=== PATIENT | female | born 1955 | race Caucasian/White ===

== ENCOUNTER → 2017-08-07 | Outpatient (CLI) | payer MEDICARE, OTHER ==
[2017-08-07 12:47] LABS: C Reactive Protein 7.7 mg/L (<10.0); Uric Acid 5.9 mg/dL (3.7-7.4)
[2017-08-07 17:31] LABS: Rheumatoid Factor <4 IU/mL (0-15); Streptolysin O Ab(ASO) 42 IU/mL (0-200)
[2017-08-07 20:30] LABS: Cyclic Citrullinated Pep IgG NEGATIVE (NEGATIVE)
[2017-08-08 10:54] LABS: HLA B27 NEGATIVE
== END | disposition home or self-care (01) ==
LOC: LABWHC1 11:48
PROVIDERS: ATTEND Family Medicine
DX: M25.50 Pain in unspecified joint (principal)
CPT/HCPCS: 36415; 84550; 85652; 86038; 86060; 86140; 86200; 86431; 86812

== ENCOUNTER 2021-01-24 10:44 | Inpatient (IN) | payer MEDICARE ==
--- NOTE | 2021-01-24 11:16 | XR ---
EXAMINATION TYPE: XR chest 2V DATE OF EXAM: 01/24/2021 COMPARISON: Chest x-ray May 03, 2010. CT October 22, 2010 HISTORY: Cough and shortness of breath. TECHNIQUE: Frontal and lateral views of the chest are obtained. FINDINGS: There are multifocal areas of increased opacity in the bilateral lungs. The cardiac silho uette size is stable and within normal limits. The osseous structures are intact. IMPRESSION: New bilateral multifocal increased opacities suspicious for covid-19 infection. Correlat e clinically.
[2021-01-24] MEDS ORDERED: DEXAMETHASONE SOD PHOSPHATE 10 MG/ML 1 ML VIAL IV STA (11:36)
[2021-01-24 11:52] LABS: Basophils % (A) 0 %; Eosinophils % (A) 1 %; HCT 46.3 % (34.0-46.0); HGB 15.1 gm/dL (11.4-16.0); Lymphocytes # (A) 0.5 k/uL (1.0-4.8); Lymphocytes % (A) 13 %; MCH 29.6 pg (25.0-35.0); MCHC 32.7 g/dL (31.0-37.0); MCV 90.7 fL (80.0-100.0); Mean Platelet Volume 8.7; Monocytes # (A) 0.2 k/uL (0-1.0); Monocytes % (A) 5 %; Neutrophils # (A) 2.8 k/uL (1.3-7.7); Neutrophils % (A) 81 %; Platelet Count 148 k/uL (150-450); RDW 13.4 % (11.5-15.5); WBC 3.5 k/uL (3.8-10.6)
[2021-01-24] MEDS ORDERED: NALOXONE 0.4 MG/ML 1 ML VIAL IV PRN (12:50)
--- NOTE | 2021-01-24 12:50 | ED ---
URI HPI - General Chief Complaint: Upper Respiratory Infection Stated Complaint: Cough,Weakness Time Seen by Provider: 01/24/21 10:50 Source: patient, RN notes reviewed Mode of arrival: ambulatory Limitations: no limitations - History of Present Illness Initial Comments: Patient is a 65-year-old female that presents to the emergency department complaining of upper respiratory tract symptoms with cough and phlegm production that is blood tinged/street for the past 2 weeks. She notes that the blood- tinged streaking started early this morning. She notes that she thought it might of been a bronchitis that she tried treating conservatively at home. She notes she came in today due to concerns of the blood in her sputum. She denied any history besides asthma. She was otherwise well-appearing. She noted that exertion made the shortness of breath worse. She denied any chest pain headache nausea vomiting diarrhea constipation fever fatigue chills. - Related Data Home Medications Medication Instructions Recorded Confirmed Levothyroxine Sodium [Synthroid] 75 mcg PO DAILY 01/24/21 01/24/21 Liothyronine Sodium [Cytomel] 5 mcg PO DAILY 01/24/21 01/24/21 Allergies Allergy/AdvReac Type Severity Reaction Status Date / Time codeine Allergy Hallucinati Verified 01/24/21 11:55 ons latex Allergy Unknown Verified 01/24/21 11:55 Penicillins Allergy Unknown Verified 01/24/21 11:56 Review of Systems ROS Statement: Those systems with pertinent positive or pertinent negative responses have been documented in the HPI. ROS Other: All systems not noted in ROS Statement are negative. Past Medical History Additional Past Medical History / Comment(s): back pain History of Any Multi-Drug Resistant Organisms: None Reported Past Surgical History: Hysterectomy, Orthopedic Surgery Additional Past Surgical History / Comment(s): carpal tunnel Past Psychological History: No Psychological Hx Reported Smoking Status: Never smoker Past Alcohol Use History: None Reported Past Drug Use History: None Reported General Exam Limitations: no limitations General appearance: alert, in no apparent distress, obese Head exam: Present: atraumatic, normocephalic, normal inspection Eye exam: Present: normal appearance, PERRL, EOMI. Absent: scleral icterus, conjunctival injection, periorbital swelling ENT exam: Present: normal exam, mucous membranes moist Neck exam: Present: normal inspection Respiratory exam: Present: normal lung sounds bilaterally. Absent: respiratory distress, wheezes, rales, rhonchi, stridor Cardiovascular Exam: Present: regular rate, normal rhythm, normal heart sounds. Absent: systolic murmur, diastolic murmur, rubs, gallop, clicks Extremities exam: Present: normal inspection, full ROM, normal capillary refill. Absent: tenderness, pedal edema, joint swelling, calf tenderness Neurological exam: Present: alert, oriented X3 Psychiatric exam: Present: normal affect, normal mood Skin exam: Present: warm, dry, intact, normal color. Absent: rash Course Vital Signs 01/24/21 10:46 Temperature 98.5 F Pulse Rate 96 Respiratory 18 Rate Blood Pressure 102/65 O2 Sat by Pulse 94 L Oximetry Medical Decision Making - Medical Decision Making 65-year-old female with a two-week history of upper respiratory tract symptoms. Covid test, basic labs, 10 mg of Decadron, chest x-ray ordered. Labs: Leukopenia with white blood cells and 3.5. Covid test positive. Chest x-ray shows bilateral infiltrates consistent with Covid 19 infection. Patient will be started on 2 L oxygen via nasal cannula due to room air saturation ranging from 89-93%. Case discussed with Dr. Arevalo, patient will be admitted. Dr. Rodriguez was consulted and will Be admitted. - Lab Data Result diagrams: 01/24/21 11:30 Lab Results 01/24/21 01/24/21 Range/Units 11:30 11:30 WBC 3.5 L (3.8-10.6) k/uL RBC 5.10 (3.80-5.40) m/uL Hgb 15.1 (11.4-16.0) gm/dL Hct 46.3 H (34.0-46.0) % MCV 90.7 (80.0-100.0) fL MCH 29.6 (25.0-35.0) pg MCHC 32.7 (31.0-37.0) g/dL RDW 13.4 (11.5-15.5) % Plt Count 148 L (150-450) k/uL MPV 8.7 Neutrophils % 81 % Lymphocytes % 13 % Monocytes % 5 % Eosinophils % 1 % Basophils % 0 % Neutrophils # 2.8 (1.3-7.7) k/uL Lymphocytes # 0.5 L (1.0-4.8) k/uL Monocytes # 0.2 (0-1.0) k/uL Eosinophils # 0.0 (0-0.7) k/uL Basophils # 0.0 (0-0.2) k/uL Coronavirus (PCR) Detected A (Not Detectd) - Radiology Data Radiology results: report reviewed, image reviewed Chest x-ray: New bilateral multifocal increased opacity suspicious for Covid 19 infection. Disposition Clinical Impression: COVID, Hypoxia Disposition: ADMITTED IP TO THIS HOSP Condition: Stable Is patient prescribed a controlled substance at d/c from ED?: No Referrals: Yaya Gonzalez MD [Primary Care Provider] - 1-2 days Time of Disposition: 12:50
[2021-01-24] MEDS ORDERED: IPRATROPIUM-ALBUTEROL 3 ML NEB INHALATION PRN (13:42)
--- NOTE | 2021-01-24 13:46 | P.HPIM ---
History of Present Illness H&P Date: 01/24/21 Chief Complaint: Hemoptysis 65-year-old woman with medical history of hypothyroidism and obesity class II, unvaccinated for Covid, presented for hemoptysis. Patient says her symptoms started approximately 1 week ago with fevers, chills and cough. Initially, she thought she had a common bronchitis, however, became concerned when she started to cough up blood in her sputum. Furthermore, she tells me that she's had fevers and chills in this last week as well as loss of appetite and nausea/vomiting/abdominal pain. She's had very minimal by mouth intake for the last week, consuming about half a cup of soup. Patient's daughter is an RN who advised her against vaccination as well as against remdesivir while in house. Patient recently lost her as well. Patient denies chest pain, syncope, diaphoresis, dysuria, dyschezia, melena, numbness of extremities. Patient is afebrile, 102/65, pulse is 96, 94% on 2 L nasal cannula. CBC shows low white blood cell count, low platelet count. Covid detected. Chest x-ray shows patchy consolidation bilaterally consistent with Covid pneumonia. Review of Systems All Systems reviewed and pertinent positives and negatives noted in HPI, all other symptoms are negative Past Medical History Additional Past Medical History / Comment(s): back pain History of Any Multi-Drug Resistant Organisms: None Reported Past Surgical History: Hysterectomy, Orthopedic Surgery Additional Past Surgical History / Comment(s): carpal tunnel Past Psychological History: No Psychological Hx Reported Smoking Status: Never smoker Past Alcohol Use History: None Reported Past Drug Use History: None Reported Medications and Allergies Home Medications Medication Instructions Recorded Confirmed Type Levothyroxine Sodium [Synthroid] 75 mcg PO DAILY 01/24/21 01/24/21 History Liothyronine Sodium [Cytomel] 5 mcg PO DAILY 01/24/21 01/24/21 History Allergies Allergy/AdvReac Type Severity Reaction Status Date / Time codeine Allergy Hallucinati Verified 01/24/21 11:55 ons latex Allergy Unknown Verified 01/24/21 11:55 Penicillins Allergy Unknown Verified 01/24/21 11:56 Physical Exam Osteopathic Statement: *. No significant issues noted on an osteopathic s tructural exam other than those noted in the History and Physical/Consult. Vitals: Vital Signs Temp Pulse Resp BP Pulse Ox 01/24/21 10:46 98.5 F 96 18 102/65 94 L Intake and Output 01/23/21 01/24/21 01/24/21 22:59 06:59 14:59 Other: Weight 117.934 kg Gen: awake, alert HEENT: normocephalic, atraumatic, good hearing acuity, moist mucous membranes Resp: Impaired air exchange, symmetric chest expansion, bilateral crackles CVS: good distal perfusion x 4, regular rate and rhythm without murmurs GI: soft, NTTP, ND : no SPT, no CVAT, white catheter not present MSK: no pitting edema, no clubbing Neuro: non-focal, moving all extremities Psych: cooperative, euthymic mood Results CBC & Chem 7: 01/24/21 11:30 Labs: Abnormal Lab Results - Last 24 Hours (Table) 01/24/21 01/24/21 Range/Units 11:30 11:30 WBC 3.5 L (3.8-10.6) k/uL Hct 46.3 H (34.0-46.0) % Plt Count 148 L (150-450) k/uL Lymphocytes # 0.5 L (1.0-4.8) k/uL Coronavirus (PCR) Detected A (Not Detectd) Assessment and Plan Assessment: Acute hypoxemic respiratory failure ARDS secondary to Covid 19 Hemoptysis -Admit inpatient, telemetry -Pulmonary consult -Patient declined Remdesivir (7-8 days from symptom onset, almost outside of window) -Dexamethasone 6 mg daily; LD SSI while on steroids -Vitamin C/D, zinc, famotidine -Daily inflammatory markers -DuoNeb when necessary -guaifenisen-codeine PRN for cough Hypothyroidism Obesity, class II, BMI 40.7 -resume home liothyronine and levothyroxine. -recommend weight loss outpatient Patient is a Full Code DVT PPx with enoxaparin 40mg SQ BID given weight Daughter is DPOA Prognosis is guarded
[2021-01-24] MEDS: SODIUM CHLORIDE 0.9% 1,000 ML IV SCH ×2 (13:57→20:42)
[2021-01-24 15:14] LABS: ALT 30 U/L (4-34); AST 64 U/L (14-36); African American GFR (CKD) 90 (>60 ml/min/1.73 sqM); Albumin 3.7 g/dL (3.5-5.0); Albumin/Globulin Ratio 1.2; Alkaline Phosphatase 141 U/L (38-126); Anion Gap 8 mmol/L; Bilirubin,Unconjugated 0.2 mg/dL (0.0-1.1); Blood Urea Nitrogen 20 mg/dL (7-17); C Reactive Protein 5.7 mg/dL (<1.0); Calcium 8.6 mg/dL (8.4-10.2); Carbon Dioxide 23 mmol/L (22-30); Chloride 105 mmol/L (98-107); Glucose 119 mg/dL (74-99); LDH 1147 U/L (313-618); Magnesium 2.2 mg/dL (1.6-2.3); Non-African American GFR(CKD) 78 (>60 ml/min/1.73 sqM); Sodium 136 mmol/L (137-145); Total Protein 6.7 g/dL (6.3-8.2)
[2021-01-24] MEDS: ALBUTEROL HFA INHALER INHALATION PRN ×2 (16:57→18:54)
[2021-01-24] MEDS: ENOXAPARIN 40 MG/0.4 ML SYRINGE SQ SCH (20:27)
[2021-01-24] MEDS: FAMOTIDINE 20 MG TAB PO SCH (20:27)
[2021-01-24] MEDS: ACETAMINOPHEN TAB 325 MG TAB PO PRN (20:42)
[2021-01-24] MEDS: guaiFENesin-Coden 100-10MG/5ML 10 ML CUP PO PRN (20:42)
[2021-01-25] MEDS: ACETAMINOPHEN TAB 325 MG TAB PO PRN ×2 (05:37→21:43)
[2021-01-25] MEDS ORDERED: LEVOTHYROXINE 75 MCG TAB PO SCH (06:00)
[2021-01-25] MEDS: SODIUM CHLORIDE 0.9% 1,000 ML IV SCH ×4 (06:01→21:44)
[2021-01-25] MEDS: CHOLECALCIFEROL 25 MCG (1000 IU) TABLET PO SCH (07:02)
[2021-01-25] MEDS: LIOTHYRONINE SODIUM 5 MCG TAB PO SCH (07:02)
[2021-01-25] MEDS: DEXAMETHASONE SOD PHOSPHATE 10 MG/ML 1 ML VIAL IV SCH (07:03)
[2021-01-25] MEDS: ENOXAPARIN 40 MG/0.4 ML SYRINGE SQ SCH ×2 (07:04→21:43)
[2021-01-25] MEDS: FAMOTIDINE 20 MG TAB PO SCH ×2 (07:04→21:43)
[2021-01-25 07:39] LABS: ALT 42 U/L (4-34); AST 62 U/L (14-36); African American GFR (CKD) >90 (>60 ml/min/1.73 sqM); Albumin 3.3 g/dL (3.5-5.0); Albumin/Globulin Ratio 1.2; Alkaline Phosphatase 162 U/L (38-126); Blood Urea Nitrogen 15 mg/dL (7-17); C Reactive Protein 6.6 mg/dL (<1.0); Calcium 8.7 mg/dL (8.4-10.2); Carbon Dioxide 25 mmol/L (22-30); Globulin 2.8 g/dL; Glucose 138 mg/dL (74-99); LDH 901 U/L (313-618); Magnesium 2.3 mg/dL (1.6-2.3); Non-African American GFR(CKD) >90 (>60 ml/min/1.73 sqM); Total Bilirubin 0.7 mg/dL (0.2-1.3); Total Protein 6.1 g/dL (6.3-8.2)
[2021-01-25 08:04] LABS: Anion Gap 6 mmol/L; Chloride 108 mmol/L (98-107); Potassium 4.5 mmol/L (3.5-5.1); Sodium 139 mmol/L (137-145)
[2021-01-25] MEDS: ALBUTEROL HFA INHALER INHALATION PRN ×4 (08:13→21:49)
[2021-01-25 09:57] LABS: Basophils # (A) 0 X 10*3/uL (0.00-0.10); Basophils % (A) 0 %; Eosinophils # (A) 0 X 10*3/uL (0.04-0.35); Eosinophils % (A) 0 %; HCT 44.3 % (37.2-46.3); HGB 14.1 g/dL (12.0-15.0); Lymphocytes # (A) 0.66 X 10*3/uL (0.90-5.00); MCH 28.3 pg (27.0-32.0); MCHC 31.8 g/dL (32.0-37.0); Mean Platelet Volume 11.3 fL (9.5-12.2); Monocytes # (A) 0.28 X 10*3/uL (0.20-1.00); Monocytes % (A) 6.3 %; Neutrophils # (A) 3.43 X 10*3/uL (1.80-7.70); Neutrophils % (A) 77.8 %; Platelet Count 159 X 10*3/uL (140-440); RBC 4.98 X 10*6/uL (4.10-5.20); RDW 13.5 % (11.5-14.5); WBC 4.41 X 10*3/uL (4.50-10.00)
--- NOTE | 2021-01-25 12:51 | P.CNPUL ---
History of Present Illness Consult date: 01/25/21 Requesting physician: Hugo Higuera Reason for consult: dyspnea, hypoxemia, pneumonia, abnormal CXR/CT Chief complaint: COVID-19 pneumonia History of present illness: 65-year-old white female patient with past medical history hypothyroidism, patient is a nonsmoker, who presented to the emergency department on 01/24/2021 with complaints of cough, phlegm production, decreased appetite. She stated that her symptoms started on January 16. Both her and the patient has been diagnosed with COVID-19, her is also hospitalized currently with COVID-19 pneumonia. She reports some hemoptysis. Her dyspnea is worsening at home. She is not vaccinated for COVID-19 because she believed that [place] and were [place] that they were not at risk. However recently they both traveled in a car across the country and brought their son home from [place]. She didn't developed above-mentioned symptoms, and she thought it was a upper respiratory infection, possibly bronchitis, she came into the emergency department for evaluation of blood-tinged sputum. She denied any history of chronic lung disease, no asthma COPD, she is a nonsmoker. No nausea vomiting or diarrhea. She tested positive for COVID-19, she was started on Decadron in the emergency department, with initial dose of 10 mg. Her chest x- ray showed bilateral infiltrates consistent with COVID-19 infection, her COVID test was positive. Her pulse ox is ranging from 89-93 on 2 L of oxygen. She had positive leukopenia on her admission labs, with white blood cell count of 3.5, hemoglobin of 15.1, platelet count is 148, lymphocytes, 0.5, sodium is 136, the rest of the electrolytes were within normal limits, B1 is 20, creatinine 0.8, AST was 64, ALT was 30, alkaline phosphatase was 141, LDH was elevated at 1147, CRP is 5.7, pro calcitonin level was negative at 0.08. Patient was offere d Remdesivir in the emergency department although she was outside the window for treatment. She has declined Remdesivir per her daughter's recommendations who is a RN. Patient remains on daily dose Decadron 6 mg, prophylactic Lovenox, she is on cough syrup, and albuterol inhaler, she was started on vitamin D3. Review of Systems All systems: negative Constitutional: Denies chills, Denies fever Eyes: denies blurred vision, denies pain Ears, nose, mouth and throat: Denies headache, Denies sore throat Cardiovascular: Denies chest pain, Denies shortness of breath Respiratory: Reports dyspnea, Reports hemoptysis, Denies cough Gastrointestinal: Denies abdominal pain, Denies diarrhea, Denies nausea, Denies vomiting Genitourinary: Denies dysuria, Denies hematuria Musculoskeletal: Denies myalgias Integumentary: Denies pruritus, Denies rash Neurological: Denies numbness, Denies weakness Psychiatric: Denies anxiety, Denies depression Endocrine: Denies fatigue, Denies weight change Past Medical History Past Medical History: Thyroid Disorder Additional Past Medical History / Comment(s): back pain, hormone replacement therapy History of Any Multi-Drug Resistant Organisms: None Reported Past Surgical History: Hysterectomy, Orthopedic Surgery Additional Past Surgical History / Comment(s): carpal tunnel Past Psychological History: No Psychological Hx Reported Smoking Status: Never smoker Past Alcohol Use History: None Reported Past Drug Use History: None Reported - Past Family History Father Family Medical History: Diabetes Mellitus Medications and Allergies Home Medications Medication Instructions Recorded Confirmed Type Levothyroxine Sodium [Synthroid] 75 mcg PO DAILY 01/24/21 01/24/21 History Liothyronine Sodium [Cytomel] 5 mcg PO DAILY 01/24/21 01/24/21 History Allergies Allergy/AdvReac Type Severity Reaction Status Date / Time codeine Allergy Hallucinati Verified 01/24/21 11:55 ons latex Allergy Unknown Verified 01/24/21 11:55 Penicillins Allergy Unknown Verified 01/24/21 11:56 Physical Exam Vitals: Vital Signs Temp Pulse Resp BP Pulse Ox 01/25/21 10:37 98.2 F 72 18 121/78 94 L 01/25/21 07:00 17 01/25/21 05:37 97.7 F 69 17 138/71 95 01/25/21 02:25 97.5 F L 64 18 133/81 95 01/24/21 21:46 98.2 F 76 18 109/67 96 01/24/21 17:56 99.2 F 83 18 110/66 95 01/24/21 16:55 95 01/24/21 15:13 100.1 F H 80 18 108/69 95 Intake and Output 01/24/21 01/25/21 01/25/21 22:59 06:59 14:59 Other: # Voids 1 2 GENERAL EXAM: Alert, pleasant, 65-year-old white female, on 2 L of oxygen with pulse ox of 94% comfortable in no apparent distress. HEAD: Normocephalic/atraumatic. EYES: Normal reaction of pupils, equal size. Conjunctiva pink, sclera white. NOSE: Clear with pink turbinates. THROAT: No erythema or exudates. NECK: No masses, no JVD, no thyroid enlargement, no adenopathy. CHEST: No chest wall deformity. Symmetrical expansion. LUNGS: Equal air entry with bibasilar crackles CVS: Regular rate and rhythm, normal S1 and S2, no gallops, no murmurs, no rubs ABDOMEN: Soft, nontender. No hepatosplenomegaly, normal bowel sounds, no guarding or rigidity. EXTREMITIES: No clubbing, no edema, no cyanosis, 2+ pulses and upper and lower extremities. MUSCULOSKELETAL: Muscle strength and tone normal. SPINE: No scoliosis or deformity SKIN: No rashes CENTRAL NERVOUS SYSTEM: Alert and oriented -3. No focal deficits, tone is normal in all 4 extremities. PSYCHIATRIC: Alert and oriented -3. Appropriate affect. Intact judgment and insight. Results - Laboratory Findings CBC and BMP: 01/25/21 06:22 01/25/21 06:22 Abnormal lab findings: Abnormal Labs 01/24/21 01/24/21 01/24/21 11:30 11:30 14:52 WBC 3.5 L Hct 46.3 H MCHC Plt Count 148 L Lymphocytes # 0.5 L Eosinophils # Sodium 136 L Chloride BUN 20 H Glucose 119 H AST 64 H ALT Alkaline Phosphatase 141 H Lactate Dehydrogenase 1147 H C-Reactive Protein 5.7 H Total Protein Albumin Coronavirus (PCR) Detected A 01/25/21 01/25/21 06:22 06:22 WBC 4.41 L Hct MCHC 31.8 L Plt Count Lymphocytes # 0.66 L Eosinophils # 0 L Sodium Chloride 108 H BUN Glucose 138 H AST 62 H ALT 42 H Alkaline Phosphatase 162 H Lactate Dehydrogenase 901 H C-Reactive Protein 6.6 H Total Protein 6.1 L Albumin 3.3 L Coronavirus (PCR) - Diagnostic Findings Chest x-ray: report reviewed, image reviewed Assessment and Plan Plan: Assessment: #1. Acute hypoxic respiratory failure related to acute COVID-19 pneumonia, and her symptoms started on January 16. Patient is not vaccinated for COVID-19. Patient declined Remdesivir treatment although she is outside the window for Remdesivir anyway, and she is currently on a combination of Decadron 6 mg daily, prophylactic Lovenox, albuterol inhaler, and vitamins #2. History of hypothyroidism #3. Morbid obesity with BMI 40.7 kg/m #4. Chronic back pain #5. Previous history of hysterectomy #6. Never smoker Plan: Continue current medical treatment Continue Decadron prophylactic Lovenox Albuterol inhaler Patient has refused Remdesivir although technically she is outside the window anyway We'll continue conservative medical treatment Continue multivitamins, we will add zinc and vitamin C We'll follow d-dimer and inflammatory markers We'll follow patient's clinical course and make further recommendations I performed a history & physical examination of the patient and discussed their management with my nurse practitioner, Susie Joaquin. I reviewed the nurse practitioner's note and agree with the documented findings and plan of care. Lung sounds are positive for diminished breath sounds throughout the lung driscoll. The findings and the impression was discussed with the patient. I attest to the documentation by the nurse practitioner. Time with Patient: Greater than 30
[2021-01-25] MEDS: ZINC SULFATE 220 MG CAP PO SCH (13:06)
[2021-01-25] MEDS: ASCORBIC ACID 500 MG TAB PO SCH ×2 (13:06→22:26)
--- NOTE | 2021-01-25 13:22 | P.PN ---
Subjective Progress Note Date: 01/25/21 Patient has no new complaints today. Has been afebrile, no further hemoptysis, continues to require 2 L of nasal cannula. Objective - Vital Signs Vital signs: Vital Signs Temp 98.2 F 01/25/21 10:37 Pulse 72 01/25/21 10:37 Resp 18 01/25/21 10:37 BP 121/78 01/25/21 10:37 Pulse Ox 94 L 01/25/21 10:37 Intake & Output 01/24/21 01/25/21 01/25/21 18:59 06:59 18:59 Weight 117.934 kg Other: # Voids 1 2 - Exam Gen: awake, alert HEENT: normocephalic, atraumatic, good hearing acuity, moist mucous membranes Resp: Impaired air exchange, symmetric chest expansion, bilateral crackles CVS: good distal perfusion x 4, regular rate and rhythm without murmurs GI: soft, NTTP, ND : no SPT, no CVAT, white catheter not present MSK: no pitting edema, no clubbing Neuro: non-focal, moving all extremities Psych: cooperative, euthymic mood - Labs CBC & Chem 7: 01/25/21 06:22 01/25/21 06:22 Labs: Abnormal Lab Results - Last 24 Hours (Table) 01/24/21 01/25/21 01/25/21 Range/Units 14:52 06:22 06:22 WBC 4.41 L (4.50-10.00) X 10*3/uL MCHC 31.8 L (32.0-37.0) g/dL Lymphocytes # 0.66 L (0.90-5.00) X 10*3/uL Eosinophils # 0 L (0.04-0.35) X 10*3/uL Sodium 136 L (137-145) mmol/L Chloride 108 H (98-107) mmol/L BUN 20 H (7-17) mg/dL Glucose 119 H 138 H (74-99) mg/dL AST 64 H 62 H (14-36) U/L ALT 42 H (4-34) U/L Alkaline Phosphatase 141 H 162 H (38-126) U/L Lactate Dehydrogenase 1147 H 901 H (313-618) U/L C-Reactive Protein 5.7 H 6.6 H (<1.0) mg/dL Total Protein 6.1 L (6.3-8.2) g/dL Albumin 3.3 L (3.5-5.0) g/dL Assessment and Plan Assessment: Acute hypoxemic respiratory failure ARDS secondary to Covid 19 Hemoptysis -Admit inpatient, telemetry -Pulmonary consult -Patient declined Remdesivir and now outside window -Dexamethasone 6 mg daily; LD SSI while on steroids -Vitamin C/D, zinc, famotidine -Daily inflammatory markers -DuoNeb when necessary -guaifenisen-codeine PRN for cough Hypothyroidism Obesity, class II, BMI 40.7 -resume home liothyronine and levothyroxine. -recommend weight loss outpatient Patient is a Full Code DVT PPx with enoxaparin 40mg SQ BID given weight Daughter is DPOA Prognosis is guarded
[2021-01-25] MEDS: guaiFENesin-Coden 100-10MG/5ML 10 ML CUP PO PRN (21:43)
[2021-01-26] MEDS: LEVOTHYROXINE 50 MCG TAB PO SCH (06:19)
[2021-01-26] MEDS: LIOTHYRONINE SODIUM 5 MCG TAB PO SCH (06:19)
[2021-01-26] MEDS ORDERED: ONDANSETRON 4 MG/2 ML VIAL IVP PRN (07:14)
[2021-01-26] MEDS: DEXAMETHASONE SOD PHOSPHATE 10 MG/ML 1 ML VIAL IV SCH (07:27)
[2021-01-26] MEDS: FAMOTIDINE 20 MG TAB PO SCH ×2 (07:28→22:00)
[2021-01-26] MEDS: ZINC SULFATE 220 MG CAP PO SCH (07:28)
[2021-01-26] MEDS: CHOLECALCIFEROL 25 MCG (1000 IU) TABLET PO SCH (07:28)
[2021-01-26] MEDS: ASCORBIC ACID 500 MG TAB PO SCH ×2 (07:28→22:00)
[2021-01-26] MEDS: ENOXAPARIN 40 MG/0.4 ML SYRINGE SQ SCH ×2 (07:35→22:00)
[2021-01-26 08:52] LABS: C Reactive Protein 5.6 mg/dL (<1.0)
[2021-01-26] MEDS: ACETAMINOPHEN TAB 325 MG TAB PO PRN ×2 (10:19→22:17)
[2021-01-26] MEDS: SODIUM CHLORIDE 0.9% 1,000 ML IV SCH ×2 (10:20→22:10)
[2021-01-26] MEDS ORDERED: MORPHINE SULFATE 2 MG/ML SYRINGE IVP STA (10:50)
[2021-01-26] MEDS: ALBUTEROL HFA INHALER INHALATION PRN ×3 (12:26→22:15)
--- NOTE | 2021-01-26 13:21 | P.PN ---
Subjective Progress Note Date: 01/26/21 Principal diagnosis: COVID-19 pneumonia 65-year-old white female patient with past medical history hypothyroidism, patient is a nonsmoker, who presented to the emergency department on 01/24/2021 with complaints of cough, phlegm production, decreased appetite. She stated that her symptoms started on January 16. Both her and the patient has been diagnosed with COVID-19, her is also hospitalized currently with COVID-19 pneumonia. She reports some hemoptysis. Her dyspnea is worsening at home. She is not vaccinated for COVID-19 because she believed that [place] and were [place] that they were not at risk. However recently they both traveled in a car across the country and brought their son home from [place]. She didn't developed above-mentioned symptoms, and she thought it was a upper respiratory infection, possibly bronchitis, she came into the emergency department for evaluation of blood-tinged sputum. She denied any history of chronic lung disease, no asthma COPD, she is a nonsmoker. No nausea vomiting or diarrhea. She tested positive for COVID-19, she was started on Decadron in the emergency department, with initial dose of 10 mg. Her chest x- ray showed bilateral infiltrates consistent with COVID-19 infection, her COVID test was positive. Her pulse ox is ranging from 89-93 on 2 L of oxygen. She had positive leukopenia on her admission labs, with white blood cell count of 3.5, hemoglobin of 15.1, platelet count is 148, lymphocytes, 0.5, sodium is 136, the rest of the electrolytes were within normal limits, B1 is 20, creatinine 0.8, AST was 64, ALT was 30, alkaline phosphatase was 141, LDH was elevated at 1147, CRP is 5.7, pro calcitonin level was negative at 0.08. Patient was offered Remdesivir in the emergency department although she was outside the window for treatment. She has declined Remdesivir per her daughter's recommendations who is a RN. Patient remains on daily dose Decadron 6 mg, prophylactic Lovenox, she is on cough syrup, and albuterol inhaler, she was started on vitamin D3. On 01/26/2021 patient seen in follow-up on medical surgical floor, she remains on 2 L of oxygen her pulse ox is 89-90%, she did have a low-grade fevers in the last 24 hours, with a T-max of 100.5F. Appears very fatigued. But no acute respiratory distress. Today's labs show d-dimer of 1.82, LDH of 1541, and CRP of 5.6. Pro-calcitonin level was negative at 0.08. Patient remains on IV Decad terrie 6 mg daily, cough syrup, she is on IV hydration with 0.9 normal sinus rate of 1:30 ML per hour, she is on Lovenox 40 mg twice daily, and COVID-19 vitamins. She has a dry hacking cough, no chest discomfort. She does complain of nausea, she is receiving Zofran. No abdominal discomfort. Objective - Vital Signs Vital signs: Vital Signs Temp 100.5 F H 01/26/21 09:35 Pulse 91 01/26/21 09:35 Resp 17 01/26/21 09:35 BP 130/76 01/26/21 09:35 Pulse Ox 89 L 01/26/21 09:36 Intake & Output 01/25/21 01/26/21 01/26/21 18:59 06:59 18:59 Intake Total 240 Balance 240 Intake: Oral 240 Other: # Voids 3 2 # Bowel Movements 0 - Exam GENERAL EXAM: Alert, pleasant, 65-year-old white female, on 2 L of oxygen with pulse ox of 94% comfortable in no apparent distress. HEAD: Normocephalic/atraumatic. EYES: Normal reaction of pupils, equal size. Conjunctiva pink, sclera white. NOSE: Clear with pink turbinates. THROAT: No erythema or exudates. NECK: No masses, no JVD, no thyroid enlargement, no adenopathy. CHEST: No chest wall deformity. Symmetrical expansion. LUNGS: Equal air entry with bibasilar crackles CVS: Regular rate and rhythm, normal S1 and S2, no gallops, no murmurs, no rubs ABDOMEN: Soft, nontender. No hepatosplenomegaly, normal bowel sounds, no guarding or rigidity. EXTREMITIES: No clubbing, no edema, no cyanosis, 2+ pulses and upper and lower extremities. MUSCULOSKELETAL: Muscle strength and tone normal. SPINE: No scoliosis or deformity SKIN: No rashes CENTRAL NERVOUS SYSTEM: Alert and oriented -3. No focal deficits, tone is normal in all 4 extremities. PSYCHIATRIC: Alert and oriented -3. Appropriate affect. Intact judgment and insight. - Labs CBC & Chem 7: 01/25/21 06:22 01/25/21 06:22 Labs: Abnormal Lab Results - Last 24 Hours (Table) 01/24/21 01/26/21 01/26/21 Range/Units 14:52 05:43 05:43 D-Dimer 1.82 H (<0.60) mg/L FEU Ferritin 2405.0 H (10.0-291.0) ng/mL Lactate Dehydrogenase 1541 H (313-618) U/L C-Reactive Protein 5.6 H (<1.0) mg/dL Assessment and Plan Plan: Assessment: #1. Acute hypoxic respiratory failure related to acute COVID-19 pneumonia, and her symptoms started on January 16. Patient is not vaccinated for COVID-19. Patient declined Remdesivir treatment although she is outside the window for Remdesivir anyway, and she is currently on a combination of Decadron 6 mg daily, prophylactic Lovenox, albuterol inhaler, and vitamins #2. History of hypothyroidism #3. Morbid obesity with BMI 40.7 kg/m #4. Chronic back pain #5. Previous history of hysterectomy #6. Never smoker Plan: Continue current medical treatment Continue Decadron, continue Lovenox, today's d-dimer has been noted Albuterol inhaler Continue multivitamins, we will add zinc and vitamin C Follow-up chest x-ray in the morning We'll follow d-dimer and inflammatory markers We'll follow patient's clinical course and make further recommendations I performed a history & physical examination of the patient and discussed their management with my nurse practitioner, Susie Joaquin. I reviewed the nurse practitioner's note and agree with the documented findings and plan of care. Lung sounds are positive for diminished breath sounds throughout the lung driscoll. The findings and the impression was discussed with the patient. I attest to the documentation by the nurse practitioner. Time with Patient: Less than 30
--- NOTE | 2021-01-26 15:05 | P.PN ---
Subjective Progress Note Date: 01/26/21 Patient's nutrition is subpar. In addition, she now has nausea, vomiting. No change in oxygenation status. Patient is still generally weak and tired. Also has a headache, worse on the right than the left. Objective - Vital Signs Vital signs: Vital Signs Temp 97.9 F 01/26/21 14:05 Pulse 79 01/26/21 14:05 Resp 18 01/26/21 14:05 BP 123/71 01/26/21 14:05 Pulse Ox 93 L 01/26/21 14:05 Intake & Output 01/25/21 01/26/21 01/26/21 18:59 06:59 18:59 Intake Total 240 Balance 240 Intake: Oral 240 Other: # Voids 3 2 # Bowel Movements 0 - Exam Gen: awake, alert HEENT: normocephalic, atraumatic, good hearing acuity, moist mucous membranes Resp: Impaired air exchange, symmetric chest expansion, bilateral crackles CVS: good distal perfusion x 4, regular rate and rhythm without murmurs GI: soft, NTTP, ND : no SPT, no CVAT, white catheter not present MSK: no pitting edema, no clubbing Neuro: non-focal, moving all extremities Psych: cooperative, euthymic mood - Labs CBC & Chem 7: 01/25/21 06:22 01/25/21 06:22 Labs: Abnormal Lab Results - Last 24 Hours (Table) 01/24/21 01/26/21 01/26/21 Range/Units 14:52 05:43 05:43 D-Dimer 1.82 H (<0.60) mg/L FEU Ferritin 2405.0 H (10.0-291.0) ng/mL Lactate Dehydrogenase 1541 H (313-618) U/L C-Reactive Protein 5.6 H (<1.0) mg/dL Assessment and Plan Assessment: Acute hypoxemic respiratory failure ARDS secondary to Covid 19 Hemoptysis -Admit inpatient, telemetry -Pulmonary consult -Patient declined Remdesivir and now outside window -Dexamethasone 6 mg daily; LD SSI while on steroids -Vitamin C/D, zinc, famotidine -Daily inflammatory markers -DuoNeb when necessary -guaifenisen-codeine PRN for cough Hypothyroidism Obesity, class II, BMI 40.7 -resume home liothyronine and levothyroxine. -recommend weight loss outpatient Patient is a Full Code DVT PPx with enoxaparin 40mg SQ BID given weight Daughter is DPOA Prognosis is guarded
[2021-01-27] MEDS: SODIUM CHLORIDE 0.9% 1,000 ML IV SCH ×3 (06:20→18:40)
[2021-01-27] MEDS: LIOTHYRONINE SODIUM 5 MCG TAB PO SCH (06:21)
[2021-01-27] MEDS: LEVOTHYROXINE 50 MCG TAB PO SCH (06:21)
[2021-01-27 08:54] LABS: ALT 92 U/L (4-34); AST 103 U/L (14-36); African American GFR (CKD) >90 (>60 ml/min/1.73 sqM); Albumin 3.1 g/dL (3.5-5.0); Alkaline Phosphatase 159 U/L (38-126); Anion Gap 9 mmol/L; Blood Urea Nitrogen 14 mg/dL (7-17); Calcium 8.3 mg/dL (8.4-10.2); Carbon Dioxide 25 mmol/L (22-30); Chloride 107 mmol/L (98-107); Glucose 100 mg/dL (74-99); LDH 1591 U/L (313-618); Magnesium 2.1 mg/dL (1.6-2.3); Non-African American GFR(CKD) >90 (>60 ml/min/1.73 sqM); Potassium 4.2 mmol/L (3.5-5.1); Sodium 141 mmol/L (137-145); Total Bilirubin 0.9 mg/dL (0.2-1.3); Total Protein 6.1 g/dL (6.3-8.2)
[2021-01-27] MEDS: FAMOTIDINE 20 MG TAB PO SCH ×2 (08:55→20:51)
[2021-01-27] MEDS: ZINC SULFATE 220 MG CAP PO SCH (08:55)
[2021-01-27] MEDS: ASCORBIC ACID 500 MG TAB PO SCH ×2 (08:55→20:51)
[2021-01-27] MEDS: CHOLECALCIFEROL 25 MCG (1000 IU) TABLET PO SCH (08:55)
[2021-01-27] MEDS: ACETAMINOPHEN TAB 325 MG TAB PO PRN (08:56)
[2021-01-27] MEDS: DEXAMETHASONE SOD PHOSPHATE 10 MG/ML 1 ML VIAL IV SCH ×2 (08:56→20:50)
[2021-01-27 08:58] LABS: Basophils # (A) 0.1 k/uL (0-0.2); Basophils % (A) 1 %; Eosinophils % (A) 0 %; HCT 45.8 % (34.0-46.0); HGB 14.5 gm/dL (11.4-16.0); Hypochromasia Slight; Lymphocytes # (A) 0.6 k/uL (1.0-4.8); Lymphocytes % (A) 7 %; MCH 30.6 pg (25.0-35.0); MCHC 31.7 g/dL (31.0-37.0); Mean Platelet Volume 9.1; Monocytes # (A) 0.2 k/uL (0-1.0); Monocytes % (A) 3 %; Neutrophils # (A) 7.9 k/uL (1.3-7.7); Neutrophils % (A) 89 %; Platelet Count 177 k/uL (150-450); RBC 4.74 m/uL (3.80-5.40); RDW 13.6 % (11.5-15.5); WBC 8.9 k/uL (3.8-10.6)
[2021-01-27] MEDS: ENOXAPARIN 40 MG/0.4 ML SYRINGE SQ SCH (08:58)
[2021-01-27 09:02] LABS: MCV 96.4 fL (80.0-100.0)
[2021-01-27] MEDS: ALBUTEROL HFA INHALER INHALATION PRN ×4 (09:10→20:51)
[2021-01-27] MEDS ORDERED: APIXABAN 5 MG TAB PO SCH (11:00)
--- NOTE | 2021-01-27 11:47 | XR ---
EXAMINATION TYPE: XR chest 1V portable DATE OF EXAM: 01/27/2021 COMPARISON: Chest x-ray 01/24/2021 HISTORY: Pneumonia follow-up TECHNIQUE: Single frontal view of the chest is obtained. FINDINGS: Peripheral airspace disease is present bilaterally similar to prior exam, possibly more co nfluent. No evident pneumothorax or pleural effusion. Cardiac mediastinal swelling is stable. IMPRESSION: Findings consistent with patient's history of pneumonia
[2021-01-27] MEDS: BARICITINIB 2 MG TABLET PO SCH (12:24)
--- NOTE | 2021-01-27 13:20 | P.PN ---
Subjective Progress Note Date: 01/27/21 65-year-old white female patient with past medical history hypothyroidism, patient is a nonsmoker, who presented to the emergency department on 01/24/2021 with complaints of cough, phlegm production, decreased appetite. She stated that her symptoms started on January 16. Both her and the patient has been diagnosed with COVID-19, her is also hospitalized currently with COVID-19 pneumonia. She reports some hemoptysis. Her dyspnea is worsening at home. She is not vaccinated for COVID-19 because she believed that because [place] and were [place] that they were not at risk. However recently they both traveled in a car across the country and brought their son home from [place]. She didn't developed above-mentioned symptoms, and she thought it was a upper respiratory infection, possibly bronchitis, she came into the emergency department for evaluation of blood-tinged sputum. She denied any history of chronic lung disease, no asthma COPD, she is a nonsmoker. No nausea vomiting or diarrhea. She tested positive for COVID-19, she was started on Decadron in the emergency department, with initial dose of 10 mg. Her chest x- ray showed bilateral infiltrates consistent with COVID-19 infection, her COVID test was positive. Her pulse ox is ranging from 89-93 on 2 L of oxygen. She had positive leukopenia on her admission labs, with white blood cell count of 3.5, hemoglobin of 15.1, platelet count is 148, lymphocytes, 0.5, sodium is 136, the rest of the electrolytes were within normal limits, B1 is 20, creatinine 0.8, AST was 64, ALT was 30, alkaline phosphatase was 141, LDH was elevated at 1147, CRP is 5.7, pro calcitonin level was negative at 0.08. Patient was offered Remdesivir in the emergency department although she was outside the window for treatment. She has declined Remdesivir per her daughter's recommendations who is a RN. Patient remains on daily dose Decadron 6 mg, prophylactic Lovenox, she is on cough syrup, and albuterol inhaler, she was started on vitamin D3. On 01/26/2021 patient seen in follow-up on medical surgical floor, she remains on 2 L of oxygen her pulse ox is 89-90%, she did have a low-grade fevers in the last 24 hours, with a T-max of 100.5F. Appears very fatigued. But no acute respiratory distress. Today's labs show d-dimer of 1.82, LDH of 1541, and CRP of 5.6. Pro-calcitonin level was negative at 0.08. Patient remains on IV Decadron 6 mg daily, cough syrup, she is on IV hydration with 0.9 normal sinus rate of 1:30 ML per hour, she is on Lovenox 40 mg twice daily, and COVID-19 vitamins. She has a dry hacking cough, no chest discomfort. She does complain of nausea, she is receiving Zofran. No abdominal discomfort. The patient is seen today 01/27/2021 follow-up on the regular medical floor. She is currently resting in bed. She was becoming more short of breath. More dyspneic on minimal exertion. More hypoxemic. 2 saturations in the 80s on 5 L high flow nasal cannula. Temperature 99.8. Blood pressure stable. She has been refusing her Lovenox. Declined Remdesivir. She remains on Decadron, vitamin supplements. White count 8.9. Hemoglobin 14.5. Platelet count was 77. Lymphocytes 0.6. D-dimer 6.60. Sodium 141. Potassium 4.2. Creatinine 0.58. Glucose 100. AST 103. ALT 92. LDH 1591. C-reactive protein 16.0. Chest x- ray continues to show bilateral patchy infiltrates. Objective - Vital Signs Vital signs: Vital Signs Temp 99.8 F H 01/27/21 09:55 Pulse 92 01/27/21 09:55 Resp 16 01/27/21 09:55 BP 131/79 01/27/21 09:55 Pulse Ox 91 L 01/27/21 12:17 Intake & Output 01/26/21 01/27/21 01/27/21 18:59 06:59 18:59 Output Total 2 Balance -2 Output: Urine 2 Other: # Voids 1 - Exam GENERAL EXAM: Alert, 65-year-old female patient, weak, in mild respiratory distress on 5 L nasal cannula. HEAD: Normocephalic. EYES: Normal reaction of pupils, equal size. NOSE: Clear with pink turbinates. THROAT: No erythema or exudates. NECK: No masses, no JVD. CHEST: No chest wall deformity. LUNGS: Equal air entry with crackles in the bilateral posterior bases CVS: S1 and S2 normal with no audible murmur, regular rhythm. ABDOMEN: No hepatosplenomegaly, normal bowel sounds, no guarding or rigidity. SPINE: No scoliosis or deformity SKIN: No rashes CENTRAL NERVOUS SYSTEM: No focal deficits, tone is normal in all 4 extremities. EXTREMITIES: There is no peripheral edema. No clubbing, no cyanosis. Peripheral pulses are intact. - Labs CBC & Chem 7: 01/27/21 07:24 01/27/21 07:24 Labs: Abnormal Lab Results - Last 24 Hours (Table) 01/27/21 01/27/21 01/27/21 Range/Units 07:24 07:24 07:24 Neutrophils # 7.9 H (1.3-7.7) k/uL Lymphocytes # 0.6 L (1.0-4.8) k/uL D-Dimer 6.60 H (<0.60) mg/L FEU Glucose 100 H (74-99) mg/dL Calcium 8.3 L (8.4-10.2) mg/dL AST 103 H (14-36) U/L ALT 92 H (4-34) U/L Alkaline Phosphatase 159 H (38-126) U/L Lactate Dehydrogenase 1591 H (313-618) U/L C-Reactive Protein 16.0 H (<1.0) mg/dL Total Protein 6.1 L (6.3-8.2) g/dL Albumin 3.1 L (3.5-5.0) g/dL Assessment and Plan Assessment: 1 Acute hypoxic respiratory failure related to acute COVID-19 pneumonia, and her symptoms started on January 16. Patient is not vaccinated for COVID-19. Patient declined Remdesivir treatment although she is outside the window for Remdesivir anyway, and she is currently on a combination of Decadron 6 mg daily, albuterol inhaler, and vitamins. She has been refusing her Lovenox. She is now hypoxemic on 5 L nasal cannula and being placed on AirVo high flow oxygen at 40 L and 75% FiO2 to maintain O2 saturation in the low 90s. 2 Elevated inflammatory markers, elevated d-dimer 3 History of hypothyroidism 4 Morbid obesity with BMI 40.7 kg/m 5 Chronic back pain 6 Previous history of hysterectomy 7 Never smoker Plan: The patient was seen and evaluated by Dr. Newberry Chest x-ray and labs reviewed Start the patient on AirVo high flow oxygen The patient is willing to take an oral blood thinner now, initiated on Eliquis Increase Decadron to 6 mg twice a day, continue bronchodilators and vitamin supplements Condition is guarded We will continue to follow and make further recommendations based on her clinical status I, the cosigning physician, performed a history & physical examination of the patient. Lungs sounds bilateral scattered rhonchi, crackles in the posterior bases. Maintaining O2 saturations in the 90s on AirVo high flow oxygen at 40 L and 75% FiO2. I discussed the assessment and plan of care with my nurse practitioner, Nurys Payan. I attest to the above note as dictated by her.
--- NOTE | 2021-01-27 14:57 | CT ---
EXAMINATION TYPE: CT angio chest DATE OF EXAM: 01/27/2021 COMPARISON: HISTORY: severe shortness of breath CT DLP: 955.7 mGycm Automated exposure control for dose reduction was used. CONTRAST: Performed with IV Contrast, patient injected with 100 mL of Isovue 370. There are 3-D post processed images. There is extensive groundglass interstitial infiltrate throughout both lungs. There is also significa nt airspace infiltrate throughout both lungs. Heart is enlarged. There is no pericardial effusion. Th ere is no pleural effusion. There are bilateral multiple bronchial lymph nodes up to 1 cm. Thoracic a nic is intact. There is no aneurysm or dissection. There is normal contrast opacification of the pul monary arteries. There appears to be a filling defect in the right lower lobe pulmonary artery in a l inear fashion. Left pulmonary artery shows normal contrast opacification. The bony thorax is intact. Sternum is intact. Upper abdominal soft tissues are intact. IMPRESSION: Extensive bilateral pulmonary infiltrates. Right lower lobe pulmonary embolism.
[2021-01-27] MEDS ORDERED: HEPARIN SODIUM 1,000 UN/ML (10ML VL) IV PRN (15:18)
--- NOTE | 2021-01-27 16:11 | P.PN ---
Subjective Progress Note Date: 01/27/21 Pts oxygenation status significantly worse today. CTA positive for PE. Started on heparin. Now on AirVo. Objective - Vital Signs Vital signs: Vital Signs Temp 97.7 F 01/27/21 14:00 Pulse 92 01/27/21 14:00 Resp 16 01/27/21 14:00 BP 138/85 01/27/21 14:00 Pulse Ox 90 L 01/27/21 16:01 Intake & Output 01/26/21 01/27/21 01/27/21 18:59 06:59 18:59 Output Total 2 Balance -2 Output: Urine 2 Other: # Voids 1 - Exam Gen: awake, alert HEENT: normocephalic, atraumatic, good hearing acuity, moist mucous membranes Resp: Impaired air exchange, symmetric chest expansion, bilateral crackles CVS: good distal perfusion x 4, regular rate and rhythm without murmurs GI: soft, NTTP, ND : no SPT, no CVAT, white catheter not present MSK: no pitting edema, no clubbing Neuro: non-focal, moving all extremities Psych: cooperative, euthymic mood - Labs CBC & Chem 7: 01/27/21 07:24 01/27/21 07:24 Labs: Abnormal Lab Results - Last 24 Hours (Table) 01/27/21 01/27/21 01/27/21 Range/Units 07:24 07:24 07:24 Neutrophils # 7.9 H (1.3-7.7) k/uL Lymphocytes # 0.6 L (1.0-4.8) k/uL D-Dimer 6.60 H (<0.60) mg/L FEU Glucose 100 H (74-99) mg/dL Calcium 8.3 L (8.4-10.2) mg/dL AST 103 H (14-36) U/L ALT 92 H (4-34) U/L Alkaline Phosphatase 159 H (38-126) U/L Lactate Dehydrogenase 1591 H (313-618) U/L C-Reactive Protein 16.0 H (<1.0) mg/dL Total Protein 6.1 L (6.3-8.2) g/dL Albumin 3.1 L (3.5-5.0) g/dL Assessment and Plan Assessment: Acute hypoxemic respiratory failure ARDS secondary to Covid 19 Acute Pulmonary Embolism -Admit inpatient, telemetry -Pulmonary consult -Patient declined Remdesivir and now outside window -Dexamethasone 6 mg BID; LD SSI while on steroids -Baricitinib -heparin gtt -Vitamin C/D, zinc, famotidine -Daily inflammatory markers -DuoNeb when necessary -guaifenisen-codeine PRN for cough Hypothyroidism Obesity, class II, BMI 40.7 -resume home liothyronine and levothyroxine. -recommend weight loss outpatient Patient is a Full Code DVT PPx with enoxaparin 40mg SQ BID given weight Daughter is DPOA Prognosis is guarded
[2021-01-27 18:40] LABS: Glucose,Whole Blood 133 mg/dL (75-99)
[2021-01-27 19:26] LABS: Basophils % (A) 0 %; Eosinophils % (A) 0 %; HCT 42.5 % (34.0-46.0); HGB 13.6 gm/dL (11.4-16.0); Lymphocytes # (A) 0.5 k/uL (1.0-4.8); Lymphocytes % (A) 6 %; MCH 29.5 pg (25.0-35.0); MCV 92.2 fL (80.0-100.0); Mean Platelet Volume 8.6; Monocytes # (A) 0.2 k/uL (0-1.0); Monocytes % (A) 2 %; Neutrophils # (A) 7.6 k/uL (1.3-7.7); Neutrophils % (A) 90 %; Platelet Count 208 k/uL (150-450); RBC 4.61 m/uL (3.80-5.40); RDW 13.6 % (11.5-15.5); WBC 8.5 k/uL (3.8-10.6)
[2021-01-27 19:44] LABS: Prothrombin Time 10.8 sec (9.0-12.0)
[2021-01-27 19:58] LABS: Partial Thromboplastin Time 20.5 sec (22.0-30.0)
[2021-01-27] MEDS: HEPARIN SOD,PORK IN 0.45% NACL 25,000 UNIT in 0.45% NACL 1 250ML.BAG IV SCH (20:49)
[2021-01-27 21:14] LABS: Appearance,Urine Clear (Clear); Bilirubin,Urine Negative (Negative); Blood,Urine Negative (Negative); Color,Urine Yellow; Glucose,Urine (UA) Negative (Negative); Ketones,Urine Negative (Negative); Leukocyte Esterase,Urine Negative (Negative); Nitrite,Urine Negative (Negative); PH, Urine 6.5 (5.0-8.0); Protein,Urine Trace (Negative); Specific Gravity,Urine 1.038 (1.001-1.035)
[2021-01-28] MEDS: ACETAMINOPHEN TAB 325 MG TAB PO PRN ×3 (00:23→20:23)
[2021-01-28] MEDS: SODIUM CHLORIDE 0.9% 1,000 ML IV SCH ×4 (01:45→22:30)
[2021-01-28 03:15] LABS: Basophils % (A) 1 %; Eosinophils % (A) 0 %; HCT 40.1 % (34.0-46.0); HGB 13.3 gm/dL (11.4-16.0); Lymphocytes # (A) 0.6 k/uL (1.0-4.8); Lymphocytes % (A) 8 %; MCH 29.7 pg (25.0-35.0); MCHC 33.2 g/dL (31.0-37.0); MCV 89.5 fL (80.0-100.0); Mean Platelet Volume 8.7; Monocytes # (A) 0.2 k/uL (0-1.0); Monocytes % (A) 3 %; Neutrophils # (A) 6.5 k/uL (1.3-7.7); Neutrophils % (A) 87 %; Platelet Count 238 k/uL (150-450); RBC 4.48 m/uL (3.80-5.40); RDW 14.1 % (11.5-15.5); WBC 7.5 k/uL (3.8-10.6)
[2021-01-28 03:51] LABS: ALT 79 U/L (4-34); AST 78 U/L (14-36); African American GFR (CKD) >90 (>60 ml/min/1.73 sqM); Albumin 2.8 g/dL (3.5-5.0); Alkaline Phosphatase 159 U/L (38-126); Anion Gap 5 mmol/L; Blood Urea Nitrogen 12 mg/dL (7-17); Calcium 8.1 mg/dL (8.4-10.2); Carbon Dioxide 27 mmol/L (22-30); Chloride 106 mmol/L (98-107); Glucose 149 mg/dL (74-99); LDH 1695 U/L (313-618); Non-African American GFR(CKD) >90 (>60 ml/min/1.73 sqM); Potassium 4.1 mmol/L (3.5-5.1); Sodium 138 mmol/L (137-145); Total Bilirubin 0.6 mg/dL (0.2-1.3); Total Protein 5.7 g/dL (6.3-8.2)
[2021-01-28] MEDS: HEPARIN SOD,PORK IN 0.45% NACL 25,000 UNIT in 0.45% NACL 1 250ML.BAG IV SCH ×2 (03:51→11:41)
[2021-01-28 05:48] LABS: C Reactive Protein 23.2 mg/dL (<1.0)
[2021-01-28] MEDS: LEVOTHYROXINE 50 MCG TAB PO SCH (06:41)
[2021-01-28] MEDS: LIOTHYRONINE SODIUM 5 MCG TAB PO SCH (06:41)
[2021-01-28] MEDS: ALBUTEROL HFA INHALER INHALATION PRN (07:33)
--- NOTE | 2021-01-28 07:36 | XR ---
EXAMINATION TYPE: XR chest 1V DATE OF EXAM: 01/28/2021 COMPARISON: Chest x-ray 01/27/2021 HISTORY: Covid pneumonia TECHNIQUE: Single frontal view of the chest is obtained. FINDINGS: Bilateral airspace disease persists. Cardiac mediastinal silhouette is stable. There is no evident pneumothorax or pleural effusion. There are overlying artifacts. IMPRESSION: Findings consistent with patient's history
[2021-01-28] MEDS: ASCORBIC ACID 500 MG TAB PO SCH ×2 (09:03→20:09)
[2021-01-28] MEDS: FAMOTIDINE 20 MG TAB PO SCH ×2 (09:03→20:10)
[2021-01-28] MEDS: CHOLECALCIFEROL 25 MCG (1000 IU) TABLET PO SCH (09:03)
[2021-01-28] MEDS: ZINC SULFATE 220 MG CAP PO SCH (09:03)
[2021-01-28] MEDS: DEXAMETHASONE SOD PHOSPHATE 10 MG/ML 1 ML VIAL IV SCH ×2 (09:03→20:09)
[2021-01-28] MEDS: BARICITINIB 2 MG TABLET PO SCH (09:04)
[2021-01-28] MEDS ORDERED: INSULIN ASPART (NovoLOG) 100 UNIT/ML VIAL SQ SCH (09:45)
[2021-01-28 11:52] LABS: Glucose,Whole Blood 130 mg/dL (75-99)
[2021-01-28] MEDS: INSULIN ASPART (NovoLOG) 100 UNIT/ML VIAL SQ SCH ×3 (11:57→21:00)
--- NOTE | 2021-01-28 12:55 | P.PN ---
Subjective Progress Note Date: 01/28/21 Principal diagnosis: Acute hypoxic respiratory failure secondary to acute COVID-19 pneumonia and acute pulmonary embolism provoked by COVID-19 infection. 65-year-old white female patient with past medical history hypothyroidism, patient is a nonsmoker, who presented to the emergency department on 01/24/2021 with complaints of cough, phlegm production, decreased appetite. She stated that her symptoms started on January 16. Both her and the patient has been diagnosed with COVID-19, her is also hospitalized currently with COVID-19 pneumonia. She reports some hemoptysis. Her dyspnea is worsening at home. She is not vaccinated for COVID-19 because she believed that [place] and were isolated that they were not at risk. However recently they both traveled in a car across the country and brought their son home from [place]. She didn't developed above-mentioned symptoms, and she thought it was a upper respiratory infection, possibly bronchitis, she came into the emergency department for evaluation of blood-tinged sputum. She denied any history of chronic lung disease, no asthma COPD, she is a nonsmoker. No nausea vomiting or diarrhea. She tested positive for COVID-19, she was started on Decadron in the emergency department, with initial dose of 10 mg. Her chest x- ray showed bilateral infiltrates consistent with COVID-19 infection, her COVID test was positive. Her pulse ox is ranging from 89-93 on 2 L of oxygen. She had positive leukopenia on her admission labs, with white blood cell count of 3.5, hemoglobin of 15.1, platelet count is 148, lymphocytes, 0.5, sodium is 136, the rest of the electrolytes were within normal limits, B1 is 20, creatinine 0.8, AST was 64, ALT was 30, alkaline phosphatase was 141, LDH was elevated at 1147, CRP is 5.7, pro calcitonin level was negative at 0.08. Patient was offe red Remdesivir in the emergency department although she was outside the window for treatment. She has declined Remdesivir per her daughter's recommendations who is a RN. Patient remains on daily dose Decadron 6 mg, prophylactic Lovenox, she is on cough syrup, and albuterol inhaler, she was started on vitamin D3. On 01/26/2021 patient seen in follow-up on medical surgical floor, she remains on 2 L of oxygen her pulse ox is 89-90%, she did have a low-grade fevers in the last 24 hours, with a T-max of 100.5F. Appears very fatigued. But no acute respiratory distress. Today's labs show d-dimer of 1.82, LDH of 1541, and CRP of 5.6. Pro-calcitonin level was negative at 0.08. Patient remains on IV Decadron 6 mg daily, cough syrup, she is on IV hydration with 0.9 normal sinus rate of 1:30 ML per hour, she is on Lovenox 40 mg twice daily, and COVID-19 vitamins. She has a dry hacking cough, no chest discomfort. She does complain of nausea, she is receiving Zofran. No abdominal discomfort. The patient is seen today 01/27/2021 follow-up on the regular medical floor. She is currently resting in bed. She was becoming more short of breath. More dyspneic on minimal exertion. More hypoxemic. 2 saturations in the 80s on 5 L high flow nasal cannula. Temperature 99.8. Blood pressure stable. She has been refusing her Lovenox. Declined Remdesivir. She remains on Decadron, tiago min supplements. White count 8.9. Hemoglobin 14.5. Platelet count was 77. Lymphocytes 0.6. D-dimer 6.60. Sodium 141. Potassium 4.2. Creatinine 0.58. Glucose 100. AST 103. ALT 92. LDH 1591. C-reactive protein 16.0. Chest x- ray continues to show bilateral patchy infiltrates. Reevaluated today on 01/28/2021, patient had a significant deterioration in her clinical course yesterday, she developed worsening hypoxia and she had to be placed on BiPAP. IPAP of 14 EPAP of 6 FiO2 60%, patient had a CT angiogram of the chest and it showed right lower lobe pulmonary embolism. Patient was on eliquis orally because she kept refusing taking her Lovenox subcu since admission. At any rate patient is now on BiPAP, she is receiving the COVID-19 cocktail, she is also receiving baricitinib, and Decadron. She refused initially remdesivir when she was first admitted. And the patient is unvac cinated for COVID-19 infection. Chest x-ray today showed worsening infiltrates bilaterally consistent with COVID-[address] angiogram of the chest yesterday showed right-sided pulmonary embolism. PTT today is 172, hence on heparin is being adjusted accordingly. CBC is relatively normal. Electrolytes are normal. Renal profile is normal. LDH is up to 1695 and C- reactive protein is 23.2. Objective - Vital Signs Vital signs: Vital Signs Temp 98.2 F 01/28/21 12:00 Pulse 85 01/28/21 12:00 Resp 19 01/28/21 12:00 BP 144/86 01/28/21 12:00 Pulse Ox 93 L 01/28/21 12:00 Intake & Output 01/27/21 01/28/21 01/28/21 18:59 06:59 18:59 Intake Total 1712.488 290.755 Output Total 785 300 Balance 927.488 -9.245 Weight 111 kg Intake: IV 1560 130 Sodium Chloride 0.9% 1, 1560 130 000 ml @ 130 mls/hr IV . Q7H42M [facility] Rx#:[id number] Intake, IV Titration 152.488 100.755 Amount Heparin Sod,Pork in 0.45% 152.488 100.755 NaCl 25,000 unit In 0.45 % NaCl 1 250ml.bag @ 18 UNITS/KG/HR 21.228 mls/hr IV .[id number] [facility] Rx#: [id number] Oral 60 Output: Urine 785 300 Other: Voiding Method Indwelling Catheter Indwelling Catheter # Voids 2 - Exam GENERAL EXAM: Alert, 65-year-old female patient, on BiPAP, seems to be comfortable on the present BiPAP settings. HEAD: Normocephalic. EYES: Normal reaction of pupils, equal size. NOSE: Clear with pink turbinates. THROAT: No erythema or exudates. NECK: No masses, no JVD. CHEST: No chest wall deformity. LUNGS: Crackles at the bases bilaterally. Symmetrical chest expansion noted. CVS: Distant S1 and S2, no S3 gallop. No murmur ABDOMEN: Obese, soft nontender no megaly no rebound. Extremities no clubbing edema or cyanosis. SKIN: No rashes CENTRAL NERVOUS SYSTEM: Alert and oriented 3 no gross focal neurologic deficits Psychiatric: Normal mood affect and normal mental status examination. - Labs CBC & Chem 7: 01/28/21 02:22 01/28/21 02:22 Labs: Abnormal Lab Results - Last 24 Hours (Table) 01/27/21 01/27/21 01/27/21 Range/Units 18:28 18:48 19:10 Lymphocytes # 0.5 L (1.0-4.8) k/uL APTT 20.5 L (22.0-30.0) sec D-Dimer (<0.60) mg/L FEU Glucose (74-99) mg/dL POC Glucose (mg/dL) 133 H (75-99) mg/dL Calcium (8.4-10.2) mg/dL AST (14-36) U/L ALT (4-34) U/L Alkaline Phosphatase (38-126) U/L Lactate Dehydrogenase (313-618) U/L C-Reactive Protein (<1.0) mg/dL Total Protein (6.3-8.2) g/dL Albumin (3.5-5.0) g/dL Ur Specific [place] (1.001-1.035) Urine Protein (Negative) 01/27/21 01/27/21 01/28/21 Range/Units 21:11 21:35 02:22 Lymphocytes # (1.0-4.8) k/uL APTT 36.6 H 178.1 H* (22.0-30.0) sec D-Dimer (<0.60) mg/L FEU Glucose (74-99) mg/dL POC Glucose (mg/dL) (75-99) mg/dL Calcium (8.4-10.2) mg/dL AST (14-36) U/L ALT (4-34) U/L Alkaline Phosphatase (38-126) U/L Lactate Dehydrogenase (313-618) U/L C-Reactive Protein (<1.0) mg/dL Total Protein (6.3-8.2) g/dL Albumin (3.5-5.0) g/dL Ur Specific [place] 1.038 H (1.001-1.035) Urine Protein Trace H (Negative) 01/28/21 01/28/21 01/28/21 Range/Units 02:22 02:22 02:22 Lymphocytes # 0.6 L (1.0-4.8) k/uL APTT (22.0-30.0) sec D-Dimer 3.25 H (<0.60) mg/L FEU Glucose 149 H (74-99) mg/dL POC Glucose (mg/dL) (75-99) mg/dL Calcium 8.1 L (8.4-10.2) mg/dL AST 78 H (14-36) U/L ALT 79 H (4-34) U/L Alkaline Phosphatase 159 H (38-126) U/L Lactate Dehydrogenase 1695 H (313-618) U/L C-Reactive Protein 23.2 H (<1.0) mg/dL Total Protein 5.7 L (6.3-8.2) g/dL Albumin 2.8 L (3.5-5.0) g/dL Ur Specific [place] (1.001-1.035) Urine Protein (Negative) 01/28/21 01/28/21 Range/Units 10:30 11:51 Lymphocytes # (1.0-4.8) k/uL APTT 172.4 H* (22.0-30.0) sec D-Dimer (<0.60) mg/L FEU Glucose (74-99) mg/dL POC Glucose (mg/dL) 130 H (75-99) mg/dL Calcium (8.4-10.2) mg/dL AST (14-36) U/L ALT (4-34) U/L Alkaline Phosphatase (38-126) U/L Lactate Dehydrogenase (313-618) U/L C-Reactive Protein (<1.0) mg/dL Total Protein (6.3-8.2) g/dL Albumin (3.5-5.0) g/dL Ur Specific [place] (1.001-1.035) Urine Protein (Negative) Assessment and Plan Assessment: Impression: Acute hypoxic respiratory failure secondary to COVID-19 pneumonia and acute right lower lobe pulmonary embolism, provoked by her COVID-19 infection. Not to mention the patient refused Lovenox injections when she was admitted but she was agreeable after negotiating with the patient to go on Eliquis. Now the patient is on high intensity heparin. Patient is receiving baricitinib, declined treatment with remdesivir upon her initial presentation when she truly qualified for it. She is also now on Decadron and the COVID-19 cocktail Elevated inflammatory markers secondary to COVID-19 infection/pneumonia History of hypothyroidism Morbid obesity with BMI of 38.3 History of hysterectomy Lifelong nonsmoker. Recommendation: Patient failed high flow oxygen via airvo, hence she was placed on BiPAP and remains on BiPAP. Continue Decadron at 6 mg IV push twice a day.continue baricitinib Continue bronchodilators and vitamin supplements Continue to monitor the patient in the ICU. Continue BiPAP. Continue heparin and eventually transition to Eliquis. Arrange for the patient to have a PICC line tomorrow, heparin could be placed on hold 2 hours prior. Will use the PICC line mostly for TPN, as the patient is not eating much, Prognosis is extremely poor and guarded. Daughter has been updated on her condition. We will continue to follow. Critical care time is over 30 minutes Time with Patient: Greater than 30
--- NOTE | 2021-01-28 14:07 | P.PN ---
Subjective Progress Note Date: 01/28/21 Patient is now BiPAP dependent with borderline oxygenation. On dexamethasone, on IL-6 inhibitor, on heparin. Nutrition is poor. Objective - Vital Signs Vital signs: Vital Signs Temp 98.2 F 01/28/21 12:00 Pulse 68 01/28/21 13:00 Resp 24 01/28/21 13:00 BP 144/87 01/28/21 13:00 Pulse Ox 93 L 01/28/21 13:00 Intake & Output 01/27/21 01/28/21 01/28/21 18:59 06:59 18:59 Intake Total 1712.488 290.755 Output Total 785 425 Balance 927.488 -134.245 Weight 111 kg Intake: IV 1560 130 Sodium Chloride 0.9% 1, 1560 130 000 ml @ 130 mls/hr IV . Q7H42M [facility] Rx#:[id number] Intake, IV Titration 152.488 100.755 Amount Heparin Sod,Pork in 0.45% 152.488 100.755 NaCl 25,000 unit In 0.45 % NaCl 1 250ml.bag @ 18 UNITS/KG/HR 21.228 mls/hr IV .[id number] [facility] Rx#: [id number] Oral 60 Output: Urine 785 425 Other: Voiding Method Indwelling Catheter Indwelling Catheter # Voids 2 - Exam Gen: awake, alert HEENT: normocephalic, atraumatic, good hearing acuity, moist mucous membranes Resp: Impaired air exchange, symmetric chest expansion, bilateral crackles CVS: good distal perfusion x 4, regular rate and rhythm without murmurs GI: soft, NTTP, ND : no SPT, no CVAT, whiet catheter not present MSK: no pitting edema, no clubbing Neuro: non-focal, moving all extremities Psych: cooperative, euthymic mood - Labs CBC & Chem 7: 01/28/21 02:22 01/28/21 02:22 Labs: Abnormal Lab Results - Last 24 Hours (Table) 01/27/21 01/27/21 01/27/21 Range/Units 18:28 18:48 19:10 Lymphocytes # 0.5 L (1.0-4.8) k/uL APTT 20.5 L (22.0-30.0) sec D-Dimer (<0.60) mg/L FEU Glucose (74-99) mg/dL POC Glucose (mg/dL) 133 H (75-99) mg/dL Calcium (8.4-10.2) mg/dL AST (14-36) U/L ALT (4-34) U/L Alkaline Phosphatase (38-126) U/L Lactate Dehydrogenase (313-618) U/L C-Reactive Protein (<1.0) mg/dL Total Protein (6.3-8.2) g/dL Albumin (3.5-5.0) g/dL Ur Specific [place] (1.001-1.035) Urine Protein (Negative) 01/27/21 01/27/21 01/28/21 Range/Units 21:11 21:35 02:22 Lymphocytes # (1.0-4.8) k/uL APTT 36.6 H 178.1 H* (22.0-30.0) sec D-Dimer (<0.60) mg/L FEU Glucose (74-99) mg/dL POC Glucose (mg/dL) (75-99) mg/dL Calcium (8.4-10.2) mg/dL AST (14-36) U/L ALT (4-34) U/L Alkaline Phosphatase (38-126) U/L Lactate Dehydrogenase (313-618) U/L C-Reactive Protein (<1.0) mg/dL Total Protein (6.3-8.2) g/dL Albumin (3.5-5.0) g/dL Ur Specific [place] 1.038 H (1.001-1.035) Urine Protein Trace H (Negative) 01/28/21 01/28/21 01/28/21 Range/Units 02:22 02:22 02:22 Lymphocytes # 0.6 L (1.0-4.8) k/uL APTT (22.0-30.0) sec D-Dimer 3.25 H (<0.60) mg/L FEU Glucose 149 H (74-99) mg/dL POC Glucose (mg/dL) (75-99) mg/dL Calcium 8.1 L (8.4-10.2) mg/dL AST 78 H (14-36) U/L ALT 79 H (4-34) U/L Alkaline Phosphatase 159 H (38-126) U/L Lactate Dehydrogenase 1695 H (313-618) U/L C-Reactive Protein 23.2 H (<1.0) mg/dL Total Protein 5.7 L (6.3-8.2) g/dL Albumin 2.8 L (3.5-5.0) g/dL Ur Specific [place] (1.001-1.035) Urine Protein (Negative) 01/28/21 01/28/21 Range/Units 10:30 11:51 Lymphocytes # (1.0-4.8) k/uL APTT 172.4 H* (22.0-30.0) sec D-Dimer (<0.60) mg/L FEU Glucose (74-99) mg/dL POC Glucose (mg/dL) 130 H (75-99) mg/dL Calcium (8.4-10.2) mg/dL AST (14-36) U/L ALT (4-34) U/L Alkaline Phosphatase (38-126) U/L Lactate Dehydrogenase (313-618) U/L C-Reactive Protein (<1.0) mg/dL Total Protein (6.3-8.2) g/dL Albumin (3.5-5.0) g/dL Ur Specific [place] (1.001-1.035) Urine Protein (Negative) Assessment and Plan Assessment: Acute hypoxemic respiratory failure ARDS secondary to Covid 19 Acute Pulmonary Embolism -Admit inpatient, telemetry -Pulmonary consult -Patient declined Remdesivir and now outside window -Dexamethasone 6 mg BID; LD SSI while on steroids -Baricitinib 14 -heparin gtt -Vitamin C/D, zinc, famotidine -Daily inflammatory markers -DuoNeb when necessary -guaifenisen-codeine PRN for cough Hypothyroidism Obesity, class II, BMI 40.7 -resume home liothyronine and levothyroxine. -recommend weight loss outpatient Patient is a Full Code DVT PPx with enoxaparin 40mg SQ BID given weight Daughter is DPOA Prognosis is guarded
[2021-01-28 16:12] LABS: Glucose,Whole Blood 134 mg/dL (75-99)
[2021-01-28 20:17] LABS: Glucose,Whole Blood 124 mg/dL (75-99)
[2021-01-29 03:52] LABS: HCT 42.6 % (34.0-46.0); HGB 13.3 gm/dL (11.4-16.0); MCH 28.9 pg (25.0-35.0); MCHC 31.3 g/dL (31.0-37.0); MCV 92.3 fL (80.0-100.0); Mean Platelet Volume 9.1; Platelet Count 289 k/uL (150-450); RBC 4.61 m/uL (3.80-5.40); RDW 13.4 % (11.5-15.5); WBC 8.5 k/uL (3.8-10.6)
[2021-01-29 04:43] LABS: Partial Thromboplastin Time 62.5 sec (22.0-30.0)
[2021-01-29 04:50] LABS: African American GFR (CKD) >90 (>60 ml/min/1.73 sqM); Albumin 2.6 g/dL (3.5-5.0); Alkaline Phosphatase 152 U/L (38-126); Blood Urea Nitrogen 15 mg/dL (7-17); Calcium 8.3 mg/dL (8.4-10.2); Carbon Dioxide 27 mmol/L (22-30); Chloride 106 mmol/L (98-107); Glucose 143 mg/dL (74-99); Non-African American GFR(CKD) >90 (>60 ml/min/1.73 sqM); Total Bilirubin 0.6 mg/dL (0.2-1.3); Total Protein 5.3 g/dL (6.3-8.2)
[2021-01-29 05:01] LABS: ALT 69 U/L (4-34); AST 63 U/L (14-36); Anion Gap 5 mmol/L; LDH 1617 U/L (313-618); Sodium 138 mmol/L (137-145)
[2021-01-29] MEDS: INSULIN ASPART (NovoLOG) 100 UNIT/ML VIAL SQ SCH ×3 (05:10→17:05)
[2021-01-29] MEDS: LIOTHYRONINE SODIUM 5 MCG TAB PO SCH (05:14)
[2021-01-29] MEDS: LEVOTHYROXINE 50 MCG TAB PO SCH (05:15)
[2021-01-29 05:16] LABS: C Reactive Protein 13.2 mg/dL (<1.0)
[2021-01-29] MEDS: SODIUM CHLORIDE 0.9% 1,000 ML IV SCH ×3 (05:16→20:33)
--- NOTE | 2021-01-29 05:41 | XR ---
EXAMINATION TYPE: XR chest 1V portable DATE OF EXAM: 01/29/2021 COMPARISON: 01/28/2021 HISTORY: Pneumonia TECHNIQUE: FINDINGS: There is bilateral patchy interstitial and airspace edema. Heart appears borderline enlarged. There a re chest leads. Trachea is midline. IMPRESSION: Bilateral pulmonary interstitial and airspace edema without change compared to yesterday.
[2021-01-29] MEDS: hydrALAZINE HCL 25 MG TAB PO SCH ×4 (07:13→20:21)
[2021-01-29] MEDS: ALBUTEROL HFA INHALER INHALATION PRN ×3 (07:29→15:47)
[2021-01-29] MEDS: HEPARIN SOD,PORK IN 0.45% NACL 25,000 UNIT in 0.45% NACL 1 250ML.BAG IV SCH (08:11)
[2021-01-29] MEDS: CHOLECALCIFEROL 25 MCG (1000 IU) TABLET PO SCH (08:31)
[2021-01-29] MEDS: BARICITINIB 2 MG TABLET PO SCH (08:31)
[2021-01-29] MEDS: ZINC SULFATE 220 MG CAP PO SCH (08:31)
[2021-01-29] MEDS: DEXAMETHASONE SOD PHOSPHATE 10 MG/ML 1 ML VIAL IV SCH ×2 (08:31→20:22)
[2021-01-29] MEDS: FAMOTIDINE 20 MG TAB PO SCH ×3 (08:31→20:33)
[2021-01-29] MEDS: ASCORBIC ACID 500 MG TAB PO SCH ×2 (08:31→20:22)
[2021-01-29] MEDS: ACETAMINOPHEN TAB 325 MG TAB PO PRN ×2 (08:54→20:22)
--- NOTE | 2021-01-29 11:12 | P.PN ---
Subjective Progress Note Date: 01/29/21 Principal diagnosis: Coronavirus associated pneumonia. Acute hypoxic respiratory failure secondary to acute COVID-19 pneumonia and acute pulmonary embolism provoked by COVID-19 infection. 65-year-old white female patient with past medical history hypothyroidism, patient is a nonsmoker, who presented to the emergency department on 01/24/2021 with complaints of cough, phlegm production, decreased appetite. She stated that her symptoms started on January 16. Both her and the patient has been diagnosed with COVID-19, her is also hospitalized currently with COVID-19 pneumonia. She reports some hemoptysis. Her dyspnea is worsening at home. She is not vaccinated for COVID-19 because she believed that [place] and were [place] that they were not at risk. However recently they both traveled in a car across the country and brought their son home from [place]. She didn't developed above-mentioned symptoms, and she thought it was a upper respiratory infection, possibly bronchitis, she came into the emergency department for evaluation of blood-tinged sputum. She denied any history of chronic lung disease, no asthma COPD, she is a nonsmoker. No nausea vomiting or diarrhea. She tested positive for COVID-19, she was started on Decadron in the emergency department, with initial dose of 10 mg. Her chest x- ray showed bilateral infiltrates consistent with COVID-19 infection, her COVID test was positive. Her pulse ox is ranging from 89-93 on 2 L of oxygen. She had positive leukopenia on her admission labs, with white blood cell count of 3.5, hemoglobin of 15.1, platelet count is 148, lymphocytes, 0.5, sodium is 136, the rest of the electrolytes were within normal limits, B1 is 20, creatinine 0.8, AST was 64, ALT was 30, alkaline phosphatase was 141, LDH was elevated at 1147, CRP is 5.7, pro calcitonin level was negative at 0.08. Patient was offered Remdesivir in the emergency department although she was outside the window for treatment. She has declined Remdesivir per her daughter's recommendations who is a RN. Patient remains on daily dose Decadron 6 mg, prophylactic Lovenox, she is on cough syrup, and albuterol inhaler, she was started on vitamin D3. On 01/26/2021 patient seen in follow-up on medical surgical floor, she remains on 2 L of oxygen her pulse ox is 89-90%, she did have a low-grade fevers in the last 24 hours, with a T-max of 100.5F. Appears very fatigued. But no acute respiratory distress. Today's labs show d-dimer of 1.82, LDH of 1541, and CRP of 5.6. Pro-calcitonin level was negative at 0.08. Patient remains on IV Decadron 6 mg daily, cough syrup, she is on IV hydration with 0.9 normal sinus rate of 1:30 ML per hour, she is on Lovenox 40 mg twice daily, and COVID-19 v itamins. She has a dry hacking cough, no chest discomfort. She does complain of nausea, she is receiving Zofran. No abdominal discomfort. The patient is seen today 01/27/2021 follow-up on the regular medical floor. She is currently resting in bed. She was becoming more short of breath. More d yspneic on minimal exertion. More hypoxemic. 2 saturations in the 80s on 5 L high flow nasal cannula. Temperature 99.8. Blood pressure stable. She has been refusing her Lovenox. Declined Remdesivir. She remains on Decadron, vitamin supplements. White count 8.9. Hemoglobin 14.5. Platelet count was 77. Lymphocytes 0.6. D-dimer 6.60. Sodium 141. Potassium 4.2. Creatinine 0.58. Glucose 100. AST 103. ALT 92. LDH 1591. C-reactive protein 16.0. Chest x- ray continues to show bilateral patchy infiltrates. Reevaluated today on 01/28/2021, patient had a significant deterioration in her clinical course yesterday, she developed worsening hypoxia and she had to be placed on BiPAP. IPAP of 14 EPAP of 6 FiO2 60%, patient had a CT angiogram of the chest and it showed right lower lobe pulmonary embolism. Patient was on eliquis orally because she kept refusing taking her Lovenox subcu since admission. At any rate patient is now on BiPAP, she is receiving the COVID-19 cocktail, she is also receiving baricitinib, and Decadron. She refused initially remdesivir when she was first admitted. And the patient is unvaccinated for COVID-19 infection. Chest x-ray today showed worsening infiltrates bilaterally consistent with COVID-[address] angiogram of the chest yesterday showed right-sided pulmonary embolism. PTT today is 172, hence on heparin is being adjusted accordingly. CBC is relatively normal. Electrolytes are normal. Renal profile is normal. LDH is up to 1695 and C-reactive protein is 23.2. Progress note dated 01/29/2021. 65-year-old female, again seen in room 257, in the intensive care unit. The patient was admitted to the hospital on January 24, with coronavirus associated pneumonia. She came to the intensive care unit on January 27, secondary to worsening hypoxemia. The patient was discovered to have a pulmonary embolism. The patient has not been previously vaccinated. She remains on BiPAP, with settings of IPAP 14, and EPAP 6, at 65% FiO2. IV heparin is on hold for a pending PICC line placement. She's getting saline at 130 mL an hour. The patient appears to be holding her own. White count 8.5, hemoglobin 13.3, hematocrit 42.6, and platelet count 289,000. Most recent d-dimer was 3.73. Sodium, potassium, chloride, CO2, anion gap, BUN, and creatinine were all normal. AST was 63 ALT of 69. Albumin was 2.6. C-reactive protein was 13.2. Chest x-ray reveals bilateral infiltrates, unchanged. Objective - Vital Signs Vital signs: Vital Signs Temp 98.5 F 01/29/21 08:00 Pulse 73 01/29/21 09:00 Resp 30 H 01/29/21 09:00 BP 149/83 01/29/21 09:00 Pulse Ox 87 L 01/29/21 09:00 Intake & Output 01/28/21 01/29/21 01/29/21 18:59 06:59 18:59 Intake Total 988.980 1545 506.046 Output Total 870 1580 500 Balance -467.163 -120 6.046 Weight 114.7 kg 114.7 kg Intake: IV 130 1430 390 Sodium Chloride 0.9% 1, 130 1430 390 000 ml @ 130 mls/hr IV . Q7H42M [facility] Rx#:[id number] Intake, IV Titration 182.837 0 116.046 Amount Heparin Sod,Pork in 0.45% 182.837 0 116.046 NaCl 25,000 unit In 0.45 % NaCl 1 250ml.bag @ 18 UNITS/KG/HR 21.228 mls/hr IV .[id number] [facility] Rx#: [id number] Oral 90 30 Output: Urine 870 1580 500 Other: Voiding Method Indwelling Catheter Indwelling Catheter Indwelling Catheter - Exam Mild respiratory distress, BiPAP mask in place. The patient is able to answer questions. HEENT examination is grossly unremarkable. Neck supple. Full range of motion. No adenopathy thyromegaly or neck vein distention. Cardiovascular examination reveals regular rhythm rate. S1-S2 normal. No S3 or S4. No discernible murmur noted. Heart sounds are very distant. Heart rate 73 bpm. Lungs reveal diffuse coarse bilateral rhonchi heard both on inspiration and expiration. No wheezes or crackles. Breath sounds equal bilaterally. Saturation 93% on BiPAP. Abdomen soft bowel sounds are heard. No masses or tenderness. Extremities are intact. No cyanosis clubbing or edema. Skin is without rash or lesion. Neurologic examination is brief but nonfocal. - Labs CBC & Chem 7: 01/29/21 03:02 01/29/21 03:02 Labs: Abnormal Lab Results - Last 24 Hours (Table) 01/28/21 01/28/21 01/28/21 Range/Units 10:30 11:51 16:11 APTT 172.4 H* (22.0-30.0) sec D-Dimer (<0.60) mg/L FEU Glucose (74-99) mg/dL POC Glucose (mg/dL) 130 H 134 H (75-99) mg/dL Calcium (8.4-10.2) mg/dL AST (14-36) U/L ALT (4-34) U/L Alkaline Phosphatase (38-126) U/L Lactate Dehydrogenase (313-618) U/L C-Reactive Protein (<1.0) mg/dL Total Protein (6.3-8.2) g/dL Albumin (3.5-5.0) g/dL 01/28/21 01/28/21 01/29/21 Range/Units 18:02 20:15 03:02 APTT 102.1 H* 62.5 H (22.0-30.0) sec D-Dimer 3.73 H (<0.60) mg/L FEU Glucose (74-99) mg/dL POC Glucose (mg/dL) 124 H (75-99) mg/dL Calcium (8.4-10.2) mg/dL AST (14-36) U/L ALT (4-34) U/L Alkaline Phosphatase (38-126) U/L Lactate Dehydrogenase (313-618) U/L C-Reactive Protein (<1.0) mg/dL Total Protein (6.3-8.2) g/dL Albumin (3.5-5.0) g/dL 01/29/21 Range/Units 03:02 APTT (22.0-30.0) sec D-Dimer (<0.60) mg/L FEU Glucose 143 H (74-99) mg/dL POC Glucose (mg/dL) (75-99) mg/dL Calcium 8.3 L (8.4-10.2) mg/dL AST 63 H (14-36) U/L ALT 69 H (4-34) U/L Alkaline Phosphatase 152 H (38-126) U/L Lactate Dehydrogenase 1617 H (313-618) U/L C-Reactive Protein 13.2 H (<1.0) mg/dL Total Protein 5.3 L (6.3-8.2) g/dL Albumin 2.6 L (3.5-5.0) g/dL Assessment and Plan Assessment: Acute hypoxemic respiratory failure secondary to coronavirus associated pneumonia, and acute right lower lobe pulmonary embolism. Elevated inflammatory marker secondary to coronavirus infection. Hypothyroidism. Morbid obesity. History of hysterectomy. History of lifelong nontobacco use. Plan: Plan dated 01/29/2021. The patient's IV heparin is on hold pending the placement of a PICC line. After that, we will start using TPN to feed the patient. The patient cannot take anything by mouth at this time. In addition, we'll continue to monitor her respiratory status very carefully. The patient continues on appropriate medications including Decadron, as well as the monoclonal antibody against interleukin-6 (baricitinib). Additional recommendations and suggestions are forthcoming. Continue to follow this patient and make recommendations where appropriate. Time with Patient: Greater than 30
[2021-01-29 12:26] LABS: Glucose,Whole Blood 140 mg/dL (75-99)
--- NOTE | 2021-01-29 12:28 | P.PN ---
Subjective Progress Note Date: 01/29/21 Pt still requiring BIPAP. Does report small appetite, would like some protein shakes. Inflammatory markers worsening. Objective - Vital Signs Vital signs: Vital Signs Temp 98.5 F 01/29/21 08:00 Pulse 73 01/29/21 11:00 Resp 25 H 01/29/21 11:00 BP 156/85 01/29/21 11:00 Pulse Ox 93 L 01/29/21 11:00 Intake & Output 01/28/21 01/29/21 01/29/21 18:59 06:59 18:59 Intake Total 698.788 2620 506.046 Output Total 870 1580 500 Balance -467.163 -120 6.046 Weight 114.7 kg 114.7 kg Intake: IV 130 1430 390 Sodium Chloride 0.9% 1, 130 1430 390 000 ml @ 130 mls/hr IV . Q7H42M TD Rx#:[id number] Intake, IV Titration 182.837 0 116.046 Amount Heparin Sod,Pork in 0.45% 182.837 0 116.046 NaCl 25,000 unit In 0.45 % NaCl 1 250ml.bag @ 18 UNITS/KG/HR 21.228 mls/hr IV .[id number] TD Rx#: [id number] Oral 90 30 Output: Urine 870 1580 500 Other: Voiding Method Indwelling Catheter Indwelling Catheter Indwelling Catheter - Exam Gen: awake, alert HEENT: normocephalic, atraumatic, good hearing acuity, moist mucous membranes Resp: Impaired air exchange, symmetric chest expansion, bilateral crackles CVS: good distal perfusion x 4, regular rate and rhythm without murmurs GI: soft, NTTP, ND : no SPT, no CVAT, white catheter not present MSK: no pitting edema, no clubbing Neuro: non-focal, moving all extremities Psych: cooperative, euthymic mood - Labs CBC & Chem 7: 01/29/21 03:02 01/29/21 03:02 Labs: Abnormal Lab Results - Last 24 Hours (Table) 01/28/21 01/28/21 01/28/21 Range/Units 16:11 18:02 20:15 APTT 102.1 H* (22.0-30.0) sec D-Dimer (<0.60) mg/L FEU Glucose (74-99) mg/dL POC Glucose (mg/dL) 134 H 124 H (75-99) mg/dL Calcium (8.4-10.2) mg/dL Ferritin (10.0-291.0) ng/mL AST (14-36) U/L ALT (4-34) U/L Alkaline Phosphatase (38-126) U/L Lactate Dehydrogenase (313-618) U/L C-Reactive Protein (<1.0) mg/dL Total Protein (6.3-8.2) g/dL Albumin (3.5-5.0) g/dL 01/29/21 01/29/21 Range/Units 03:02 03:02 APTT 62.5 H (22.0-30.0) sec D-Dimer 3.73 H (<0.60) mg/L FEU Glucose 143 H (74-99) mg/dL POC Glucose (mg/dL) (75-99) mg/dL Calcium 8.3 L (8.4-10.2) mg/dL Ferritin 2565.0 H (10.0-291.0) ng/mL AST 63 H (14-36) U/L ALT 69 H (4-34) U/L Alkaline Phosphatase 152 H (38-126) U/L Lactate Dehydrogenase 1617 H (313-618) U/L C-Reactive Protein 13.2 H (<1.0) mg/dL Total Protein 5.3 L (6.3-8.2) g/dL Albumin 2.6 L (3.5-5.0) g/dL Assessment and Plan Assessment: Acute hypoxemic respiratory failure ARDS secondary to Covid 19 Acute Pulmonary Embolism -Admit inpatient, telemetry -Pulmonary consult -Patient declined Remdesivir and now outside window -Dexamethasone 6 mg BID; LD SSI while on steroids -Baricitinib -heparin gtt -Vitamin C/D, zinc, famotidine -Daily inflammatory markers -DuoNeb when necessary -guaifenisen-codeine PRN for cough Hypothyroidism Obesity, class II, BMI 40.7 -resume home liothyronine and levothyroxine. -recommend weight loss outpatient Patient is a Full Code DVT PPx with enoxaparin 40mg SQ BID given weight Daughter is DPOA Prognosis is guarded
[2021-01-29 12:37] LABS: Magnesium 2.2 mg/dL (1.6-2.3); Phosphorus 3.2 mg/dL (2.5-4.5)
[2021-01-29] MEDS ORDERED: LIDOCAINE 1% INJ 10MG/ML (20 ML MDV) SQ ONE (13:41)
--- NOTE | 2021-01-29 14:39 | XR ---
EXAMINATION TYPE: XR chest 1V portable DATE OF EXAM: 01/29/2021 COMPARISON: 01/29/2021 INDICATION: PICC line placement TECHNIQUE: Single frontal view of the chest is obtained. FINDINGS: The heart size is normal. The pulmonary vasculature is normal. Patchy infiltrates are present in the mid and lower lung driscoll appears similar to comparison. PICC line has been placed and is directed superiorly out of the field of view. The distal tip is not identified. IMPRESSION: 1. Placement of PICC line extending into the left neck. 2. Patchy bilateral lung infiltrates.
--- NOTE | 2021-01-29 14:40 | XR ---
EXAMINATION TYPE: XR chest 1V portable DATE OF EXAM: 01/29/2021 COMPARISON: 01/29/2021 earlier exam INDICATION: PICC line placement TECHNIQUE: Single frontal view of the chest is obtained. FINDINGS: The heart size is normal. The pulmonary vasculature is normal. Patchy bilateral lung infiltrates are present. PICC line enters on the left and is now directed more inferiorly. The tip of which overlies the thora cic spine likely within the brachiocephalic vein. IMPRESSION: 1. PICC line directed towards the superior vena cava may have the tip within the brachiocephalic vein region. 2. Patchy bilateral lung infiltrates
[2021-01-29] MEDS ORDERED: MVI, ADULT NO.4 WITH VIT K 10 ML, TRACE (CONC-1ML/DOSE) 1 ML in AMINO ACID 5%-D20W+LYTE... IV ONE ×3 (15:00)
--- NOTE | 2021-01-29 16:12 | IR ---
PICC LINE PLACEMENT: HISTORY: Infection requiring long-term antibiotic therapy PROCEDURE: Ultrasound guidance of PICC line placement. SQUADRON WORKER: Dr. Gutiérrez. COMPLICATIONS: None ANESTHESIA: 1. 1% Lidocaine locally. FINDINGS/TECHNIQUE: The procedure was explained to the patient. The risks, complications, benefits and alternatives were discussed and any questions were answered. Informed consent was obtained. The patient was placed supine on the fluoroscopic table and prepped and draped in the usual sterile fas ion. Utilizing a 21 gauge needle and sonographic guidance, access in the left basilic vein was achi eved and there is placement of a 0.018 guidewire. The vein is patent. A 5-F. sheath was placed over the guidewire. The guidewire and dilator were removed and a 5-F. Double lumen PICC line was placed through the sheath with the chest x-ray confirming the tip at the level of the SVC. The sheath was r emoved, the catheter was flushed and sutured into position. The patient was stable throughout the pr ocedure and remained stable upon discharge from the Department of Radiology. The vein puncture was patent under ultrasound. A dobbs scale image was obtained to document patency of the vein punctured. All elements of the maximal barrier technique were utilized. IMPRESSION: 1. Successful PICC line placement under ultrasound performed bedside within the ICU.
[2021-01-29] MEDS: FAT EMULSION 20% 250 ML in EMPTY BAG 1 BAG IV SCH (16:53)
[2021-01-29 17:05] LABS: Glucose,Whole Blood 156 mg/dL (75-99)
[2021-01-29] MEDS: APIXABAN 5 MG TAB PO SCH (20:21)
[2021-01-30 00:02] LABS: Glucose,Whole Blood 173 mg/dL (75-99)
[2021-01-30] MEDS: INSULIN ASPART (NovoLOG) 100 UNIT/ML VIAL SQ SCH ×5 (00:02→23:44)
[2021-01-30] MEDS: ACETAMINOPHEN TAB 325 MG TAB PO PRN ×2 (04:52→19:48)
[2021-01-30 05:07] LABS: Basophils # (A) 0.1 k/uL (0-0.2); Basophils % (A) 1 %; Eosinophils # (A) 0.1 k/uL (0-0.7); Eosinophils % (A) 1 %; HGB 13.3 gm/dL (11.4-16.0); Lymphocytes # (A) 0.7 k/uL (1.0-4.8); Lymphocytes % (A) 7 %; MCH 29.2 pg (25.0-35.0); MCHC 31.7 g/dL (31.0-37.0); MCV 92.2 fL (80.0-100.0); Mean Platelet Volume 8.4; Monocytes # (A) 0.4 k/uL (0-1.0); Monocytes % (A) 3 %; Neutrophils # (A) 9.3 k/uL (1.3-7.7); Neutrophils % (A) 88 %; Platelet Count 307 k/uL (150-450); RBC 4.56 m/uL (3.80-5.40); RDW 13.3 % (11.5-15.5); WBC 10.6 k/uL (3.8-10.6)
--- NOTE | 2021-01-30 05:13 | XR ---
EXAMINATION TYPE: XR chest 1V portable DATE OF EXAM: 01/30/2021 CLINICAL HISTORY: Difficulty breathing progress study. COVID. TECHNIQUE: Single AP portable upright view of the chest is obtained. COMPARISON: Chest x-ray from one day earlier and older studies. FINDINGS: Left-sided PICC line redemonstrated slightly advanced into SVC from one day earlier. Bilateral multifocal opacities in the mid to lower lungs redemonstrated. Cardiac silhouette size stab le and upper limits of normal. Osseous structures are intact. IMPRESSION: Bilateral multifocal mid to lower lung opacities consistent with known covid-19 infection are redemonstrated. No significant change from one day earlier.
[2021-01-30 05:17] LABS: Ionized Calcium 4.8 mg/dL (4.5-5.3)
[2021-01-30 05:28] LABS: African American GFR (CKD) >90 (>60 ml/min/1.73 sqM); Anion Gap 5 mmol/L; Blood Urea Nitrogen 19 mg/dL (7-17); Calcium 8.3 mg/dL (8.4-10.2); Carbon Dioxide 24 mmol/L (22-30); Chloride 106 mmol/L (98-107); Glucose 187 mg/dL (74-99); Magnesium 2.3 mg/dL (1.6-2.3); Non-African American GFR(CKD) >90 (>60 ml/min/1.73 sqM); Phosphorus 3.6 mg/dL (2.5-4.5); Potassium 3.9 mmol/L (3.5-5.1); Sodium 135 mmol/L (137-145)
[2021-01-30 06:09] LABS: Glucose,Whole Blood 166 mg/dL (75-99)
[2021-01-30] MEDS: LIOTHYRONINE SODIUM 5 MCG TAB PO SCH (06:11)
[2021-01-30] MEDS: LEVOTHYROXINE 50 MCG TAB PO SCH (06:11)
[2021-01-30] MEDS ORDERED: Potassium Replacement Protocol 1 EACH MISC MISCELLANE PRN (06:39)
[2021-01-30] MEDS ORDERED: POTASSIUM CHLORIDE ER 20 MEQ TAB.ER PO SCH (07:00)
[2021-01-30] MEDS: ZINC SULFATE 220 MG CAP PO SCH (09:22)
[2021-01-30] MEDS: hydrALAZINE HCL 25 MG TAB PO SCH ×3 (09:22→21:26)
[2021-01-30] MEDS: ASCORBIC ACID 500 MG TAB PO SCH ×2 (09:22→19:48)
[2021-01-30] MEDS: CHOLECALCIFEROL 25 MCG (1000 IU) TABLET PO SCH (09:22)
[2021-01-30] MEDS: APIXABAN 5 MG TAB PO SCH ×2 (09:22→19:48)
[2021-01-30] MEDS: BARICITINIB 2 MG TABLET PO SCH (09:23)
[2021-01-30] MEDS: FAMOTIDINE 20 MG TAB PO SCH ×2 (09:23→19:48)
[2021-01-30] MEDS: DEXAMETHASONE SOD PHOSPHATE 10 MG/ML 1 ML VIAL IV SCH ×2 (09:23→19:48)
[2021-01-30] MEDS: SODIUM CHLORIDE 0.9% 1,000 ML IV SCH ×2 (09:24→17:34)
--- NOTE | 2021-01-30 09:43 | P.PN ---
Subjective Progress Note Date: 01/30/21 Principal diagnosis: COVID-19 pneumonia 65-year-old white female patient with past medical history hypothyroidism, patient is a nonsmoker, who presented to the emergency department on 01/24/2021 with complaints of cough, phlegm production, decreased appetite. She stated that her symptoms started on January 16. Both her and the patient has been diagnosed with COVID-19, her is also hospitalized currently with COVID-19 pneumonia. She reports some hemoptysis. Her dyspnea is worsening at home. She is not vaccinated for COVID-19 because she believed that [place] and were [place] that they were not at risk. However recently they both traveled in a car across the country and brought their son home from [place]. She didn't developed above-mentioned symptoms, and she thought it was a upper respiratory infection, possibly bronchitis, she came into the emergency department for evaluation of blood-tinged sputum. She denied any history of chronic lung disease, no asthma COPD, she is a nonsmoker. No nausea vomiting or diarrhea. She tested positive for COVID-19, she was started on Decadron in the emergency department, with initial dose of 10 mg. Her chest x- ray showed bilateral infiltrates consistent with COVID-19 infection, her COVID test was positive. Her pulse ox is ranging from 89-93 on 2 L of oxygen. She had positive leukopenia on her admission labs, with white blood cell count of 3.5, hemoglobin of 15.1, platelet count is 148, lymphocytes, 0.5, sodium is 136, the rest of the electrolytes were within normal limits, B1 is 20, creatinine 0.8, AST was 64, ALT was 30, alkaline phosphatase was 141, LDH was elevated at 1147, CRP is 5.7, pro calcitonin level was negative at 0.08. Patient was offered Remdesivir in the emergency department although she was outside the window for treatment. She has declined Remdesivir per her daughter's recommendations who is a RN. Patient remains on daily dose Decadron 6 mg, prophylactic Lovenox, she is on cough syrup, and albuterol inhaler, she was started on vitamin D3. On 01/26/2021 patient seen in follow-up on medical surgical floor, she remains on 2 L of oxygen her pulse ox is 89-90%, she did have a low-grade fevers in the last 24 hours, with a T-max of 100.5F. Appears very fatigued. But no acute respiratory distress. Today's labs show d-dimer of 1.82, LDH of 1541, and CRP of 5.6. Pro-calcitonin level was negative at 0.08. Patient remains on IV Decad terrie 6 mg daily, cough syrup, she is on IV hydration with 0.9 normal sinus rate of 1:30 ML per hour, she is on Lovenox 40 mg twice daily, and COVID-19 vitamins. She has a dry hacking cough, no chest discomfort. She does complain of nausea, she is receiving Zofran. No abdominal discomfort. On 01/30/2021 patient is seen in follow-up in intensive care unit, she remains on BiPAP, with pressures of 14/6 and FiO2 of 45%, her pulse ox is 96%, she is awake and alert, in no acute distress, yesterday she had a PICC line placed, and TPN was started for nutritional support, currently infusing at a rate of 30 ML per hour, will be further increased to 50 ML per hour. Patient's receiving IV point nursing 1:30 ML per hour. She has been afebrile. Vital signs have been stable, today's labs have been reviewed, white blood cell count is 10.6, hemoglobin is 13.3, lymphocyte count is 0.7, sodium is 135, the rest of electrolytes were within normal limits, BUN is 19 creatinine 0.54. Chest x-ray shows bilateral multifocal mid to lower lung opacities consistent with no COVID- 19 introduction no significant change from one day prior. Inflammatory markers are still pending for today, her last d-dimer from yesterday was down to 3.73. she is on Eliquis for right lower lobe pulmonary emboli. Patient remains on Decadron 6 mg twice daily, she is on Baricitinib Objective - Vital Signs Vital signs: Vital Signs Temp 97.3 F L 01/30/21 04:00 Pulse 62 01/30/21 07:00 Resp 24 01/30/21 07:00 BP 152/82 01/30/21 07:00 Pulse Ox 96 01/30/21 07:00 Intake & Output 01/29/21 01/30/21 01/30/21 18:59 06:59 18:59 Intake Total 3147.632 7232 Output Total 1385 1275 Balance 291.046 415 Weight 114.7 kg 114.2 kg Intake: IV 1560 1690 Sodium Chloride 0.9% 1, 1560 1690 000 ml @ 130 mls/hr IV . Q7H42M TD Rx#:[id number] Intake, IV Titration 116.046 Amount Heparin Sod,Pork in 0.45% 116.046 NaCl 25,000 unit In 0.45 % NaCl 1 250ml.bag @ 18 UNITS/KG/HR 21.228 mls/hr IV .[id number] TD Rx#: [id number] Output: Urine 1385 1275 Other: Voiding Method Indwelling Catheter Indwelling Catheter - Exam GENERAL EXAM: Alert, pleasant, 65-year-old white female, on BiPAP support with pressures of 14/6 and FiO2 of 45% with a pulse ox of 96%. HEAD: Normocephalic/atraumatic. EYES: Normal reaction of pupils, equal size. Conjunctiva pink, sclera white. NOSE: Clear with pink turbinates. THROAT: No erythema or exudates. NECK: No masses, no JVD, no thyroid enlargement, no adenopathy. CHEST: No chest wall deformity. Symmetrical expansion. LUNGS: Equal air entry with bibasilar crackles CVS: Regular rate and rhythm, normal S1 and S2, no gallops, no murmurs, no rubs ABDOMEN: Soft, nontender. No hepatosplenomegaly, normal bowel sounds, no guarding or rigidity. EXTREMITIES: No clubbing, no edema, no cyanosis, 2+ pulses and upper and lower extremities. MUSCULOSKELETAL: Muscle strength and tone normal. SPINE: No scoliosis or deformity SKIN: No rashes CENTRAL NERVOUS SYSTEM: Alert and oriented -3. No focal deficits, tone is normal in all 4 extremities. PSYCHIATRIC: Alert and oriented -3. Appropriate affect. Intact judgment and insight. - Labs CBC & Chem 7: 01/30/21 04:34 01/30/21 04:34 Labs: Abnormal Lab Results - Last 24 Hours (Table) 01/29/21 01/29/21 01/29/21 Range/Units 03:02 12:24 17:03 Neutrophils # (1.3-7.7) k/uL Lymphocytes # (1.0-4.8) k/uL Sodium (137-145) mmol/L BUN (7-17) mg/dL Glucose (74-99) mg/dL POC Glucose (mg/dL) 140 H 156 H (75-99) mg/dL Calcium (8.4-10.2) mg/dL Ferritin 2565.0 H (10.0-291.0) ng/mL 01/30/21 01/30/21 01/30/21 Range/Units 00:00 04:34 04:34 Neutrophils # 9.3 H (1.3-7.7) k/uL Lymphocytes # 0.7 L (1.0-4.8) k/uL Sodium 135 L (137-145) mmol/L BUN 19 H (7-17) mg/dL Glucose 187 H (74-99) mg/dL POC Glucose (mg/dL) 173 H (75-99) mg/dL Calcium 8.3 L (8.4-10.2) mg/dL Ferritin (10.0-291.0) ng/mL 01/30/21 Range/Units 06:08 Neutrophils # (1.3-7.7) k/uL Lymphocytes # (1.0-4.8) k/uL Sodium (137-145) mmol/L BUN (7-17) mg/dL Glucose (74-99) mg/dL POC Glucose (mg/dL) 166 H (75-99) mg/dL Calcium (8.4-10.2) mg/dL Ferritin (10.0-291.0) ng/mL Assessment and Plan Plan: Assessment: #1. Acute hypoxic respiratory failure related to acute COVID-19 pneumonia, and her symptoms started on January 16. Patient is not vaccinated for COVID-19. Patient declined Remdesivir treatment although she is outside the window for Remdesivir anyway. Patient had progressive hypoxic respiratory failure and she was transferred to the intensive care unit on 01/27/2021 and placed on BiPAP support. Currently on Decadron 6 mg twice daily, and baricitinib. #2. Acute right lower lobe pulmonary embolism, patient is currently on Eliquis. #3. Elevated d-dimer, and patient was initially refusing her Lovenox injections, she is now on Eliquis for acute pulmonary embolism #4. History of hypothyroidism #5. Morbid obesity with BMI 40.7 kg/m #6. Chronic back pain #7. Previous history of hysterectomy #8. Never smoker Plan: Continue current medical treatment Continue Decadron, continue Eliquis, baricitinib PICC line has been inserted TPN has been started Continue multivitamins, we will add zinc and vitamin C Follow-up chest x-ray in the morning We'll follow d-dimer and inflammatory markers We'll try the patient on Airvo Encourage deep breathing and coughing, incentive spirometry use Increase activity as tolerated We'll follow patient's clinical course and make further recommendations I performed a history & physical examination of the patient and discussed their management with my nurse practitioner, Susie Joaquin. I reviewed the nurse practitioner's note and agree with the documented findings and plan of care. Lung sounds are positive for diminished breath sounds throughout the lung driscoll. The findings and the impression was discussed with the patient. I attest to the documentation by the nurse practitioner. Time with Patient: Greater than 30
--- NOTE | 2021-01-30 10:58 | P.PN ---
Subjective Progress Note Date: 01/30/21 Pt transitioned to AirVo. Does report small appetite, would like some protein shakes. Feels improved. Objective - Vital Signs Vital signs: Vital Signs Temp 98.4 F 01/30/21 08:00 Pulse 74 01/30/21 10:00 Resp 28 H 01/30/21 10:00 BP 152/79 01/30/21 10:00 Pulse Ox 89 L 01/30/21 10:00 Intake & Output 01/29/21 01/30/21 01/30/21 18:59 06:59 18:59 Intake Total 0215.956 0046 230 Output Total 1385 1275 525 Balance 291.046 415 -295 Weight 114.7 kg 114.2 kg Intake: IV 1560 1690 230 Sodium Chloride 0.9% 1, 1560 1690 230 000 ml @ 50 mls/hr IV . Q20H TD Rx#:[id number] Intake, IV Titration 116.046 Amount Heparin Sod,Pork in 0.45% 116.046 NaCl 25,000 unit In 0.45 % NaCl 1 250ml.bag @ 18 UNITS/KG/HR 21.228 mls/hr IV .[id number] TD Rx#: [id number] Output: Urine 1385 1275 525 Other: Voiding Method Indwelling Catheter Indwelling Catheter Indwelling Catheter - Exam Gen: awake, alert HEENT: normocephalic, atraumatic, good hearing acuity, moist mucous membranes Resp: Impaired air exchange, symmetric chest expansion, bilateral crackles CVS: good distal perfusion x 4, regular rate and rhythm without murmurs GI: soft, NTTP, ND : no SPT, no CVAT, white catheter not present MSK: no pitting edema, no clubbing Neuro: non-focal, moving all extremities Psych: cooperative, euthymic mood - Labs CBC & Chem 7: 01/30/21 04:34 01/30/21 04:34 Labs: Abnormal Lab Results - Last 24 Hours (Table) 01/29/21 01/29/21 01/29/21 Range/Units 03:02 12:24 17:03 Neutrophils # (1.3-7.7) k/uL Lymphocytes # (1.0-4.8) k/uL Sodium (137-145) mmol/L BUN (7-17) mg/dL Glucose (74-99) mg/dL POC Glucose (mg/dL) 140 H 156 H (75-99) mg/dL Calcium (8.4-10.2) mg/dL Ferritin 2565.0 H (10.0-291.0) ng/mL 01/30/21 01/30/21 01/30/21 Range/Units 00:00 04:34 04:34 Neutrophils # 9.3 H (1.3-7.7) k/uL Lymphocytes # 0.7 L (1.0-4.8) k/uL Sodium 135 L (137-145) mmol/L BUN 19 H (7-17) mg/dL Glucose 187 H (74-99) mg/dL POC Glucose (mg/dL) 173 H (75-99) mg/dL Calcium 8.3 L (8.4-10.2) mg/dL Ferritin (10.0-291.0) ng/mL 01/30/21 Range/Units 06:08 Neutrophils # (1.3-7.7) k/uL Lymphocytes # (1.0-4.8) k/uL Sodium (137-145) mmol/L BUN (7-17) mg/dL Glucose (74-99) mg/dL POC Glucose (mg/dL) 166 H (75-99) mg/dL Calcium (8.4-10.2) mg/dL Ferritin (10.0-291.0) ng/mL Assessment and Plan Assessment: Acute hypoxemic respiratory failure ARDS secondary to Covid 19 Acute Pulmonary Embolism Mild protein calorie malnutrition -Admit inpatient, telemetry -Pulmonary consult -Patient declined Remdesivir and now outside window -Dexamethasone 6 mg BID; LD SSI while on steroids -Baricitinib -heparin gtt --> now on eliquis -Vitamin C/D, zinc, famotidine -Daily inflammatory markers -DuoNeb when necessary -guaifenisen-codeine PRN for cough -TPN for nutrition + protein shakes, diet as tolerated Hypothyroidism Obesity, class II, BMI 40.7 -resume home liothyronine and levothyroxine. -recommend weight loss outpatient Patient is a Full Code DVT PPx with enoxaparin 40mg SQ BID given weight Daughter is DPOA Prognosis is guarded
[2021-01-30 11:39] LABS: Glucose,Whole Blood 129 mg/dL (75-99)
[2021-01-30] MEDS ORDERED: 1: AMINO ACID 5%-D20W+LYTES*E* 1,000 ML 2: MVI, ADULT NO.4 WITH VIT K 10 ML, TRACE (CON IV SCH ×3 (15:00)
[2021-01-30 17:46] LABS: Glucose,Whole Blood 165 mg/dL (75-99)
[2021-01-30 23:41] LABS: Glucose,Whole Blood 203 mg/dL (75-99)
[2021-01-31 05:09] LABS: African American GFR (CKD) >90 (>60 ml/min/1.73 sqM); Anion Gap 4 mmol/L; Blood Urea Nitrogen 21 mg/dL (7-17); Calcium 8.1 mg/dL (8.4-10.2); Carbon Dioxide 28 mmol/L (22-30); Chloride 105 mmol/L (98-107); Glucose 261 mg/dL (74-99); Magnesium 2.2 mg/dL (1.6-2.3); Non-African American GFR(CKD) >90 (>60 ml/min/1.73 sqM); Phosphorus 3.8 mg/dL (2.5-4.5); Potassium 3.8 mmol/L (3.5-5.1); Sodium 137 mmol/L (137-145); Total Protein 5.1 g/dL (6.3-8.2)
[2021-01-31 05:10] LABS: ALT 89 U/L (4-34); AST 70 U/L (14-36); Albumin 2.4 g/dL (3.5-5.0); Alkaline Phosphatase 129 U/L (38-126); Total Bilirubin 0.5 mg/dL (0.2-1.3)
[2021-01-31 05:22] LABS: Basophils # (A) 0.1 k/uL (0-0.2); Basophils % (A) 1 %; Eosinophils % (A) 0 %; HCT 40.4 % (34.0-46.0); HGB 13.3 gm/dL (11.4-16.0); Lymphocytes # (A) 0.5 k/uL (1.0-4.8); Lymphocytes % (A) 5 %; MCH 29.2 pg (25.0-35.0); MCV 88.4 fL (80.0-100.0); Mean Platelet Volume 8.7; Monocytes # (A) 0.5 k/uL (0-1.0); Monocytes % (A) 5 %; Neutrophils # (A) 8.9 k/uL (1.3-7.7); Neutrophils % (A) 89 %; Platelet Count 310 k/uL (150-450); RBC 4.57 m/uL (3.80-5.40); RDW 13.6 % (11.5-15.5)
[2021-01-31] MEDS ORDERED: POTASSIUM CHLORIDE ER 20 MEQ TAB.ER PO SCH (06:00)
[2021-01-31 06:30] LABS: Glucose,Whole Blood 223 mg/dL (75-99)
[2021-01-31] MEDS: LEVOTHYROXINE 50 MCG TAB PO SCH (06:36)
[2021-01-31] MEDS: INSULIN ASPART (NovoLOG) 100 UNIT/ML VIAL SQ SCH ×4 (06:36→21:04)
[2021-01-31] MEDS: LIOTHYRONINE SODIUM 5 MCG TAB PO SCH (06:36)
[2021-01-31] MEDS: hydrALAZINE HCL 25 MG TAB PO SCH ×3 (09:02→21:00)
[2021-01-31] MEDS: ASCORBIC ACID 500 MG TAB PO SCH ×2 (09:02→21:00)
[2021-01-31] MEDS: FAMOTIDINE 20 MG TAB PO SCH ×2 (09:02→21:00)
[2021-01-31] MEDS: CHOLECALCIFEROL 25 MCG (1000 IU) TABLET PO SCH (09:02)
[2021-01-31] MEDS: DEXAMETHASONE SOD PHOSPHATE 10 MG/ML 1 ML VIAL IV SCH ×2 (09:03→21:00)
[2021-01-31] MEDS: APIXABAN 5 MG TAB PO SCH ×2 (09:03→21:00)
[2021-01-31] MEDS: ZINC SULFATE 220 MG CAP PO SCH (09:03)
[2021-01-31] MEDS: BARICITINIB 2 MG TABLET PO SCH (09:04)
--- NOTE | 2021-01-31 09:59 | P.PN ---
Subjective Progress Note Date: 01/31/21 65-year-old white female patient with past medical history hypothyroidism, patient is a nonsmoker, who presented to the emergency department on 01/24/2021 with complaints of cough, phlegm production, decreased appetite. She stated that her symptoms started on January 16. Both her and the patient has been diagnosed with COVID-19, her is also hospitalized currently with COVID-19 pneumonia. She reports some hemoptysis. Her dyspnea is worsening at home. She is not vaccinated for COVID-19 because she believed that [place] and were isolated that they were not at risk. However recently they both traveled in a car across the country and brought their son home from [place]. She didn't developed above-mentioned symptoms, and she thought it was a upper respiratory infection, possibly bronchitis, she came into the emergency department for evaluation of blood-tinged sputum. She denied any history of chronic lung disease, no asthma COPD, she is a nonsmoker. No nausea vomiting or diarrhea. She tested positive for COVID-19, she was started on Decadron in the emergency department, with initial dose of 10 mg. Her chest x- ray showed bilateral infiltrates consistent with COVID-19 infection, her COVID test was positive. Her pulse ox is ranging from 89-93 on 2 L of oxygen. She had positive leukopenia on her admission labs, with white blood cell count of 3.5, hemoglobin of 15.1, platelet count is 148, lymphocytes, 0.5, sodium is 136, the rest of the electrolytes were within normal limits, B1 is 20, creatinine 0.8, AST was 64, ALT was 30, alkaline phosphatase was 141, LDH was elevated at 1147, CRP is 5.7, pro calcitonin level was negative at 0.08. Patient was offered Remdesivir in the emergency department although she was outside the window for treatment. She has declined Remdesivir per her daughter's recommendations who is a RN. Patient remains on daily dose Decadron 6 mg, prophylactic Lovenox, she is on cough syrup, and albuterol inhaler, she was started on vitamin D3. On 01/26/2021 patient seen in follow-up on medical surgical floor, she remains on 2 L of oxygen her pulse ox is 89-90%, she did have a low-grade fevers in the last 24 hours, with a T-max of 100.5F. Appears very fatigued. But no acute respiratory distress. Today's labs show d-dimer of 1.82, LDH of 1541, and CRP of 5.6. Pro-calcitonin level was negative at 0.08. Patient remains on IV Decadron 6 mg daily, cough syrup, she is on IV hydration with 0.9 normal sinus rate of 1:30 ML per hour, she is on Lovenox 40 mg twice daily, and COVID-19 vitamins. She has a dry hacking cough, no chest discomfort. She does complain of nausea, she is receiving Zofran. No abdominal discomfort. The patient is seen today 01/27/2021 follow-up on the regular medical floor. She is currently resting in bed. She was becoming more short of breath. More dyspneic on minimal exertion. More hypoxemic. 2 saturations in the 80s on 5 L high flow nasal cannula. Temperature 99.8. Blood pressure stable. She has been refusing her Lovenox. Declined Remdesivir. She remains on Decadron, vitamin supplements. White count 8.9. Hemoglobin 14.5. Platelet count was 77. Lymphocytes 0.6. D-dimer 6.60. Sodium 141. Potassium 4.2. Creatinine 0.58. Glucose 100. AST 103. ALT 92. LDH 1591. C-reactive protein 16.0. Chest x- ray continues to show bilateral patchy infiltrates. The patient is seen today 01/31/2021 up in the intensive care unit. She is currently on AirVo high flow oxygen at 60 L and 90% FiO2 to maintain O2 saturations in the high 80s low 90s. His 0.9 normal saline at 50 mL per hour. She is being nourished with TPN 85 ML's per hour. White count 10.0. Hemoglobin 13.3. Lymphocytes 0.5. Sodium 137. Potassium 3.8. Creatinine 0.56. Glucose 261. AST 70. ALT 89. She is continued on Baricitinib, anticoagulated with Eliquis, bronchodilators, Decadron and vitamin supplements. Objective - Vital Signs Vital signs: Vital Signs Temp 97.6 F 01/31/21 04:00 Pulse 67 01/31/21 07:00 Resp 23 01/31/21 07:00 BP 151/78 01/31/21 07:00 Pulse Ox 89 L 01/31/21 07:00 Intake & Output 01/30/21 01/31/21 01/31/21 18:59 06:59 18:59 Intake Total 630 600 50 Output Total 1884 1899 160 Balance -1255 -1300 -110 Weight 112.9 kg Intake: IV 630 600 50 Sodium Chloride 0.9% 1, 630 600 50 000 ml @ 50 mls/hr IV . Q20H [facility] Rx#:[id number] Output: Urine 1884 1899 160 Other: Voiding Method Indwelling Catheter Indwelling Catheter - Exam GENERAL EXAM: Alert, 65-year-old female patient, weak, in mild respiratory distress on AirVo high flow oxygen at 60 L and 90% FiO2. HEAD: Normocephalic. EYES: Normal reaction of pupils, equal size. NOSE: Clear with pink turbinates. THROAT: No erythema or exudates. NECK: No masses, no JVD. CHEST: No chest wall deformity. LUNGS: Equal air entry with crackles in the bilateral posterior bases CVS: S1 and S2 normal with no audible murmur, regular rhythm. ABDOMEN: No hepatosplenomegaly, normal bowel sounds, no guarding or rigidity. SPINE: No scoliosis or deformity SKIN: No rashes CENTRAL NERVOUS SYSTEM: No focal deficits, tone is normal in all 4 extremities. EXTREMITIES: There is no peripheral edema. No clubbing, no cyanosis. Periphe ral pulses are intact. - Labs CBC & Chem 7: 01/31/21 04:31 01/31/21 04:31 Labs: Abnormal Lab Results - Last 24 Hours (Table) 01/29/21 01/30/21 01/30/21 Range/Units 11:45 11:38 17:45 Neutrophils # (1.3-7.7) k/uL Lymphocytes # (1.0-4.8) k/uL BUN (7-17) mg/dL Glucose (74-99) mg/dL POC Glucose (mg/dL) 129 H 165 H (75-99) mg/dL Calcium (8.4-10.2) mg/dL AST (14-36) U/L ALT (4-34) U/L Alkaline Phosphatase (38-126) U/L Total Protein (6.3-8.2) g/dL Albumin (3.5-5.0) g/dL Triglycerides 244.00 H (0.00-149.00) mg/dL 01/30/21 01/31/21 01/31/21 Range/Units 23:39 04:31 04:31 Neutrophils # 8.9 H (1.3-7.7) k/uL Lymphocytes # 0.5 L (1.0-4.8) k/uL BUN 21 H (7-17) mg/dL Glucose 261 H (74-99) mg/dL POC Glucose (mg/dL) 203 H (75-99) mg/dL Calcium 8.1 L (8.4-10.2) mg/dL AST 70 H (14-36) U/L ALT 89 H (4-34) U/L Alkaline Phosphatase 129 H (38-126) U/L Total Protein 5.1 L (6.3-8.2) g/dL Albumin 2.4 L (3.5-5.0) g/dL Triglycerides (0.00-149.00) mg/dL 01/31/21 Range/Units 06:28 Neutrophils # (1.3-7.7) k/uL Lymphocytes # (1.0-4.8) k/uL BUN (7-17) mg/dL Glucose (74-99) mg/dL POC Glucose (mg/dL) 223 H (75-99) mg/dL Calcium (8.4-10.2) mg/dL AST (14-36) U/L ALT (4-34) U/L Alkaline Phosphatase (38-126) U/L Total Protein (6.3-8.2) g/dL Albumin (3.5-5.0) g/dL Triglycerides (0.00-149.00) mg/dL Assessment and Plan Assessment: 1 Acute hypoxic respiratory failure related to acute COVID-19 pneumonia, and her symptoms started on January 16. Patient is not vaccinated for COVID-19. Patient declined Remdesivir. She is on Baricitinib. Requiring AirVo high flow oxygen at 60 L and 90% FiO2 2 Elevated inflammatory markers, elevated d-dimer 3 History of hypothyroidism 4 Morbid obesity with BMI 40.7 kg/m 5 Chronic back pain 6 Previous history of hysterectomy 7 Never smoker Plan: The patient was seen and evaluated by Dr. Luna Currently on AirVo high flow oxygen at 60 L 90% FiO2 Titrate the FiO2 as tolerated Increase her activity as tolerated Being nourished with TPN which may be adjusted as the patient is tolerating a regular diet Remains on Baricitinib, Eliquis, Decadron, bronchodilators and vitamin supplements Condition is guarded We will continue to follow I, the cosigning physician, performed a history & physical examination of the patient. Lungs sounds bilateral scattered rhonchi, crackles in the posterior bases. Maintaining O2 saturations in the 90s on AirVo high flow oxygen at 60 L and 90% FiO2. I discussed the assessment and plan of care with my nurse practitioner, Nurys Payan. I attest to the above note as dictated by her.
[2021-01-31] MEDS: 1: AMINO ACID 5%-D20W+LYTES*E* 1,000 ML 2: MVI, ADULT NO.4 WITH VIT K 10 ML, TRACE (CON IV SCH ×6 (11:17→23:42)
[2021-01-31 11:38] LABS: Glucose,Whole Blood 137 mg/dL (75-99)
--- NOTE | 2021-01-31 12:58 | P.PN ---
Subjective Progress Note Date: 01/31/21 Pt transitioned to AirVo. Does report appetite. Feels improved. Objective - Vital Signs Vital signs: Vital Signs Temp 98.2 F 01/31/21 08:00 Pulse 75 01/31/21 11:00 Resp 34 H 01/31/21 11:00 BP 115/62 01/31/21 11:00 Pulse Ox 88 L 01/31/21 11:00 Intake & Output 01/30/21 01/31/21 01/31/21 18:59 06:59 18:59 Intake Total 630 600 440 Output Total 188 1900 660 Balance -8685 -1300 -220 Weight 112.9 kg Intake: IV 630 600 100 Sodium Chloride 0.9% 1, 630 600 100 000 ml @ 50 mls/hr IV . Q20H [facility] Rx#:[id number] Intake, IV Titration 340 Amount Amino Acid 5%-D20w+Lytes* 255 E* 1,000 ml @ 85 mls/hr IV .BY DURATION TD Rx#: [id number] Amino Acid 5%-D20w+Lytes* 85 E* 1,000 ml @ 85 mls/hr IV .BY DURATION TD Rx#: [id number] Output: Urine 1884 1899 660 Other: Voiding Method Indwelling Catheter Indwelling Catheter Indwelling Catheter - Exam Gen: awake, alert HEENT: normocephalic, atraumatic, good hearing acuity, moist mucous membranes Resp: Impaired air exchange, symmetric chest expansion, bilateral crackles CVS: good distal perfusion x 4, regular rate and rhythm without murmurs GI: soft, NTTP, ND : no SPT, no CVAT, white catheter not present MSK: no pitting edema, no clubbing Neuro: non-focal, moving all extremities Psych: cooperative, euthymic mood - Labs CBC & Chem 7: 01/31/21 04:31 01/31/21 04:31 Labs: Abnormal Lab Results - Last 24 Hours (Table) 01/29/21 01/30/21 01/30/21 Range/Units 11:45 17:45 23:39 Neutrophils # (1.3-7.7) k/uL Lymphocytes # (1.0-4.8) k/uL BUN (7-17) mg/dL Glucose (74-99) mg/dL POC Glucose (mg/dL) 165 H 203 H (75-99) mg/dL Calcium (8.4-10.2) mg/dL AST (14-36) U/L ALT (4-34) U/L Alkaline Phosphatase (38-126) U/L Total Protein (6.3-8.2) g/dL Albumin (3.5-5.0) g/dL Triglycerides 244.00 H (0.00-149.00) mg/dL 01/31/21 01/31/21 01/31/21 Range/Units 04:31 04:31 06:28 Neutrophils # 8.9 H (1.3-7.7) k/uL Lymphocytes # 0.5 L (1.0-4.8) k/uL BUN 21 H (7-17) mg/dL Glucose 261 H (74-99) mg/dL POC Glucose (mg/dL) 223 H (75-99) mg/dL Calcium 8.1 L (8.4-10.2) mg/dL AST 70 H (14-36) U/L ALT 89 H (4-34) U/L Alkaline Phosphatase 129 H (38-126) U/L Total Protein 5.1 L (6.3-8.2) g/dL Albumin 2.4 L (3.5-5.0) g/dL Triglycerides (0.00-149.00) mg/dL 01/31/21 Range/Units 11:36 Neutrophils # (1.3-7.7) k/uL Lymphocytes # (1.0-4.8) k/uL BUN (7-17) mg/dL Glucose (74-99) mg/dL POC Glucose (mg/dL) 137 H (75-99) mg/dL Calcium (8.4-10.2) mg/dL AST (14-36) U/L ALT (4-34) U/L Alkaline Phosphatase (38-126) U/L Total Protein (6.3-8.2) g/dL Albumin (3.5-5.0) g/dL Triglycerides (0.00-149.00) mg/dL Assessment and Plan Assessment: Acute hypoxemic respiratory failure ARDS secondary to Covid 19 Acute Pulmonary Embolism Mild protein calorie malnutrition -Admit inpatient, telemetry -Pulmonary consult -Patient declined Remdesivir and now outside window -Dexamethasone 6 mg BID; LD SSI while on steroids -Baricitinib of 14 -heparin gtt --> now on eliquis -Vitamin C/D, zinc, famotidine -Daily inflammatory markers -DuoNeb when necessary -guaifenisen-codeine PRN for cough -TPN for nutrition + protein shakes, diet as tolerated Hypothyroidism Obesity, class II, BMI 40.7 -resume home liothyronine and levothyroxine. -recommend weight loss outpatient Patient is a Full Code DVT PPx with enoxaparin 40mg SQ BID given weight Daughter is DPOA Prognosis is guarded
[2021-01-31] MEDS: FAT EMULSION 20% 250 ML in EMPTY BAG 1 BAG IV SCH (15:52)
[2021-01-31] MEDS: ACETAMINOPHEN TAB 325 MG TAB PO PRN (16:14)
[2021-01-31 17:02] LABS: Glucose,Whole Blood 203 mg/dL (75-99)
[2021-01-31 20:13] LABS: Glucose,Whole Blood 186 mg/dL (75-99)
[2021-02-01 07:05] LABS: African American GFR (CKD) >90 (>60 ml/min/1.73 sqM); Anion Gap 6 mmol/L; Blood Urea Nitrogen 22 mg/dL (7-17); C Reactive Protein 3.4 mg/dL (<1.0); Calcium 8.1 mg/dL (8.4-10.2); Carbon Dioxide 25 mmol/L (22-30); Chloride 103 mmol/L (98-107); Glucose 233 mg/dL (74-99); LDH 1972 U/L (313-618); Magnesium 2.2 mg/dL (1.6-2.3); Non-African American GFR(CKD) >90 (>60 ml/min/1.73 sqM); Phosphorus 3.7 mg/dL (2.5-4.5); Potassium 4.2 mmol/L (3.5-5.1); Sodium 134 mmol/L (137-145)
--- NOTE | 2021-02-01 07:30 | XR ---
EXAMINATION TYPE: XR chest 1V portable DATE OF EXAM: 02/01/2021 COMPARISON: 01/31/2020 INDICATION: Covid TECHNIQUE: Single frontal view of the chest is obtained. FINDINGS: The heart size is normal. The pulmonary vasculature is normal. Patchy bilateral lung infiltrates are present. Left-sided PICC line is present with the tip in the mclain perior vena cava region IMPRESSION: 1. Patchy bilateral lung infiltrates can be compatible with atypical pneumonia. Findings may be mildl y worsening from comparison
[2021-02-01] MEDS: LEVOTHYROXINE 50 MCG TAB PO SCH (07:40)
[2021-02-01] MEDS: LIOTHYRONINE SODIUM 5 MCG TAB PO SCH (07:40)
[2021-02-01] MEDS: DEXAMETHASONE SOD PHOSPHATE 10 MG/ML 1 ML VIAL IV SCH ×2 (09:37→20:47)
[2021-02-01] MEDS: ASCORBIC ACID 500 MG TAB PO SCH ×2 (09:38→20:48)
[2021-02-01] MEDS: hydrALAZINE HCL 25 MG TAB PO SCH ×3 (09:38→20:48)
[2021-02-01] MEDS: CHOLECALCIFEROL 25 MCG (1000 IU) TABLET PO SCH (09:38)
[2021-02-01] MEDS: BARICITINIB 2 MG TABLET PO SCH (09:38)
[2021-02-01] MEDS: FAMOTIDINE 20 MG TAB PO SCH ×2 (09:38→20:47)
[2021-02-01] MEDS: APIXABAN 5 MG TAB PO SCH ×2 (09:38→20:48)
[2021-02-01] MEDS: ZINC SULFATE 220 MG CAP PO SCH (09:40)
--- NOTE | 2021-02-01 09:46 | P.PN ---
Subjective Progress Note Date: 02/01/21 Principal diagnosis: COVID-19 pneumonia 65-year-old white female patient with past medical history hypothyroidism, patient is a nonsmoker, who presented to the emergency department on 01/24/2021 with complaints of cough, phlegm production, decreased appetite. She stated that her symptoms started on January 16. Both her and the patient has been diagnosed with COVID-19, her is also hospitalized currently with COVID-19 pneumonia. She reports some hemoptysis. Her dyspnea is worsening at home. She is not vaccinated for COVID-19 because she believed that [place] and were [place] that they were not at risk. However recently they both traveled in a car across the country and brought their son home from [place]. She didn't developed above-mentioned symptoms, and she thought it was a upper respiratory infection, possibly bronchitis, she came into the emergency department for evaluation of blood-tinged sputum. She denied any history of chronic lung disease, no asthma COPD, she is a nonsmoker. No nausea vomiting or diarrhea. She tested positive for COVID-19, she was started on Decadron in the emergency department, with initial dose of 10 mg. Her chest x- ray showed bilateral infiltrates consistent with COVID-19 infection, her COVID test was positive. Her pulse ox is ranging from 89-93 on 2 L of oxygen. She had positive leukopenia on her admission labs, with white blood cell count of 3.5, hemoglobin of 15.1, platelet count is 148, lymphocytes, 0.5, sodium is 136, the rest of the electrolytes were within normal limits, B1 is 20, creatinine 0.8, AST was 64, ALT was 30, alkaline phosphatase was 141, LDH was elevated at 1147, CRP is 5.7, pro calcitonin level was negative at 0.08. Patient was offered Remdesivir in the emergency department although she was outside the window for treatment. She has declined Remdesivir per her daughter's recommendations who is a RN. Patient remains on daily dose Decadron 6 mg, prophylactic Lovenox, she is on cough syrup, and albuterol inhaler, she was started on vitamin D3. On 01/26/2021 patient seen in follow-up on medical surgical floor, she remains on 2 L of oxygen her pulse ox is 89-90%, she did have a low-grade fevers in the last 24 hours, with a T-max of 100.5F. Appears very fatigued. But no acute respiratory distress. Today's labs show d-dimer of 1.82, LDH of 1541, and CRP of 5.6. Pro-calcitonin level was negative at 0.08. Patient remains on IV Decad terrie 6 mg daily, cough syrup, she is on IV hydration with 0.9 normal sinus rate of 1:30 ML per hour, she is on Lovenox 40 mg twice daily, and COVID-19 vitamins. She has a dry hacking cough, no chest discomfort. She does complain of nausea, she is receiving Zofran. No abdominal discomfort. On 01/30/2021 patient is seen in follow-up in intensive care unit, she remains on BiPAP, with pressures of 14/6 and FiO2 of 45%, her pulse ox is 96%, she is awake and alert, in no acute distress, yesterday she had a PICC line placed, and TPN was started for nutritional support, currently infusing at a rate of 30 ML per hour, will be further increased to 50 ML per hour. Patient's receiving IV point nursing 1:30 ML per hour. She has been afebrile. Vital signs have been stable, today's labs have been reviewed, white blood cell count is 10.6, hemoglobin is 13.3, lymphocyte count is 0.7, sodium is 135, the rest of electrolytes were within normal limits, BUN is 19 creatinine 0.54. Chest x-ray shows bilateral multifocal mid to lower lung opacities consistent with no COVID- 19 introduction no significant change from one day prior. Inflammatory markers are still pending for today, her last d-dimer from yesterday was down to 3.73. she is on Eliquis for right lower lobe pulmonary emboli. Patient remains on Decadron 6 mg twice daily, she is on Baricitinib On 02/01/2021 patient seen in follow-up in the intensive care unit, she is currently on Airvo at 60 L and FiO2 of 90%, and her pulse ox is 89-90%, breathing fairly comfortably, does not appear to be in any acute distress, she is afebrile, hemodynamically she is stable, she has a PICC line in place for TPN infusing at 85 ML per hour, she is also starting to eat by mouth, although her appetite is not the greatest yet, but improving. Occasional cough, no phlegm production, significantly dyspneic with any exertion, overall seems to be im proving, her chest x-ray today shows patchy bilateral lung infiltrates compatible with atypical pneumonia, and the radiologist felt that her findings may have been slightly worsened from previous chest x-ray. Today's labs have been reviewed, d-dimer is 12.19, and patient is on Eliquis 10 mg twice daily for a newly diagnosed right lower lobe pulmonary embolism, sodium is 134, the rest of electrolytes were within normal limits, BUN is 22, creatinine 0.57, LDH is increased to 1972, and CRP is improved and is down to 3.4 on today's labs, her pro-calcitonin level was negative at 0.04. Patient continues on Coumadin vitamins, she is on Decadron 6 mg twice daily, and Baricitinib. Hemodynamically she is stable, she is in sinus mechanism on a monitor. Lung sounds reveal diminished breath sounds with some scattered rhonchi. Objective - Vital Signs Vital signs: Vital Signs Temp 98.5 F 02/01/21 04:00 Pulse 63 02/01/21 07:00 Resp 22 02/01/21 07:00 BP 125/68 02/01/21 07:00 Pulse Ox 90 L 02/01/21 07:00 Intake & Output 01/31/21 02/01/21 02/01/21 18:59 06:59 18:59 Intake Total 1098 1232 85 Output Total 1435 850 50 Balance -337 382 35 Weight 112.9 kg 115.1 kg Intake: IV 100 1082 85 Amino Acid 5%-D20w+Lytes* 340 E* 1,000 ml @ 85 mls/hr IV .BY DURATION TD Rx#: [id number] Fat Emulsion 20% 250 ml 147 In Empty Bag 1 bag @ 21 mls/hr IV MoWeFr TD Rx#: [id number] Mvi, Adult No.4 with Vit 85 K 10 ml Trace (Conc-1Ml/ Dose) 1 ml In Amino Acid 5%-D20w+Lytes*E* 1,000 ml @ 85 mls/hr IV .BY DURATION TD Rx#: [id number] Mvi, Adult No.4 with Vit 510 85 K 10 ml Trace (Conc-1Ml/ Dose) 1 ml In Amino Acid 5%-D20w+Lytes*E* 1,000 ml @ 85 mls/hr IV .BY DURATION TD Rx#: [id number] Sodium Chloride 0.9% 1, 100 000 ml @ 50 mls/hr IV . Q20H [facility] Rx#:[id number] Intake, IV Titration 998 Amount Amino Acid 5%-D20w+Lytes* 510 E* 1,000 ml @ 85 mls/hr IV .BY DURATION TD Rx#: [id number] Amino Acid 5%-D20w+Lytes* 425 E* 1,000 ml @ 85 mls/hr IV .BY DURATION TD Rx#: [id number] Fat Emulsion 20% 250 ml 63 In Empty Bag 1 bag @ 21 mls/hr IV MoWeFr [facility] Rx#: [id number] Oral 150 Output: Urine 1435 850 50 Other: Voiding Method Indwelling Catheter Indwelling Catheter # Bowel Movements 1 - Exam GENERAL EXAM: Alert, pleasant, 65-year-old white female, on Airvo 60 L and FiO2 of 90%, with a pulse ox of 89-90% HEAD: Normocephalic/atraumatic. EYES: Normal reaction of pupils, equal size. Conjunctiva pink, sclera white. NOSE: Clear with pink turbinates. THROAT: No erythema or exudates. NECK: No masses, no JVD, no thyroid enlargement, no adenopathy. CHEST: No chest wall deformity. Symmetrical expansion. LUNGS: Equal air entry with bibasilar crackles CVS: Regular rate and rhythm, normal S1 and S2, no gallops, no murmurs, no rubs ABDOMEN: Soft, nontender. No hepatosplenomegaly, normal bowel sounds, no guarding or rigidity. EXTREMITIES: No clubbing, no edema, no cyanosis, 2+ pulses and upper and lower extremities. MUSCULOSKELETAL: Muscle strength and tone normal. SPINE: No scoliosis or deformity SKIN: No rashes CENTRAL NERVOUS SYSTEM: Alert and oriented -3. No focal deficits, tone is normal in all 4 extremities. PSYCHIATRIC: Alert and oriented -3. Appropriate affect. Intact judgment and insight. - Labs CBC & Chem 7: 01/31/21 04:31 02/01/21 04:33 Labs: Abnormal Lab Results - Last 24 Hours (Table) 01/31/21 01/31/21 01/31/21 Range/Units 11:36 17:01 20:11 D-Dimer (<0.60) mg/L FEU Sodium (137-145) mmol/L BUN (7-17) mg/dL Glucose (74-99) mg/dL POC Glucose (mg/dL) 137 H 203 H 186 H (75-99) mg/dL Hemoglobin A1c (4.0-6.0) % Calcium (8.4-10.2) mg/dL Lactate Dehydrogenase (313-618) U/L C-Reactive Protein (<1.0) mg/dL 01/31/21 02/01/21 02/01/21 Range/Units Unknown 04:33 04:33 D-Dimer 12.19 H (<0.60) mg/L FEU Sodium 134 L (137-145) mmol/L BUN 22 H (7-17) mg/dL Glucose 233 H (74-99) mg/dL POC Glucose (mg/dL) (75-99) mg/dL Hemoglobin A1c 6.2 H (4.0-6.0) % Calcium 8.1 L (8.4-10.2) mg/dL Lactate Dehydrogenase 1972 H (313-618) U/L C-Reactive Protein 3.4 H (<1.0) mg/dL Assessment and Plan Plan: Assessment: #1. Acute hypoxic respiratory failure related to acute COVID-19 pneumonia, and her symptoms started on January 16. Patient is not vaccinated for COVID-19. Patient declined Remdesivir treatment although she is outside the window for Remdesivir anyway. Patient had progressive hypoxic respiratory failure and she was transferred to the intensive care unit on 01/27/2021 and placed on BiPAP support. Currently on Decadron 6 mg twice daily, and baricitinib. Patient has been switched to irritable yesterday on 01/31/2021, which she remains at 60 L and FiO2 of 92% with a pulse ox of 89-90% #2. Acute right lower lobe pulmonary embolism, patient is currently on Eliquis. #3. Elevated d-dimer, and patient was initially refusing her Lovenox injections, she is now on Eliquis for acute pulmonary embolism #4. History of hypothyroidism #5. Morbid obesity with BMI 40.7 kg/m #6. Chronic back pain #7. Previous history of hysterectomy #8. Never smoker Plan: Continue current medical treatment Patient is tolerating Airvo, requiring high flow, at 60 L and 90% FiO2 Today's chest x-ray shows slight worsening in the appearance of right-sided inf iltrates Clinically patient has remained stable, she is breathing comfortably Continue Decadron, continue Eliquis, baricitinib PICC line has been inserted TPN has been started Increase oral feedings as tolerated We will wean off TPN as her oral intake improves Follow-up chest x-ray in the morning We'll follow d-dimer and inflammatory markers Continue oral anticoagulation Encourage deep breathing and coughing, incentive spirometry use Increase activity as tolerated We'll follow patient's clinical course and make further recommendations I performed a history & physical examination of the patient and discussed their management with my nurse practitioner, Susie Joaquin. I reviewed the nurse lorna byrne's note and agree with the documented findings and plan of care. Lung sounds are positive for diminished breath sounds throughout the lung driscoll. The findings and the impression was discussed with the patient. I attest to the documentation by the nurse practitioner. Time with Patient: Greater than 30
[2021-02-01 09:51] LABS: Glucose,Whole Blood 202 mg/dL (75-99)
[2021-02-01] MEDS: INSULIN ASPART (NovoLOG) 100 UNIT/ML VIAL SQ SCH ×4 (10:00→21:15)
[2021-02-01] MEDS: ACETAMINOPHEN TAB 325 MG TAB PO PRN ×2 (10:01→21:23)
[2021-02-01 12:14] LABS: Glucose,Whole Blood 134 mg/dL (75-99)
--- NOTE | 2021-02-01 13:38 | P.PN ---
Subjective Progress Note Date: 02/01/21 No new complaints today, patient has good appetite. She is saturating 90% on Airvo at 60 L and 91% FiO2. Inflammatory markers show worsening d-dimer, LDH, but improving CRP. Objective - Vital Signs Vital signs: Vital Signs Temp 99.5 F 02/01/21 12:00 Pulse 74 02/01/21 12:00 Resp 21 02/01/21 12:00 BP 127/71 02/01/21 12:00 Pulse Ox 88 L 02/01/21 12:00 Intake & Output 01/31/21 02/01/21 02/01/21 18:59 06:59 18:59 Intake Total 1098 1232 510 Output Total 1435 850 255 Balance -337 382 255 Weight 112.9 kg 115.1 kg Intake: IV 100 1082 510 Amino Acid 5%-D20w+Lytes* 340 E* 1,000 ml @ 85 mls/hr IV .BY DURATION TD Rx#: [id number] Fat Emulsion 20% 250 ml 147 In Empty Bag 1 bag @ 21 mls/hr IV MoWeFr TD Rx#: [id number] Mvi, Adult No.4 with Vit 85 K 10 ml Trace (Conc-1Ml/ Dose) 1 ml In Amino Acid 5%-D20w+Lytes*E* 1,000 ml @ 85 mls/hr IV .BY DURATION TD Rx#: [id number] Mvi, Adult No.4 with Vit 510 510 K 10 ml Trace (Conc-1Ml/ Dose) 1 ml In Amino Acid 5%-D20w+Lytes*E* 1,000 ml @ 85 mls/hr IV .BY DURATION TD Rx#: [id number] Sodium Chloride 0.9% 1, 100 000 ml @ 50 mls/hr IV . Q20H TD Rx#:[id number] Intake, IV Titration 998 Amount Amino Acid 5%-D20w+Lytes* 510 E* 1,000 ml @ 85 mls/hr IV .BY DURATION TD Rx#: [id number] Amino Acid 5%-D20w+Lytes* 425 E* 1,000 ml @ 85 mls/hr IV .BY DURATION TD Rx#: [id number] Fat Emulsion 20% 250 ml 63 In Empty Bag 1 bag @ 21 mls/hr IV MoWeFr TD Rx#: [id number] Oral 150 Output: Urine 1435 850 255 Other: Voiding Method Indwelling Catheter Indwelling Catheter Indwelling Catheter # Bowel Movements 1 - Exam Gen: awake, alert HEENT: normocephalic, atraumatic, good hearing acuity, moist mucous membranes Resp: Impaired air exchange, symmetric chest expansion, bilateral crackles CVS: good distal perfusion x 4, regular rate and rhythm without murmurs GI: soft, NTTP, ND : no SPT, no CVAT, white catheter not present MSK: no pitting edema, no clubbing Neuro: non-focal, moving all extremities Psych: cooperative, euthymic mood - Labs CBC & Chem 7: 01/31/21 04:31 02/01/21 04:33 Labs: Abnormal Lab Results - Last 24 Hours (Table) 01/31/21 01/31/21 01/31/21 Range/Units 17:01 20:11 Unknown D-Dimer (<0.60) mg/L FEU Sodium (137-145) mmol/L BUN (7-17) mg/dL Glucose (74-99) mg/dL POC Glucose (mg/dL) 203 H 186 H (75-99) mg/dL Hemoglobin A1c 6.2 H (4.0-6.0) % Calcium (8.4-10.2) mg/dL Lactate Dehydrogenase (313-618) U/L C-Reactive Protein (<1.0) mg/dL 02/01/21 02/01/21 02/01/21 Range/Units 04:33 04:33 09:48 D-Dimer 12.19 H (<0.60) mg/L FEU Sodium 134 L (137-145) mmol/L BUN 22 H (7-17) mg/dL Glucose 233 H (74-99) mg/dL POC Glucose (mg/dL) 202 H (75-99) mg/dL Hemoglobin A1c (4.0-6.0) % Calcium 8.1 L (8.4-10.2) mg/dL Lactate Dehydrogenase 1972 H (313-618) U/L C-Reactive Protein 3.4 H (<1.0) mg/dL 02/01/21 Range/Units 12:07 D-Dimer (<0.60) mg/L FEU Sodium (137-145) mmol/L BUN (7-17) mg/dL Glucose (74-99) mg/dL POC Glucose (mg/dL) 134 H (75-99) mg/dL Hemoglobin A1c (4.0-6.0) % Calcium (8.4-10.2) mg/dL Lactate Dehydrogenase (313-618) U/L C-Reactive Protein (<1.0) mg/dL Assessment and Plan Assessment: Acute hypoxemic respiratory failure ARDS secondary to Covid 19 Acute Pulmonary Embolism Mild protein calorie malnutrition -Admit inpatient, telemetry -Pulmonary consult -Patient declined Remdesivir and now outside window -Dexamethasone 6 mg BID; LD SSI while on steroids -Baricitinib -heparin gtt --> now on eliquis -Vitamin C/D, zinc, famotidine -Daily inflammatory markers -DuoNeb when necessary -guaifenisen-codeine PRN for cough -TPN for nutrition + protein shakes, diet as tolerated Hypothyroidism Obesity, class II, BMI 40.7 -resume home liothyronine and levothyroxine. -recommend weight loss outpatient Patient is a Full Code DVT PPx with enoxaparin 40mg SQ BID given weight Daughter is DPOA Prognosis is guarded
[2021-02-01] MEDS ORDERED: MENTHOL-ZINC OXIDE OINT 113 GM TUBE TOPICAL PRN (13:51)
[2021-02-01] MEDS: ALBUTEROL HFA INHALER INHALATION PRN ×2 (15:52→19:41)
[2021-02-01 16:36] LABS: Glucose,Whole Blood 287 mg/dL (75-99)
[2021-02-01] MEDS: SENNOSIDES-DOCUSATE SODIUM 1 EACH TAB PO SCH (20:48)
[2021-02-01 21:08] LABS: Glucose,Whole Blood 147 mg/dL (75-99)
[2021-02-02] MEDS: LIOTHYRONINE SODIUM 5 MCG TAB PO SCH (06:03)
[2021-02-02] MEDS: LEVOTHYROXINE 50 MCG TAB PO SCH (06:03)
--- NOTE | 2021-02-02 06:10 | XR ---
EXAMINATION TYPE: XR chest 1V portable DATE OF EXAM: 02/02/2021 CLINICAL HISTORY: Difficulty breathing and covid progress study. TECHNIQUE: Single AP portable semiupright view of the chest is obtained. COMPARISON: Chest x-ray from one day earlier and older studies. FINDINGS: Stable left-sided PICC line. Bilateral multifocal opacities in the periphery of the mid to lower lungs redemonstrated. Cardiac pippa houette size is stable and upper limits of normal. Osseous structures are intact. IMPRESSION: Bilateral multifocal mid to lower lung opacities consistent with known covid-19 infection are redemonstrated. No significant change from one day earlier.
[2021-02-02 06:51] LABS: African American GFR (CKD) >90 (>60 ml/min/1.73 sqM); Blood Urea Nitrogen 25 mg/dL (7-17); Carbon Dioxide 26 mmol/L (22-30); Chloride 104 mmol/L (98-107); Glucose 261 mg/dL (74-99); LDH 1704 U/L (313-618); Non-African American GFR(CKD) >90 (>60 ml/min/1.73 sqM)
[2021-02-02 07:04] LABS: Glucose,Whole Blood 207 mg/dL (75-99)
[2021-02-02] MEDS: INSULIN ASPART (NovoLOG) 100 UNIT/ML VIAL SQ SCH ×4 (07:09→21:44)
[2021-02-02 07:23] LABS: Anion Gap 4 mmol/L; Calcium 8.3 mg/dL (8.4-10.2); Magnesium 2.2 mg/dL (1.6-2.3); Phosphorus 4.6 mg/dL (2.5-4.5); Potassium 4.4 mmol/L (3.5-5.1); Sodium 134 mmol/L (137-145)
[2021-02-02] MEDS: ALBUTEROL HFA INHALER INHALATION PRN ×2 (07:53→11:30)
[2021-02-02 07:56] LABS: C Reactive Protein 3.3 mg/dL (<1.0)
--- NOTE | 2021-02-02 08:48 | P.PN ---
Subjective Progress Note Date: 02/02/21 Principal diagnosis: COVID-19 pneumonia 65-year-old white female patient with past medical history hypothyroidism, patient is a nonsmoker, who presented to the emergency department on 01/24/2021 with complaints of cough, phlegm production, decreased appetite. She stated that her symptoms started on January 16. Both her and the patient has been diagnosed with COVID-19, her is also hospitalized currently with COVID-19 pneumonia. She reports some hemoptysis. Her dyspnea is worsening at home. She is not vaccinated for COVID-19 because she believed that [place] and were [place] that they were not at risk. However recently they both traveled in a car across the country and brought their son home from [place]. She didn't developed above-mentioned symptoms, and she thought it was a upper respiratory infection, possibly bronchitis, she came into the emergency department for evaluation of blood-tinged sputum. She denied any history of chronic lung disease, no asthma COPD, she is a nonsmoker. No nausea vomiting or diarrhea. She tested positive for COVID-19, she was started on Decadron in the emergency department, with initial dose of 10 mg. Her chest x- ray showed bilateral infiltrates consistent with COVID-19 infection, her COVID test was positive. Her pulse ox is ranging from 89-93 on 2 L of oxygen. She had positive leukopenia on her admission labs, with white blood cell count of 3.5, hemoglobin of 15.1, platelet count is 148, lymphocytes, 0.5, sodium is 136, the rest of the electrolytes were within normal limits, B1 is 20, creatinine 0.8, AST was 64, ALT was 30, alkaline phosphatase was 141, LDH was elevated at 1147, CRP is 5.7, pro calcitonin level was negative at 0.08. Patient was offered Remdesivir in the emergency department although she was outside the window for treatment. She has declined Remdesivir per her daughter's recommendations who is a RN. Patient remains on daily dose Decadron 6 mg, prophylactic Lovenox, she is on cough syrup, and albuterol inhaler, she was started on vitamin D3. On 01/26/2021 patient seen in follow-up on medical surgical floor, she remains on 2 L of oxygen her pulse ox is 89-90%, she did have a low-grade fevers in the last 24 hours, with a T-max of 100.5F. Appears very fatigued. But no acute respiratory distress. Today's labs show d-dimer of 1.82, LDH of 1541, and CRP of 5.6. Pro-calcitonin level was negative at 0.08. Patient remains on IV Decad terrie 6 mg daily, cough syrup, she is on IV hydration with 0.9 normal sinus rate of 1:30 ML per hour, she is on Lovenox 40 mg twice daily, and COVID-19 vitamins. She has a dry hacking cough, no chest discomfort. She does complain of nausea, she is receiving Zofran. No abdominal discomfort. On 01/30/2021 patient is seen in follow-up in intensive care unit, she remains on BiPAP, with pressures of 14/6 and FiO2 of 45%, her pulse ox is 96%, she is awake and alert, in no acute distress, yesterday she had a PICC line placed, and TPN was started for nutritional support, currently infusing at a rate of 30 ML per hour, will be further increased to 50 ML per hour. Patient's receiving IV point nursing 1:30 ML per hour. She has been afebrile. Vital signs have been stable, today's labs have been reviewed, white blood cell count is 10.6, hemoglobin is 13.3, lymphocyte count is 0.7, sodium is 135, the rest of electrolytes were within normal limits, BUN is 19 creatinine 0.54. Chest x-ray shows bilateral multifocal mid to lower lung opacities consistent with no COVID- 19 introduction no significant change from one day prior. Inflammatory markers are still pending for today, her last d-dimer from yesterday was down to 3.73. she is on Eliquis for right lower lobe pulmonary emboli. Patient remains on Decadron 6 mg twice daily, she is on Baricitinib On 02/01/2021 patient seen in follow-up in the intensive care unit, she is currently on Airvo at 60 L and FiO2 of 90%, and her pulse ox is 89-90%, breathing fairly comfortably, does not appear to be in any acute distress, she is afebrile, hemodynamically she is stable, she has a PICC line in place for TPN infusing at 85 ML per hour, she is also starting to eat by mouth, although her appetite is not the greatest yet, but improving. Occasional cough, no phlegm production, significantly dyspneic with any exertion, overall seems to be im proving, her chest x-ray today shows patchy bilateral lung infiltrates compatible with atypical pneumonia, and the radiologist felt that her findings may have been slightly worsened from previous chest x-ray. Today's labs have been reviewed, d-dimer is 12.19, and patient is on Eliquis 10 mg twice daily for a newly diagnosed right lower lobe pulmonary embolism, sodium is 134, the rest of electrolytes were within normal limits, BUN is 22, creatinine 0.57, LDH is increased to 1972, and CRP is improved and is down to 3.4 on today's labs, her pro-calcitonin level was negative at 0.04. Patient continues on Coumadin vitamins, she is on Decadron 6 mg twice daily, and Baricitinib. Hemodynamically she is stable, she is in sinus mechanism on a monitor. Lung sounds reveal diminished breath sounds with some scattered rhonchi. On 02/02/2021 patient seen in follow-up in intensive care unit, she remains on high flow oxygen per Airvo a 60 L on FiO2 of 80%, and her pulse ox is 87-90%, breathing comfortably, dyspneic with exertion, but recovers. She is awake and alert, oriented 3, she is resting in bed, she's been getting up in the chair with assistance, was not in the chair yesterday related to some back pain which is chronic for her. They usually when necessary Tylenol is effective, does not want anything stronger for pain. Today's chest x-ray shows bilateral multifocal mid to lower lung opacities consistent with known coronary 19 infection, with no significant change from one day earlier. CXR reviewed, d-dimer is stable at 12.36, sodium is 135, the rest of the electrolytes were within normal limits, B1 is 25 creatinine 0.51, TSH is trending down and is down to 1704, CRP is stable at 3.3. Patient remains on TPN infusing at a rate of 84 ML per hour, she is starting to take an similar oral intake, she can only tolerate small amounts at a time, but she has not had any nausea vomiting or diarrhea. Patient continues on Eliquis 10 mg twice daily, she is on Baricitinib, Decadron 6 mg twice daily. Objective - Vital Signs Vital signs: Vital Signs Temp 98.3 F 02/02/21 04:00 Pulse 71 02/02/21 07:00 Resp 21 02/02/21 07:00 BP 122/74 02/02/21 07:00 Pulse Ox 90 L 02/02/21 07:00 Intake & Output 02/01/21 02/02/21 02/02/21 18:59 06:59 18:59 Intake Total 1020 2337.583 85 Output Total 535 1135 100 Balance 485 1202.583 -15 Weight 114.6 kg Intake: IV 1020 1020 85 Mvi, Adult No.4 with Vit 1020 1020 85 K 10 ml Trace (Conc-1Ml/ Dose) 1 ml In Amino Acid 5%-D20w+Lytes*E* 1,000 ml @ 85 mls/hr IV .BY DURATION TD Rx#: [id number] Intake, IV Titration 967.583 Amount Sodium Chloride 4Meq/ml 967.583 Vial 20 meq In Amino Acid 5%-D20w+Lytes*E* 1,000 ml @ 85 mls/hr IV .BY DURATION TD Rx#: [id number] Oral 350 Output: Urine 535 1135 100 Other: Voiding Method Indwelling Catheter Indwelling Catheter # Bowel Movements 1 - Exam GENERAL EXAM: Alert, pleasant, 65-year-old white female, on Airvo 60 L and FiO2 of 90%, with a pulse ox of 89-90% HEAD: Normocephalic/atraumatic. EYES: Normal reaction of pupils, equal size. Conjunctiva pink, sclera white. NOSE: Clear with pink turbinates. THROAT: No erythema or exudates. NECK: No masses, no JVD, no thyroid enlargement, no adenopathy. CHEST: No chest wall deformity. Symmetrical expansion. LUNGS: Equal air entry with bibasilar crackles CVS: Regular rate and rhythm, normal S1 and S2, no gallops, no murmurs, no rubs ABDOMEN: Soft, nontender. No hepatosplenomegaly, normal bowel sounds, no guarding or rigidity. EXTREMITIES: No clubbing, no edema, no cyanosis, 2+ pulses and upper and lower extremities. MUSCULOSKELETAL: Muscle strength and tone normal. SPINE: No scoliosis or deformity SKIN: No rashes CENTRAL NERVOUS SYSTEM: Alert and oriented -3. No focal deficits, tone is normal in all 4 extremities. PSYCHIATRIC: Alert and oriented -3. Appropriate affect. Intact judgment and insight. - Labs CBC & Chem 7: 01/31/21 04:31 02/02/21 05:46 Labs: Abnormal Lab Results - Last 24 Hours (Table) 02/01/21 02/01/21 02/01/21 Range/Units 09:48 12:07 16:35 D-Dimer (<0.60) mg/L FEU Sodium (137-145) mmol/L BUN (7-17) mg/dL Creatinine (0.52-1.04) mg/dL Glucose (74-99) mg/dL POC Glucose (mg/dL) 202 H 134 H 287 H (75-99) mg/dL Calcium (8.4-10.2) mg/dL Phosphorus (2.5-4.5) mg/dL Lactate Dehydrogenase (313-618) U/L C-Reactive Protein (<1.0) mg/dL 02/01/21 02/02/21 02/02/21 Range/Units 21:07 05:46 05:47 D-Dimer 12.36 H (<0.60) mg/L FEU Sodium 134 L (137-145) mmol/L BUN 25 H (7-17) mg/dL Creatinine 0.51 L (0.52-1.04) mg/dL Glucose 261 H (74-99) mg/dL POC Glucose (mg/dL) 147 H (75-99) mg/dL Calcium 8.3 L (8.4-10.2) mg/dL Phosphorus 4.6 H (2.5-4.5) mg/dL Lactate Dehydrogenase 1704 H (313-618) U/L C-Reactive Protein 3.3 H (<1.0) mg/dL 02/02/21 Range/Units 07:02 D-Dimer (<0.60) mg/L FEU Sodium (137-145) mmol/L BUN (7-17) mg/dL Creatinine (0.52-1.04) mg/dL Glucose (74-99) mg/dL POC Glucose (mg/dL) 207 H (75-99) mg/dL Calcium (8.4-10.2) mg/dL Phosphorus (2.5-4.5) mg/dL Lactate Dehydrogenase (313-618) U/L C-Reactive Protein (<1.0) mg/dL Assessment and Plan Plan: Assessment: #1. Acute hypoxic respiratory failure related to acute COVID-19 pneumonia, and her symptoms started on January 16. Patient is not vaccinated for COVID-19. Patient declined Remdesivir treatment although she is outside the window for Remdesivir anyway. Patient had progressive hypoxic respiratory failure and she was transferred to the intensive care unit on 01/27/2021 and placed on BiPAP support. Currently on Decadron 6 mg twice daily, and baricitinib. Patient has been switched to irritable yesterday on 01/31/2021, which she remains at 60 L and FiO2 of 92% with a pulse ox of 89-90% #2. Acute right lower lobe pulmonary embolism, patient is currently on Eliquis. #3. Elevated d-dimer, and patient was initially refusing her Lovenox injections, she is now on Eliquis for acute pulmonary embolism #4. History of hypothyroidism #5. Morbid obesity with BMI 40.7 kg/m #6. Chronic back pain #7. Previous history of hysterectomy #8. Never smoker Plan: Continue current medical treatment Patient is tolerating Airvo, still requiring high flow, at 60 L and 90% FiO2 Today's chest x-ray shows stable findings of bilateral infiltrates Clinically patient has remained stable, she is breathing comfortably Continue Decadron, continue Eliquis, baricitinib Tolerating oral feedings, remains on TPN We may be available to wean TPN off as her oral intake continues to improve Obtain dietary recommendation about TPN weaning We'll follow d-dimer and inflammatory markers Continue oral anticoagulation Encourage deep breathing and coughing, incentive spirometry use Increase activity as tolerated We'll follow patient's clinical course and make further recommendations I performed a history & physical examination of the patient and discussed their management with my nurse practitioner, Susie Joaquin. I reviewed the nurse practitioner's note and agree with the documented findings and plan of care. Lung sounds are positive for diminished breath sounds throughout the lung driscoll. The findings and the impression was discussed with the patient. I attest to the documentation by the nurse practitioner. Time with Patient: Greater than 30
[2021-02-02] MEDS: APIXABAN 5 MG TAB PO SCH ×2 (09:35→21:44)
[2021-02-02] MEDS: ASCORBIC ACID 500 MG TAB PO SCH ×2 (09:35→21:44)
[2021-02-02] MEDS: CHOLECALCIFEROL 25 MCG (1000 IU) TABLET PO SCH (09:36)
[2021-02-02] MEDS: BARICITINIB 2 MG TABLET PO SCH (09:36)
[2021-02-02] MEDS: FAMOTIDINE 20 MG TAB PO SCH ×2 (09:37→21:44)
[2021-02-02] MEDS: DEXAMETHASONE SOD PHOSPHATE 10 MG/ML 1 ML VIAL IV SCH ×2 (09:37→20:59)
[2021-02-02] MEDS: polyethylene glycoL 3350 17 GM POWD.PACK PO SCH (09:37)
[2021-02-02] MEDS: SENNOSIDES-DOCUSATE SODIUM 1 EACH TAB PO SCH ×2 (09:37→21:44)
[2021-02-02] MEDS: hydrALAZINE HCL 25 MG TAB PO SCH ×3 (09:37→21:45)
[2021-02-02] MEDS: ZINC SULFATE 220 MG CAP PO SCH (09:39)
[2021-02-02] MEDS ORDERED: SODIUM ACETATE IV SCH ×7 (11:00)
[2021-02-02] MEDS ORDERED: [UNRECOGNIZED DRUG - OTHER] IV SCH ×7 (11:00)
[2021-02-02] MEDS ORDERED: PARENTERAL ELECTROLYTES IV SCH ×7 (11:00)
[2021-02-02] MEDS: ACETAMINOPHEN TAB 325 MG TAB PO PRN ×2 (11:17→20:59)
[2021-02-02 11:47] LABS: Glucose,Whole Blood 111 mg/dL (75-99)
--- NOTE | 2021-02-02 13:21 | P.PN ---
Subjective Progress Note Date: 02/02/21 No new complaints today, patient has good appetite. She is saturating 90% on Airvo at 60 L and 80% FiO2. Inflammatory markers show mildly worse d-dimer, but improving LDH/CRP. Pt is emotional about the state of her today and asks that we provide him with peppermint oil for healing. Objective - Vital Signs Vital signs: Vital Signs Temp 98.3 F 02/02/21 04:00 Pulse 78 02/02/21 11:00 Resp 29 H 02/02/21 11:00 BP 96/48 02/02/21 11:00 Pulse Ox 90 L 02/02/21 11:31 Intake & Output 02/01/21 02/02/21 02/02/21 18:59 06:59 18:59 Intake Total 1020 2337.583 425 Output Total 535 1135 420 Balance 485 1202.583 5 Weight 114.6 kg 114.6 kg Intake: IV 1020 1020 425 Mvi, Adult No.4 with Vit 1020 1020 85 K 10 ml Trace (Conc-1Ml/ Dose) 1 ml In Amino Acid 5%-D20w+Lytes*E* 1,000 ml @ 85 mls/hr IV .BY DURATION TD Rx#: [id number] Mvi, Adult No.4 with Vit 340 K 10 ml Trace (Conc-1Ml/ Dose) 1 ml Sodium Chloride 4Meq/ml Vial 20 meq In Amino Acid 5%-D20w +Lytes*E* 1,000 ml @ 85 mls/hr IV .BY DURATION TD Rx#:[id number] Intake, IV Titration 967.583 Amount Sodium Chloride 4Meq/ml 967.583 Vial 20 meq In Amino Acid 5%-D20w+Lytes*E* 1,000 ml @ 85 mls/hr IV .BY DURATION TD Rx#: [id number] Oral 350 Output: Urine 535 1135 420 Other: Voiding Method Indwelling Catheter Indwelling Catheter Indwelling Catheter # Bowel Movements 1 - Exam Gen: awake, alert HEENT: normocephalic, atraumatic, good hearing acuity, moist mucous membranes Resp: Impaired air exchange, symmetric chest expansion, bilateral crackles CVS: good distal perfusion x 4, regular rate and rhythm without murmurs GI: soft, NTTP, ND : no SPT, no CVAT, white catheter not present MSK: no pitting edema, no clubbing Neuro: non-focal, moving all extremities Psych: cooperative, labile mood - Labs CBC & Chem 7: 01/31/21 04:31 02/02/21 05:46 Labs: Abnormal Lab Results - Last 24 Hours (Table) 02/01/21 02/01/21 02/02/21 Range/Units 16:35 21:07 05:46 D-Dimer (<0.60) mg/L FEU Sodium 134 L (137-145) mmol/L BUN 25 H (7-17) mg/dL Creatinine 0.51 L (0.52-1.04) mg/dL Glucose 261 H (74-99) mg/dL POC Glucose (mg/dL) 287 H 147 H (75-99) mg/dL Calcium 8.3 L (8.4-10.2) mg/dL Phosphorus 4.6 H (2.5-4.5) mg/dL Lactate Dehydrogenase 1704 H (313-618) U/L C-Reactive Protein 3.3 H (<1.0) mg/dL 02/02/21 02/02/21 02/02/21 Range/Units 05:47 07:02 11:45 D-Dimer 12.36 H (<0.60) mg/L FEU Sodium (137-145) mmol/L BUN (7-17) mg/dL Creatinine (0.52-1.04) mg/dL Glucose (74-99) mg/dL POC Glucose (mg/dL) 207 H 111 H (75-99) mg/dL Calcium (8.4-10.2) mg/dL Phosphorus (2.5-4.5) mg/dL Lactate Dehydrogenase (313-618) U/L C-Reactive Protein (<1.0) mg/dL Assessment and Plan Assessment: Acute hypoxemic respiratory failure ARDS secondary to Covid 19 Acute Pulmonary Embolism Mild protein calorie malnutrition -Admit inpatient, telemetry -Pulmonary consult -Patient declined Remdesivir and now outside window -Dexamethasone 6 mg BID; LD SSI while on steroids -Baricitinib 6 of -heparin gtt --> now on eliquis -Vitamin C/D, zinc, famotidine -Daily inflammatory markers -DuoNeb when necessary -guaifenisen-codeine PRN for cough -TPN for nutrition + protein shakes, diet as tolerated; may be able to wean TPN Hypothyroidism Obesity, class II, BMI 40.7 -resume home liothyronine and levothyroxine. -recommend weight loss outpatient Patient is a Full Code DVT PPx with Eliquis Daughter is DPOA Prognosis is guarded
[2021-02-02 17:28] LABS: Glucose,Whole Blood 118 mg/dL (75-99)
[2021-02-02 20:53] LABS: Glucose,Whole Blood 112 mg/dL (75-99)
[2021-02-03 05:22] LABS: HGB 13.3 gm/dL (11.4-16.0); MCH 29.3 pg (25.0-35.0); MCHC 32.4 g/dL (31.0-37.0); MCV 90.4 fL (80.0-100.0); Mean Platelet Volume 8.6; Platelet Count 325 k/uL (150-450); RBC 4.54 m/uL (3.80-5.40); RDW 13.4 % (11.5-15.5); WBC 20.3 k/uL (3.8-10.6)
[2021-02-03 05:46] LABS: ALT 371 U/L (4-34); AST 171 U/L (14-36); African American GFR (CKD) >90 (>60 ml/min/1.73 sqM); Albumin 2.8 g/dL (3.5-5.0); Alkaline Phosphatase 212 U/L (38-126); Anion Gap 5 mmol/L; Blood Urea Nitrogen 34 mg/dL (7-17); C Reactive Protein 3.3 mg/dL (<1.0); Calcium 8.4 mg/dL (8.4-10.2); Carbon Dioxide 26 mmol/L (22-30); Chloride 103 mmol/L (98-107); Glucose 135 mg/dL (74-99); LDH 2049 U/L (313-618); Magnesium 2.4 mg/dL (1.6-2.3); Non-African American GFR(CKD) >90 (>60 ml/min/1.73 sqM); Phosphorus 6.2 mg/dL (2.5-4.5); Potassium 4.7 mmol/L (3.5-5.1); Sodium 134 mmol/L (137-145); Total Bilirubin 0.7 mg/dL (0.2-1.3); Total Protein 5.5 g/dL (6.3-8.2)
[2021-02-03] MEDS: LEVOTHYROXINE 50 MCG TAB PO SCH (06:00)
[2021-02-03] MEDS: LIOTHYRONINE SODIUM 5 MCG TAB PO SCH (06:35)
[2021-02-03 06:40] LABS: Glucose,Whole Blood 113 mg/dL (75-99)
[2021-02-03] MEDS: INSULIN ASPART (NovoLOG) 100 UNIT/ML VIAL SQ SCH ×4 (06:45→20:02)
--- NOTE | 2021-02-03 06:53 | XR ---
EXAMINATION TYPE: XR chest 1V portable DATE OF EXAM: 02/03/2021 COMPARISON: 02/02/2021 HISTORY: Covid TECHNIQUE: Single frontal view of the chest is obtained. FINDINGS: There has been mild to moderate interval improvement in the by basilar partially consolida tive opacities. There is no pneumothorax or large pleural effusion. There is no change in the PICC li ne entering the left upper extremity and terminating in the SVC/RA junction. The heart size is normal. The osseous structures are intact IMPRESSION: Mild to moderate interval improvement in the bibasilar opacities
[2021-02-03 07:03] LABS: Band Neutrophils % 10 %; Lymphocytes # (M) 2.23 k/uL (1.0-4.8); Metamyelocytes # (M) 0.61 k/uL (0); Metamyelocytes % 3 %; Monocytes # (M) 0.41 k/uL (0-1.0); Myelocytes % 1 %; Neutrophils % (M) 73 %; Nucleated Red Blood Cells 0 /100 WBC (0-0)
[2021-02-03 07:04] LABS: Total Cells Counted 200
[2021-02-03 07:05] LABS: Toxic Granulation Present
[2021-02-03] MEDS: BARICITINIB 2 MG TABLET PO SCH (08:50)
[2021-02-03] MEDS: DEXAMETHASONE SOD PHOSPHATE 10 MG/ML 1 ML VIAL IV SCH ×2 (08:51→20:02)
[2021-02-03] MEDS: CHOLECALCIFEROL 25 MCG (1000 IU) TABLET PO SCH (08:51)
[2021-02-03] MEDS: ASCORBIC ACID 500 MG TAB PO SCH ×2 (08:51→20:01)
[2021-02-03] MEDS: hydrALAZINE HCL 25 MG TAB PO SCH ×3 (08:51→20:01)
[2021-02-03] MEDS: APIXABAN 5 MG TAB PO SCH ×2 (08:51→20:01)
[2021-02-03] MEDS: ZINC SULFATE 220 MG CAP PO SCH (08:51)
[2021-02-03] MEDS: ACETAMINOPHEN TAB 325 MG TAB PO PRN (08:52)
[2021-02-03] MEDS: polyethylene glycoL 3350 17 GM POWD.PACK PO SCH (09:07)
[2021-02-03] MEDS: FAMOTIDINE 20 MG TAB PO SCH ×2 (09:07→20:29)
[2021-02-03] MEDS: SENNOSIDES-DOCUSATE SODIUM 1 EACH TAB PO SCH ×2 (09:07→20:01)
[2021-02-03 11:21] LABS: Glucose,Whole Blood 125 mg/dL (75-99)
--- NOTE | 2021-02-03 12:50 | P.PN ---
Subjective Progress Note Date: 02/03/21 The patient is seen today 02/03/2021 in follow-up for her COVID-19 pneumonia. She remains in the intensive care unit. Currently sitting up in bed. Continues on AirVo high flow oxygen at 60 L and 80% FiO2.no IV fluids currently. Her appetite is still good and her TPN has been discontinued. Chest x-ray shows mild to moderate interval improvement in the bibasilar opacities. white count 20.3. Hemoglobin 13.3. D-dimer 15.14. Sodium 134. Potassium 4.7. Creatinine 0.59. AST 171. ALT 371.she remains Decadron 6 mg IV twice a day, anticoagulated with Eliquis, remains on Baricitinib and vitamin supplements. Objective - Vital Signs Vital signs: Vital Signs Temp 98.1 F 02/03/21 12:00 Pulse 62 02/03/21 12:00 Resp 28 H 02/03/21 12:00 BP 134/74 02/03/21 12:00 Pulse Ox 93 L 02/03/21 12:00 Intake & Output 02/02/21 02/03/21 02/03/21 18:59 06:59 18:59 Intake Total 510 1320 390 Output Total 920 1075 676 Balance -410 245 -286 Weight 114.6 kg 114.2 kg Intake: IV 510 Mvi, Adult No.4 with Vit 85 K 10 ml Trace (Conc-1Ml/ Dose) 1 ml In Amino Acid 5%-D20w+Lytes*E* 1,000 ml @ 85 mls/hr IV .BY DURATION [facility], [facility] Rx#: [id number] Mvi, Adult No.4 with Vit 425 K 10 ml Trace (Conc-1Ml/ Dose) 1 ml Sodium Chloride 4Meq/ml Vial 20 meq In Amino Acid 5%-D20w +Lytes*E* 1,000 ml @ 85 mls/hr IV .BY DURATION [facility] Rx#:[id number] Oral 1320 390 Output: Urine 920 1075 675 Stool 1 Other: Voiding Method Indwelling Catheter Indwelling Catheter Indwelling Catheter - Exam GENERAL EXAM: Alert, 65-year-old female patient, weak, in mild respiratory distress on AirVo high flow oxygen at 60 L and 80% FiO2. HEAD: Normocephalic. EYES: Normal reaction of pupils, equal size. NOSE: Clear with pink turbinates. THROAT: No erythema or exudates. NECK: No masses, no JVD. CHEST: No chest wall deformity. LUNGS: Equal air entry with crackles in the bilateral posterior bases CVS: S1 and S2 normal with no audible murmur, regular rhythm. ABDOMEN: No hepatosplenomegaly, normal bowel sounds, no guarding or rigidity. SPINE: No scoliosis or deformity SKIN: No rashes CENTRAL NERVOUS SYSTEM: No focal deficits, tone is normal in all 4 extremities. EXTREMITIES: There is no peripheral edema. No clubbing, no cyanosis. Peripheral pulses are intact. - Labs CBC & Chem 7: 02/03/21 04:45 02/03/21 04:45 Labs: Abnormal Lab Results - Last 24 Hours (Table) 02/02/21 02/02/21 02/03/21 Range/Units 17:25 20:51 04:45 WBC (3.8-10.6) k/uL Neutrophils # (Manual) (1.3-7.7) k/uL Metamyelocytes # (Man) (0) k/uL Myelocytes # (Manual) (0) k/uL D-Dimer (<0.60) mg/L FEU Sodium 134 L (137-145) mmol/L BUN 34 H (7-17) mg/dL Glucose 135 H (74-99) mg/dL POC Glucose (mg/dL) 118 H 112 H (75-99) mg/dL Phosphorus 6.2 H (2.5-4.5) mg/dL Magnesium 2.4 H (1.6-2.3) mg/dL AST 171 H (14-36) U/L ALT 371 H (4-34) U/L Alkaline Phosphatase 212 H (38-126) U/L Lactate Dehydrogenase 2049 H (313-618) U/L C-Reactive Protein 3.3 H (<1.0) mg/dL Total Protein 5.5 L (6.3-8.2) g/dL Albumin 2.8 L (3.5-5.0) g/dL 02/03/21 02/03/21 02/03/21 Range/Units 04:45 04:45 06:38 WBC 20.3 H (3.8-10.6) k/uL Neutrophils # (Manual) 16.80 H (1.3-7.7) k/uL Metamyelocytes # (Man) 0.61 H (0) k/uL Myelocytes # (Manual) 0.20 H (0) k/uL D-Dimer 15.14 H (<0.60) mg/L FEU Sodium (137-145) mmol/L BUN (7-17) mg/dL Glucose (74-99) mg/dL POC Glucose (mg/dL) 113 H (75-99) mg/dL Phosphorus (2.5-4.5) mg/dL Magnesium (1.6-2.3) mg/dL AST (14-36) U/L ALT (4-34) U/L Alkaline Phosphatase (38-126) U/L Lactate Dehydrogenase (313-618) U/L C-Reactive Protein (<1.0) mg/dL Total Protein (6.3-8.2) g/dL Albumin (3.5-5.0) g/dL 02/03/21 Range/Units 11:19 WBC (3.8-10.6) k/uL Neutrophils # (Manual) (1.3-7.7) k/uL Metamyelocytes # (Man) (0) k/uL Myelocytes # (Manual) (0) k/uL D-Dimer (<0.60) mg/L FEU Sodium (137-145) mmol/L BUN (7-17) mg/dL Glucose (74-99) mg/dL POC Glucose (mg/dL) 125 H (75-99) mg/dL Phosphorus (2.5-4.5) mg/dL Magnesium (1.6-2.3) mg/dL AST (14-36) U/L ALT (4-34) U/L Alkaline Phosphatase (38-126) U/L Lactate Dehydrogenase (313-618) U/L C-Reactive Protein (<1.0) mg/dL Total Protein (6.3-8.2) g/dL Albumin (3.5-5.0) g/dL Assessment and Plan Assessment: 1 Acute hypoxic respiratory failure related to acute COVID-19 pneumonia, and her symptoms started on January 16. Patient is not vaccinated for COVID-19. Patient declined Remdesivir. She is on Baricitinib. Requiring AirVo high flow oxygen at 60 L and 80% FiO2 2 Elevated inflammatory markers, elevated d-dimer 3 History of hypothyroidism 4 Morbid obesity with BMI 40.7 kg/m 5 Chronic back pain 6 Previous history of hysterectomy 7 Never smoker Plan: The patient was seen and evaluated by Dr. Luna Currently on AirVo high flow oxygen at 60 L 80% FiO2 Titrate the FiO2 as tolerated Increase her activity as tolerated Adequate oral intake, TPN discontinued Remains on Baricitinib, Eliquis, Decadron, bronchodilators and vitamin supplemen ts Condition is guarded We will continue to follow I, the cosigning physician, performed a history & physical examination of the patient. Lungs sounds bilateral scattered rhonchi, crackles in the posterior bases. Maintaining O2 saturations in the 90s on AirVo high flow oxygen at 60 L and 80% FiO2. I discussed the assessment and plan of care with my nurse practitioner, Nurys Payan. I attest to the above note as dictated by her.
--- NOTE | 2021-02-03 16:38 | P.PN ---
Subjective Progress Note Date: 02/03/21 Pts WBC, and inflammatory markers are higher today. Stable oxygenation. Objective - Vital Signs Vital signs: Vital Signs Temp 98.1 F 02/03/21 12:00 Pulse 62 02/03/21 15:00 Resp 22 02/03/21 16:00 BP 145/67 02/03/21 15:00 Pulse Ox 93 L 02/03/21 15:00 Intake & Output 02/02/21 02/03/21 02/03/21 18:59 06:59 18:59 Intake Total 510 1320 590 Output Total 920 1075 1276 Balance -410 245 -686 Weight 114.6 kg 114.2 kg Intake: IV 510 Mvi, Adult No.4 with Vit 85 K 10 ml Trace (Conc-1Ml/ Dose) 1 ml In Amino Acid 5%-D20w+Lytes*E* 1,000 ml @ 85 mls/hr IV .BY DURATION [facility] Rx#: [id number] Mvi, Adult No.4 with Vit 425 K 10 ml Trace (Conc-1Ml/ Dose) 1 ml Sodium Chloride 4Meq/ml Vial 20 meq In Amino Acid 5%-D20w +Lytes*E* 1,000 ml @ 85 mls/hr IV .BY DURATION [facility] Rx#:[id number] Oral 1320 590 Output: Urine 920 1075 1275 Stool 1 Other: Voiding Method Indwelling Catheter Indwelling Catheter Indwelling Catheter - Exam Gen: awake, alert HEENT: normocephalic, atraumatic, good hearing acuity, moist mucous membranes Resp: Impaired air exchange, symmetric chest expansion, bilateral crackles CVS: good distal perfusion x 4, regular rate and rhythm without murmurs GI: soft, NTTP, ND : no SPT, no CVAT, white catheter not present MSK: no pitting edema, no clubbing Neuro: non-focal, moving all extremities Psych: cooperative, labile mood - Labs CBC & Chem 7: 02/03/21 04:45 02/03/21 04:45 Labs: Abnormal Lab Results - Last 24 Hours (Table) 02/02/21 02/02/21 02/03/21 Range/Units 17:25 20:51 04:45 WBC (3.8-10.6) k/uL Neutrophils # (Manual) (1.3-7.7) k/uL Metamyelocytes # (Man) (0) k/uL Myelocytes # (Manual) (0) k/uL D-Dimer (<0.60) mg/L FEU Sodium 134 L (137-145) mmol/L BUN 34 H (7-17) mg/dL Glucose 135 H (74-99) mg/dL POC Glucose (mg/dL) 118 H 112 H (75-99) mg/dL Phosphorus 6.2 H (2.5-4.5) mg/dL Magnesium 2.4 H (1.6-2.3) mg/dL AST 171 H (14-36) U/L ALT 371 H (4-34) U/L Alkaline Phosphatase 212 H (38-126) U/L Lactate Dehydrogenase 2049 H (313-618) U/L C-Reactive Protein 3.3 H (<1.0) mg/dL Total Protein 5.5 L (6.3-8.2) g/dL Albumin 2.8 L (3.5-5.0) g/dL 02/03/21 02/03/21 02/03/21 Range/Units 04:45 04:45 06:38 WBC 20.3 H (3.8-10.6) k/uL Neutrophils # (Manual) 16.80 H (1.3-7.7) k/uL Metamyelocytes # (Man) 0.61 H (0) k/uL Myelocytes # (Manual) 0.20 H (0) k/uL D-Dimer 15.14 H (<0.60) mg/L FEU Sodium (137-145) mmol/L BUN (7-17) mg/dL Glucose (74-99) mg/dL POC Glucose (mg/dL) 113 H (75-99) mg/dL Phosphorus (2.5-4.5) mg/dL Magnesium (1.6-2.3) mg/dL AST (14-36) U/L ALT (4-34) U/L Alkaline Phosphatase (38-126) U/L Lactate Dehydrogenase (313-618) U/L C-Reactive Protein (<1.0) mg/dL Total Protein (6.3-8.2) g/dL Albumin (3.5-5.0) g/dL 10/16/21 Range/Units 11:19 WBC (3.8-10.6) k/uL Neutrophils # (Manual) (1.3-7.7) k/uL Metamyelocytes # (Man) (0) k/uL Myelocytes # (Manual) (0) k/uL D-Dimer (<0.60) mg/L FEU Sodium (137-145) mmol/L BUN (7-17) mg/dL Glucose (74-99) mg/dL POC Glucose (mg/dL) 125 H (75-99) mg/dL Phosphorus (2.5-4.5) mg/dL Magnesium (1.6-2.3) mg/dL AST (14-36) U/L ALT (4-34) U/L Alkaline Phosphatase (38-126) U/L Lactate Dehydrogenase (313-618) U/L C-Reactive Protein (<1.0) mg/dL Total Protein (6.3-8.2) g/dL Albumin (3.5-5.0) g/dL Assessment and Plan Assessment: Acute hypoxemic respiratory failure ARDS secondary to Covid 19 Acute Pulmonary Embolism Mild protein calorie malnutrition -Admit inpatient, telemetry -Pulmonary consult -Patient declined Remdesivir and now outside window -Dexamethasone 6 mg BID; LD SSI while on steroids -Baricitinib 6 -heparin gtt --> now on eliquis -Vitamin C/D, zinc, famotidine -Daily inflammatory markers -DuoNeb when necessary -guaifenisen-codeine PRN for cough -TPN for nutrition + protein shakes, diet as tolerated; may be able to wean TPN Hypothyroidism Obesity, class II, BMI 40.7 -resume home liothyronine and levothyroxine. -recommend weight loss outpatient Patient is a Full Code DVT PPx with Eliquis Daughter is DPOA Prognosis is guarded
[2021-02-03 17:21] LABS: Glucose,Whole Blood 131 mg/dL (75-99)
[2021-02-03 19:42] LABS: Glucose,Whole Blood 141 mg/dL (75-99)
[2021-02-03] MEDS: ALBUTEROL HFA INHALER INHALATION PRN (19:42)
[2021-02-04 03:55] LABS: Basophils # (A) 0.1 k/uL (0-0.2); Basophils % (A) 0 %; Eosinophils % (A) 0 %; HCT 40.2 % (34.0-46.0); HGB 13.2 gm/dL (11.4-16.0); Lymphocytes # (A) 0.8 k/uL (1.0-4.8); Lymphocytes % (A) 4 %; MCH 29.6 pg (25.0-35.0); MCHC 32.7 g/dL (31.0-37.0); MCV 90.3 fL (80.0-100.0); Mean Platelet Volume 8.6; Monocytes # (A) 0.7 k/uL (0-1.0); Monocytes % (A) 4 %; Neutrophils # (A) 17.7 k/uL (1.3-7.7); Neutrophils % (A) 91 %; Platelet Count 303 k/uL (150-450); RBC 4.46 m/uL (3.80-5.40); RDW 13.8 % (11.5-15.5); WBC 19.5 k/uL (3.8-10.6)
[2021-02-04 04:07] LABS: African American GFR (CKD) >90 (>60 ml/min/1.73 sqM); Anion Gap 5 mmol/L; Blood Urea Nitrogen 33 mg/dL (7-17); Calcium 8.3 mg/dL (8.4-10.2); Carbon Dioxide 26 mmol/L (22-30); Chloride 102 mmol/L (98-107); Glucose 164 mg/dL (74-99); Magnesium 2.5 mg/dL (1.6-2.3); Non-African American GFR(CKD) >90 (>60 ml/min/1.73 sqM); Phosphorus 4.9 mg/dL (2.5-4.5); Potassium 4.9 mmol/L (3.5-5.1); Sodium 133 mmol/L (137-145)
[2021-02-04] MEDS: LEVOTHYROXINE 50 MCG TAB PO SCH (05:29)
[2021-02-04] MEDS: LIOTHYRONINE SODIUM 5 MCG TAB PO SCH (05:57)
[2021-02-04 06:48] LABS: Glucose,Whole Blood 129 mg/dL (75-99)
[2021-02-04] MEDS: INSULIN ASPART (NovoLOG) 100 UNIT/ML VIAL SQ SCH ×4 (07:22→20:37)
[2021-02-04] MEDS: ASCORBIC ACID 500 MG TAB PO SCH ×2 (09:02→20:37)
[2021-02-04] MEDS: DEXAMETHASONE SOD PHOSPHATE 10 MG/ML 1 ML VIAL IV SCH ×2 (09:02→20:37)
[2021-02-04] MEDS: FAMOTIDINE 20 MG TAB PO SCH ×2 (09:02→20:36)
[2021-02-04] MEDS: ZINC SULFATE 220 MG CAP PO SCH (09:02)
[2021-02-04] MEDS: CHOLECALCIFEROL 25 MCG (1000 IU) TABLET PO SCH (09:02)
[2021-02-04] MEDS: hydrALAZINE HCL 25 MG TAB PO SCH ×3 (09:02→20:36)
[2021-02-04] MEDS: BARICITINIB 2 MG TABLET PO SCH (09:02)
[2021-02-04] MEDS: SENNOSIDES-DOCUSATE SODIUM 1 EACH TAB PO SCH ×2 (09:02→20:37)
[2021-02-04] MEDS: APIXABAN 5 MG TAB PO SCH ×3 (09:02→20:37)
[2021-02-04] MEDS: polyethylene glycoL 3350 17 GM POWD.PACK PO SCH (09:03)
[2021-02-04] MEDS: ACETAMINOPHEN TAB 325 MG TAB PO PRN ×2 (09:04→20:36)
--- NOTE | 2021-02-04 09:18 | XR ---
EXAMINATION TYPE: XR chest 1V portable DATE OF EXAM: 02/04/2021 COMPARISON: 02/03/2021 HISTORY: 65 years Female. STUDY INDICATION GIVEN: assess lungs . TECHNIQUE: Portable AP chest radiograph IMPRESSION: Tip of left upper extremity PICC stable in the SVC. Slightly worsened interstitial and airspace opacities right greater than left. Stable small left pleural effusion with questionable trace right pleural effusion overall no signific ant change. No pneumothorax seen. Mildly prominent cardiac silhouette without significant change since per. No acute osseous abnormality.
--- NOTE | 2021-02-04 10:27 | P.PN ---
Subjective Progress Note Date: 02/04/21 Patient has improved oxygenation, sitting in chair comfortably. Patient's family is requesting transfer to [facility] if accepting physician is found. Objective - Vital Signs Vital signs: Vital Signs Temp 98.6 F 02/04/21 08:00 Pulse 70 02/04/21 09:00 Resp 29 H 02/04/21 09:00 BP 146/64 02/04/21 09:00 Pulse Ox 91 L 02/04/21 09:00 Intake & Output 02/03/21 02/04/21 02/04/21 18:59 06:59 18:59 Intake Total 790 600 240 Output Total 1451 1100 350 Balance -661 -500 -110 Weight 110.8 kg Intake: Oral 790 300 240 Tube Feeding 300 Output: Urine 1450 1100 350 Stool 1 Other: Voiding Method Indwelling Catheter Indwelling Catheter Indwelling Catheter - Exam Gen: awake, alert HEENT: normocephalic, atraumatic, good hearing acuity, moist mucous membranes Resp: Impaired air exchange, symmetric chest expansion, bilateral crackles CVS: good distal perfusion x 4, regular rate and rhythm without murmurs GI: soft, NTTP, ND : no SPT, no CVAT, white catheter not present MSK: no pitting edema, no clubbing Neuro: non-focal, moving all extremities Psych: cooperative, labile mood - Labs CBC & Chem 7: 02/04/21 03:24 02/04/21 03:24 Labs: Abnormal Lab Results - Last 24 Hours (Table) 02/03/21 02/03/21 02/03/21 Range/Units 11:19 17:19 19:40 WBC (3.8-10.6) k/uL Neutrophils # (1.3-7.7) k/uL Lymphocytes # (1.0-4.8) k/uL Sodium (137-145) mmol/L BUN (7-17) mg/dL Glucose (74-99) mg/dL POC Glucose (mg/dL) 125 H 131 H 141 H (75-99) mg/dL Calcium (8.4-10.2) mg/dL Phosphorus (2.5-4.5) mg/dL Magnesium (1.6-2.3) mg/dL 02/04/21 02/04/21 02/04/21 Range/Units 03:24 03:24 06:36 WBC 19.5 H (3.8-10.6) k/uL Neutrophils # 17.7 H (1.3-7.7) k/uL Lymphocytes # 0.8 L (1.0-4.8) k/uL Sodium 133 L (137-145) mmol/L BUN 33 H (7-17) mg/dL Glucose 164 H (74-99) mg/dL POC Glucose (mg/dL) 129 H (75-99) mg/dL Calcium 8.3 L (8.4-10.2) mg/dL Phosphorus 4.9 H (2.5-4.5) mg/dL Magnesium 2.5 H (1.6-2.3) mg/dL Assessment and Plan Assessment: Acute hypoxemic respiratory failure ARDS secondary to Covid 19 Acute Pulmonary Embolism Mild protein calorie malnutrition -Admit inpatient, telemetry -Pulmonary consult -Patient declined Remdesivir and now outside window -Dexamethasone 6 mg BID; LD SSI while on steroids -Baricitinib 6 -heparin gtt --> now on eliquis -Vitamin C/D, zinc, famotidine -Daily inflammatory markers -DuoNeb when necessary -guaifenisen-codeine PRN for cough -TPN for nutrition + protein shakes, diet as tolerated; may be able to wean TPN Hypothyroidism Obesity, class II, BMI 40.7 -resume home liothyronine and levothyroxine. -recommend weight loss outpatient Patient is a Full Code DVT PPx with Eliquis Daughter is DPOA Prognosis is guarded
[2021-02-04 11:28] LABS: Glucose,Whole Blood 128 mg/dL (75-99)
--- NOTE | 2021-02-04 12:52 | P.PN ---
Subjective Progress Note Date: 02/04/21 Principal diagnosis: COVID-19 pneumonia 65-year-old white female patient with past medical history hypothyroidism, patient is a nonsmoker, who presented to the emergency department on 01/24/2021 with complaints of cough, phlegm production, decreased appetite. She stated that her symptoms started on January 16. Both her and the patient has been diagnosed with COVID-19, her is also hospitalized currently with COVID-19 pneumonia. She reports some hemoptysis. Her dyspnea is worsening at home. She is not vaccinated for COVID-19 because she believed that [place] and were isolated that they were not at risk. However recently they both traveled in a car across the country and brought their son home from [place]. She didn't developed above-mentioned symptoms, and she thought it was a upper respiratory infection, possibly bronchitis, she came into the emergency department for evaluation of blood-tinged sputum. She denied any history of chronic lung disease, no asthma COPD, she is a nonsmoker. No nausea vomiting or diarrhea. She tested positive for COVID-19, she was started on Decadron in the emergency department, with initial dose of 10 mg. Her chest x- ray showed bilateral infiltrates consistent with COVID-19 infection, her COVID test was positive. Her pulse ox is ranging from 89-93 on 2 L of oxygen. She had positive leukopenia on her admission labs, with white blood cell count of 3.5, hemoglobin of 15.1, platelet count is 148, lymphocytes, 0.5, sodium is 136, the rest of the electrolytes were within normal limits, B1 is 20, creatinine 0.8, AST was 64, ALT was 30, alkaline phosphatase was 141, LDH was elevated at 1147, CRP is 5.7, pro calcitonin level was negative at 0.08. Patient was offered Remdesivir in the emergency department although she was outside the window for treatment. She has declined Remdesivir per her daughter's recommendations who is a RN. Patient remains on daily dose Decadron 6 mg, prophylactic Lovenox, she is on cough syrup, and albuterol inhaler, she was started on vitamin D3. On 01/26/2021 patient seen in follow-up on medical surgical floor, she remains on 2 L of oxygen her pulse ox is 89-90%, she did have a low-grade fevers in the last 24 hours, with a T-max of 100.5F. Appears very fatigued. But no acute respiratory distress. Today's labs show d-dimer of 1.82, LDH of 1541, and CRP of 5.6. Pro-calcitonin level was negative at 0.08. Patient remains on IV Decad terrie 6 mg daily, cough syrup, she is on IV hydration with 0.9 normal sinus rate of 1:30 ML per hour, she is on Lovenox 40 mg twice daily, and COVID-19 vitamins. She has a dry hacking cough, no chest discomfort. She does complain of nausea, she is receiving Zofran. No abdominal discomfort. On 01/30/2021 patient is seen in follow-up in intensive care unit, she remains on BiPAP, with pressures of 14/6 and FiO2 of 45%, her pulse ox is 96%, she is awake and alert, in no acute distress, yesterday she had a PICC line placed, and TPN was started for nutritional support, currently infusing at a rate of 30 ML per hour, will be further increased to 50 ML per hour. Patient's receiving IV point nursing 1:30 ML per hour. She has been afebrile. Vital signs have been stable, today's labs have been reviewed, white blood cell count is 10.6, hemoglobin is 13.3, lymphocyte count is 0.7, sodium is 135, the rest of electrolytes were within normal limits, BUN is 19 creatinine 0.54. Chest x-ray shows bilateral multifocal mid to lower lung opacities consistent with no COVID- 19 introduction no significant change from one day prior. Inflammatory markers are still pending for today, her last d-dimer from yesterday was down to 3.73. she is on Eliquis for right lower lobe pulmonary emboli. Patient remains on Decadron 6 mg twice daily, she is on Baricitinib On 02/01/2021 patient seen in follow-up in the intensive care unit, she is currently on Airvo at 60 L and FiO2 of 90%, and her pulse ox is 89-90%, breathing fairly comfortably, does not appear to be in any acute distress, she is afebrile, hemodynamically she is stable, she has a PICC line in place for TPN infusing at 85 ML per hour, she is also starting to eat by mouth, although her appetite is not the greatest yet, but improving. Occasional cough, no phlegm production, significantly dyspneic with any exertion, overall seems to be im proving, her chest x-ray today shows patchy bilateral lung infiltrates compatible with atypical pneumonia, and the radiologist felt that her findings may have been slightly worsened from previous chest x-ray. Today's labs have been reviewed, d-dimer is 12.19, and patient is on Eliquis 10 mg twice daily for a newly diagnosed right lower lobe pulmonary embolism, sodium is 134, the rest of electrolytes were within normal limits, BUN is 22, creatinine 0.57, LDH is increased to 1972, and CRP is improved and is down to 3.4 on today's labs, her pro-calcitonin level was negative at 0.04. Patient continues on Coumadin vitamins, she is on Decadron 6 mg twice daily, and Baricitinib. Hemodynamically she is stable, she is in sinus mechanism on a monitor. Lung sounds reveal diminished breath sounds with some scattered rhonchi. On 02/02/2021 patient seen in follow-up in intensive care unit, she remains on high flow oxygen per Airvo a 60 L on FiO2 of 80%, and her pulse ox is 87-90%, breathing comfortably, dyspneic with exertion, but recovers. She is awake and alert, oriented 3, she is resting in bed, she's been getting up in the chair with assistance, was not in the chair yesterday related to some back pain which is chronic for her. They usually when necessary Tylenol is effective, does not want anything stronger for pain. Today's chest x-ray shows bilateral multifocal mid to lower lung opacities consistent with known coronary 19 infection, with no significant change from one day earlier. CXR reviewed, d-dimer is stable at 12.36, sodium is 135, the rest of the electrolytes were within normal limits, B1 is 25 creatinine 0.51, TSH is trending down and is down to 1704, CRP is stable at 3.3. Patient remains on TPN infusing at a rate of 84 ML per hour, she is starting to take an similar oral intake, she can only tolerate small amounts at a time, but she has not had any nausea vomiting or diarrhea. Patient continues on Eliquis 10 mg twice daily, she is on Baricitinib, Decadron 6 mg twice daily. On 02/04/2021 patient seen in follow-up in intensive care unit. She is sitting up in the recliner, seems to be breathing quite comfortably, she is on Airvo at 60 L and FiO2 of 75%, with a pulse ox of 91-95%, afebrile, hemodynamically she stable, she is not on any maintenance IV fluids, she is in sinus mechanism, hemodynamically stable, she continues on dexamethasone 6 mg twice a day, she is on baricitinib 4 mg daily, she is on COVID-19 vitamins, and Eliquis for acute pulmonary embolism related to a viral pneumonia. Oral intake is fair, TPN has been discontinued, today's chest x-ray shows slightly worsened interstitial and airspace opacities right greater than left. But clinically patient is stable, and seems to be slightly improved. Today's labs have been reviewed, white blood cell count is 19.5, hemoglobin is 13.2, sodium is 133, the rest of electrolytes were within normal limits, B1 is 33 creatinine 0.56. Pro-calcitonin level is negative at 0.07 Objective - Vital Signs Vital signs: Vital Signs Temp 98 F 02/04/21 12:00 Pulse 77 02/04/21 12:00 Resp 29 H 02/04/21 12:00 BP 149/72 02/04/21 12:00 Pulse Ox 91 L 02/04/21 12:00 Intake & Output 02/03/21 02/04/21 02/04/21 18:59 06:59 18:59 Intake Total 790 600 480 Output Total 1451 1100 700 Balance -661 -500 -220 Weight 110.8 kg Intake: Oral 790 300 480 Tube Feeding 300 Output: Urine 1450 1100 700 Stool 1 Other: Voiding Method Indwelling Catheter Indwelling Catheter Indwelling Catheter - Exam GENERAL EXAM: Alert, pleasant, 65-year-old white female, on Airvo 60 L and FiO2 of 75%, with a pulse ox of 91-95% HEAD: Normocephalic/atraumatic. EYES: Normal reaction of pupils, equal size. Conjunctiva pink, sclera white. NOSE: Clear with pink turbinates. THROAT: No erythema or exudates. NECK: No masses, no JVD, no thyroid enlargement, no adenopathy. CHEST: No chest wall deformity. Symmetrical expansion. LUNGS: Equal air entry with bibasilar crackles CVS: Regular rate and rhythm, normal S1 and S2, no gallops, no murmurs, no rubs ABDOMEN: Soft, nontender. No hepatosplenomegaly, normal bowel sounds, no guarding or rigidity. EXTREMITIES: No clubbing, no edema, no cyanosis, 2+ pulses and upper and lower extremities. MUSCULOSKELETAL: Muscle strength and tone normal. SPINE: No scoliosis or deformity SKIN: No rashes CENTRAL NERVOUS SYSTEM: Alert and oriented -3. No focal deficits, tone is normal in all 4 extremities. PSYCHIATRIC: Alert and oriented -3. Appropriate affect. Intact judgment and insight. - Labs CBC & Chem 7: 02/04/21 03:24 02/04/21 03:24 Labs: Abnormal Lab Results - Last 24 Hours (Table) 02/03/21 02/03/21 02/04/21 Range/Units 17:19 19:40 03:24 WBC (3.8-10.6) k/uL Neutrophils # (1.3-7.7) k/uL Lymphocytes # (1.0-4.8) k/uL Sodium 133 L (137-145) mmol/L BUN 33 H (7-17) mg/dL Glucose 164 H (74-99) mg/dL POC Glucose (mg/dL) 131 H 141 H (75-99) mg/dL Calcium 8.3 L (8.4-10.2) mg/dL Phosphorus 4.9 H (2.5-4.5) mg/dL Magnesium 2.5 H (1.6-2.3) mg/dL 02/04/21 02/04/21 02/04/21 Range/Units 03:24 06:36 11:26 WBC 19.5 H (3.8-10.6) k/uL Neutrophils # 17.7 H (1.3-7.7) k/uL Lymphocytes # 0.8 L (1.0-4.8) k/uL Sodium (137-145) mmol/L BUN (7-17) mg/dL Glucose (74-99) mg/dL POC Glucose (mg/dL) 129 H 128 H (75-99) mg/dL Calcium (8.4-10.2) mg/dL Phosphorus (2.5-4.5) mg/dL Magnesium (1.6-2.3) mg/dL Assessment and Plan Plan: Assessment: #1. Acute hypoxic respiratory failure related to acute COVID-19 pneumonia, and her symptoms started on January 16. Patient is not vaccinated for COVID-19. Patient declined Remdesivir treatment although she is outside the window for Remdesivir anyway. Patient had progressive hypoxic respiratory failure and she was transferred to the intensive care unit on 01/27/2021 and placed on BiPAP support. Currently on Decadron 6 mg twice daily, and baricitinib. Patient has been switched to irritable yesterday on 01/31/2021, which she remains at 60 L and FiO2 of 92% with a pulse ox of 89-90%. On 02/04/2021 remains on Airvo, is 60 L and FiO2 of 75%. #2. Acute right lower lobe pulmonary embolism, patient is currently on Eliquis. #3. Elevated d-dimer, and patient was initially refusing her Lovenox injections, she is now on Eliquis for acute pulmonary embolism #4. History of hypothyroidism #5. Morbid obesity with BMI 40.7 kg/m #6. Chronic back pain #7. Previous history of hysterectomy #8. Never smoker Plan: Continue current medical treatment Patient is tolerating Airvo, at 60 L FiO2 is down to 75%, continue weaning FiO2 to keep O2 sats at 88 percent and above Clinically patient has remained stable, she is breathing comfortably Continue Decadron, continue Eliquis, baricitinib Tolerating oral feedings, TPN has been discontinued Continue oral anticoagulation Encourage deep breathing and coughing, incentive spirometry use Increase activity as tolerated Patient is requesting transfer to the [facility] Discharge planning to initiate the process We'll follow patient's clinical course and make further recommendations I performed a history & physical examination of the patient and discussed their management with my nurse practitioner, Susie Joaquin. I reviewed the nurse practitioner's note and agree with the documented findings and plan of care. Lung sounds are positive for diminished breath sounds throughout the lung driscoll. The findings and the impression was discussed with the patient. I attest to the documentation by the nurse practitioner. Time with Patient: Greater than 30
[2021-02-04 16:32] LABS: Glucose,Whole Blood 135 mg/dL (75-99)
[2021-02-04] MEDS: guaiFENesin-Coden 100-10MG/5ML 10 ML CUP PO PRN (18:14)
[2021-02-04 20:20] LABS: Glucose,Whole Blood 166 mg/dL (75-99)
[2021-02-05] MEDS: LEVOTHYROXINE 50 MCG TAB PO SCH (05:14)
[2021-02-05] MEDS: LIOTHYRONINE SODIUM 5 MCG TAB PO SCH (05:15)
[2021-02-05 06:10] LABS: Basophils # (A) 0.1 k/uL (0-0.2); Basophils % (A) 0 %; Eosinophils % (A) 0 %; HCT 41.8 % (34.0-46.0); HGB 13.4 gm/dL (11.4-16.0); Lymphocytes # (A) 0.8 k/uL (1.0-4.8); Lymphocytes % (A) 4 %; MCV 90.5 fL (80.0-100.0); Mean Platelet Volume 8.7; Monocytes # (A) 0.6 k/uL (0-1.0); Monocytes % (A) 3 %; Neutrophils # (A) 16.3 k/uL (1.3-7.7); Neutrophils % (A) 92 %; Platelet Count 331 k/uL (150-450); RBC 4.62 m/uL (3.80-5.40); WBC 17.8 k/uL (3.8-10.6)
[2021-02-05 06:28] LABS: ALT 253 U/L (4-34); AST 62 U/L (14-36); African American GFR (CKD) >90 (>60 ml/min/1.73 sqM); Albumin 2.8 g/dL (3.5-5.0); Alkaline Phosphatase 188 U/L (38-126); Anion Gap 5 mmol/L; Blood Urea Nitrogen 41 mg/dL (7-17); Calcium 8.9 mg/dL (8.4-10.2); Carbon Dioxide 26 mmol/L (22-30); Chloride 104 mmol/L (98-107); Glucose 139 mg/dL (74-99); Non-African American GFR(CKD) >90 (>60 ml/min/1.73 sqM); Potassium 4.4 mmol/L (3.5-5.1); Sodium 135 mmol/L (137-145); Total Bilirubin 0.6 mg/dL (0.2-1.3); Total Protein 5.6 g/dL (6.3-8.2)
[2021-02-05 06:58] LABS: Glucose,Whole Blood 128 mg/dL (75-99)
[2021-02-05] MEDS: INSULIN ASPART (NovoLOG) 100 UNIT/ML VIAL SQ SCH ×4 (07:08→21:20)
[2021-02-05] MEDS: ALBUTEROL HFA INHALER INHALATION PRN ×2 (07:22→11:22)
--- NOTE | 2021-02-05 08:07 | P.PN ---
Subjective Progress Note Date: 02/05/21 65-year-old female patient, currently in the intensive care unit with hypoxic respiratory failure due to obesity-related pneumonia. The patient presented to the hospital on 01/24/2021 with shortness of breath and cough. Her symptoms over the started in 01/16/2021. The patient tested positive COVID-19. She was started on Decadron. She was initially on 2 L of oxygen by nasal cannula. Subsequently, condition progressed and the patient currently isn't intensive care unit on high flow oxygen at 50 L with an FiO2 of 65% to maintain a pulse ox of 90%. She is receiving a combination of 6 mg Decadron twice a day and she is also on Baricitinib 4 mg by mouth daily. She is also on anticoagulation with Eliquis for an acute pulmonary embolism assumed to be related to the bilateral pneumonia. The computed tomography scan of the chest was done on 01/27/2021 showed extensive infiltrates involving both lungs. There was also significantinfiltrates throughout the lungs. Heart was enlarged. No perica rdial effusion. Filling defect in the right lower lobe pulmonary artery branch was noted and this was concerning for pulmonary embolism. She was supplemented with TPN for nutritional support and currently she is taking orals and a chest x-rays consistent with [id number] pneumonia with diffuse but the pulmonary infiltrates. Pro-calcitonin level was low at 0.07. The chest x-ray from today is showing diffuse bilateral pulmonary infiltrates and a chest x-ray findings essentially unchanged compared to yesterday. There are areas of consolidation bilaterally perihilar and in the peripheries. White cell count is 17.8 with hemoglobin of 13.4. The patient's renal function is normal. The LFTs are improving. The LDH from few days ago was 2048 with a CRP of 3.3. D-dimer from 02/03/2021 is at 15.1. Objective - Vital Signs Vital signs: Vital Signs Temp 98.5 F 02/05/21 06:00 Pulse 66 02/05/21 07:00 Resp 20 02/05/21 07:00 BP 148/70 02/05/21 07:00 Pulse Ox 90 L 02/05/21 07:00 Intake & Output 02/04/21 02/05/21 02/05/21 18:59 06:59 18:59 Intake Total 820 250 300 Output Total 1775 1445 125 Balance -490 -6527 175 Weight 111 kg Intake: Oral 580 250 300 Tube Feeding 240 Output: Urine 1775 1445 125 Other: Voiding Method Indwelling Catheter Indwelling Catheter - Exam GENERAL EXAM: Alert, pleasant, 65-year-old white female, on Airvo 50 L and FiO2 of 65%, with a pulse ox of 91-95% HEAD: Normocephalic/atraumatic. EYES: Normal reaction of pupils, equal size. Conjunctiva pink, sclera white. NOSE: Clear with pink turbinates. THROAT: No erythema or exudates. NECK: No masses, no JVD, no thyroid enlargement, no adenopathy. CHEST: No chest wall deformity. Symmetrical expansion. LUNGS: Equal air entry with bibasilar crackles CVS: Regular rate and rhythm, normal S1 and S2, no gallops, no murmurs, no rubs ABDOMEN: Soft, nontender. No hepatosplenomegaly, normal bowel sounds, no guardi ng or rigidity. EXTREMITIES: No clubbing, no edema, no cyanosis, 2+ pulses and upper and lower extremities. MUSCULOSKELETAL: Muscle strength and tone normal. SPINE: No scoliosis or deformity SKIN: No rashes CENTRAL NERVOUS SYSTEM: Alert and oriented -3. No focal deficits, tone is normal in all 4 extremities. PSYCHIATRIC: Alert and oriented -3. Appropriate affect. Intact judgment and insight. - Labs CBC & Chem 7: 02/05/21 05:52 02/05/21 05:52 Labs: Abnormal Lab Results - Last 24 Hours (Table) 02/04/21 02/04/21 02/04/21 Range/Units 11:26 16:30 20:09 WBC (3.8-10.6) k/uL Neutrophils # (1.3-7.7) k/uL Lymphocytes # (1.0-4.8) k/uL Sodium (137-145) mmol/L BUN (7-17) mg/dL Glucose (74-99) mg/dL POC Glucose (mg/dL) 128 H 135 H 166 H (75-99) mg/dL AST (14-36) U/L ALT (4-34) U/L Alkaline Phosphatase (38-126) U/L Total Protein (6.3-8.2) g/dL Albumin (3.5-5.0) g/dL 02/05/21 02/05/21 02/05/21 Range/Units 05:52 05:52 06:47 WBC 17.8 H (3.8-10.6) k/uL Neutrophils # 16.3 H (1.3-7.7) k/uL Lymphocytes # 0.8 L (1.0-4.8) k/uL Sodium 135 L (137-145) mmol/L BUN 41 H (7-17) mg/dL Glucose 139 H (74-99) mg/dL POC Glucose (mg/dL) 128 H (75-99) mg/dL AST 62 H (14-36) U/L ALT 253 H (4-34) U/L Alkaline Phosphatase 188 H (38-126) U/L Total Protein 5.6 L (6.3-8.2) g/dL Albumin 2.8 L (3.5-5.0) g/dL Assessment and Plan Plan: 1. Acute hypoxic respiratory failure related to acute COVID-19 pneumonia, and h er symptoms started on January 16. Patient is not vaccinated for COVID-19. Patient had progressive hypoxic respiratory failure and she was transferred to the intensive care unit on 01/27/2021 and placed on BiPAP support. Currently on Decadron 6 mg twice daily, and baricitinib. She is on high flow 02 with Airvo 50 L and FiO2 of 65 % with a pulse ox of 89-90%. 2. Acute right lower lobe pulmonary embolism, patient is currently on Eliquis. The CTA is showing a tiny subsegmental pulmonary embolism of the right lower lobe and the patient remains on anticoagulation with Eliquis. 3. Elevated inflammatory markers secondary to [id number] pneumonia 4. History of hypothyroidism 5. Morbid obesity with BMI 40.7 kg/m 6. Chronic back pain 7. Previous history of hysterectomy 8. Never smoker 9 transaminitis, mild, improving Plan: Patient is tolerating Airvo, at 50 L FiO2 is down to 65%, continue weaning FiO2 to keep O2 sats at 88 percent and above Clinically patient has remained stable, she is breathing comfortably Continue Decadron and baricitinib Continue antocoagulation with Eliquis Tolerating oral feedings Encourage deep breathing and coughing, incentive spirometry use Increase activity as tolerated Patient is requesting transfer to the [facility], and this is a transfer that was not accepted by [facility]. Clinically stable had a lengthy discussion with her. Updated her on the condition of her is currently intubated Our intensive care units. The patient herself is still critical. The patient will likely need more time as it oxygen flow requirement is still high. We'll continue same treatment. We'll continue to follow. No bleeding complications. No signs of any fluid overload. Wean down the FiO2 gradually to maintain a education above 90%. Keep the flow at 50 L. Critical care evaluation done more than 30 minutes We'll follow patient's clinical course and make further recommendations Time with Patient: Greater than 30
--- NOTE | 2021-02-05 08:13 | XR ---
EXAMINATION TYPE: XR chest 1V portable DATE OF EXAM: 02/05/2021 HISTORY: Shortness of breath. COMPARISON: 02/04/2021 TECHNIQUE: Single view of the chest is submitted. FINDINGS: Demonstrated are scattered senescent parenchymal change. Diffuse bilateral airspace infiltrates persist without significant change. The heart is stable. Hilar and mediastinal structures are within normal limits. Degenerative changes are seen of the dorsal spine. IMPRESSION: 1. Diffuse bilateral airspace infiltrates persist without significant change.
[2021-02-05 08:33] LABS: C Reactive Protein 4.1 mg/dL (<1.0)
[2021-02-05] MEDS: polyethylene glycoL 3350 17 GM POWD.PACK PO SCH ×2 (09:47→09:52)
[2021-02-05] MEDS: guaiFENesin-Coden 100-10MG/5ML 10 ML CUP PO PRN (09:47)
[2021-02-05] MEDS: DEXAMETHASONE SOD PHOSPHATE 10 MG/ML 1 ML VIAL IV SCH ×2 (09:47→21:24)
[2021-02-05] MEDS: CHOLECALCIFEROL 25 MCG (1000 IU) TABLET PO SCH (09:48)
[2021-02-05] MEDS: APIXABAN 5 MG TAB PO SCH ×2 (09:48→21:23)
[2021-02-05] MEDS: FAMOTIDINE 20 MG TAB PO SCH ×2 (09:48→21:23)
[2021-02-05] MEDS: ASCORBIC ACID 500 MG TAB PO SCH ×2 (09:48→21:23)
[2021-02-05] MEDS: hydrALAZINE HCL 25 MG TAB PO SCH ×3 (09:48→21:23)
[2021-02-05] MEDS: BARICITINIB 2 MG TABLET PO SCH (09:52)
[2021-02-05] MEDS: SENNOSIDES-DOCUSATE SODIUM 1 EACH TAB PO SCH ×2 (09:52→21:23)
[2021-02-05] MEDS: ZINC SULFATE 220 MG CAP PO SCH (09:53)
[2021-02-05] MEDS: ACETAMINOPHEN TAB 325 MG TAB PO PRN ×2 (10:15→21:24)
[2021-02-05 11:20] LABS: Glucose,Whole Blood 131 mg/dL (75-99)
--- NOTE | 2021-02-05 13:23 | P.PN ---
Subjective Progress Note Date: 02/05/21 Patient has improved oxygenation again today, sitting in bed comfortably. Ongoing management in ICU. Objective - Vital Signs Vital signs: Vital Signs Temp 98.2 F 02/05/21 12:00 Pulse 77 02/05/21 12:00 Resp 22 02/05/21 12:00 BP 139/71 02/05/21 12:00 Pulse Ox 90 L 02/05/21 12:00 Intake & Output 02/04/21 02/05/21 02/05/21 18:59 06:59 18:59 Intake Total 820 250 300 Output Total 1775 1445 435 Balance -955 -1195 -135 Weight 111 kg 111 kg Intake: Oral 580 250 300 Tube Feeding 240 Output: Urine 1777 1445 435 Other: Voiding Method Indwelling Catheter Indwelling Catheter Indwelling Catheter - Exam Gen: awake, alert HEENT: normocephalic, atraumatic, good hearing acuity, moist mucous membranes Resp: Impaired air exchange, symmetric chest expansion, bilateral crackles CVS: good distal perfusion x 4, regular rate and rhythm without murmurs GI: soft, NTTP, ND : no SPT, no CVAT, white catheter not present MSK: no pitting edema, no clubbing Neuro: non-focal, moving all extremities Psych: cooperative, labile mood - Labs CBC & Chem 7: 02/05/21 05:52 02/05/21 05:52 Labs: Abnormal Lab Results - Last 24 Hours (Table) 02/04/21 02/04/21 02/05/21 Range/Units 16:30 20:09 05:52 WBC 17.8 H (3.8-10.6) k/uL Neutrophils # 16.3 H (1.3-7.7) k/uL Lymphocytes # 0.8 L (1.0-4.8) k/uL D-Dimer (<0.60) mg/L FEU Sodium (137-145) mmol/L BUN (7-17) mg/dL Glucose (74-99) mg/dL POC Glucose (mg/dL) 135 H 166 H (75-99) mg/dL AST (14-36) U/L ALT (4-34) U/L Alkaline Phosphatase (38-126) U/L Lactate Dehydrogenase (313-618) U/L C-Reactive Protein (<1.0) mg/dL Total Protein (6.3-8.2) g/dL Albumin (3.5-5.0) g/dL 02/05/21 02/05/21 02/05/21 Range/Units 05:52 05:52 05:52 WBC (3.8-10.6) k/uL Neutrophils # (1.3-7.7) k/uL Lymphocytes # (1.0-4.8) k/uL D-Dimer >4.32 H (<0.60) mg/L FEU Sodium 135 L (137-145) mmol/L BUN 41 H (7-17) mg/dL Glucose 139 H (74-99) mg/dL POC Glucose (mg/dL) (75-99) mg/dL AST 62 H (14-36) U/L ALT 253 H (4-34) U/L Alkaline Phosphatase 188 H (38-126) U/L Lactate Dehydrogenase 1451 H (313-618) U/L C-Reactive Protein 4.1 H (<1.0) mg/dL Total Protein 5.6 L (6.3-8.2) g/dL Albumin 2.8 L (3.5-5.0) g/dL 02/05/21 02/05/21 Range/Units 06:47 11:18 WBC (3.8-10.6) k/uL Neutrophils # (1.3-7.7) k/uL Lymphocytes # (1.0-4.8) k/uL D-Dimer (<0.60) mg/L FEU Sodium (137-145) mmol/L BUN (7-17) mg/dL Glucose (74-99) mg/dL POC Glucose (mg/dL) 128 H 131 H (75-99) mg/dL AST (14-36) U/L ALT (4-34) U/L Alkaline Phosphatase (38-126) U/L Lactate Dehydrogenase (313-618) U/L C-Reactive Protein (<1.0) mg/dL Total Protein (6.3-8.2) g/dL Albumin (3.5-5.0) g/dL Assessment and Plan Assessment: Acute hypoxemic respiratory failure ARDS secondary to Covid 19 Acute Pulmonary Embolism Mild protein calorie malnutrition -Admit inpatient, telemetry -Pulmonary consult -Patient declined Remdesivir and now outside window -Dexamethasone 6 mg BID; LD SSI while on steroids -Baricitinib 10 of 14 -heparin gtt --> now on eliquis -Vitamin C/D, zinc, famotidine -Daily inflammatory markers -DuoNeb when necessary -guaifenisen-codeine PRN for cough -TPN for nutrition + protein shakes, diet as tolerated; may be able to wean TPN Hypothyroidism Obesity, class II, BMI 40.7 -resume home liothyronine and levothyroxine. -recommend weight loss outpatient Patient is a Full Code DVT PPx with [place] Daughter is DPOA Prognosis is guarded
[2021-02-05 17:06] LABS: Glucose,Whole Blood 193 mg/dL (75-99)
[2021-02-05 20:48] LABS: Glucose,Whole Blood 132 mg/dL (75-99)
[2021-02-06 05:06] LABS: Basophils % (A) 0 %; Eosinophils % (A) 0 %; HCT 40.3 % (34.0-46.0); HGB 12.8 gm/dL (11.4-16.0); Lymphocytes # (A) 0.7 k/uL (1.0-4.8); Lymphocytes % (A) 5 %; MCHC 31.6 g/dL (31.0-37.0); MCV 91.8 fL (80.0-100.0); Mean Platelet Volume 8.7; Monocytes # (A) 0.6 k/uL (0-1.0); Monocytes % (A) 4 %; Neutrophils # (A) 13.2 k/uL (1.3-7.7); Neutrophils % (A) 91 %; Platelet Count 310 k/uL (150-450); RDW 13.4 % (11.5-15.5); WBC 14.5 k/uL (3.8-10.6)
[2021-02-06 05:31] LABS: C Reactive Protein 2.7 mg/dL (<1.0)
[2021-02-06] MEDS: LEVOTHYROXINE 50 MCG TAB PO SCH (05:56)
[2021-02-06] MEDS: LIOTHYRONINE SODIUM 5 MCG TAB PO SCH (05:57)
[2021-02-06 06:05] LABS: Glucose,Whole Blood 121 mg/dL (75-99)
[2021-02-06] MEDS: INSULIN ASPART (NovoLOG) 100 UNIT/ML VIAL SQ SCH ×4 (07:08→21:50)
[2021-02-06] MEDS: ALBUTEROL HFA INHALER INHALATION PRN ×3 (07:38→15:06)
[2021-02-06] MEDS: CHOLECALCIFEROL 25 MCG (1000 IU) TABLET PO SCH (08:02)
[2021-02-06] MEDS: BARICITINIB 2 MG TABLET PO SCH (08:02)
[2021-02-06] MEDS: ASCORBIC ACID 500 MG TAB PO SCH ×2 (08:03→20:45)
[2021-02-06] MEDS: FAMOTIDINE 20 MG TAB PO SCH ×2 (08:03→20:45)
[2021-02-06] MEDS: polyethylene glycoL 3350 17 GM POWD.PACK PO SCH (08:03)
[2021-02-06] MEDS: APIXABAN 5 MG TAB PO SCH ×2 (08:03→20:45)
[2021-02-06] MEDS: DEXAMETHASONE SOD PHOSPHATE 10 MG/ML 1 ML VIAL IV SCH ×2 (08:03→20:44)
[2021-02-06] MEDS: hydrALAZINE HCL 25 MG TAB PO SCH ×3 (08:03→21:50)
[2021-02-06] MEDS: ZINC SULFATE 220 MG CAP PO SCH (08:05)
[2021-02-06] MEDS: SENNOSIDES-DOCUSATE SODIUM 1 EACH TAB PO SCH ×2 (08:05→20:52)
[2021-02-06] MEDS: ACETAMINOPHEN TAB 325 MG TAB PO PRN ×2 (08:15→21:23)
--- NOTE | 2021-02-06 10:10 | P.PN ---
Subjective Progress Note Date: 02/06/21 65-year-old female patient, currently in the intensive care unit with hypoxic respiratory failure due to obesity-related pneumonia. The patient presented to the hospital on 01/24/2021 with shortness of breath and cough. Her symptoms over the started in 01/16/2021. The patient tested positive COVID-19. She was started on Decadron. She was initially on 2 L of oxygen by nasal cannula. Subsequently, condition progressed and the patient currently isn't intensive care unit on high flow oxygen at 50 L with an FiO2 of 65% to maintain a pulse ox of 90%. She is receiving a combination of 6 mg Decadron twice a day and she is also on Baricitinib 4 mg by mouth daily. She is also on anticoagulation with Eliquis for an acute pulmonary embolism assumed to be related to the bilateral pneumonia. The computed tomography scan of the chest was done on 01/27/2021 showed extensive infiltrates involving both lungs. There was also significantinfiltrates throughout the lungs. Heart was enlarged. No roberta cardial effusion. Filling defect in the right lower lobe pulmonary artery branch was noted and this was concerning for pulmonary embolism. She was supplemented with TPN for nutritional support and currently she is taking orals and a chest x-rays consistent with [id number] pneumonia with diffuse but the pulmonary infiltrates. Pro-calcitonin level was low at 0.07. The chest x- ray from today is showing diffuse bilateral pulmonary infiltrates and a chest x- ray findings essentially unchanged compared to yesterday. There are areas of consolidation bilaterally perihilar and in the peripheries. White cell count is 17.8 with hemoglobin of 13.4. The patient's renal function is normal. The LFTs are improving. The LDH from few days ago was 2048 with a CRP of 3.3. D-dimer from 02/03/2021 is at 15.1. 02/06/2021, the patient is being seen for a follow-up. The patient this morning is stable. She denies having any worsening shortness of breath. She remains on high flow oxygen at 50 L with an FiO2 of 60%. Her pulse ox is ranging between 88-91%. No significant cough or sputum production. No chest tightness. No wheezing. She remains on Decadron. The patient is also on Baricitinib. Decadron dose is 6 mg twice a day. In terms of her inflammatory markers, the d- dimer is still elevated at 9.87. This is slightly higher compared to yesterday. Her LDH level is down to 1282 and the CRP level is down to 2.7. She is afebrile. She is hemodynamically stable. She is trying to take some dietary supplements that she has bruits with her through her daughter. Note that she al so had a pulmonary embolism and the patient on anticoagulation with Eliquis and she has no signs of bleeding. Pro-calcitonin level has been low at 0.07. In terms of any other blood work, her liver function tests are improving yesterday. Follow-up levels are still pending from today. Meanwhile, the chest x-ray from today is still pending. No other significant events overnight. No altered ment ation. No nausea vomiting or diarrhea. Objective - Vital Signs Vital signs: Vital Signs Temp 98.2 F 02/06/21 08:00 Pulse 64 02/06/21 09:00 Resp 18 02/06/21 09:00 BP 146/65 02/06/21 09:00 Pulse Ox 93 L 02/06/21 09:00 Intake & Output 02/05/21 02/06/21 02/06/21 18:59 06:59 18:59 Intake Total 300 1320 Output Total 960 1540 200 Balance -660 -220 -200 Weight 111 kg 111.5 kg Intake: Oral 300 1320 Output: Urine 960 1540 200 Other: Voiding Method Indwelling Catheter Indwelling Catheter - Exam GENERAL EXAM: Alert, pleasant, 65-year-old white female, on Airvo 50 L and FiO2 of 60%, with a pulse ox of 91-95% HEAD: Normocephalic/atraumatic. EYES: Normal reaction of pupils, equal size. Conjunctiva pink, sclera white. NOSE: Clear with pink turbinates. THROAT: No erythema or exudates. NECK: No masses, no JVD, no thyroid enlargement, no adenopathy. CHEST: No chest wall deformity. Symmetrical expansion. LUNGS: Equal air entry with bibasilar crackles CVS: Regular rate and rhythm, normal S1 and S2, no gallops, no murmurs, no rubs ABDOMEN: Soft, nontender. No hepatosplenomegaly, normal bowel sounds, no guarding or rigidity. EXTREMITIES: No clubbing, no edema, no cyanosis, 2+ pulses and upper and lower extremities. MUSCULOSKELETAL: Muscle strength and tone normal. SPINE: No scoliosis or deformity SKIN: No rashes CENTRAL NERVOUS SYSTEM: Alert and oriented -3. No focal deficits, tone is normal in all 4 extremities. PSYCHIATRIC: Alert and oriented -3. Appropriate affect. Intact judgment and insight. - Labs CBC & Chem 7: 02/06/21 04:22 02/05/21 05:52 Labs: Abnormal Lab Results - Last 24 Hours (Table) 02/05/21 02/05/21 02/05/21 Range/Units 05:52 11:18 17:03 WBC (3.8-10.6) k/uL Neutrophils # (1.3-7.7) k/uL Lymphocytes # (1.0-4.8) k/uL D-Dimer (<0.60) mg/L FEU POC Glucose (mg/dL) 131 H 193 H (75-99) mg/dL Ferritin 2994.0 H (10.0-291.0) ng/mL Lactate Dehydrogenase (313-618) U/L C-Reactive Protein (<1.0) mg/dL 02/05/21 02/06/21 02/06/21 Range/Units 20:46 04:22 04:22 WBC 14.5 H (3.8-10.6) k/uL Neutrophils # 13.2 H (1.3-7.7) k/uL Lymphocytes # 0.7 L (1.0-4.8) k/uL D-Dimer 9.87 H (<0.60) mg/L FEU POC Glucose (mg/dL) 132 H (75-99) mg/dL Ferritin (10.0-291.0) ng/mL Lactate Dehydrogenase (313-618) U/L C-Reactive Protein (<1.0) mg/dL 02/06/21 02/06/21 Range/Units 04:22 06:04 WBC (3.8-10.6) k/uL Neutrophils # (1.3-7.7) k/uL Lymphocytes # (1.0-4.8) k/uL D-Dimer (<0.60) mg/L FEU POC Glucose (mg/dL) 121 H (75-99) mg/dL Ferritin (10.0-291.0) ng/mL Lactate Dehydrogenase 1282 H (313-618) U/L C-Reactive Protein 2.7 H (<1.0) mg/dL Assessment and Plan Plan: 1. Acute hypoxic respiratory failure related to acute COVID-19 pneumonia, and her symptoms started on January 16. Patient is not vaccinated for COVID-19. Patient had progressive hypoxic respiratory failure and she was transferred to the intensive care unit on 01/27/2021 and placed on BiPAP support. Currently on Decadron 6 mg twice daily, and baricitinib. She is on high flow 02 with Airvo 50 L and FiO2 of 60 % with a pulse ox of 89-90%. Overall condition is stable compared to yesterday. No interval worsening. Clinically slightly improved compared to yesterday. Remains on anticoagulation with Eliquis. He remains on Eliquis and Baricitinib and Decadron. 2. Acute right lower lobe pulmonary embolism, patient is currently on Eliquis. The CTA is showing a tiny subsegmental pulmonary embolism of the right lower lob e and the patient remains on anticoagulation with Eliquis. 3. Elevated inflammatory markers secondary to [id number] pneumonia 4. History of hypothyroidism 5. Morbid obesity with BMI 40.7 kg/m 6. Chronic back pain 7. Previous history of hysterectomy 8. Never smoker 9 transaminitis, mild, improving Plan: Patient is tolerating Airvo, at 50 L FiO2 attempt to wean down the FiO2 down to 50% and monitor the pulse ox Clinically patient has remained stable, she is breathing comfortably Continue Decadron and baricitinib Continue antocoagulation with Eliquis Tolerating oral feedings Encourage deep breathing and coughing, incentive spirometry use Increase activity as tolerated Clinically stable Clinically stable. I discussed the case with her daughter. Updated her on her father's and mother's condition both of them are admitted to the intensive care unit. She is stable. We'll repeat inflammatory markers tomorrow. Repeat chest x-ray in the morning. Prior to wean down the FiO2 down to 50%. Give the patient incentive spirometer. Set that up on a chair. Deep breathing. Prone body positioning if possible. We'll continue to follow. Critical care evaluation done more than 30 minutes Time with Patient: Greater than 30
[2021-02-06 11:25] LABS: Glucose,Whole Blood 156 mg/dL (75-99)
--- NOTE | 2021-02-06 13:31 | P.PN ---
Subjective Progress Note Date: 02/06/21 Patient has improved oxygenation again today, sitting in bed comfortably. Ongoing management in ICU. Objective - Vital Signs Vital signs: Vital Signs Temp 98.2 F 02/06/21 08:00 Pulse 77 02/06/21 11:00 Resp 28 H 02/06/21 11:00 BP 144/73 02/06/21 11:00 Pulse Ox 86 L 02/06/21 11:00 Intake & Output 02/05/21 02/06/21 02/06/21 18:59 06:59 18:59 Intake Total 300 1320 Output Total 960 1540 550 Balance -660 220 -550 Weight 111 kg 111.5 kg Intake: Oral 300 1320 Output: Urine 960 1540 550 Other: Voiding Method Indwelling Catheter Indwelling Catheter - Exam Gen: awake, alert HEENT: normocephalic, atraumatic, good hearing acuity, moist mucous membranes Resp: Impaired air exchange, symmetric chest expansion, bilateral crackles CVS: good distal perfusion x 4, regular rate and rhythm without murmurs GI: soft, NTTP, ND : no SPT, no CVAT, white catheter not present MSK: no pitting edema, no clubbing Neuro: non-focal, moving all extremities Psych: cooperative, labile mood - Labs CBC & Chem 7: 02/06/21 04:22 02/05/21 05:52 Labs: Abnormal Lab Results - Last 24 Hours (Table) 02/05/21 02/05/21 02/05/21 Range/Units 05:52 17:03 20:46 WBC (3.8-10.6) k/uL Neutrophils # (1.3-7.7) k/uL Lymphocytes # (1.0-4.8) k/uL D-Dimer (<0.60) mg/L FEU POC Glucose (mg/dL) 193 H 132 H (75-99) mg/dL Ferritin 2994.0 H (10.0-291.0) ng/mL Lactate Dehydrogenase (313-618) U/L C-Reactive Protein (<1.0) mg/dL 02/06/21 02/06/21 02/06/21 Range/Units 04:22 04:22 04:22 WBC 14.5 H (3.8-10.6) k/uL Neutrophils # 13.2 H (1.3-7.7) k/uL Lymphocytes # 0.7 L (1.0-4.8) k/uL D-Dimer 9.87 H (<0.60) mg/L FEU POC Glucose (mg/dL) (75-99) mg/dL Ferritin 2788.0 H (10.0-291.0) ng/mL Lactate Dehydrogenase 1282 H (313-618) U/L C-Reactive Protein 2.7 H (<1.0) mg/dL 02/06/21 02/06/21 Range/Units 06:04 11:23 WBC (3.8-10.6) k/uL Neutrophils # (1.3-7.7) k/uL Lymphocytes # (1.0-4.8) k/uL D-Dimer (<0.60) mg/L FEU POC Glucose (mg/dL) 121 H 156 H (75-99) mg/dL Ferritin (10.0-291.0) ng/mL Lactate Dehydrogenase (313-618) U/L C-Reactive Protein (<1.0) mg/dL Assessment and Plan Assessment: Acute hypoxemic respiratory failure ARDS secondary to Covid 19 Acute Pulmonary Embolism Mild protein calorie malnutrition -Admit inpatient, telemetry -Pulmonary consult -Patient declined Remdesivir and now outside window -Dexamethasone 6 mg BID; LD SSI while on steroids -Baricitinib -heparin gtt --> now on eliquis -Vitamin C/D, zinc, famotidine -Daily inflammatory markers -DuoNeb when necessary -guaifenisen-codeine PRN for cough -TPN for nutrition + protein shakes, diet as tolerated Hypothyroidism Obesity, class II, BMI 40.7 -resume home liothyronine and levothyroxine. -recommend weight loss outpatient Patient is a Full Code DVT PPx with Eliquis Daughter is DPOA Prognosis is guarded
[2021-02-06] MEDS: guaiFENesin-Coden 100-10MG/5ML 10 ML CUP PO PRN (14:22)
[2021-02-06 16:27] LABS: Glucose,Whole Blood 120 mg/dL (75-99)
[2021-02-06 21:22] LABS: Glucose,Whole Blood 119 mg/dL (75-99)
[2021-02-07 04:05] LABS: Basophils % (A) 0 %; Eosinophils % (A) 0 %; HCT 40.4 % (34.0-46.0); HGB 13.4 gm/dL (11.4-16.0); Lymphocytes # (A) 0.7 k/uL (1.0-4.8); Lymphocytes % (A) 5 %; MCH 29.5 pg (25.0-35.0); MCHC 33.3 g/dL (31.0-37.0); MCV 88.8 fL (80.0-100.0); Mean Platelet Volume 8.8; Monocytes # (A) 0.6 k/uL (0-1.0); Monocytes % (A) 5 %; Neutrophils # (A) 11.5 k/uL (1.3-7.7); Neutrophils % (A) 89 %; Platelet Count 354 k/uL (150-450); RBC 4.55 m/uL (3.80-5.40); RDW 13.9 % (11.5-15.5); WBC 12.9 k/uL (3.8-10.6)
[2021-02-07 04:23] LABS: ALT 210 U/L (4-34); AST 53 U/L (14-36); African American GFR (CKD) >90 (>60 ml/min/1.73 sqM); Albumin 2.8 g/dL (3.5-5.0); Alkaline Phosphatase 156 U/L (38-126); Anion Gap 6 mmol/L; Blood Urea Nitrogen 37 mg/dL (7-17); Calcium 8.8 mg/dL (8.4-10.2); Carbon Dioxide 25 mmol/L (22-30); Chloride 102 mmol/L (98-107); Glucose 144 mg/dL (74-99); LDH 1149 U/L (313-618); Non-African American GFR(CKD) >90 (>60 ml/min/1.73 sqM); Potassium 4.5 mmol/L (3.5-5.1); Sodium 133 mmol/L (137-145); Total Bilirubin 0.6 mg/dL (0.2-1.3); Total Protein 5.5 g/dL (6.3-8.2)
[2021-02-07] MEDS: LEVOTHYROXINE 50 MCG TAB PO SCH (06:29)
[2021-02-07] MEDS: LIOTHYRONINE SODIUM 5 MCG TAB PO SCH (06:30)
[2021-02-07 06:37] LABS: Glucose,Whole Blood 131 mg/dL (75-99)
[2021-02-07] MEDS: INSULIN ASPART (NovoLOG) 100 UNIT/ML VIAL SQ SCH ×4 (06:53→21:49)
--- NOTE | 2021-02-07 08:10 | XR ---
EXAMINATION TYPE: XR chest 1V portable DATE OF EXAM: 02/07/2021 COMPARISON: 02/05/2021 HISTORY: Shortness of breath TECHNIQUE: Single frontal view of the chest is obtained. FINDINGS: Diffuse bilateral infiltrates are stable. Left-sided PICC line unchanged. No pneumothorax is visualized. Small bilateral effusion suggested. Heart size stable. IMPRESSION: Diffuse bilateral airspace disease stable
[2021-02-07] MEDS: ALBUTEROL HFA INHALER INHALATION PRN ×3 (09:06→20:36)
[2021-02-07] MEDS: ACETAMINOPHEN TAB 325 MG TAB PO PRN ×3 (09:12→20:12)
[2021-02-07] MEDS: ZINC SULFATE 220 MG CAP PO SCH (09:12)
[2021-02-07] MEDS: ASCORBIC ACID 500 MG TAB PO SCH ×2 (09:12→20:12)
[2021-02-07] MEDS: CHOLECALCIFEROL 25 MCG (1000 IU) TABLET PO SCH (09:12)
[2021-02-07] MEDS: BARICITINIB 2 MG TABLET PO SCH (09:12)
[2021-02-07] MEDS: SENNOSIDES-DOCUSATE SODIUM 1 EACH TAB PO SCH ×2 (09:12→20:12)
[2021-02-07] MEDS: FAMOTIDINE 20 MG TAB PO SCH ×2 (09:13→20:13)
[2021-02-07] MEDS: polyethylene glycoL 3350 17 GM POWD.PACK PO SCH (09:13)
[2021-02-07] MEDS: hydrALAZINE HCL 25 MG TAB PO SCH ×3 (09:13→21:49)
[2021-02-07] MEDS: DEXAMETHASONE SOD PHOSPHATE 10 MG/ML 1 ML VIAL IV SCH ×2 (09:13→20:12)
[2021-02-07] MEDS: APIXABAN 5 MG TAB PO SCH ×2 (09:13→20:12)
--- NOTE | 2021-02-07 09:46 | P.PN ---
Subjective Progress Note Date: 02/07/21 65-year-old female patient, currently in the intensive care unit with hypoxic respiratory failure due to obesity-related pneumonia. The patient presented to the hospital on 01/24/2021 with shortness of breath and cough. Her symptoms over the started in 01/16/2021. The patient tested positive COVID-19. She was started on Decadron. She was initially on 2 L of oxygen by nasal cannula. Subsequently, condition progressed and the patient currently isn't intensive care unit on high flow oxygen at 50 L with an FiO2 of 65% to maintain a pulse ox of 90%. She is receiving a combination of 6 mg Decadron twice a day and she is also on Baricitinib 4 mg by mouth daily. She is also on anticoagulation with Eliquis for an acute pulmonary embolism assumed to be related to the bilateral pneumonia. The computed tomography scan of the chest was done on 01/27/2021 showed extensive infiltrates involving both lungs. There was also significantinfiltrates throughout the lungs. Heart was enlarged. No roberta cardial effusion. Filling defect in the right lower lobe pulmonary artery branch was noted and this was concerning for pulmonary embolism. She was supplemented with TPN for nutritional support and currently she is taking orals and a chest x-rays consistent with [id number] pneumonia with diffuse but the pulmonary infiltrates. Pro-calcitonin level was low at 0.07. The chest x- ray from today is showing diffuse bilateral pulmonary infiltrates and a chest x- ray findings essentially unchanged compared to yesterday. There are areas of consolidation bilaterally perihilar and in the peripheries. White cell count is 17.8 with hemoglobin of 13.4. The patient's renal function is normal. The LFTs are improving. The LDH from few days ago was 2048 with a CRP of 3.3. D-dimer from 02/03/2021 is at 15.1. 02/06/2021, the patient is being seen for a follow-up. The patient this morning is stable. She denies having any worsening shortness of breath. She remains on high flow oxygen at 50 L with an FiO2 of 60%. Her pulse ox is ranging between 88-91%. No significant cough or sputum production. No chest tightness. No wheezing. She remains on Decadron. The patient is also on Baricitinib. Decadron dose is 6 mg twice a day. In terms of her inflammatory markers, the d- dimer is still elevated at 9.87. This is slightly higher compared to yesterday. Her LDH level is down to 1282 and the CRP level is down to 2.7. She is afebrile. She is hemodynamically stable. She is trying to take some dietary supplements that she has bruits with her through her daughter. Note that she al so had a pulmonary embolism and the patient on anticoagulation with Eliquis and she has no signs of bleeding. Pro-calcitonin level has been low at 0.07. In terms of any other blood work, her liver function tests are improving yesterday. Follow-up levels are still pending from today. Meanwhile, the chest x-ray from today is still pending. No other significant events overnight. No altered ment ation. No nausea vomiting or diarrhea. 1020 further at 21, I'm seeing the patient for a follow-up. Condition is essentially stable, slightly improved compared to yesterday. She is on 50 L Airvo with an FiO2 of 50% and a pulse ox is around 91%. Chest x-ray still showing diffuse bilateral pulmonary infiltrates. She remains on Decadron. She is also taking Baricitinib. Taking 6 mg of Decadron twice a day. Meanwhile, her inflammatory markers reveal a d-dimer of 10.4 and a LDH level which is gradually improving down to 1149 with a CRP level of 2. The patient is tolerating her diet. She still desaturates that she can recover easily with deep breathing. She has occasional cough. She was able to bring up some sputum. No fever. No major active disturbance. White cell count is at 12.9 with hemoglobin of 13.4. Mental status is adequate. No signs of any superinfection at this point in time and was still dealing with a [id number] pneumonia with pulmonary embolism. Patient is on Eliquis. Objective - Vital Signs Vital signs: Vital Signs Temp 98.8 F 02/07/21 08:00 Pulse 70 02/07/21 09:00 Resp 24 02/07/21 09:00 BP 99/62 02/07/21 09:00 Pulse Ox 91 L 02/07/21 09:00 Intake & Output 02/06/21 02/07/21 02/07/21 18:59 06:59 18:59 Output Total 1525 1650 350 Balance -1525 -1650 -350 Output: Urine 1525 1650 350 Other: Voiding Method Indwelling Catheter Indwelling Catheter - Exam GENERAL EXAM: Alert, pleasant, 65-year-old white female, on Airvo 50 L and FiO2 of 50%, with a pulse ox of 91-95% HEAD: Normocephalic/atraumatic. EYES: Normal reaction of pupils, equal size. Conjunctiva pink, sclera white. NOSE: Clear with pink turbinates. THROAT: No erythema or exudates. NECK: No masses, no JVD, no thyroid enlargement, no adenopathy. CHEST: No chest wall deformity. Symmetrical expansion. LUNGS: Equal air entry with bibasilar crackles CVS: Regular rate and rhythm, normal S1 and S2, no gallops, no murmurs, no rubs ABDOMEN: Soft, nontender. No hepatosplenomegaly, normal bowel sounds, no guarding or rigidity. EXTREMITIES: No clubbing, no edema, no cyanosis, 2+ pulses and upper and lower extremities. MUSCULOSKELETAL: Muscle strength and tone normal. SPINE: No scoliosis or deformity SKIN: No rashes CENTRAL NERVOUS SYSTEM: Alert and oriented -3. No focal deficits, tone is normal in all 4 extremities. PSYCHIATRIC: Alert and oriented -3. Appropriate affect. Intact judgment and insight. - Labs CBC & Chem 7: 02/07/21 03:22 02/07/21 03:22 Labs: Abnormal Lab Results - Last 24 Hours (Table) 02/06/21 02/06/21 02/06/21 Range/Units 04:22 11:23 16:26 WBC (3.8-10.6) k/uL Neutrophils # (1.3-7.7) k/uL Lymphocytes # (1.0-4.8) k/uL D-Dimer (<0.60) mg/L FEU Sodium (137-145) mmol/L BUN (7-17) mg/dL Glucose (74-99) mg/dL POC Glucose (mg/dL) 156 H 120 H (75-99) mg/dL Ferritin 2788.0 H (10.0-291.0) ng/mL AST (14-36) U/L ALT (4-34) U/L Alkaline Phosphatase (38-126) U/L Lactate Dehydrogenase (313-618) U/L C-Reactive Protein (<1.0) mg/dL Total Protein (6.3-8.2) g/dL Albumin (3.5-5.0) g/dL 02/06/21 02/07/21 02/07/21 Range/Units 21:10 03:22 03:22 WBC 12.9 H (3.8-10.6) k/uL Neutrophils # 11.5 H (1.3-7.7) k/uL Lymphocytes # 0.7 L (1.0-4.8) k/uL D-Dimer (<0.60) mg/L FEU Sodium 133 L (137-145) mmol/L BUN 37 H (7-17) mg/dL Glucose 144 H (74-99) mg/dL POC Glucose (mg/dL) 119 H (75-99) mg/dL Ferritin (10.0-291.0) ng/mL AST 53 H (14-36) U/L ALT 210 H (4-34) U/L Alkaline Phosphatase 156 H (38-126) U/L Lactate Dehydrogenase 1149 H (313-618) U/L C-Reactive Protein 2.0 H (<1.0) mg/dL Total Protein 5.5 L (6.3-8.2) g/dL Albumin 2.8 L (3.5-5.0) g/dL 02/07/21 02/07/21 Range/Units 03:22 06:35 WBC (3.8-10.6) k/uL Neutrophils # (1.3-7.7) k/uL Lymphocytes # (1.0-4.8) k/uL D-Dimer 10.48 H (<0.60) mg/L FEU Sodium (137-145) mmol/L BUN (7-17) mg/dL Glucose (74-99) mg/dL POC Glucose (mg/dL) 131 H (75-99) mg/dL Ferritin (10.0-291.0) ng/mL AST (14-36) U/L ALT (4-34) U/L Alkaline Phosphatase (38-126) U/L Lactate Dehydrogenase (313-618) U/L C-Reactive Protein (<1.0) mg/dL Total Protein (6.3-8.2) g/dL Albumin (3.5-5.0) g/dL Assessment and Plan Plan: 1. Acute hypoxic respiratory failure related to acute COVID-19 pneumonia, and her symptoms started on January 16. Patient is not vaccinated for COVID-19. Patient had progressive hypoxic respiratory failure and she was transferred to the intensive care unit on 01/27/2021 and placed on BiPAP support. Currently on Decadron 6 mg twice daily, and baricitinib. She is on high flow 02 with Airvo 50 L and FiO2 of 50 % with a pulse ox of 89-90%. Overall condition is stable compared to yesterday. No interval worsening. Clinically slightly improved compared to yesterday. Remains on anticoagulation with Eliquis. He remains on Eliquis and Baricitinib and Decadron. The patient is clinically feeling better and she is doing baby steps hours recovery. Oxidation is stable. 2. Acute right lower lobe pulmonary embolism, patient is currently on Eliquis. The CTA is showing a tiny subsegmental pulmonary embolism of the right lower lobe and the patient remains on anticoagulation with Eliquis. 3. Elevated inflammatory markers secondary to [id number] pneumonia 4. History of hypothyroidism 5. Morbid obesity with BMI 40.7 kg/m 6. Chronic back pain 7. Previous history of hysterectomy 8. Never smoker 9 transaminitis, mild, improving Plan: Patient is tolerating Airvo, we'll try to cut down the flow down to 45 L and keep the FiO2 at 50% Chest x-ray from today was noted D-dimer still elevated and the patient will be kept on Eliquis LDH is gradually improving Clinically patient has remained stable, she is breathing comfortably Continue Decadron and baricitinib Continue antocoagulation with Eliquis Tolerating oral feedings Encourage deep breathing and coughing, incentive spirometry use Increase activity as tolerated Clinically stable Clinically stable. We'll continue to follow. Critical care evaluation done more than 30 minutes Time with Patient: Greater than 30
--- NOTE | 2021-02-07 10:24 | P.PN ---
Subjective Progress Note Date: 02/07/21 Feels okay, on high flow oxygen. No cough, no chest pain. Objective - Vital Signs Vital signs: Vital Signs Temp 98.8 F 02/07/21 08:00 Pulse 70 02/07/21 09:00 Resp 24 02/07/21 09:00 BP 99/62 02/07/21 09:00 Pulse Ox 91 L 02/07/21 09:00 Intake & Output 02/06/21 02/07/21 02/07/21 18:59 06:59 18:59 Output Total 1525 1650 350 Balance -1525 -1650 -350 Output: Urine 1525 1650 350 Other: Voiding Method Indwelling Catheter Indwelling Catheter - Exam Gen: awake, alert on high flow HEENT: normocephalic, atraumatic, good hearing acuity, moist mucous membranes Resp: Decreased breath sounds, no wheezing CVS: good distal perfusion x 4, regular rate and rhythm without murmurs GI: soft, NTTP, ND : no SPT, no CVAT MSK: no pitting edema, no clubbing Neuro: non-focal, moving all extremities Psych: cooperative, labile mood - Labs CBC & Chem 7: 02/07/21 03:22 02/07/21 03:22 Labs: Abnormal Lab Results - Last 24 Hours (Table) 02/06/21 02/06/21 02/06/21 Range/Units 04:22 11:23 16:26 WBC (3.8-10.6) k/uL Neutrophils # (1.3-7.7) k/uL Lymphocytes # (1.0-4.8) k/uL D-Dimer (<0.60) mg/L FEU Sodium (137-145) mmol/L BUN (7-17) mg/dL Glucose (74-99) mg/dL POC Glucose (mg/dL) 156 H 120 H (75-99) mg/dL Ferritin 2788.0 H (10.0-291.0) ng/mL AST (14-36) U/L ALT (4-34) U/L Alkaline Phosphatase (38-126) U/L Lactate Dehydrogenase (313-618) U/L C-Reactive Protein (<1.0) mg/dL Total Protein (6.3-8.2) g/dL Albumin (3.5-5.0) g/dL 02/06/21 02/07/21 02/07/21 Range/Units 21:10 03:22 03:22 WBC 12.9 H (3.8-10.6) k/uL Neutrophils # 11.5 H (1.3-7.7) k/uL Lymphocytes # 0.7 L (1.0-4.8) k/uL D-Dimer (<0.60) mg/L FEU Sodium 133 L (137-145) mmol/L BUN 37 H (7-17) mg/dL Glucose 144 H (74-99) mg/dL POC Glucose (mg/dL) 119 H (75-99) mg/dL Ferritin (10.0-291.0) ng/mL AST 53 H (14-36) U/L ALT 210 H (4-34) U/L Alkaline Phosphatase 156 H (38-126) U/L Lactate Dehydrogenase 1149 H (313-618) U/L C-Reactive Protein 2.0 H (<1.0) mg/dL Total Protein 5.5 L (6.3-8.2) g/dL Albumin 2.8 L (3.5-5.0) g/dL 02/07/21 02/07/21 Range/Units 03:22 06:35 WBC (3.8-10.6) k/uL Neutrophils # (1.3-7.7) k/uL Lymphocytes # (1.0-4.8) k/uL D-Dimer 10.48 H (<0.60) mg/L FEU Sodium (137-145) mmol/L BUN (7-17) mg/dL Glucose (74-99) mg/dL POC Glucose (mg/dL) 131 H (75-99) mg/dL Ferritin (10.0-291.0) ng/mL AST (14-36) U/L ALT (4-34) U/L Alkaline Phosphatase (38-126) U/L Lactate Dehydrogenase (313-618) U/L C-Reactive Protein (<1.0) mg/dL Total Protein (6.3-8.2) g/dL Albumin (3.5-5.0) g/dL Assessment and Plan Assessment: Acute hypoxemic respiratory failure ARDS secondary to Covid 19 Acute Pulmonary Embolism Mild protein calorie malnutrition -Pulmonary consult, input appreciated -Patient declined Remdesivir -Dexamethasone 6 mg BID; LD SSI while on steroids -Baricitinib -heparin gtt --> now on eliquis -Vitamin C/D, zinc, famotidine -Daily inflammatory markers -DuoNeb when necessary -guaifenisen-codeine PRN for cough -TPN for nutrition + protein shakes, diet as tolerated Hypothyroidism Obesity, class II, BMI 40.7 -resume home liothyronine and levothyroxine. Patient is a Full Code DVT PPx with Eliquis Disposition: Pending clinical progression
[2021-02-07 11:44] LABS: Glucose,Whole Blood 116 mg/dL (75-99)
[2021-02-07 13:26] VITALS: BMI 38.5
[2021-02-07] MEDS: guaiFENesin-Coden 100-10MG/5ML 10 ML CUP PO PRN (13:58)
[2021-02-07 17:10] LABS: Glucose,Whole Blood 168 mg/dL (75-99)
[2021-02-07 20:30] LABS: Glucose,Whole Blood 123 mg/dL (75-99)
[2021-02-08] MEDS: LIOTHYRONINE SODIUM 5 MCG TAB PO SCH (05:29)
[2021-02-08] MEDS: LEVOTHYROXINE 50 MCG TAB PO SCH (05:29)
[2021-02-08] MEDS: ALBUTEROL HFA INHALER INHALATION PRN (06:02)
[2021-02-08 06:03] LABS: Basophils % (A) 0 %; Eosinophils % (A) 0 %; HCT 39.5 % (34.0-46.0); HGB 12.5 gm/dL (11.4-16.0); Lymphocytes # (A) 0.6 k/uL (1.0-4.8); Lymphocytes % (A) 6 %; MCH 28.5 pg (25.0-35.0); MCHC 31.7 g/dL (31.0-37.0); MCV 90.1 fL (80.0-100.0); Mean Platelet Volume 8.5; Monocytes # (A) 0.5 k/uL (0-1.0); Monocytes % (A) 5 %; Neutrophils # (A) 10.2 k/uL (1.3-7.7); Neutrophils % (A) 89 %; Platelet Count 305 k/uL (150-450); RBC 4.38 m/uL (3.80-5.40); RDW 13.4 % (11.5-15.5); WBC 11.4 k/uL (3.8-10.6)
[2021-02-08 06:12] LABS: African American GFR (CKD) >90 (>60 ml/min/1.73 sqM); Anion Gap 2 mmol/L; Blood Urea Nitrogen 31 mg/dL (7-17); C Reactive Protein 1.3 mg/dL (<1.0); Calcium 8.6 mg/dL (8.4-10.2); Carbon Dioxide 27 mmol/L (22-30); Chloride 102 mmol/L (98-107); Glucose 150 mg/dL (74-99); LDH 1063 U/L (313-618); Non-African American GFR(CKD) >90 (>60 ml/min/1.73 sqM); Potassium 4.5 mmol/L (3.5-5.1); Sodium 131 mmol/L (137-145)
[2021-02-08] MEDS: INSULIN ASPART (NovoLOG) 100 UNIT/ML VIAL SQ SCH ×4 (06:52→20:31)
[2021-02-08 06:53] LABS: Glucose,Whole Blood 150 mg/dL (75-99)
[2021-02-08] MEDS: APIXABAN 5 MG TAB PO SCH ×2 (08:14→20:39)
[2021-02-08] MEDS: ASCORBIC ACID 500 MG TAB PO SCH ×2 (08:14→20:39)
[2021-02-08] MEDS: CHOLECALCIFEROL 25 MCG (1000 IU) TABLET PO SCH (08:14)
[2021-02-08] MEDS: FAMOTIDINE 20 MG TAB PO SCH ×2 (08:14→20:39)
[2021-02-08] MEDS: DEXAMETHASONE SOD PHOSPHATE 10 MG/ML 1 ML VIAL IV SCH ×2 (08:17→20:39)
[2021-02-08] MEDS: BARICITINIB 2 MG TABLET PO SCH (08:18)
--- NOTE | 2021-02-08 08:35 | XR ---
EXAMINATION TYPE: XR chest 1V portable DATE OF EXAM: 02/08/2021 HISTORY: Shortness of breath. COMPARISON: 02/07/2021 TECHNIQUE: Single view of the chest is submitted. FINDINGS: Demonstrated are scattered senescent parenchymal change. Patchy perihilar and basilar infiltrates persist essentially unchanged. Left-sided PICC line. The heart is stable. Hilar and mediastinal structures are within normal limits. Degenerative changes are seen of the dorsal spine. IMPRESSION: 1. Stable chest
[2021-02-08] MEDS: polyethylene glycoL 3350 17 GM POWD.PACK PO SCH (08:44)
[2021-02-08] MEDS: hydrALAZINE HCL 25 MG TAB PO SCH ×3 (08:44→20:39)
[2021-02-08] MEDS: SENNOSIDES-DOCUSATE SODIUM 1 EACH TAB PO SCH ×2 (08:47→20:39)
[2021-02-08] MEDS: ZINC SULFATE 220 MG CAP PO SCH (08:47)
[2021-02-08] MEDS: ACETAMINOPHEN TAB 325 MG TAB PO PRN ×2 (08:47→17:30)
--- NOTE | 2021-02-08 11:07 | P.PN ---
Subjective Progress Note Date: 02/08/21 65-year-old female patient, currently in the intensive care unit with hypoxic respiratory failure due to obesity-related pneumonia. The patient presented to the hospital on 01/24/2021 with shortness of breath and cough. Her symptoms over the started in 01/16/2021. The patient tested positive COVID-19. She was started on Decadron. She was initially on 2 L of oxygen by nasal cannula. Subsequently, condition progressed and the patient currently isn't intensive care unit on high flow oxygen at 50 L with an FiO2 of 65% to maintain a pulse ox of 90%. She is receiving a combination of 6 mg Decadron twice a day and she is also on Baricitinib 4 mg by mouth daily. She is also on anticoagulation with Eliquis for an acute pulmonary embolism assumed to be related to the bilateral pneumonia. The computed tomography scan of the chest was done on 01/27/2021 showed extensive infiltrates involving both lungs. There was also significantinfiltrates throughout the lungs. Heart was enlarged. No roberta cardial effusion. Filling defect in the right lower lobe pulmonary artery branch was noted and this was concerning for pulmonary embolism. She was supplemented with TPN for nutritional support and currently she is taking orals and a chest x-rays consistent with [id number] pneumonia with diffuse but the pulmonary infiltrates. Pro-calcitonin level was low at 0.07. The chest x- ray from today is showing diffuse bilateral pulmonary infiltrates and a chest x- ray findings essentially unchanged compared to yesterday. There are areas of consolidation bilaterally perihilar and in the peripheries. White cell count is 17.8 with hemoglobin of 13.4. The patient's renal function is normal. The LFTs are improving. The LDH from few days ago was 2048 with a CRP of 3.3. D-dimer from 02/03/2021 is at 15.1. 02/06/2021, the patient is being seen for a follow-up. The patient this morning is stable. She denies having any worsening shortness of breath. She remains on high flow oxygen at 50 L with an FiO2 of 60%. Her pulse ox is ranging between 88-91%. No significant cough or sputum production. No chest tightness. No wheezing. She remains on Decadron. The patient is also on Baricitinib. Decadron dose is 6 mg twice a day. In terms of her inflammatory markers, the d- dimer is still elevated at 9.87. This is slightly higher compared to yesterday. Her LDH level is down to 1282 and the CRP level is down to 2.7. She is afebrile. She is hemodynamically stable. She is trying to take some dietary supplements that she has bruits with her through her daughter. Note that she al so had a pulmonary embolism and the patient on anticoagulation with Eliquis and she has no signs of bleeding. Pro-calcitonin level has been low at 0.07. In terms of any other blood work, her liver function tests are improving yesterday. Follow-up levels are still pending from today. Meanwhile, the chest x-ray from today is still pending. No other significant events overnight. No altered ment ation. No nausea vomiting or diarrhea. 1020 further at 21, I'm seeing the patient for a follow-up. Condition is essentially stable, slightly improved compared to yesterday. She is on 50 L Airvo with an FiO2 of 50% and a pulse ox is around 91%. Chest x-ray still showing diffuse bilateral pulmonary infiltrates. She remains on Decadron. She is also taking Baricitinib. Taking 6 mg of Decadron twice a day. Meanwhile, her inflammatory markers reveal a d-dimer of 10.4 and a LDH level which is gradually improving down to 1149 with a CRP level of 2. The patient is tolerating her diet. She still desaturates that she can recover easily with deep breathing. She has occasional cough. She was able to bring up some sputum. No fever. No major active disturbance. White cell count is at 12.9 with hemoglobin of 13.4. Mental status is adequate. No signs of any superinfection at this point in time and was still dealing with a [id number] pneumonia with pulmonary embolism. Patient is on Eliquis. 02/08/2021, patient is doing well. She stable. She is able to speak full sentences, the patient is still on Airvo at 45 L with an FiO2 of 55%. Her current pulse ox is 94%. Doing well. No specific complaints. She remains on Decadron and she is also completing a course of Baricitinib. Her Decadron dose is 6 mg by mouth IV twice a day. In terms of her inflammatory markers, the p atient has a d-dimer of 8.1. The LDH level is gradually improving is down to 1063 and a CRP level is at 1.3. Rest of the electrodes are normal. No other significant events otherwise for now. She is tolerating her diet. No fever. No chills. She is doing limited amount of activity and she wants to work with physical therapy. She is using incentive spirometer. Cultures are all negative for now. We are in the process of transferring this patient to a medical surgical floor Objective - Vital Signs Vital signs: Vital Signs Temp 97.8 F 02/08/21 08:00 Pulse 74 02/08/21 09:00 Resp 27 H 02/08/21 09:00 BP 109/54 02/08/21 09:00 Pulse Ox 89 L 02/08/21 09:00 Intake & Output 02/07/21 02/08/21 02/08/21 18:59 06:59 18:59 Intake Total 400 Output Total 2150 1730 341 Balance -2150 -1730 59 Weight 111.1 kg 111.7 kg Intake: Oral 400 Output: Urine 2150 1730 340 Stool 1 Other: Voiding Method Indwelling Catheter Indwelling Catheter Indwelling Catheter # Bowel Movements 1 - Exam GENERAL EXAM: Alert, pleasant, 65-year-old white female, on Airvo 45 L and FiO2 of 55%, with a pulse ox of 91-95% HEAD: Normocephalic/atraumatic. EYES: Normal reaction of pupils, equal size. Conjunctiva pink, sclera white. NOSE: Clear with pink turbinates. THROAT: No erythema or exudates. NECK: No masses, no JVD, no thyroid enlargement, no adenopathy. CHEST: No chest wall deformity. Symmetrical expansion. LUNGS: Equal air entry with bibasilar crackles CVS: Regular rate and rhythm, normal S1 and S2, no gallops, no murmurs, no rubs ABDOMEN: Soft, nontender. No hepatosplenomegaly, normal bowel sounds, no guarding or rigidity. EXTREMITIES: No clubbing, no edema, no cyanosis, 2+ pulses and upper and lower extremities. MUSCULOSKELETAL: Muscle strength and tone normal. SPINE: No scoliosis or deformity SKIN: No rashes CENTRAL NERVOUS SYSTEM: Alert and oriented -3. No focal deficits, tone is normal in all 4 extremities. PSYCHIATRIC: Alert and oriented -3. Appropriate affect. Intact judgment and i nsight. - Labs CBC & Chem 7: 02/08/21 05:22 02/08/21 05:22 Labs: Abnormal Lab Results - Last 24 Hours (Table) 02/07/21 02/07/21 02/07/21 Range/Units 11:32 16:58 20:18 WBC (3.8-10.6) k/uL Neutrophils # (1.3-7.7) k/uL Lymphocytes # (1.0-4.8) k/uL D-Dimer (<0.60) mg/L FEU Sodium (137-145) mmol/L BUN (7-17) mg/dL Glucose (74-99) mg/dL POC Glucose (mg/dL) 116 H 168 H 123 H (75-99) mg/dL Lactate Dehydrogenase (313-618) U/L C-Reactive Protein (<1.0) mg/dL 02/08/21 02/08/21 02/08/21 Range/Units 05:22 05:22 05:22 WBC 11.4 H (3.8-10.6) k/uL Neutrophils # 10.2 H (1.3-7.7) k/uL Lymphocytes # 0.6 L (1.0-4.8) k/uL D-Dimer 8.16 H (<0.60) mg/L FEU Sodium 131 L (137-145) mmol/L BUN 31 H (7-17) mg/dL Glucose 150 H (74-99) mg/dL POC Glucose (mg/dL) (75-99) mg/dL Lactate Dehydrogenase 1063 H (313-618) U/L C-Reactive Protein 1.3 H (<1.0) mg/dL 02/08/21 Range/Units 06:50 WBC (3.8-10.6) k/uL Neutrophils # (1.3-7.7) k/uL Lymphocytes # (1.0-4.8) k/uL D-Dimer (<0.60) mg/L FEU Sodium (137-145) mmol/L BUN (7-17) mg/dL Glucose (74-99) mg/dL POC Glucose (mg/dL) 150 H (75-99) mg/dL Lactate Dehydrogenase (313-618) U/L C-Reactive Protein (<1.0) mg/dL Assessment and Plan Plan: 1. Acute hypoxic respiratory failure related to acute COVID-19 pneumonia, and her symptoms started on January 16. Patient is not vaccinated for COVID-19. Patient had progressive hypoxic respiratory failure and she was transferred to the intensive care unit on 01/27/2021 and placed on BiPAP support. Currently on Decadron 6 mg twice daily, and baricitinib. She is on high flow 02 with Airvo 45 L and FiO2 of 55 % and his pulse ox is above 92%. She is doing well. She remains on a combination of Decadron and Baricitinib. He is also on anticoagulation with Eliquis regarding a right lower lobe pulmonary embolism. Clinically improving. Oxygenation is slightly improving. Repeat chest x-ray will showed some limited improvement although there is still excessive amount of consolidation bilaterally in the mid and lower lobe. 2. Acute right lower lobe pulmonary embolism, patient is currently on Eliquis. The CTA is showing a tiny subsegmental pulmonary embolism of the right lower lobe and the patient remains on anticoagulation with Eliquis. 3. Elevated inflammatory markers secondary to [id number]-[id number] pneumonia 4. History of hypothyroidism 5. Morbid obesity with BMI 40.7 kg/m 6. Chronic back pain 7. Previous history of hysterectomy 8. Never smoker 9 transaminitis, mild, improving Plan: Patient is tolerating Airvo, we'll try to cut downthe FiO2 at 50% and if possi ble drop the flow rate down to 40 L LDH is gradually improving Clinically patient has remained stable, she is breathing comfortably Continue Decadron and baricitinib Continue antocoagulation with Eliquis Tolerating oral feedings Encourage deep breathing and coughing, incentive spirometry use Increase activity as tolerated Clinically stable Clinically stable. We'll continue to follow. This patient to medical surgical floor. Enterobacter markers are improving. She is stable. We will gradually wean down the FiO2. Possibly wean down the flow down to 40 L.
[2021-02-08 13:13] LABS: Glucose,Whole Blood 133 mg/dL (75-99)
[2021-02-08] MEDS: SODIUM BICARB 8.4% 50 ML SYR (1 MEQ/ML) IV STA ×2 (13:23→14:43)
[2021-02-08 17:06] LABS: Glucose,Whole Blood 144 mg/dL (75-99)
--- NOTE | 2021-02-08 17:50 | P.PN ---
Subjective Progress Note Date: 02/08/21 (seen at 1115) Principal diagnosis: COVID Patient is a 65-year-old female with a history of hypothyroidism, chronic back pain, and obesity who presented with complaints of hemoptysis. She was subsequently diagnosed with COVID-19 pneumonia. She is unvaccinated. She is c urrently on high flow oxygen Patient seen and examined at bedside. She states that her breathing is somewhat better, she is having bowel movements now. Denies any nausea or vomiting. Is 60 and healthy eating and how it affects the immune system. General: Ill-appearing, no distress, appears at stated age Derm: warm, dry Head: atraumatic, normocephalic, symmetric Eyes: EOMI, no lid lag, anicteric sclera Mouth: no lip lesion, mucus membranes moist Cardiovascular: S1S2 reg, no murmur, positive posterior tibial pulse bilateral, Lungs: Coarse breath sounds bilateral, no rhonchi, no rales , no accessory muscle use Abdominal: soft, nontender to palpation, no guarding, no appreciable organomeg bal Ext: no gross muscle atrophy, no edema, no contractures Neuro: CN II-XI grossly intact, no focal neuro deficits Psych: Alert, oriented, appropriate affect COVID-19 pneumonia, in an unvaccinated person Acute hypoxic respiratory failure Right lower lobe pulmonary embolism - eliquis - Baricitinib Dose # 12/14 - Decadron D # 13 -Pulmonary recommendations -Patient was outside of the window for remdesivir Transaminitis - mild - likely releated to COVID - follow labs - Baricitinib needs to be stopped if 5X upper limit of normal Hyponatremia - follow na levels - stable - encourage oral intake Obeisty with BMI 38.6 - outpatient structured weight loss Hypothyroidism - synthorid and cytomel DVT prophylaxis: geovanyquelenita Discussed with: Dr. Wellington, Nursing Anticipated discharge: 1-[address]: unknown A total of 55 minutes was spent on the care of this complex patient more than 50% of the time was spent in counseling and care coordination. Objective - Vital Signs Vital signs: Vital Signs Temp 98.1 F 02/08/21 04:00 Pulse 67 02/08/21 07:00 Resp 18 02/08/21 07:00 BP 114/73 02/08/21 07:00 Pulse Ox 92 L 02/08/21 07:28 Intake & Output 02/07/21 02/08/21 02/08/21 18:59 06:59 18:59 Output Total 0 1730 110 Balance -2149 -1729 -110 Weight 111.1 kg 111.7 kg Output: Urine 2149 1730 110 Other: Voiding Method Indwelling Catheter Indwelling Catheter # Bowel Movements 1 - Labs CBC & Chem 7: 02/08/21 05:22 02/08/21 05:22 Labs: Abnormal Lab Results - Last 24 Hours (Table) 02/07/21 02/07/21 02/07/21 Range/Units 11:32 16:58 20:18 WBC (3.8-10.6) k/uL Neutrophils # (1.3-7.7) k/uL Lymphocytes # (1.0-4.8) k/uL D-Dimer (<0.60) mg/L FEU Sodium (137-145) mmol/L BUN (7-17) mg/dL Glucose (74-99) mg/dL POC Glucose (mg/dL) 116 H 168 H 123 H (75-99) mg/dL Lactate Dehydrogenase (313-618) U/L C-Reactive Protein (<1.0) mg/dL 02/08/21 02/08/21 02/08/21 Range/Units 05:22 05:22 05:22 WBC 11.4 H (3.8-10.6) k/uL Neutrophils # 10.2 H (1.3-7.7) k/uL Lymphocytes # 0.6 L (1.0-4.8) k/uL D-Dimer 8.16 H (<0.60) mg/L FEU Sodium 131 L (137-145) mmol/L BUN 31 H (7-17) mg/dL Glucose 150 H (74-99) mg/dL POC Glucose (mg/dL) (75-99) mg/dL Lactate Dehydrogenase 1063 H (313-618) U/L C-Reactive Protein 1.3 H (<1.0) mg/dL 02/08/21 Range/Units 06:50 WBC (3.8-10.6) k/uL Neutrophils # (1.3-7.7) k/uL Lymphocytes # (1.0-4.8) k/uL D-Dimer (<0.60) mg/L FEU Sodium (137-145) mmol/L BUN (7-17) mg/dL Glucose (74-99) mg/dL POC Glucose (mg/dL) 150 H (75-99) mg/dL Lactate Dehydrogenase (313-618) U/L C-Reactive Protein (<1.0) mg/dL
[2021-02-08 20:06] LABS: Glucose,Whole Blood 120 mg/dL (75-99)
[2021-02-09] MEDS: LEVOTHYROXINE 50 MCG TAB PO SCH (05:31)
[2021-02-09] MEDS: LIOTHYRONINE SODIUM 5 MCG TAB PO SCH (05:50)
[2021-02-09 07:02] LABS: Glucose,Whole Blood 123 mg/dL (75-99)
[2021-02-09] MEDS: ALBUTEROL HFA INHALER INHALATION PRN ×4 (07:23→19:31)
[2021-02-09] MEDS: INSULIN ASPART (NovoLOG) 100 UNIT/ML VIAL SQ SCH ×4 (07:41→20:53)
--- NOTE | 2021-02-09 08:16 | XR ---
EXAMINATION TYPE: XR chest 1V portable DATE OF EXAM: 02/09/2021 Comparison: 02/08/2021 Clinical History: 65-year-old female COVID Findings: Left PICC tip at the upper SVC level. Heart upper limits of normal in size. Interstitial densities bi laterally along with patchy airspace disease especially in the mid and lower lungs persist without si gnificant change. No pneumothorax. Impression: Stable mid and lower lung COVID infiltrates.
[2021-02-09] MEDS: DEXAMETHASONE SOD PHOSPHATE 10 MG/ML 1 ML VIAL IV SCH (08:23)
[2021-02-09] MEDS: CHOLECALCIFEROL 25 MCG (1000 IU) TABLET PO SCH (08:23)
[2021-02-09] MEDS: APIXABAN 5 MG TAB PO SCH ×2 (08:24→20:52)
[2021-02-09] MEDS: FAMOTIDINE 20 MG TAB PO SCH ×2 (08:24→20:52)
[2021-02-09] MEDS: BARICITINIB 2 MG TABLET PO SCH (08:24)
[2021-02-09] MEDS: ASCORBIC ACID 500 MG TAB PO SCH ×2 (08:24→20:52)
[2021-02-09] MEDS: SENNOSIDES-DOCUSATE SODIUM 1 EACH TAB PO SCH ×2 (08:24→20:52)
[2021-02-09] MEDS: ZINC SULFATE 220 MG CAP PO SCH (08:24)
[2021-02-09] MEDS: hydrALAZINE HCL 25 MG TAB PO SCH ×3 (08:25→21:55)
[2021-02-09] MEDS: polyethylene glycoL 3350 17 GM POWD.PACK PO SCH ×2 (08:25→08:27)
[2021-02-09 11:32] LABS: Glucose,Whole Blood 126 mg/dL (75-99)
[2021-02-09 12:10] LABS: Basophils # (A) 0.01 X 10*3/uL (0.00-0.10); Basophils % (A) 0.1 %; Eosinophils # (A) 0.01 X 10*3/uL (0.04-0.35); Eosinophils % (A) 0.1 %; HGB 12.4 g/dL (12.0-15.0); Lymphocytes # (A) 0.77 X 10*3/uL (0.90-5.00); Lymphocytes % (A) 7.1 %; MCH 28.2 pg (27.0-32.0); MCHC 31.8 g/dL (32.0-37.0); MCV 88.6 fL (80.0-97.0); Mean Platelet Volume 11.3 fL (9.5-12.2); Monocytes # (A) 0.79 X 10*3/uL (0.20-1.00); Monocytes % (A) 7.3 %; Neutrophils # (A) 9.15 X 10*3/uL (1.80-7.70); Platelet Count 357 X 10*3/uL (140-440); RDW 13.9 % (11.5-14.5); WBC 10.88 X 10*3/uL (4.50-10.00)
[2021-02-09 12:11] LABS: African American GFR (CKD) 110.3 (60.0-200.0); Anion Gap 12.7 mmol/L (4.00-12.00); BUN/Creat Ratio 49.18 Ratio (12.00-20.00); C Reactive Protein 0.4 mg/dL (0.00-0.80); Calcium 8.6 mg/dL (8.7-10.3); Carbon Dioxide 21.7 mmol/L (21.6-31.8); Non-African American GFR(CKD) 95.1 (60.0-200.0); Potassium 4.4 mmol/L (3.5-5.5)
--- NOTE | 2021-02-09 12:37 | P.PN ---
Subjective Progress Note Date: 02/09/21 65-year-old female patient, currently in the intensive care unit with hypoxic respiratory failure due to obesity-related pneumonia. The patient presented to the hospital on 01/24/2021 with shortness of breath and cough. Her symptoms over the started in 01/16/2021. The patient tested positive COVID-19. She was started on Decadron. She was initially on 2 L of oxygen by nasal cannula. Subsequently, condition progressed and the patient currently isn't intensive care unit on high flow oxygen at 50 L with an FiO2 of 65% to maintain a pulse ox of 90%. She is receiving a combination of 6 mg Decadron twice a day and she is also on Baricitinib 4 mg by mouth daily. She is also on anticoagulation with Eliquis for an acute pulmonary embolism assumed to be related to the bilateral pneumonia. The computed tomography scan of the chest was done on 01/27/2021 showed extensive infiltrates involving both lungs. There was also significantinfiltrates throughout the lungs. Heart was enlarged. No roberta cardial effusion. Filling defect in the right lower lobe pulmonary artery branch was noted and this was concerning for pulmonary embolism. She was supplemented with TPN for nutritional support and currently she is taking orals and a chest x-rays consistent with [id number] pneumonia with diffuse but the pulmonary infiltrates. Pro-calcitonin level was low at 0.07. The chest x- ray from today is showing diffuse bilateral pulmonary infiltrates and a chest x- ray findings essentially unchanged compared to yesterday. There are areas of consolidation bilaterally perihilar and in the peripheries. White cell count is 17.8 with hemoglobin of 13.4. The patient's renal function is normal. The LFTs are improving. The LDH from few days ago was 2048 with a CRP of 3.3. D-dimer from 02/03/2021 is at 15.1. 02/06/2021, the patient is being seen for a follow-up. The patient this morning is stable. She denies having any worsening shortness of breath. She remains on high flow oxygen at 50 L with an FiO2 of 60%. Her pulse ox is ranging between 88-91%. No significant cough or sputum production. No chest tightness. No wheezing. She remains on Decadron. The patient is also on Baricitinib. Decadron dose is 6 mg twice a day. In terms of her inflammatory markers, the d- dimer is still elevated at 9.87. This is slightly higher compared to yesterday. Her LDH level is down to 1282 and the CRP level is down to 2.7. She is afebrile. She is hemodynamically stable. She is trying to take some dietary supplements that she has bruits with her through her daughter. Note that she al so had a pulmonary embolism and the patient on anticoagulation with Eliquis and she has no signs of bleeding. Pro-calcitonin level has been low at 0.07. In terms of any other blood work, her liver function tests are improving yesterday. Follow-up levels are still pending from today. Meanwhile, the chest x-ray from today is still pending. No other significant events overnight. No altered ment ation. No nausea vomiting or diarrhea. 1020 further at 21, I'm seeing the patient for a follow-up. Condition is essentially stable, slightly improved compared to yesterday. She is on 50 L Airvo with an FiO2 of 50% and a pulse ox is around 91%. Chest x-ray still showing diffuse bilateral pulmonary infiltrates. She remains on Decadron. She is also taking Baricitinib. Taking 6 mg of Decadron twice a day. Meanwhile, her inflammatory markers reveal a d-dimer of 10.4 and a LDH level which is gradually improving down to 1149 with a CRP level of 2. The patient is tolerating her diet. She still desaturates that she can recover easily with deep breathing. She has occasional cough. She was able to bring up some sputum. No fever. No major active disturbance. White cell count is at 12.9 with hemoglobin of 13.4. Mental status is adequate. No signs of any superinfection at this point in time and was still dealing with a [id number] pneumonia with pulmonary embolism. Patient is on Eliquis. 02/08/2021, patient is doing well. She stable. She is able to speak full sentences, the patient is still on Airvo at 45 L with an FiO2 of 55%. Her current pulse ox is 94%. Doing well. No specific complaints. She remains on Decadron and she is also completing a course of Baricitinib. Her Decadron dose is 6 mg by mouth IV twice a day. In terms of her inflammatory markers, the p atient has a d-dimer of 8.1. The LDH level is gradually improving is down to 1063 and a CRP level is at 1.3. Rest of the electrodes are normal. No other significant events otherwise for now. She is tolerating her diet. No fever. No chills. She is doing limited amount of activity and she wants to work with physical therapy. She is using incentive spirometer. Cultures are all negative for now. We are in the process of transferring this patient to a medical surgical floor 11/09/2020 the patient is doing well. She is on Airvo at 30 L with an FiO2 of 50%. We'll try to wean down the FiO2 further. She remains on Decadron IV 63 g every 12 hours. She is also completing a course of Baricitinib. Overall, her condition is doing well. Her inflammatory markers have been improving steadily. Her d-dimer was down to 8.1, and LDH level was down to 1063 and these needs to be repeated. No fever. No chills. No other new complaints. Cultures are negative and she is using incentive spirometer. No other major issues on this patient. We'll continue to wean down the FiO2 as tolerated. Objective - Vital Signs Vital signs: Vital Signs Temp 98.2 F 02/09/21 10:34 Pulse 67 02/09/21 10:34 Resp 22 02/09/21 10:34 BP 106/65 02/09/21 10:34 Pulse Ox 94 L 02/09/21 10:34 Intake & Output 02/08/21 02/09/21 02/09/21 18:59 06:59 18:59 Intake Total 1000 Output Total 866 2550 Balance 134 -2550 Intake: Oral 1000 Output: Urine 865 2550 Stool 1 Other: Voiding Method Indwelling Catheter Indwelling Catheter Indwelling Catheter - Exam GENERAL EXAM: Alert, pleasant, 65-year-old white female, on Airvo 30 L and FiO2 of 50%, with a pulse ox of 91-95% HEAD: Normocephalic/atraumatic. EYES: Normal reaction of pupils, equal size. Conjunctiva pink, sclera white. NOSE: Clear with pink turbinates. THROAT: No erythema or exudates. NECK: No masses, no JVD, no thyroid enlargement, no adenopathy. CHEST: No chest wall deformity. Symmetrical expansion. LUNGS: Equal air entry with bibasilar crackles CVS: Regular rate and rhythm, normal S1 and S2, no gallops, no murmurs, no rubs ABDOMEN: Soft, nontender. No hepatosplenomegaly, normal bowel sounds, no guarding or rigidity. EXTREMITIES: No clubbing, no edema, no cyanosis, 2+ pulses and upper and lower extremities. MUSCULOSKELETAL: Muscle strength and tone normal. SPINE: No scoliosis or deformity SKIN: No rashes CENTRAL NERVOUS SYSTEM: Alert and oriented -3. No focal deficits, tone is normal in all 4 extremities. PSYCHIATRIC: Alert and oriented -3. Appropriate affect. Intact judgment and insight. - Labs CBC & Chem 7: 02/09/21 06:59 02/09/21 06:58 Labs: Abnormal Lab Results - Last 24 Hours (Table) 02/08/21 02/08/21 02/08/21 Range/Units 13:12 16:42 20:04 WBC (4.50-10.00) X 10*3/uL MCHC (32.0-37.0) g/dL Immature Gran # (0.00-0.04) X 10*3/uL Neutrophils # (1.80-7.70) X 10*3/uL Lymphocytes # (0.90-5.00) X 10*3/uL Eosinophils # (0.04-0.35) X 10*3/uL Anion Gap (4.00-12.00) mmol/L BUN (9.0-27.0) mg/dL BUN/Creatinine Ratio (12.00-20.00) Ratio Glucose (70-110) mg/dL POC Glucose (mg/dL) 133 H 144 H 120 H (75-99) mg/dL Calcium (8.7-10.3) mg/dL Ferritin (10.0-291.0) ng/mL 02/09/21 02/09/21 02/09/21 Range/Units 06:50 06:58 06:59 WBC 10.88 H (4.50-10.00) X 10*3/uL MCHC 31.8 L (32.0-37.0) g/dL Immature Gran # 0.15 H (0.00-0.04) X 10*3/uL Neutrophils # 9.15 H (1.80-7.70) X 10*3/uL Lymphocytes # 0.77 L (0.90-5.00) X 10*3/uL Eosinophils # 0.01 L (0.04-0.35) X 10*3/uL Anion Gap 12.70 H (4.00-12.00) mmol/L BUN 30.0 H (9.0-27.0) mg/dL BUN/Creatinine Ratio 49.18 H (12.00-20.00) Ratio Glucose 119 H (70-110) mg/dL POC Glucose (mg/dL) 123 H (75-99) mg/dL Calcium 8.6 L (8.7-10.3) mg/dL Ferritin 3485.0 H (10.0-291.0) ng/mL 02/09/21 Range/Units 11:29 WBC (4.50-10.00) X 10*3/uL MCHC (32.0-37.0) g/dL Immature Gran # (0.00-0.04) X 10*3/uL Neutrophils # (1.80-7.70) X 10*3/uL Lymphocytes # (0.90-5.00) X 10*3/uL Eosinophils # (0.04-0.35) X 10*3/uL Anion Gap (4.00-12.00) mmol/L BUN (9.0-27.0) mg/dL BUN/Creatinine Ratio (12.00-20.00) Ratio Glucose (70-110) mg/dL POC Glucose (mg/dL) 126 H (75-99) mg/dL Calcium (8.7-10.3) mg/dL Ferritin (10.0-291.0) ng/mL Assessment and Plan Plan: 1. Acute hypoxic respiratory failure related to acute COVID-19 pneumonia, and her symptoms started on January 16. Patient is not vaccinated for COVID-19. Patient had progressive hypoxic respiratory failure and she was transferred to the intensive care unit on 01/27/2021 and placed on BiPAP support. Currently on Decadron 6 mg twice daily, and baricitinib. She is on high flow 02 with Airvo 30 L with an FiO2 of 50%. She continues to improve. We'll switch her to oral Decadron once a day in addition to Baricitinib and the patient is on long-term articulation with Eliquis. 2. Acute right lower lobe pulmonary embolism, patient is currently on Eliquis. The CTA is showing a tiny subsegmental pulmonary embolism of the right lower lobe and the patient remains on anticoagulation with Eliquis. 3. Elevated inflammatory markers secondary to [id number] pneumonia 4. History of hypothyroidism 5. Morbid obesity with BMI 40.7 kg/m 6. Chronic back pain 7. Previous history of hysterectomy 8. Never smoker 9 transaminitis, mild, improving Plan: Patient is tolerating Airvo, we'll try to cut downthe FiO2 at 50% and keep the floor 30 L Continue Decadron and baricitinibswitch the Decadron to 6 mg nightly daily basis Continue antocoagulation with Eliquis Tolerating oral feedings Encourage deep breathing and coughing, incentive spirometry use Increase activity as tolerated Clinically stable. We'll continue to follow.
[2021-02-09] MEDS ORDERED: bisacodyL 10 MG SUPP RECTAL STA (15:49)
[2021-02-09 17:04] LABS: Glucose,Whole Blood 139 mg/dL (75-99)
--- NOTE | 2021-02-09 17:25 | P.PN ---
Subjective Progress Note Date: 02/09/21 Patient is a 65-year-old female with a history of hypothyroidism, chronic back pain, and obesity who presented with complaints of hemoptysis. She was subsequently diagnosed with COVID-19 pneumonia. She is unvaccinated. She is currently on high flow oxygen patient oxygen requirements are improving. Patient seen and evaluated at bedside, today patient does not report any worsening of his breathing or report any new significant chest pain. Patient remains in no acute distress. Patient questions and concerns addressed at bedside, proper counseling done. Plan discussed with nursing staff. Objective - Vital Signs Vital signs: Vital Signs Temp 97.7 F 02/09/21 14:00 Pulse 77 02/09/21 14:00 Resp 22 02/09/21 14:00 BP 115/62 02/09/21 14:00 Pulse Ox 93 L 02/09/21 14:00 Intake & Output 02/08/21 02/09/21 02/09/21 18:59 06:59 18:59 Intake Total 1000 Output Total 866 2550 Balance 134 -2550 Weight 111.7 kg Intake: Oral 1000 Output: Urine 865 2550 Stool 1 Other: Voiding Method Indwelling Catheter Indwelling Catheter Indwelling Catheter General: Ill-appearing, no distress Head: atraumatic, normocephalic, symmetric Eyes: EOMI, no lid lag, anicteric sclera Mouth: no lip lesion, mucus membranes moist Cardiovascular: S1S2 reg, no murmur, positive posterior tibial pulse bilateral, Lungs: Coarse breath sounds bilateral, no rhonchi, no rales , no accessory muscle use Abdominal: soft, nontender to palpation, no guarding, no appreciable organomegaly Ext: no gross muscle atrophy, no edema, no contractures Psych: Alert, oriented, appropriate affect - Labs CBC & Chem 7: 02/09/21 06:59 02/09/21 06:58 Labs: Abnormal Lab Results - Last 24 Hours (Table) 02/08/21 02/09/21 02/09/21 Range/Units 20:04 06:50 06:58 WBC (4.50-10.00) X 10*3/uL MCHC (32.0-37.0) g/dL Immature Gran # (0.00-0.04) X 10*3/uL Neutrophils # (1.80-7.70) X 10*3/uL Lymphocytes # (0.90-5.00) X 10*3/uL Eosinophils # (0.04-0.35) X 10*3/uL Anion Gap 12.70 H (4.00-12.00) mmol/L BUN 30.0 H (9.0-27.0) mg/dL BUN/Creatinine Ratio 49.18 H (12.00-20.00) Ratio Glucose 119 H (70-110) mg/dL POC Glucose (mg/dL) 120 H 123 H (75-99) mg/dL Calcium 8.6 L (8.7-10.3) mg/dL Ferritin 3485.0 H (10.0-291.0) ng/mL Lactate Dehydrogenase 432 H (120-246) U/L 02/09/21 02/09/21 02/09/21 Range/Units 06:59 11:29 16:43 WBC 10.88 H (4.50-10.00) X 10*3/uL MCHC 31.8 L (32.0-37.0) g/dL Immature Gran # 0.15 H (0.00-0.04) X 10*3/uL Neutrophils # 9.15 H (1.80-7.70) X 10*3/uL Lymphocytes # 0.77 L (0.90-5.00) X 10*3/uL Eosinophils # 0.01 L (0.04-0.35) X 10*3/uL Anion Gap (4.00-12.00) mmol/L BUN (9.0-27.0) mg/dL BUN/Creatinine Ratio (12.00-20.00) Ratio Glucose (70-110) mg/dL POC Glucose (mg/dL) 126 H 139 H (75-99) mg/dL Calcium (8.7-10.3) mg/dL Ferritin (10.0-291.0) ng/mL Lactate Dehydrogenase (120-246) U/L Assessment and Plan Assessment: Acute hypoxic respiratory failure with COVID-19 pneumonia, right lower lobe pulmonary embolism Patient outside the window for Remdesvir Patient completed treatment with barcitinib Patient on oral dexamethasone Continue Eliquis Pulmonary medicine following Right lower lobe pulmonary embolism Continue Eliquis Hypothyroidism - synthorid and cytomel Obeisty with BMI 38.6 - outpatient structured weight loss DVT prophylaxis: eliquis CODE STATUS: Full code Discharge plan/neck site of care: Likely next 3-4 days once we de-escalate the oxygen to less than 3 L nasal cannula, home with home health care versus rehab
[2021-02-09] MEDS: ACETAMINOPHEN TAB 325 MG TAB PO PRN (18:11)
[2021-02-09 20:19] LABS: Glucose,Whole Blood 141 mg/dL (75-99)
[2021-02-09] MEDS: DICLOFENAC SODIUM GEL 100 GM TUBE TOPICAL SCH (21:54)
[2021-02-10] MEDS: LIOTHYRONINE SODIUM 5 MCG TAB PO SCH (05:21)
[2021-02-10] MEDS: ACETAMINOPHEN TAB 325 MG TAB PO PRN ×3 (05:21→21:00)
[2021-02-10] MEDS: LEVOTHYROXINE 50 MCG TAB PO SCH (05:22)
[2021-02-10 07:09] LABS: Glucose,Whole Blood 97 mg/dL (75-99)
[2021-02-10] MEDS: ALBUTEROL HFA INHALER INHALATION PRN ×4 (07:32→20:04)
[2021-02-10] MEDS: INSULIN ASPART (NovoLOG) 100 UNIT/ML VIAL SQ SCH ×4 (07:38→21:03)
[2021-02-10] MEDS: hydrALAZINE HCL 25 MG TAB PO SCH ×3 (07:46→21:14)
[2021-02-10] MEDS: ZINC SULFATE 220 MG CAP PO SCH (08:44)
[2021-02-10] MEDS: dexAMETHasone 2 MG TAB PO SCH (08:44)
[2021-02-10] MEDS: APIXABAN 5 MG TAB PO SCH ×2 (08:44→21:01)
[2021-02-10] MEDS: FAMOTIDINE 20 MG TAB PO SCH ×2 (08:44→21:01)
[2021-02-10] MEDS: CHOLECALCIFEROL 25 MCG (1000 IU) TABLET PO SCH (08:45)
[2021-02-10] MEDS: polyethylene glycoL 3350 17 GM POWD.PACK PO SCH (08:45)
[2021-02-10] MEDS: ASCORBIC ACID 500 MG TAB PO SCH ×2 (08:45→21:01)
[2021-02-10] MEDS: SENNOSIDES-DOCUSATE SODIUM 1 EACH TAB PO SCH ×2 (08:45→21:03)
[2021-02-10] MEDS: DICLOFENAC SODIUM GEL 100 GM TUBE TOPICAL SCH ×4 (08:46→21:14)
[2021-02-10] MEDS ORDERED: DEXAMETHASONE SOD PHOSPHATE 10 MG/ML 1 ML VIAL PO SCH (09:00)
[2021-02-10 10:38] LABS: Basophils % (A) 0 %; Eosinophils # (A) 0.2 k/uL (0-0.7); Eosinophils % (A) 2 %; HCT 37.1 % (34.0-46.0); Lymphocytes # (A) 1.3 k/uL (1.0-4.8); Lymphocytes % (A) 10 %; MCH 29.5 pg (25.0-35.0); MCHC 32.5 g/dL (31.0-37.0); MCV 90.7 fL (80.0-100.0); Mean Platelet Volume 8.2; Monocytes # (A) 0.8 k/uL (0-1.0); Monocytes % (A) 6 %; Neutrophils # (A) 10.4 k/uL (1.3-7.7); Neutrophils % (A) 81 %; Platelet Count 293 k/uL (150-450); RBC 4.09 m/uL (3.80-5.40); RDW 13.5 % (11.5-15.5); WBC 12.8 k/uL (3.8-10.6)
[2021-02-10 10:39] LABS: African American GFR (CKD) >90 (>60 ml/min/1.73 sqM); Anion Gap 5 mmol/L; Blood Urea Nitrogen 37 mg/dL (7-17); Calcium 8.5 mg/dL (8.4-10.2); Carbon Dioxide 26 mmol/L (22-30); Chloride 103 mmol/L (98-107); Glucose 99 mg/dL (74-99); Non-African American GFR(CKD) >90 (>60 ml/min/1.73 sqM); Sodium 134 mmol/L (137-145)
--- NOTE | 2021-02-10 12:11 | P.PN ---
Subjective Progress Note Date: 02/10/21 65-year-old female patient, currently in the intensive care unit with hypoxic respiratory failure due to obesity-related pneumonia. The patient presented to the hospital on 01/24/2021 with shortness of breath and cough. Her symptoms over the started in 01/16/2021. The patient tested positive COVID-19. She was started on Decadron. She was initially on 2 L of oxygen by nasal cannula. Subsequently, condition progressed and the patient currently isn't intensive care unit on high flow oxygen at 50 L with an FiO2 of 65% to maintain a pulse ox of 90%. She is receiving a combination of 6 mg Decadron twice a day and she is also on Baricitinib 4 mg by mouth daily. She is also on anticoagulation with Eliquis for an acute pulmonary embolism assumed to be related to the bilateral pneumonia. The computed tomography scan of the chest was done on 01/27/2021 showed extensive infiltrates involving both lungs. There was also significantinfiltrates throughout the lungs. Heart was enlarged. No roberta cardial effusion. Filling defect in the right lower lobe pulmonary artery branch was noted and this was concerning for pulmonary embolism. She was supplemented with TPN for nutritional support and currently she is taking orals and a chest x-rays consistent with [id number] pneumonia with diffuse but the pulmonary infiltrates. Pro-calcitonin level was low at 0.07. The chest x- ray from today is showing diffuse bilateral pulmonary infiltrates and a chest x- ray findings essentially unchanged compared to yesterday. There are areas of consolidation bilaterally perihilar and in the peripheries. White cell count is 17.8 with hemoglobin of 13.4. The patient's renal function is normal. The LFTs are improving. The LDH from few days ago was 2048 with a CRP of 3.3. D-dimer from 02/03/2021 is at 15.1. 02/06/2021, the patient is being seen for a follow-up. The patient this morning is stable. She denies having any worsening shortness of breath. She remains on high flow oxygen at 50 L with an FiO2 of 60%. Her pulse ox is ranging between 88-91%. No significant cough or sputum production. No chest tightness. No wheezing. She remains on Decadron. The patient is also on Baricitinib. Decadron dose is 6 mg twice a day. In terms of her inflammatory markers, the d- dimer is still elevated at 9.87. This is slightly higher compared to yesterday. Her LDH level is down to 1282 and the CRP level is down to 2.7. She is afebrile. She is hemodynamically stable. She is trying to take some dietary supplements that she has bruits with her through her daughter. Note that she al so had a pulmonary embolism and the patient on anticoagulation with Eliquis and she has no signs of bleeding. Pro-calcitonin level has been low at 0.07. In terms of any other blood work, her liver function tests are improving yesterday. Follow-up levels are still pending from today. Meanwhile, the chest x-ray from today is still pending. No other significant events overnight. No altered ment ation. No nausea vomiting or diarrhea. 1020 further at 21, I'm seeing the patient for a follow-up. Condition is essentially stable, slightly improved compared to yesterday. She is on 50 L Airvo with an FiO2 of 50% and a pulse ox is around 91%. Chest x-ray still showing diffuse bilateral pulmonary infiltrates. She remains on Decadron. She is also taking Baricitinib. Taking 6 mg of Decadron twice a day. Meanwhile, her inflammatory markers reveal a d-dimer of 10.4 and a LDH level which is gradually improving down to 1149 with a CRP level of 2. The patient is tolerating her diet. She still desaturates that she can recover easily with deep breathing. She has occasional cough. She was able to bring up some sputum. No fever. No major active disturbance. White cell count is at 12.9 with hemoglobin of 13.4. Mental status is adequate. No signs of any superinfection at this point in time and was still dealing with a [id number] pneumonia with pulmonary embolism. Patient is on Eliquis. 02/08/2021, patient is doing well. She stable. She is able to speak full sentences, the patient is still on Airvo at 45 L with an FiO2 of 55%. Her current pulse ox is 94%. Doing well. No specific complaints. She remains on Decadron and she is also completing a course of Baricitinib. Her Decadron dose is 6 mg by mouth IV twice a day. In terms of her inflammatory markers, the p atient has a d-dimer of 8.1. The LDH level is gradually improving is down to 1063 and a CRP level is at 1.3. Rest of the electrodes are normal. No other significant events otherwise for now. She is tolerating her diet. No fever. No chills. She is doing limited amount of activity and she wants to work with physical therapy. She is using incentive spirometer. Cultures are all negative for now. We are in the process of transferring this patient to a medical surgical floor 11/09/2020 the patient is doing well. She is on Airvo at 30 L with an FiO2 of 50%. We'll try to wean down the FiO2 further. She remains on Decadron IV 63 g every 12 hours. She is also completing a course of Baricitinib. Overall, her condition is doing well. Her inflammatory markers have been improving steadily. Her d-dimer was down to 8.1, and LDH level was down to 1063 and these needs to be repeated. No fever. No chills. No other new complaints. Cultures are negative and she is using incentive spirometer. No other major issues on this patient. We'll continue to wean down the FiO2 as tolerated. 02/10/2021, I'm seeing the patient for a follow-up. This morning, the patient is having some difficulties with her bowel. She did have a constipation episode yesterday and for that reason she was given a laxative suppositories. Since then, her GI system has been very much disturbed. She had increased cramping, her GI muscles have been spastic and angry and screaming in pain. She apparently had significant amount of pain. She was not given a whole lot of pain control. Ultimately she had a bowel movement and that was quite helpful in terms of providing the patient adequate symptom control. She is very much worn- out tired because of her GI upset. She does not want to take any form of laxatives in the future. She is going to go with her natural interventions of berries and spring makes. She is going to introduce her diet along with the protein shakes slowly. Her breathing is stable. She is on high flow oxygen 30 L with an FiO2 of 45%. No worsening shortness of breath. In the process of gradually weaning it off the FiO2. The patient remains on Decadron 6 mg IV every 24 hours pH is also on Baricitinib. Inflammatory markers have not been repeated today. Nevertheless, her latest LDH level was down to 432. Objective - Vital Signs Vital signs: Vital Signs Temp 98.5 F 02/10/21 10:00 Pulse 67 02/10/21 10:00 Resp 22 02/10/21 10:00 BP 105/59 02/10/21 10:00 Pulse Ox 94 L 02/10/21 10:00 Intake & Output 02/09/21 02/10/21 02/10/21 18:59 06:59 18:59 Output Total 1500 Balance -1500 Weight 111.7 kg Output: Urine 1500 Other: Voiding Method Indwelling Catheter External Catheter # Voids 2 2 # Bowel Movements 1 3 - Exam GENERAL EXAM: Alert, pleasant, 65-year-old white female, on Airvo 30 L and FiO2 of 45%, with a pulse ox of 91-95% HEAD: Normocephalic/atraumatic. EYES: Normal reaction of pupils, equal size. Conjunctiva pink, sclera white. NOSE: Clear with pink turbinates. THROAT: No erythema or exudates. NECK: No masses, no JVD, no thyroid enlargement, no adenopathy. CHEST: No chest wall deformity. Symmetrical expansion. LUNGS: Equal air entry with bibasilar crackles CVS: Regular rate and rhythm, normal S1 and S2, no gallops, no murmurs, no rubs ABDOMEN: Soft, nontender. No hepatosplenomegaly, normal bowel sounds, no guarding or rigidity. EXTREMITIES: No clubbing, no edema, no cyanosis, 2+ pulses and upper and lower extremities. MUSCULOSKELETAL: Muscle strength and tone normal. SPINE: No scoliosis or deformity SKIN: No rashes CENTRAL NERVOUS SYSTEM: Alert and oriented -3. No focal deficits, tone is normal in all 4 extremities. PSYCHIATRIC: Alert and oriented -3. Appropriate affect. Intact judgment and insight. - Labs CBC & Chem 7: 02/10/21 09:49 02/10/21 09:49 Labs: Abnormal Lab Results - Last 24 Hours (Table) 02/09/21 02/09/21 02/09/21 Range/Units 06:58 06:59 16:43 WBC 10.88 H (4.50-10.00) X 10*3/uL MCHC 31.8 L (32.0-37.0) g/dL Immature Gran # 0.15 H (0.00-0.04) X 10*3/uL Neutrophils # 9.15 H (1.80-7.70) X 10*3/uL Lymphocytes # 0.77 L (0.90-5.00) X 10*3/uL Eosinophils # 0.01 L (0.04-0.35) X 10*3/uL Sodium (137-145) mmol/L Anion Gap 12.70 H (4.00-12.00) mmol/L BUN 30.0 H (9.0-27.0) mg/dL BUN/Creatinine Ratio 49.18 H (12.00-20.00) Ratio Glucose 119 H (70-110) mg/dL POC Glucose (mg/dL) 139 H (75-99) mg/dL Calcium 8.6 L (8.7-10.3) mg/dL Ferritin 3485.0 H (10.0-291.0) ng/mL Lactate Dehydrogenase 432 H (120-246) U/L 02/09/21 02/10/21 02/10/21 Range/Units 20:18 09:49 09:49 WBC 12.8 H (4.50-10.00) X 10*3/uL MCHC (32.0-37.0) g/dL Immature Gran # (0.00-0.04) X 10*3/uL Neutrophils # 10.4 H (1.80-7.70) X 10*3/uL Lymphocytes # (0.90-5.00) X 10*3/uL Eosinophils # (0.04-0.35) X 10*3/uL Sodium 134 L (137-145) mmol/L Anion Gap (4.00-12.00) mmol/L BUN 37 H (9.0-27.0) mg/dL BUN/Creatinine Ratio (12.00-20.00) Ratio Glucose (70-110) mg/dL POC Glucose (mg/dL) 141 H (75-99) mg/dL Calcium (8.7-10.3) mg/dL Ferritin (10.0-291.0) ng/mL Lactate Dehydrogenase (120-246) U/L Assessment and Plan Plan: 1. Acute hypoxic respiratory failure related to acute COVID-19 pneumonia, and her symptoms started on January 16. Patient is not vaccinated for COVID-19. Patient had progressive hypoxic respiratory failure and she was transferred to the intensive care unit on 01/27/2021 and placed on BiPAP support. Currently on Decadron 6 mg twice daily, and baricitinib. She is on high flow 02 with Airvo 30 L with an FiO2 of 45%. She continues to improve. We'll switch her to oral Decadron once a day in addition to Baricitinib and the patient is on long-term articulation with Eliquis. 2. Acute right lower lobe pulmonary embolism, patient is currently on Eliquis. The CTA is showing a tiny subsegmental pulmonary embolism of the right lower lobe and the patient remains on anticoagulation with Eliquis. 3. Elevated inflammatory markers secondary to [id number] pneumonia 4. History of hypothyroidism 5. Morbid obesity with BMI 40.7 kg/m 6. Chronic back pain 7. Previous history of hysterectomy 8. Never smoker 9 transaminitis, mild, improving 10 constipation, improved Plan: Patient is tolerating Airvo, currently on 30 L with an FiO2 of 45% Continue Decadron and baricitinib Decadron to 6 mg nightly daily basis Continue antocoagulation with Eliquis Tolerating oral feedings Encourage deep breathing and coughing, incentive spirometry use Increase activity as tolerated Clinically stable. We'll continue to follow.
[2021-02-10 12:22] LABS: Glucose,Whole Blood 124 mg/dL (75-99)
[2021-02-10 16:52] LABS: Glucose,Whole Blood 165 mg/dL (75-99)
--- NOTE | 2021-02-10 18:51 | P.PN ---
Subjective Progress Note Date: 02/10/21 Patient is a 65-year-old female with a history of hypothyroidism, chronic back pain, and obesity who presented with complaints of hemoptysis. She was subsequently diagnosed with COVID-19 pneumonia. She is unvaccinated. She is currently on high flow oxygen patient oxygen requirements are improving. Patient seen and evaluated at bedside, today patient does not report any worsening of his breathing or report any new significant chest pain. Patient remains in no acute distress. Patient questions and concerns addressed at bedside, proper counseling done. Plan discussed with nursing staff. Objective - Vital Signs Vital signs: Vital Signs Temp 98.1 F 02/10/21 17:33 Pulse 73 02/10/21 17:33 Resp 19 02/10/21 17:33 BP 99/68 02/10/21 17:33 Pulse Ox 91 L 02/10/21 17:33 Intake & Output 02/09/21 02/10/21 02/10/21 18:59 06:59 18:59 Output Total 1500 1500 Balance -1500 -1500 Weight 111.7 kg Output: Urine 1500 1500 Other: Voiding Method Indwelling Catheter External Catheter # Voids 2 2 # Bowel Movements 1 3 General: Ill-appearing, no distress Head: atraumatic, normocephalic, symmetric Eyes: EOMI, no lid lag, anicteric sclera Mouth: no lip lesion, mucus membranes moist Cardiovascular: S1S2 reg, no murmur, positive posterior tibial pulse bilateral, Lungs: Coarse breath sounds bilateral, no rhonchi, no rales , no accessory muscle use Abdominal: soft, nontender to palpation, no guarding, no appreciable organomegaly Ext: no gross muscle atrophy, no edema, no contractures Psych: Alert, oriented, appropriate affect - Labs CBC & Chem 7: 02/10/21 09:49 02/10/21 09:49 Labs: Abnormal Lab Results - Last 24 Hours (Table) 02/09/21 02/10/21 02/10/21 Range/Units 20:18 09:49 09:49 WBC 12.8 H (3.8-10.6) k/uL Neutrophils # 10.4 H (1.3-7.7) k/uL Sodium 134 L (137-145) mmol/L BUN 37 H (7-17) mg/dL POC Glucose (mg/dL) 141 H (75-99) mg/dL 02/10/21 02/10/21 Range/Units 11:55 16:47 WBC (3.8-10.6) k/uL Neutrophils # (1.3-7.7) k/uL Sodium (137-145) mmol/L BUN (7-17) mg/dL POC Glucose (mg/dL) 124 H 165 H (75-99) mg/dL Assessment and Plan Assessment: Acute hypoxic respiratory failure with COVID-19 pneumonia, right lower lobe pulmonary embolism Patient outside the window for Remdesvir Patient completed treatment with barcitinib Patient on oral dexamethasone Continue Eliquis Pulmonary medicine following Right lower lobe pulmonary embolism Continue Eliquis Hypothyroidism - synthorid and cytomel Obeisty with BMI 38.6 - outpatient structured weight loss DVT prophylaxis: eliquis CODE STATUS: Full code Discharge plan/neck site of care: Likely next 3-4 days once we de-escalate the oxygen to less than 3 L nasal cannula, home with home health care versus rehab
[2021-02-10 20:47] LABS: Glucose,Whole Blood 134 mg/dL (75-99)
[2021-02-11] MEDS: LIOTHYRONINE SODIUM 5 MCG TAB PO SCH (05:26)
[2021-02-11] MEDS: LEVOTHYROXINE 50 MCG TAB PO SCH (05:26)
[2021-02-11] MEDS: INSULIN ASPART (NovoLOG) 100 UNIT/ML VIAL SQ SCH ×4 (07:35→21:51)
[2021-02-11 07:37] LABS: Glucose,Whole Blood 95 mg/dL (75-99)
[2021-02-11] MEDS: ALBUTEROL HFA INHALER INHALATION PRN ×3 (07:55→16:07)
--- NOTE | 2021-02-11 09:20 | XR ---
EXAMINATION TYPE: XR chest 1V portable DATE OF EXAM: 02/11/2021 HISTORY: Shortness of breath. COMPARISON: 05/12/2020 TECHNIQUE: Single view of the chest is submitted. FINDINGS: Demonstrated are scattered senescent parenchymal change. Bilateral airspace infiltrates persist unchanged. The heart is stable. Hilar and mediastinal structures are within normal limits. Degenerative changes are seen of the dorsal spine. IMPRESSION: 1. Bilateral airspace infiltrates persist unchanged.
[2021-02-11] MEDS: ASCORBIC ACID 500 MG TAB PO SCH ×2 (09:38→21:50)
[2021-02-11] MEDS: dexAMETHasone 2 MG TAB PO SCH (09:38)
[2021-02-11] MEDS: FAMOTIDINE 20 MG TAB PO SCH ×2 (09:38→21:50)
[2021-02-11] MEDS: SENNOSIDES-DOCUSATE SODIUM 1 EACH TAB PO SCH ×2 (09:38→21:51)
[2021-02-11] MEDS: APIXABAN 5 MG TAB PO SCH ×2 (09:38→21:50)
[2021-02-11] MEDS: CHOLECALCIFEROL 25 MCG (1000 IU) TABLET PO SCH (09:39)
[2021-02-11] MEDS: ZINC SULFATE 220 MG CAP PO SCH (09:39)
[2021-02-11] MEDS: polyethylene glycoL 3350 17 GM POWD.PACK PO SCH (09:39)
[2021-02-11] MEDS: hydrALAZINE HCL 25 MG TAB PO SCH ×3 (09:39→21:54)
[2021-02-11] MEDS: ACETAMINOPHEN TAB 325 MG TAB PO PRN (09:42)
[2021-02-11] MEDS: DICLOFENAC SODIUM GEL 100 GM TUBE TOPICAL SCH ×4 (09:46→21:54)
[2021-02-11 09:47] LABS: Basophils # (A) 0.02 X 10*3/uL (0.00-0.10); Basophils % (A) 0.2 %; Eosinophils # (A) 0.12 X 10*3/uL (0.04-0.35); Eosinophils % (A) 1.2 %; HCT 34.5 % (37.2-46.3); HGB 11.4 g/dL (12.0-15.0); Lymphocytes # (A) 1.06 X 10*3/uL (0.90-5.00); Lymphocytes % (A) 10.9 %; MCH 29.6 pg (27.0-32.0); MCV 89.6 fL (80.0-97.0); Monocytes # (A) 0.64 X 10*3/uL (0.20-1.00); Monocytes % (A) 6.6 %; Neutrophils # (A) 7.79 X 10*3/uL (1.80-7.70); Neutrophils % (A) 80.1 %; Platelet Count 270 X 10*3/uL (140-440); RBC 3.85 X 10*6/uL (4.10-5.20); RDW 14.1 % (11.5-14.5); WBC 9.73 X 10*3/uL (4.50-10.00)
[2021-02-11 09:50] LABS: Creatine Kinase MB 0.5 ng/mL (0.0-2.4); Troponin I <0.012 ng/mL (0.000-0.034)
[2021-02-11 10:24] LABS: African American GFR (CKD) 113.7 (60.0-200.0); Blood Urea Nitrogen 27.8 mg/dL (9.0-27.0); C Reactive Protein 4.1 mg/dL (0.00-0.80); Calcium 8.4 mg/dL (8.7-10.3); Carbon Dioxide 24.7 mmol/L (21.6-31.8); Non-African American GFR(CKD) 98.1 (60.0-200.0); Potassium 3.8 mmol/L (3.5-5.5)
--- NOTE | 2021-02-11 11:29 | P.PN ---
Subjective Progress Note Date: 02/11/21 65-year-old female patient, currently in the intensive care unit with hypoxic respiratory failure due to obesity-related pneumonia. The patient presented to the hospital on 01/24/2021 with shortness of breath and cough. Her symptoms over the started in 01/16/2021. The patient tested positive COVID-19. She was started on Decadron. She was initially on 2 L of oxygen by nasal cannula. Subsequently, condition progressed and the patient currently isn't intensive care unit on high flow oxygen at 50 L with an FiO2 of 65% to maintain a pulse ox of 90%. She is receiving a combination of 6 mg Decadron twice a day and she is also on Baricitinib 4 mg by mouth daily. She is also on anticoagulation with Eliquis for an acute pulmonary embolism assumed to be related to the bilateral pneumonia. The computed tomography scan of the chest was done on 01/27/2021 showed extensive infiltrates involving both lungs. There was also significantinfiltrates throughout the lungs. Heart was enlarged. No roberta cardial effusion. Filling defect in the right lower lobe pulmonary artery branch was noted and this was concerning for pulmonary embolism. She was supplemented with TPN for nutritional support and currently she is taking orals and a chest x-rays consistent with [id number] pneumonia with diffuse but the pulmonary infiltrates. Pro-calcitonin level was low at 0.07. The chest x- ray from today is showing diffuse bilateral pulmonary infiltrates and a chest x- ray findings essentially unchanged compared to yesterday. There are areas of consolidation bilaterally perihilar and in the peripheries. White cell count is 17.8 with hemoglobin of 13.4. The patient's renal function is normal. The LFTs are improving. The LDH from few days ago was 2048 with a CRP of 3.3. D-dimer from 02/03/2021 is at 15.1. 02/06/2021, the patient is being seen for a follow-up. The patient this morning is stable. She denies having any worsening shortness of breath. She remains on high flow oxygen at 50 L with an FiO2 of 60%. Her pulse ox is ranging between 88-91%. No significant cough or sputum production. No chest tightness. No wheezing. She remains on Decadron. The patient is also on Baricitinib. Decadron dose is 6 mg twice a day. In terms of her inflammatory markers, the d- dimer is still elevated at 9.87. This is slightly higher compared to yesterday. Her LDH level is down to 1282 and the CRP level is down to 2.7. She is afebrile. She is hemodynamically stable. She is trying to take some dietary supplements that she has bruits with her through her daughter. Note that she al so had a pulmonary embolism and the patient on anticoagulation with Eliquis and she has no signs of bleeding. Pro-calcitonin level has been low at 0.07. In terms of any other blood work, her liver function tests are improving yesterday. Follow-up levels are still pending from today. Meanwhile, the chest x-ray from today is still pending. No other significant events overnight. No altered ment ation. No nausea vomiting or diarrhea. 1020 further at 21, I'm seeing the patient for a follow-up. Condition is essentially stable, slightly improved compared to yesterday. She is on 50 L Airvo with an FiO2 of 50% and a pulse ox is around 91%. Chest x-ray still showing diffuse bilateral pulmonary infiltrates. She remains on Decadron. She is also taking Baricitinib. Taking 6 mg of Decadron twice a day. Meanwhile, her inflammatory markers reveal a d-dimer of 10.4 and a LDH level which is gradually improving down to 1149 with a CRP level of 2. The patient is tolerating her diet. She still desaturates that she can recover easily with deep breathing. She has occasional cough. She was able to bring up some sputum. No fever. No major active disturbance. White cell count is at 12.9 with hemoglobin of 13.4. Mental status is adequate. No signs of any superinfection at this point in time and was still dealing with a [id number] pneumonia with pulmonary embolism. Patient is on Eliquis. 02/08/2021, patient is doing well. She stable. She is able to speak full sentences, the patient is still on Airvo at 45 L with an FiO2 of 55%. Her current pulse ox is 94%. Doing well. No specific complaints. She remains on Decadron and she is also completing a course of Baricitinib. Her Decadron dose is 6 mg by mouth IV twice a day. In terms of her inflammatory markers, the p atient has a d-dimer of 8.1. The LDH level is gradually improving is down to 1063 and a CRP level is at 1.3. Rest of the electrodes are normal. No other significant events otherwise for now. She is tolerating her diet. No fever. No chills. She is doing limited amount of activity and she wants to work with physical therapy. She is using incentive spirometer. Cultures are all negative for now. We are in the process of transferring this patient to a medical surgical floor 11/09/2020 the patient is doing well. She is on Airvo at 30 L with an FiO2 of 50%. We'll try to wean down the FiO2 further. She remains on Decadron IV 63 g every 12 hours. She is also completing a course of Baricitinib. Overall, her condition is doing well. Her inflammatory markers have been improving steadily. Her d-dimer was down to 8.1, and LDH level was down to 1063 and these needs to be repeated. No fever. No chills. No other new complaints. Cultures are negative and she is using incentive spirometer. No other major issues on this patient. We'll continue to wean down the FiO2 as tolerated. 02/10/2021, I'm seeing the patient for a follow-up. This morning, the patient is having some difficulties with her bowel. She did have a constipation episode yesterday and for that reason she was given a laxative suppositories. Since then, her GI system has been very much disturbed. She had increased cramping, her GI muscles have been spastic and angry and screaming in pain. She apparently had significant amount of pain. She was not given a whole lot of pain control. Ultimately she had a bowel movement and that was quite helpful in terms of providing the patient adequate symptom control. She is very much worn- out tired because of her GI upset. She does not want to take any form of laxatives in the future. She is going to go with her natural interventions of berries and spring makes. She is going to introduce her diet along with the protein shakes slowly. Her breathing is stable. She is on high flow oxygen 30 L with an FiO2 of 45%. No worsening shortness of breath. In the process of gradually weaning it off the FiO2. The patient remains on Decadron 6 mg IV every 24 hours pH is also on Baricitinib. Inflammatory markers have not been repeated today. Nevertheless, her latest LDH level was down to 432. 02/11/2021, the patient is anxious knowing that her is not doing as well due to [id number] complications and her is currently in intensive care unit. As such, she became slightly more short of breath. Objectively, her numbers are stable and the patient is currently on 30 L with an FiO2 of 40%. The patient otherwise is comfortable. No labored breathing. No chest pain. Her GI system has improved compared to yesterday. Her d-dimer is at 6.24 on today's blood work in addition to an LDH level of 346 and a CRP of 0.5. Cardiac enzymes are negative and the CRP is at 4.1. Sodium is at 140. White count was at 9.7 with a hemoglobin of 11.4. No other significant events otherwise for now. She remains on treatment with Decadron 6 mg on a daily basis pH is also on Baricitinib. No fever. No chills. Hemodynamically stable. Most recent pulse ox is in the order of 92%. Objective - Vital Signs Vital signs: Vital Signs Temp 98.0 F 02/11/21 11:20 Pulse 73 02/11/21 11:20 Resp 18 02/11/21 11:20 BP 105/62 02/11/21 11:20 Pulse Ox 92 L 02/11/21 11:20 Intake & Output 02/10/21 02/11/21 02/11/21 18:59 06:59 18:59 Intake Total 200 Output Total 1500 700 Balance -1500 -700 200 Intake: Oral 200 Output: Urine 1500 700 Other: Voiding Method External Catheter # Bowel Movements 1 - Exam GENERAL EXAM: Alert, pleasant, 65-year-old white female, on Airvo 30 L and FiO2 of 40%, with a pulse ox of 91-95% HEAD: Normocephalic/atraumatic. EYES: Normal reaction of pupils, equal size. Conjunctiva pink, sclera white. NOSE: Clear with pink turbinates. THROAT: No erythema or exudates. NECK: No masses, no JVD, no thyroid enlargement, no adenopathy. CHEST: No chest wall deformity. Symmetrical expansion. LUNGS: Equal air entry with bibasilar crackles CVS: Regular rate and rhythm, normal S1 and S2, no gallops, no murmurs, no rubs ABDOMEN: Soft, nontender. No hepatosplenomegaly, normal bowel sounds, no guarding or rigidity. EXTREMITIES: No clubbing, no edema, no cyanosis, 2+ pulses and upper and lower extremities. MUSCULOSKELETAL: Muscle strength and tone normal. SPINE: No scoliosis or deformity SKIN: No rashes CENTRAL NERVOUS SYSTEM: Alert and oriented -3. No focal deficits, tone is normal in all 4 extremities. PSYCHIATRIC: Alert and oriented -3. Appropriate affect. Intact judgment and insight. - Labs CBC & Chem 7: 02/11/21 06:36 02/11/21 06:36 Labs: Abnormal Lab Results - Last 24 Hours (Table) 02/10/21 02/10/21 02/10/21 Range/Units 11:55 16:47 20:47 RBC (4.10-5.20) X 10*6/uL Hgb (12.0-15.0) g/dL Hct (37.2-46.3) % Immature Gran # (0.00-0.04) X 10*3/uL Neutrophils # (1.80-7.70) X 10*3/uL D-Dimer (<0.60) mg/L FEU BUN (9.0-27.0) mg/dL BUN/Creatinine Ratio (12.00-20.00) Ratio POC Glucose (mg/dL) 124 H 165 H 134 H (75-99) mg/dL Calcium (8.7-10.3) mg/dL Lactate Dehydrogenase (120-246) U/L C-Reactive Protein (0.00-0.80) mg/dL 02/11/21 02/11/21 02/11/21 Range/Units 06:36 06:36 06:36 RBC 3.85 L (4.10-5.20) X 10*6/uL Hgb 11.4 L (12.0-15.0) g/dL Hct 34.5 L (37.2-46.3) % Immature Gran # 0.10 H (0.00-0.04) X 10*3/uL Neutrophils # 7.79 H (1.80-7.70) X 10*3/uL D-Dimer 6.24 H (<0.60) mg/L FEU BUN 27.8 H (9.0-27.0) mg/dL BUN/Creatinine Ratio 50.00 H (12.00-20.00) Ratio POC Glucose (mg/dL) (75-99) mg/dL Calcium 8.4 L (8.7-10.3) mg/dL Lactate Dehydrogenase 346 H (120-246) U/L C-Reactive Protein 4.10 H (0.00-0.80) mg/dL Assessment and Plan Plan: 1. Acute hypoxic respiratory failure related to acute COVID-19 pneumonia, and her symptoms started on January 16. Patient is not vaccinated for COVID-19. Patient had progressive hypoxic respiratory failure and she was transferred to the intensive care unit on 01/27/2021 and placed on BiPAP support. Currently on Decadron 6 mg twice daily, and baricitinib. She is on high flow 02 with Airvo 30 L with an FiO2 of 40%. She continues to improve. We'll switch her to oral Decadron once a day in addition to Baricitinib and the patient is on long-term articulation with Eliquis. He is stable and the inflammatory markers have settled down significantly. She is a bit anxious. 2. Acute right lower lobe pulmonary embolism, patient is currently on Eliquis. The CTA is showing a tiny subsegmental pulmonary embolism of the right lower lobe and the patient remains on anticoagulation with Eliquis. 3. Elevated inflammatory markers secondary to [id number] pneumonia 4. History of hypothyroidism 5. Morbid obesity with BMI 40.7 kg/m 6. Chronic back pain 7. Previous history of hysterectomy 8. Never smoker 9 transaminitis, mild, improving 10 constipation, improved Plan: Patient is tolerating Airvo, currently on 30 L with an FiO2 of 40% to give her some time and following that we'll put her on a 15 L high flow probably within next 24 hours. She is clinically improving and her condition is stable for now. Continue Decadron and baricitinib Decadron to 6 mg nightly daily basis Continue antocoagulation with Eliquis Tolerating oral feedings Encourage deep breathing and coughing, incentive spirometry use Increase activity as tolerated Clinically stable. We'll continue to follow.
[2021-02-11 12:10] LABS: Glucose,Whole Blood 115 mg/dL (75-99)
--- NOTE | 2021-02-11 16:42 | P.PN ---
Subjective Progress Note Date: 02/11/21 Patient is a 65-year-old female with a history of hypothyroidism, chronic back pain, and obesity who presented with complaints of hemoptysis. She was subsequently diagnosed with COVID-19 pneumonia. She is unvaccinated. She is currently on high flow oxygen patient oxygen requirements are improving. Patient seen and evaluated at bedside, patient is in ICU and is not doing well. She did have an anxiety and panic attack this morning, by the time I went to bedside and evaluated her she was calm and feeling better and was symptom-free. Objective - Vital Signs Vital signs: Vital Signs Temp 98.0 F 02/11/21 14:00 Pulse 78 02/11/21 14:00 Resp 18 02/11/21 14:00 BP 99/57 02/11/21 14:00 Pulse Ox 91 L 02/11/21 16:10 Intake & Output 02/10/21 02/11/21 02/11/21 18:59 06:59 18:59 Intake Total 400 Output Total 3773 238 3757 Balance -1500 -700 -601 Intake: Oral 400 Output: Urine 5717 169 5786 Stool 1 Other: Voiding Method External Catheter External Catheter # Bowel Movements 1 General: No acute distress sedated and intubated on mechanical ventilator Head: atraumatic, normocephalic, symmetric Eyes: no lid lesion], anicteric sclera Mouth: no lip lesion, mucus membranes moist Abdominal: soft, nontender to palpation, no guarding, no appreciable organomegaly Ext: no gross muscle atrophy, no edema extremities warm to suppose a positive Neuro: Patient is currently intubated, exam grossly nonfocal but full examin ation cannot be done due to clinical condition Skin exam: No rashes no jaundice. - Labs CBC & Chem 7: 02/11/21 06:36 02/11/21 06:36 Labs: Abnormal Lab Results - Last 24 Hours (Table) 02/10/21 02/10/21 02/11/21 Range/Units 16:47 20:47 06:36 RBC 3.85 L (4.10-5.20) X 10*6/uL Hgb 11.4 L (12.0-15.0) g/dL Hct 34.5 L (37.2-46.3) % Immature Gran # 0.10 H (0.00-0.04) X 10*3/uL Neutrophils # 7.79 H (1.80-7.70) X 10*3/uL D-Dimer (<0.60) mg/L FEU BUN (9.0-27.0) mg/dL BUN/Creatinine Ratio (12.00-20.00) Ratio POC Glucose (mg/dL) 165 H 134 H (75-99) mg/dL Calcium (8.7-10.3) mg/dL Lactate Dehydrogenase (120-246) U/L C-Reactive Protein (0.00-0.80) mg/dL 02/11/21 02/11/21 02/11/21 Range/Units 06:36 06:36 12:09 RBC (4.10-5.20) X 10*6/uL Hgb (12.0-15.0) g/dL Hct (37.2-46.3) % Immature Gran # (0.00-0.04) X 10*3/uL Neutrophils # (1.80-7.70) X 10*3/uL D-Dimer 6.24 H (<0.60) mg/L FEU BUN 27.8 H (9.0-27.0) mg/dL BUN/Creatinine Ratio 50.00 H (12.00-20.00) Ratio POC Glucose (mg/dL) 115 H (75-99) mg/dL Calcium 8.4 L (8.7-10.3) mg/dL Lactate Dehydrogenase 346 H (120-246) U/L C-Reactive Protein 4.10 H (0.00-0.80) mg/dL Assessment and Plan Assessment: Acute hypoxic respiratory failure with COVID-19 pneumonia, right lower lobe pulmonary embolism Patient outside the window for Remdesvir Patient completed treatment with barcitinib Patient on oral dexamethasone Continue Eliquis Wean oxygen as able, today requiring 50% FiO2 on high flow with 30 L, discussion nursing staff. S2 mid flow today Pulmonary medicine following Right lower lobe pulmonary embolism Continue Eliquis Hypothyroidism - synthorid and cytomel Obeisty with BMI 38.6 - outpatient structured weight loss DVT prophylaxis: eliquis CODE STATUS: Full code Discharge plan/neck site of care: Likely next 3-4 days once we de-escalate the oxygen to less than 3 L nasal cannula, home with home health care versus rehab
[2021-02-11 17:06] LABS: Glucose,Whole Blood 143 mg/dL (75-99)
[2021-02-11 21:53] LABS: Glucose,Whole Blood 155 mg/dL (75-99)
[2021-02-12] MEDS: LEVOTHYROXINE 50 MCG TAB PO SCH (05:12)
[2021-02-12] MEDS: LIOTHYRONINE SODIUM 5 MCG TAB PO SCH (05:12)
[2021-02-12 07:06] LABS: Glucose,Whole Blood 140 mg/dL (75-99)
[2021-02-12 07:39] LABS: Basophils % (A) 0 %; Eosinophils # (A) 0.2 k/uL (0-0.7); Eosinophils % (A) 2 %; HGB 12.6 gm/dL (11.4-16.0); Lymphocytes # (A) 1.2 k/uL (1.0-4.8); Lymphocytes % (A) 13 %; MCHC 34.2 g/dL (31.0-37.0); MCV 87.7 fL (80.0-100.0); Mean Platelet Volume 8.4; Monocytes # (A) 0.4 k/uL (0-1.0); Monocytes % (A) 5 %; Neutrophils # (A) 7.1 k/uL (1.3-7.7); Neutrophils % (A) 79 %; Platelet Count 277 k/uL (150-450); RBC 4.22 m/uL (3.80-5.40); RDW 14.2 % (11.5-15.5); WBC 9.1 k/uL (3.8-10.6)
[2021-02-12] MEDS: ALBUTEROL HFA INHALER INHALATION PRN ×3 (07:56→19:46)
[2021-02-12] MEDS: polyethylene glycoL 3350 17 GM POWD.PACK PO SCH (08:24)
[2021-02-12] MEDS: hydrALAZINE HCL 25 MG TAB PO SCH ×3 (08:24→21:09)
[2021-02-12] MEDS: INSULIN ASPART (NovoLOG) 100 UNIT/ML VIAL SQ SCH ×4 (08:24→21:20)
[2021-02-12] MEDS: ASCORBIC ACID 500 MG TAB PO SCH ×2 (08:27→21:24)
[2021-02-12] MEDS: CHOLECALCIFEROL 25 MCG (1000 IU) TABLET PO SCH (08:27)
[2021-02-12] MEDS: FAMOTIDINE 20 MG TAB PO SCH ×2 (08:27→21:24)
[2021-02-12] MEDS: dexAMETHasone 2 MG TAB PO SCH (08:28)
[2021-02-12] MEDS: SENNOSIDES-DOCUSATE SODIUM 1 EACH TAB PO SCH ×2 (08:28→21:24)
[2021-02-12] MEDS: DICLOFENAC SODIUM GEL 100 GM TUBE TOPICAL SCH ×4 (08:28→21:24)
[2021-02-12] MEDS: APIXABAN 5 MG TAB PO SCH ×2 (08:28→21:23)
[2021-02-12] MEDS: ZINC SULFATE 220 MG CAP PO SCH (08:28)
[2021-02-12] MEDS: ACETAMINOPHEN TAB 325 MG TAB PO PRN ×2 (08:36→21:24)
[2021-02-12] MEDS ORDERED: ALPRAZolam 0.25 MG TAB PO STA (10:29)
[2021-02-12 11:49] LABS: African American GFR (CKD) 105.4 (60.0-200.0); Albumin 3.2 g/dL (3.8-4.9); Albumin/Globulin Ratio 1.6 (1.60-3.17); Anion Gap 10.8 mmol/L (4.00-12.00); BUN/Creat Ratio 45.29 Ratio (12.00-20.00); Blood Urea Nitrogen 31.7 mg/dL (9.0-27.0); Calcium 8.7 mg/dL (8.7-10.3); Carbon Dioxide 23.2 mmol/L (21.6-31.8); Non-African American GFR(CKD) 90.9 (60.0-200.0); Potassium 3.7 mmol/L (3.5-5.5); Total Bilirubin 0.5 mg/dL (0.30-1.20); Total Protein 5.2 g/dL (6.2-8.2)
[2021-02-12 12:22] LABS: Glucose,Whole Blood 147 mg/dL (75-99)
--- NOTE | 2021-02-12 14:42 | P.PN ---
Subjective Progress Note Date: 02/12/21 Principal diagnosis: COVID-19 pneumonia 65-year-old white female patient with past medical history hypothyroidism, patient is a nonsmoker, who presented to the emergency department on 01/24/2021 with complaints of cough, phlegm production, decreased appetite. She stated that her symptoms started on January 16. Both her and the patient has been diagnosed with COVID-19, her is also hospitalized currently with COVID-19 pneumonia. She reports some hemoptysis. Her dyspnea is worsening at home. She is not vaccinated for COVID-19 because she believed that [place] and were [place] that they were not at risk. However recently they both traveled in a car across the country and brought their son home from [place]. She didn't developed above-mentioned symptoms, and she thought it was a upper respiratory infection, possibly bronchitis, she came into the emergency department for evaluation of blood-tinged sputum. She denied any history of chronic lung disease, no asthma COPD, she is a nonsmoker. No nausea vomiting or diarrhea. She tested positive for COVID-19, she was started on Decadron in the emergency department, with initial dose of 10 mg. Her chest x- ray showed bilateral infiltrates consistent with COVID-19 infection, her COVID test was positive. Her pulse ox is ranging from 89-93 on 2 L of oxygen. She had positive leukopenia on her admission labs, with white blood cell count of 3.5, hemoglobin of 15.1, platelet count is 148, lymphocytes, 0.5, sodium is 136, the rest of the electrolytes were within normal limits, B1 is 20, creatinine 0.8, AST was 64, ALT was 30, alkaline phosphatase was 141, LDH was elevated at 1147, CRP is 5.7, pro calcitonin level was negative at 0.08. Patient was offered Remdesivir in the emergency department although she was outside the window for treatment. She has declined Remdesivir per her daughter's recommendations who is a RN. Patient remains on daily dose Decadron 6 mg, prophylactic Lovenox, she is on cough syrup, and albuterol inhaler, she was started on vitamin D3. On 01/26/2021 patient seen in follow-up on medical surgical floor, she remains on 2 L of oxygen her pulse ox is 89-90%, she did have a low-grade fevers in the last 24 hours, with a T-max of 100.5F. Appears very fatigued. But no acute respiratory distress. Today's labs show d-dimer of 1.82, LDH of 1541, and CRP of 5.6. Pro-calcitonin level was negative at 0.08. Patient remains on IV Decad terrie 6 mg daily, cough syrup, she is on IV hydration with 0.9 normal sinus rate of 1:30 ML per hour, she is on Lovenox 40 mg twice daily, and COVID-19 vitamins. She has a dry hacking cough, no chest discomfort. She does complain of nausea, she is receiving Zofran. No abdominal discomfort. On 01/30/2021 patient is seen in follow-up in intensive care unit, she remains on BiPAP, with pressures of 14/6 and FiO2 of 45%, her pulse ox is 96%, she is awake and alert, in no acute distress, yesterday she had a PICC line placed, and TPN was started for nutritional support, currently infusing at a rate of 30 ML per hour, will be further increased to 50 ML per hour. Patient's receiving IV point nursing 1:30 ML per hour. She has been afebrile. Vital signs have been stable, today's labs have been reviewed, white blood cell count is 10.6, hemoglobin is 13.3, lymphocyte count is 0.7, sodium is 135, the rest of electrolytes were within normal limits, BUN is 19 creatinine 0.54. Chest x-ray shows bilateral multifocal mid to lower lung opacities consistent with no COVID- 19 introduction no significant change from one day prior. Inflammatory markers are still pending for today, her last d-dimer from yesterday was down to 3.73. she is on Eliquis for right lower lobe pulmonary emboli. Patient remains on Decadron 6 mg twice daily, she is on Baricitinib On 02/01/2021 patient seen in follow-up in the intensive care unit, she is currently on Airvo at 60 L and FiO2 of 90%, and her pulse ox is 89-90%, breathing fairly comfortably, does not appear to be in any acute distress, she is afebrile, hemodynamically she is stable, she has a PICC line in place for TPN infusing at 85 ML per hour, she is also starting to eat by mouth, although her appetite is not the greatest yet, but improving. Occasional cough, no phlegm production, significantly dyspneic with any exertion, overall seems to be im proving, her chest x-ray today shows patchy bilateral lung infiltrates compatible with atypical pneumonia, and the radiologist felt that her findings may have been slightly worsened from previous chest x-ray. Today's labs have been reviewed, d-dimer is 12.19, and patient is on Eliquis 10 mg twice daily for a newly diagnosed right lower lobe pulmonary embolism, sodium is 134, the rest of electrolytes were within normal limits, BUN is 22, creatinine 0.57, LDH is increased to 1972, and CRP is improved and is down to 3.4 on today's labs, her pro-calcitonin level was negative at 0.04. Patient continues on Coumadin vitamins, she is on Decadron 6 mg twice daily, and Baricitinib. Hemodynamically she is stable, she is in sinus mechanism on a monitor. Lung sounds reveal diminished breath sounds with some scattered rhonchi. On 02/02/2021 patient seen in follow-up in intensive care unit, she remains on high flow oxygen per Airvo a 60 L on FiO2 of 80%, and her pulse ox is 87-90%, breathing comfortably, dyspneic with exertion, but recovers. She is awake and alert, oriented 3, she is resting in bed, she's been getting up in the chair with assistance, was not in the chair yesterday related to some back pain which is chronic for her. They usually when necessary Tylenol is effective, does not want anything stronger for pain. Today's chest x-ray shows bilateral multifocal mid to lower lung opacities consistent with known coronary 19 infection, with no significant change from one day earlier. CXR reviewed, d-dimer is stable at 12.36, sodium is 135, the rest of the electrolytes were within normal limits, B1 is 25 creatinine 0.51, TSH is trending down and is down to 1704, CRP is stable at 3.3. Patient remains on TPN infusing at a rate of 84 ML per hour, she is starting to take an similar oral intake, she can only tolerate small amounts at a time, but she has not had any nausea vomiting or diarrhea. Patient continues on Eliquis 10 mg twice daily, she is on Baricitinib, Decadron 6 mg twice daily. On 02/04/2021 patient seen in follow-up in intensive care unit. She is sitting up in the recliner, seems to be breathing quite comfortably, she is on Airvo at 60 L and FiO2 of 75%, with a pulse ox of 91-95%, afebrile, hemodynamically she stable, she is not on any maintenance IV fluids, she is in sinus mechanism, hemodynamically stable, she continues on dexamethasone 6 mg twice a day, she is on baricitinib 4 mg daily, she is on COVID-19 vitamins, and Eliquis for acute pulmonary embolism related to a viral pneumonia. Oral intake is fair, TPN has been discontinued, today's chest x-ray shows slightly worsened interstitial and airspace opacities right greater than left. But clinically patient is stable, and seems to be slightly improved. Today's labs have been reviewed, white blood cell count is 19.5, hemoglobin is 13.2, sodium is 133, the rest of electrolytes were within normal limits, B1 is 33 creatinine 0.56. Pro-calcitonin level is negative at 0.07 On 02/12/2021 patient seen in follow-up on the surgical floor, she is currently on 15 L per high flow nasal cannula, her pulse ox is 97-99%, she is breathing comfortably, does not appear to be in any acute distress, no use of accessory muscles of breathing, no fever or chills, no compressive chest pain. Last chest x-ray from 02/11/2021 showed bilateral airspace infiltrates, stable in appearance. Today's labs have been reviewed, CBC is within normal limits, electrolytes are within normal limits, BUN was 31 and creatinine 0.7. Her last set of inflammatory markers showed LDH of 346, improving since admission, and CRP of 4.10, increased since admission. Her d-dimer was improving and was down to 6.24. These labs were done on 02/11/2021. Patient continues on Eliquis for oral anticoagulation, she remains on oral Decadron 6 mg daily, she is on multivitamins. She's had no acute events overnight. He is working on incentive spirometer, she is achieving 2 L on the today. Patient has been working with physical therapy, she has ambulated with a walker and minimal assistance supervision about 6 feet. Tolerated activity fairly well. Today her has clinically significantly declined, he is not expected to survive his illness, he is currently also hospitalized with COVID-19 pneumonia and is currently on life-support in the intensive care unit. We updated the patient on her 's condition and arrangements have been made for her to go to the intensive care unit to see her Objective - Vital Signs Vital signs: Vital Signs Temp 98.1 F 02/12/21 06:27 Pulse 62 02/12/21 06:27 Resp 18 02/12/21 06:27 BP 129/73 02/12/21 06:27 Pulse Ox 90 L 02/12/21 07:57 Intake & Output 02/11/21 02/12/21 02/12/21 18:59 06:59 18:59 Intake Total 400 Output Total 1001 1201 Balance -601 -1201 Intake: Oral 400 Output: Urine 1000 1200 Stool 1 1 Other: Voiding Method External Catheter External Catheter # Voids 550 2 - Exam GENERAL EXAM: Alert, pleasant, 65-year-old white female, on 15 L with a pulse ox of 91-95% HEAD: Normocephalic/atraumatic. EYES: Normal reaction of pupils, equal size. Conjunctiva pink, sclera white. NOSE: Clear with pink turbinates. THROAT: No erythema or exudates. NECK: No masses, no JVD, no thyroid enlargement, no adenopathy. CHEST: No chest wall deformity. Symmetrical expansion. LUNGS: Equal air entry with bibasilar crackles CVS: Regular rate and rhythm, normal S1 and S2, no gallops, no murmurs, no rubs ABDOMEN: Soft, nontender. No hepatosplenomegaly, normal bowel sounds, no gu arding or rigidity. EXTREMITIES: No clubbing, no edema, no cyanosis, 2+ pulses and upper and lower e xtremities. MUSCULOSKELETAL: Muscle strength and tone normal. SPINE: No scoliosis or deformity SKIN: No rashes CENTRAL NERVOUS SYSTEM: Alert and oriented -3. No focal deficits, tone is normal in all 4 extremities. PSYCHIATRIC: Alert and oriented -3. Appropriate affect. Intact judgment and insight. - Labs CBC & Chem 7: 02/12/21 07:18 02/12/21 07:18 Labs: Abnormal Lab Results - Last 24 Hours (Table) 02/11/21 02/11/21 02/12/21 Range/Units 17:05 21:40 07:04 BUN (9.0-27.0) mg/dL BUN/Creatinine Ratio (12.00-20.00) Ratio Glucose (70-110) mg/dL POC Glucose (mg/dL) 143 H 155 H 140 H (75-99) mg/dL ALT (8-44) U/L Total Protein (6.2-8.2) g/dL Albumin (3.8-4.9) g/dL 02/12/21 02/12/21 Range/Units 07:18 12:21 BUN 31.7 H (9.0-27.0) mg/dL BUN/Creatinine Ratio 45.29 H (12.00-20.00) Ratio Glucose 148 H (70-110) mg/dL POC Glucose (mg/dL) 147 H (75-99) mg/dL ALT 89 H (8-44) U/L Total Protein 5.2 L (6.2-8.2) g/dL Albumin 3.2 L (3.8-4.9) g/dL Assessment and Plan Plan: Assessment: #1. Acute hypoxic respiratory failure related to acute COVID-19 pneumonia, and her symptoms started on January 16. Patient is not vaccinated for COVID-19. Patient declined Remdesivir treatment although she is outside the window for Remdesivir anyway. Patient had progressive hypoxic respiratory failure and she was transferred to the intensive care unit on 01/27/2021 and placed on BiPAP mclain pport. Currently on Decadron 6 mg twice daily, and baricitinib. Patient has been switched to irritable yesterday on 01/31/2021, which she remains at 60 L and FiO2 of 92% with a pulse ox of 89-90%. Her hypoxemia has improved, she is currently down to 12-15 L on high flow nasal cannula on 02/12/2021 #2. Acute right lower lobe pulmonary embolism, patient is currently on Eliquis. #3. Elevated d-dimer, and patient was initially refusing her Lovenox injections, she is now on Eliquis for acute pulmonary embolism. #4. History of hypothyroidism #5. Morbid obesity with BMI 40.7 kg/m #6. Chronic back pain #7. Previous history of hysterectomy #8. Never smoker Plan: Continue current medical treatment Patient is currently on nasal cannula at 15 L Continue weaning FiO2 as tolerated gradually, to maintain O2 saturations between 88-90% Clinically patient has remained stable, she is breathing comfortably Continue Decadron, continue Eliquis, baricitinib has been completed Continue oral anticoagulation Encourage deep breathing and coughing, incentive spirometry use Increase activity as tolerated Unfortunately her is not doing well in the intensive care unit and he is not expected to survive his illness Patient is stable to travel down to the intensive care unit to see her Continue to follow her clinical course I performed a history & physical examination of the patient and discussed their management with my nurse practitioner, Susie Joaquin. I reviewed the nurse practitioner's note and agree with the documented findings and plan of care. Lung sounds are positive for diminished breath sounds throughout the lung driscoll. The findings and the impression was discussed with the patient. I attest to the documentation by the nurse practitioner. Time with Patient: Less than 30
--- NOTE | 2021-02-12 16:04 | P.PN ---
Subjective Progress Note Date: 02/12/21 Principal diagnosis: CC: SOB Patient is a 65-year-old female with a history of hypothyroidism, chronic back pain, and obesity who presented with complaints of hemoptysis. She was subsequently diagnosed with COVID-19 pneumonia. She is unvaccinated. She is currently on high flow oxygen patient oxygen requirements are improving. Patient seen and evaluated at bedside, patient is in ICU and is not doing well. Patient states that she has been titrated off the high flow nasal cannula. She is now on 12 L nasal cannula. She is denying any shortness of breath. She states that she is improving and doing well. Objective - Vital Signs Vital signs: Vital Signs Temp 97.9 F 02/12/21 14:50 Pulse 74 02/12/21 14:50 Resp 20 02/12/21 14:50 BP 114/70 02/12/21 14:50 Pulse Ox 94 L 02/12/21 15:42 Intake & Output 02/11/21 02/12/21 02/12/21 18:59 06:59 18:59 Intake Total 400 Output Total 1001 1201 1 Balance -601 -1201 -1 Intake: Oral 400 Output: Urine 1000 1200 Stool 1 1 1 Other: Voiding Method External Catheter External Catheter External Catheter # Voids 550 2 - Exam General examination - Alert and Oriented 3 in NAD Heart - + S1S2 no murmurs Lungs - diminished breath sounds bilaterally Abdomen soft NT ND +ve BS Extremities - No edema 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 Psych - Calm and cooperative - Labs CBC & Chem 7: 02/12/21 07:18 02/12/21 07:18 Labs: Abnormal Lab Results - Last 24 Hours (Table) 02/11/21 02/11/21 02/12/21 Range/Units 17:05 21:40 07:04 BUN (9.0-27.0) mg/dL BUN/Creatinine Ratio (12.00-20.00) Ratio Glucose (70-110) mg/dL POC Glucose (mg/dL) 143 H 155 H 140 H (75-99) mg/dL ALT (8-44) U/L Total Protein (6.2-8.2) g/dL Albumin (3.8-4.9) g/dL 02/12/21 02/12/21 Range/Units 07:18 12:21 BUN 31.7 H (9.0-27.0) mg/dL BUN/Creatinine Ratio 45.29 H (12.00-20.00) Ratio Glucose 148 H (70-110) mg/dL POC Glucose (mg/dL) 147 H (75-99) mg/dL ALT 89 H (8-44) U/L Total Protein 5.2 L (6.2-8.2) g/dL Albumin 3.2 L (3.8-4.9) g/dL Assessment and Plan Assessment: Acute hypoxic respiratory failure with COVID-19 pneumonia, right lower lobe pulmonary embolism Patient outside the window for Remdesvir Patient completed treatment with barcitinib Patient on oral dexamethasone Continue Eliquis Wean oxygen as able, today requiring 12L NC Pulmonary medicine following Right lower lobe pulmonary embolism Continue Eliquis Hypothyroidism - synthorid and cytomel Obeisty with BMI 38.6 - outpatient structured weight loss DVT prophylaxis: eliquis CODE STATUS: Full code Discharge plan/neck site of care: Likely next 3-4 days once we de-escalate the oxygen to less than 3 L nasal cannula, home with home health care versus rehab
[2021-02-12 16:38] LABS: Glucose,Whole Blood 132 mg/dL (75-99)
[2021-02-12 21:18] LABS: Glucose,Whole Blood 194 mg/dL (75-99)
[2021-02-13] MEDS: LEVOTHYROXINE 50 MCG TAB PO SCH (05:40)
[2021-02-13] MEDS: LIOTHYRONINE SODIUM 5 MCG TAB PO SCH (05:55)
[2021-02-13 07:04] LABS: Glucose,Whole Blood 84 mg/dL (75-99)
[2021-02-13] MEDS: INSULIN ASPART (NovoLOG) 100 UNIT/ML VIAL SQ SCH ×4 (07:09→20:09)
[2021-02-13] MEDS: ALBUTEROL HFA INHALER INHALATION PRN ×2 (08:15→11:28)
[2021-02-13 08:24] LABS: Basophils % (A) 0 %; Eosinophils # (A) 0.2 k/uL (0-0.7); Eosinophils % (A) 2 %; HCT 39.2 % (34.0-46.0); HGB 13.1 gm/dL (11.4-16.0); Lymphocytes # (A) 1.4 k/uL (1.0-4.8); Lymphocytes % (A) 17 %; MCH 29.9 pg (25.0-35.0); MCHC 33.4 g/dL (31.0-37.0); MCV 89.4 fL (80.0-100.0); Mean Platelet Volume 8.4; Monocytes # (A) 0.4 k/uL (0-1.0); Monocytes % (A) 5 %; Neutrophils # (A) 5.8 k/uL (1.3-7.7); Neutrophils % (A) 74 %; Platelet Count 270 k/uL (150-450); RBC 4.38 m/uL (3.80-5.40); RDW 14.3 % (11.5-15.5); WBC 7.9 k/uL (3.8-10.6)
[2021-02-13 08:37] LABS: African American GFR (CKD) >90 (>60 ml/min/1.73 sqM); Anion Gap 4 mmol/L; Blood Urea Nitrogen 27 mg/dL (7-17); Carbon Dioxide 31 mmol/L (22-30); Chloride 102 mmol/L (98-107); Glucose 83 mg/dL (74-99); Non-African American GFR(CKD) >90 (>60 ml/min/1.73 sqM); Sodium 137 mmol/L (137-145)
[2021-02-13 08:39] LABS: Potassium 4.4 mmol/L (3.5-5.1)
[2021-02-13] MEDS: ASCORBIC ACID 500 MG TAB PO SCH ×2 (09:23→20:09)
[2021-02-13] MEDS: APIXABAN 5 MG TAB PO SCH ×2 (09:23→20:08)
[2021-02-13] MEDS: dexAMETHasone 2 MG TAB PO SCH (09:23)
[2021-02-13] MEDS: ZINC SULFATE 220 MG CAP PO SCH (09:23)
[2021-02-13] MEDS: SENNOSIDES-DOCUSATE SODIUM 1 EACH TAB PO SCH ×2 (09:23→20:09)
[2021-02-13] MEDS: CHOLECALCIFEROL 25 MCG (1000 IU) TABLET PO SCH (09:23)
[2021-02-13] MEDS: FAMOTIDINE 20 MG TAB PO SCH ×2 (09:23→20:09)
[2021-02-13] MEDS: hydrALAZINE HCL 25 MG TAB PO SCH ×3 (09:23→20:10)
[2021-02-13] MEDS: DICLOFENAC SODIUM GEL 100 GM TUBE TOPICAL SCH ×4 (09:24→21:30)
[2021-02-13] MEDS: polyethylene glycoL 3350 17 GM POWD.PACK PO SCH (09:24)
[2021-02-13] MEDS: ACETAMINOPHEN TAB 325 MG TAB PO PRN ×2 (09:32→19:49)
[2021-02-13 11:43] LABS: Glucose,Whole Blood 114 mg/dL (75-99)
--- NOTE | 2021-02-13 13:32 | P.PN ---
Subjective Progress Note Date: 02/13/21 Principal diagnosis: COVID-19 pneumonia 65-year-old white female patient with past medical history hypothyroidism, patient is a nonsmoker, who presented to the emergency department on 01/24/2021 with complaints of cough, phlegm production, decreased appetite. She stated that her symptoms started on January 16. Both her and the patient has been diagnosed with COVID-19, her is also hospitalized currently with COVID-19 pneumonia. She reports some hemoptysis. Her dyspnea is worsening at home. She is not vaccinated for COVID-19 because she believed that [place] and were [place] that they were not at risk. However recently they both traveled in a car across the country and brought their son home from [place]. She didn't developed above-mentioned symptoms, and she thought it was a upper respiratory infection, possibly bronchitis, she came into the emergency department for evaluation of blood-tinged sputum. She denied any history of chronic lung disease, no asthma COPD, she is a nonsmoker. No nausea vomiting or diarrhea. She tested positive for COVID-19, she was started on Decadron in the emergency department, with initial dose of 10 mg. Her chest x- ray showed bilateral infiltrates consistent with COVID-19 infection, her COVID test was positive. Her pulse ox is ranging from 89-93 on 2 L of oxygen. She had positive leukopenia on her admission labs, with white blood cell count of 3.5, hemoglobin of 15.1, platelet count is 148, lymphocytes, 0.5, sodium is 136, the rest of the electrolytes were within normal limits, B1 is 20, creatinine 0.8, AST was 64, ALT was 30, alkaline phosphatase was 141, LDH was elevated at 1147, CRP is 5.7, pro calcitonin level was negative at 0.08. Patient was offered Remdesivir in the emergency department although she was outside the window for treatment. She has declined Remdesivir per her daughter's recommendations who is a RN. Patient remains on daily dose Decadron 6 mg, prophylactic Lovenox, she is on cough syrup, and albuterol inhaler, she was started on vitamin D3. On 01/26/2021 patient seen in follow-up on medical surgical floor, she remains on 2 L of oxygen her pulse ox is 89-90%, she did have a low-grade fevers in the last 24 hours, with a T-max of 100.5F. Appears very fatigued. But no acute respiratory distress. Today's labs show d-dimer of 1.82, LDH of 1541, and CRP of 5.6. Pro-calcitonin level was negative at 0.08. Patient remains on IV Decad terrie 6 mg daily, cough syrup, she is on IV hydration with 0.9 normal sinus rate of 1:30 ML per hour, she is on Lovenox 40 mg twice daily, and COVID-19 vitamins. She has a dry hacking cough, no chest discomfort. She does complain of nausea, she is receiving Zofran. No abdominal discomfort. On 01/30/2021 patient is seen in follow-up in intensive care unit, she remains on BiPAP, with pressures of 14/6 and FiO2 of 45%, her pulse ox is 96%, she is awake and alert, in no acute distress, yesterday she had a PICC line placed, and TPN was started for nutritional support, currently infusing at a rate of 30 ML per hour, will be further increased to 50 ML per hour. Patient's receiving IV point nursing 1:30 ML per hour. She has been afebrile. Vital signs have been stable, today's labs have been reviewed, white blood cell count is 10.6, hemoglobin is 13.3, lymphocyte count is 0.7, sodium is 135, the rest of electrolytes were within normal limits, BUN is 19 creatinine 0.54. Chest x-ray shows bilateral multifocal mid to lower lung opacities consistent with no COVID- 19 introduction no significant change from one day prior. Inflammatory markers are still pending for today, her last d-dimer from yesterday was down to 3.73. she is on Eliquis for right lower lobe pulmonary emboli. Patient remains on Decadron 6 mg twice daily, she is on Baricitinib On 02/01/2021 patient seen in follow-up in the intensive care unit, she is currently on Airvo at 60 L and FiO2 of 90%, and her pulse ox is 89-90%, breathing fairly comfortably, does not appear to be in any acute distress, she is afebrile, hemodynamically she is stable, she has a PICC line in place for TPN infusing at 85 ML per hour, she is also starting to eat by mouth, although her appetite is not the greatest yet, but improving. Occasional cough, no phlegm production, significantly dyspneic with any exertion, overall seems to be im proving, her chest x-ray today shows patchy bilateral lung infiltrates compatible with atypical pneumonia, and the radiologist felt that her findings may have been slightly worsened from previous chest x-ray. Today's labs have been reviewed, d-dimer is 12.19, and patient is on Eliquis 10 mg twice daily for a newly diagnosed right lower lobe pulmonary embolism, sodium is 134, the rest of electrolytes were within normal limits, BUN is 22, creatinine 0.57, LDH is increased to 1972, and CRP is improved and is down to 3.4 on today's labs, her pro-calcitonin level was negative at 0.04. Patient continues on Coumadin vitamins, she is on Decadron 6 mg twice daily, and Baricitinib. Hemodynamically she is stable, she is in sinus mechanism on a monitor. Lung sounds reveal diminished breath sounds with some scattered rhonchi. On 02/02/2021 patient seen in follow-up in intensive care unit, she remains on high flow oxygen per Airvo a 60 L on FiO2 of 80%, and her pulse ox is 87-90%, breathing comfortably, dyspneic with exertion, but recovers. She is awake and alert, oriented 3, she is resting in bed, she's been getting up in the chair with assistance, was not in the chair yesterday related to some back pain which is chronic for her. They usually when necessary Tylenol is effective, does not want anything stronger for pain. Today's chest x-ray shows bilateral multifocal mid to lower lung opacities consistent with known coronary 19 infection, with no significant change from one day earlier. CXR reviewed, d-dimer is stable at 12.36, sodium is 135, the rest of the electrolytes were within normal limits, B1 is 25 creatinine 0.51, TSH is trending down and is down to 1704, CRP is stable at 3.3. Patient remains on TPN infusing at a rate of 84 ML per hour, she is starting to take an similar oral intake, she can only tolerate small amounts at a time, but she has not had any nausea vomiting or diarrhea. Patient continues on Eliquis 10 mg twice daily, she is on Baricitinib, Decadron 6 mg twice daily. On 02/04/2021 patient seen in follow-up in intensive care unit. She is sitting up in the recliner, seems to be breathing quite comfortably, she is on Airvo at 60 L and FiO2 of 75%, with a pulse ox of 91-95%, afebrile, hemodynamically she stable, she is not on any maintenance IV fluids, she is in sinus mechanism, hemodynamically stable, she continues on dexamethasone 6 mg twice a day, she is on baricitinib 4 mg daily, she is on COVID-19 vitamins, and Eliquis for acute pulmonary embolism related to a viral pneumonia. Oral intake is fair, TPN has been discontinued, today's chest x-ray shows slightly worsened interstitial and airspace opacities right greater than left. But clinically patient is stable, and seems to be slightly improved. Today's labs have been reviewed, white blood cell count is 19.5, hemoglobin is 13.2, sodium is 133, the rest of electrolytes were within normal limits, B1 is 33 creatinine 0.56. Pro-calcitonin level is negative at 0.07 On 02/12/2021 patient seen in follow-up on the surgical floor, she is currently on 15 L per high flow nasal cannula, her pulse ox is 97-99%, she is breathing comfortably, does not appear to be in any acute distress, no use of accessory muscles of breathing, no fever or chills, no compressive chest pain. Last chest x-ray from 02/11/2021 showed bilateral airspace infiltrates, stable in appearance. Today's labs have been reviewed, CBC is within normal limits, electrolytes are within normal limits, BUN was 31 and creatinine 0.7. Her last set of inflammatory markers showed LDH of 346, improving since admission, and CRP of 4.10, increased since admission. Her d-dimer was improving and was down to 6.24. These labs were done on 02/11/2021. Patient continues on Eliquis for oral anticoagulation, she remains on oral Decadron 6 mg daily, she is on multivitamins. She's had no acute events overnight. He is working on incentive spirometer, she is achieving 2 L on the today. Patient has been working with physical therapy, she has ambulated with a walker and minimal assistance supervision about 6 feet. Tolerated activity fairly well. Today her has clinically significantly declined, he is not expected to survive his illness, he is currently also hospitalized with COVID-19 pneumonia and is currently on life-support in the intensive care unit. We updated the patient on her 's condition and arrangements have been made for her to go to the intensive care unit to see her On 02/13/2021 patient is seen in follow-up on medical surgical floor, she is currently down to 12 L of oxygen, off axis 93-94%, afebrile, breathing comfortably, no acute events overnight. Her last chest x-ray was on 02/11/2021 showing bilateral airspace infiltrates, unchanged. Today's labs have been reviewed, CBC results are available so far, and are within normal limits, BMP showed CO2 of 31, BUN of 27, and creatinine 0.56, electrolytes are within normal limits. Follow-up inflammatory markers are pending. Patient continues on oral Decadron 6 mg daily, she is on multivitamins, she is on Eliquis 5 mg twice daily. No acute events overnight. Objective - Vital Signs Vital signs: Vital Signs Temp 97.6 F 02/13/21 08:00 Pulse 58 L 02/13/21 08:00 Resp 16 02/13/21 08:00 BP 121/76 02/13/21 08:00 Pulse Ox 93 L 02/13/21 08:16 Intake & Output 02/12/21 02/13/21 02/13/21 18:59 06:59 18:59 Intake Total 200 300 236 Output Total 601 1025 Balance -401 -725 236 Intake: Oral 200 300 236 Output: Urine 600 1025 Stool 1 Other: Voiding Method External Catheter External Catheter External Catheter - Exam GENERAL EXAM: Alert, pleasant, 65-year-old white female, on 12 L with a pulse ox of 91-95% HEAD: Normocephalic/atraumatic. EYES: Normal reaction of pupils, equal size. Conjunctiva pink, sclera white. NOSE: Clear with pink turbinates. THROAT: No erythema or exudates. NECK: No masses, no JVD, no thyroid enlargement, no adenopathy. CHEST: No chest wall deformity. Symmetrical expansion. LUNGS: Equal air entry with bibasilar crackles CVS: Regular rate and rhythm, normal S1 and S2, no gallops, no murmurs, no rubs ABDOMEN: Soft, nontender. No hepatosplenomegaly, normal bowel sounds, no guarding or rigidity. EXTREMITIES: No clubbing, no edema, no cyanosis, 2+ pulses and upper and lower extremities. MUSCULOSKELETAL: Muscle strength and tone normal. SPINE: No scoliosis or deformity SKIN: No rashes CENTRAL NERVOUS SYSTEM: Alert and oriented -3. No focal deficits, tone is normal in all 4 extremities. PSYCHIATRIC: Alert and oriented -3. Appropriate affect. Intact judgment and insight. - Labs CBC & Chem 7: 02/13/21 07:47 02/13/21 07:41 Labs: Abnormal Lab Results - Last 24 Hours (Table) 02/12/21 02/12/21 02/13/21 Range/Units 16:37 21:17 07:41 Carbon Dioxide 31 H (22-30) mmol/L BUN 27 H (7-17) mg/dL POC Glucose (mg/dL) 132 H 194 H (75-99) mg/dL 02/13/21 Range/Units 11:42 Carbon Dioxide (22-30) mmol/L BUN (7-17) mg/dL POC Glucose (mg/dL) 114 H (75-99) mg/dL Assessment and Plan Plan: Assessment: #1. Acute hypoxic respiratory failure related to acute COVID-19 pneumonia, and her symptoms started on January 16. Patient is not vaccinated for COVID-19. Patient declined Remdesivir treatment although she is outside the window for Remdesivir anyway. Patient had progressive hypoxic respiratory failure and she was transferred to the intensive care unit on 01/27/2021 and placed on BiPAP support. Currently on Decadron 6 mg twice daily, and baricitinib. Patient has been switched to irritable yesterday on 01/31/2021, which she remains at 60 L and FiO2 of 92% with a pulse ox of 89-90%. Her hypoxemia has improved, she is currently down to 12-15 L on high flow nasal cannula on 02/12/2021 #2. Acute right lower lobe pulmonary embolism, patient is currently on Eliquis. #3. Elevated d-dimer, and patient was initially refusing her Lovenox injections, she is now on Eliquis for acute pulmonary embolism. #4. History of hypothyroidism #5. Morbid obesity with BMI 40.7 kg/m #6. Chronic back pain #7. Previous history of hysterectomy #8. Never smoker Plan: Patient continues to improve, FiO2 is currently down to 12 L Continue current medical treatment Continue weaning FiO2 as tolerated gradually, to maintain O2 saturations between 88-90% Continue Decadron, continue Eliquis, baricitinib has been completed Continue oral anticoagulation Encourage deep breathing and coughing, incentive spirometry use Increase activity as tolerated Patient is stable to travel down to the intensive care unit to see her Continue to follow her clinical course I performed a history & physical examination of the patient and discussed their management with my nurse practitioner, Susie Joaquin. I reviewed the nurse practitioner's note and agree with the documented findings and plan of care. Lung sounds are positive for diminished breath sounds throughout the lung driscoll. The findings and the impression was discussed with the patient. I attest to the documentation by the nurse practitioner. Time with Patient: Less than 30
[2021-02-13 16:54] LABS: Glucose,Whole Blood 202 mg/dL (75-99)
--- NOTE | 2021-02-13 17:47 | P.PN ---
Subjective Progress Note Date: 02/13/21 Patient was seen and examined at the bedside on 02/13. The patient reports gradual improvement in her shortness of breath. She denied chest discomfort, fever, chills, abdominal pain. Objective - Vital Signs Vital signs: Vital Signs Temp 97.7 F 02/13/21 14:00 Pulse 74 02/13/21 14:00 Resp 16 02/13/21 14:00 BP 99/62 02/13/21 14:00 Pulse Ox 97 02/13/21 14:00 Intake & Output 02/12/21 02/13/21 02/13/21 18:59 06:59 18:59 Intake Total 200 300 472 Output Total 601 1025 Balance -401 -725 472 Intake: Oral 200 300 472 Output: Urine 600 1025 Stool 1 Other: Voiding Method External Catheter External Catheter External Catheter # Voids 1 # Bowel Movements 1 - Exam General: Non-toxic, in no acute distress, appears stated age, normal weight HEENT: NC/AT, anicteric sclerae, moist conjunctiva, no lid-lag, PERRLA Cardiovascular: S1/S2 wnl, no murmurs, rubs, or gallops Lungs: Scattered bilateral rhonchi and rales Abdominal: Soft, non-tender, non-distended, no guarding, rebound, or rigidity Skin: Warm, dry Extremities: No edema or contractures Psychiatric: Alert and oriented to person, place and time, appropriate affect Neuro: CN II-XII grossly intact, Strength 5/5 in all 4 extremities, Speech intact, Sensation to light touch grossly intact throughout - Labs CBC & Chem 7: 02/13/21 07:47 02/13/21 07:41 Labs: Abnormal Lab Results - Last 24 Hours (Table) 02/12/21 02/13/21 02/13/21 Range/Units 21:17 07:41 11:42 Carbon Dioxide 31 H (22-30) mmol/L BUN 27 H (7-17) mg/dL POC Glucose (mg/dL) 194 H 114 H (75-99) mg/dL 02/13/21 Range/Units 16:53 Carbon Dioxide (22-30) mmol/L BUN (7-17) mg/dL POC Glucose (mg/dL) 202 H (75-99) mg/dL Assessment and Plan Plan: Acute hypoxic respiratory failure secondary to COVID-19 pneumonia -Continue with supplemental oxygen, currently on 12 L high flow -C/w Decadron -Continue with Eliquis -Pulmonary recommendations appreciated Acute right lower lobe pulmonary embolus -Continue Eliquis Hypothyroidism -Continue with home medications DVT prophylaxis -Eliquis Discussed with: Patient Anticipated discharge date: Unclear Anticipated discharge place: Home
[2021-02-13 19:49] LABS: Glucose,Whole Blood 136 mg/dL (75-99)
[2021-02-14] MEDS ORDERED: LIOTHYRONINE SODIUM 5 MCG TAB PO SCH (00:59)
[2021-02-14] MEDS: LEVOTHYROXINE 50 MCG TAB PO SCH (05:35)
[2021-02-14 06:47] LABS: Glucose,Whole Blood 102 mg/dL (75-99)
[2021-02-14] MEDS: INSULIN ASPART (NovoLOG) 100 UNIT/ML VIAL SQ SCH ×2 (07:03→12:09)
[2021-02-14] MEDS: hydrALAZINE HCL 25 MG TAB PO SCH ×2 (07:06→13:24)
[2021-02-14] MEDS: polyethylene glycoL 3350 17 GM POWD.PACK PO SCH (07:06)
[2021-02-14] MEDS: APIXABAN 5 MG TAB PO SCH (07:23)
[2021-02-14] MEDS: ZINC SULFATE 220 MG CAP PO SCH (07:23)
[2021-02-14] MEDS: SENNOSIDES-DOCUSATE SODIUM 1 EACH TAB PO SCH (07:23)
[2021-02-14] MEDS: dexAMETHasone 2 MG TAB PO SCH (07:23)
[2021-02-14] MEDS: CHOLECALCIFEROL 25 MCG (1000 IU) TABLET PO SCH (07:23)
[2021-02-14] MEDS: FAMOTIDINE 20 MG TAB PO SCH (07:23)
[2021-02-14] MEDS: ASCORBIC ACID 500 MG TAB PO SCH (07:23)
[2021-02-14] MEDS: ACETAMINOPHEN TAB 325 MG TAB PO PRN (07:26)
[2021-02-14] MEDS: DICLOFENAC SODIUM GEL 100 GM TUBE TOPICAL SCH ×2 (07:26→12:10)
[2021-02-14] MEDS: ALBUTEROL HFA INHALER INHALATION PRN ×2 (08:34→12:15)
[2021-02-14 08:50] VITALS: RESP 16
[2021-02-14 11:35] LABS: Glucose,Whole Blood 186 mg/dL (75-99)
--- NOTE | 2021-02-14 13:17 | P.PN ---
Subjective Progress Note Date: 02/14/21 Principal diagnosis: COVID-19 pneumonia 65-year-old white female patient with past medical history hypothyroidism, patient is a nonsmoker, who presented to the emergency department on 01/24/2021 with complaints of cough, phlegm production, decreased appetite. She stated that her symptoms started on January 16. Both her and the patient has been diagnosed with COVID-19, her is also hospitalized currently with COVID-19 pneumonia. She reports some hemoptysis. Her dyspnea is worsening at home. She is not vaccinated for COVID-19 because she believed that [place] and were [place] that they were not at risk. However recently they both traveled in a car across the country and brought their son home from [place]. She didn't developed above-mentioned symptoms, and she thought it was a upper respiratory infection, possibly bronchitis, she came into the emergency department for evaluation of blood-tinged sputum. She denied any history of chronic lung disease, no asthma COPD, she is a nonsmoker. No nausea vomiting or diarrhea. She tested positive for COVID-19, she was started on Decadron in the emergency department, with initial dose of 10 mg. Her chest x- ray showed bilateral infiltrates consistent with COVID-19 infection, her COVID test was positive. Her pulse ox is ranging from 89-93 on 2 L of oxygen. She had positive leukopenia on her admission labs, with white blood cell count of 3.5, hemoglobin of 15.1, platelet count is 148, lymphocytes, 0.5, sodium is 136, the rest of the electrolytes were within normal limits, B1 is 20, creatinine 0.8, AST was 64, ALT was 30, alkaline phosphatase was 141, LDH was elevated at 1147, CRP is 5.7, pro calcitonin level was negative at 0.08. Patient was offered Remdesivir in the emergency department although she was outside the window for treatment. She has declined Remdesivir per her daughter's recommendations who is a RN. Patient remains on daily dose Decadron 6 mg, prophylactic Lovenox, she is on cough syrup, and albuterol inhaler, she was started on vitamin D3. On 01/26/2021 patient seen in follow-up on medical surgical floor, she remains on 2 L of oxygen her pulse ox is 89-90%, she did have a low-grade fevers in the last 24 hours, with a T-max of 100.5F. Appears very fatigued. But no acute respiratory distress. Today's labs show d-dimer of 1.82, LDH of 1541, and CRP of 5.6. Pro-calcitonin level was negative at 0.08. Patient remains on IV Decad terrie 6 mg daily, cough syrup, she is on IV hydration with 0.9 normal sinus rate of 1:30 ML per hour, she is on Lovenox 40 mg twice daily, and COVID-19 vitamins. She has a dry hacking cough, no chest discomfort. She does complain of nausea, she is receiving Zofran. No abdominal discomfort. On 01/30/2021 patient is seen in follow-up in intensive care unit, she remains on BiPAP, with pressures of 14/6 and FiO2 of 45%, her pulse ox is 96%, she is awake and alert, in no acute distress, yesterday she had a PICC line placed, and TPN was started for nutritional support, currently infusing at a rate of 30 ML per hour, will be further increased to 50 ML per hour. Patient's receiving IV point nursing 1:30 ML per hour. She has been afebrile. Vital signs have been stable, today's labs have been reviewed, white blood cell count is 10.6, hemoglobin is 13.3, lymphocyte count is 0.7, sodium is 135, the rest of electrolytes were within normal limits, BUN is 19 creatinine 0.54. Chest x-ray shows bilateral multifocal mid to lower lung opacities consistent with no COVID- 19 introduction no significant change from one day prior. Inflammatory markers are still pending for today, her last d-dimer from yesterday was down to 3.73. she is on Eliquis for right lower lobe pulmonary emboli. Patient remains on Decadron 6 mg twice daily, she is on Baricitinib On 02/01/2021 patient seen in follow-up in the intensive care unit, she is currently on Airvo at 60 L and FiO2 of 90%, and her pulse ox is 89-90%, breathing fairly comfortably, does not appear to be in any acute distress, she is afebrile, hemodynamically she is stable, she has a PICC line in place for TPN infusing at 85 ML per hour, she is also starting to eat by mouth, although her appetite is not the greatest yet, but improving. Occasional cough, no phlegm production, significantly dyspneic with any exertion, overall seems to be im proving, her chest x-ray today shows patchy bilateral lung infiltrates compatible with atypical pneumonia, and the radiologist felt that her findings may have been slightly worsened from previous chest x-ray. Today's labs have been reviewed, d-dimer is 12.19, and patient is on Eliquis 10 mg twice daily for a newly diagnosed right lower lobe pulmonary embolism, sodium is 134, the rest of electrolytes were within normal limits, BUN is 22, creatinine 0.57, LDH is increased to 1972, and CRP is improved and is down to 3.4 on today's labs, her pro-calcitonin level was negative at 0.04. Patient continues on Coumadin vitamins, she is on Decadron 6 mg twice daily, and Baricitinib. Hemodynamically she is stable, she is in sinus mechanism on a monitor. Lung sounds reveal diminished breath sounds with some scattered rhonchi. On 02/02/2021 patient seen in follow-up in intensive care unit, she remains on high flow oxygen per Airvo a 60 L on FiO2 of 80%, and her pulse ox is 87-90%, breathing comfortably, dyspneic with exertion, but recovers. She is awake and alert, oriented 3, she is resting in bed, she's been getting up in the chair with assistance, was not in the chair yesterday related to some back pain which is chronic for her. They usually when necessary Tylenol is effective, does not want anything stronger for pain. Today's chest x-ray shows bilateral multifocal mid to lower lung opacities consistent with known coronary 19 infection, with no significant change from one day earlier. CXR reviewed, d-dimer is stable at 12.36, sodium is 135, the rest of the electrolytes were within normal limits, B1 is 25 creatinine 0.51, TSH is trending down and is down to 1704, CRP is stable at 3.3. Patient remains on TPN infusing at a rate of 84 ML per hour, she is starting to take an similar oral intake, she can only tolerate small amounts at a time, but she has not had any nausea vomiting or diarrhea. Patient continues on Eliquis 10 mg twice daily, she is on Baricitinib, Decadron 6 mg twice daily. On 02/04/2021 patient seen in follow-up in intensive care unit. She is sitting up in the recliner, seems to be breathing quite comfortably, she is on Airvo at 60 L and FiO2 of 75%, with a pulse ox of 91-95%, afebrile, hemodynamically she stable, she is not on any maintenance IV fluids, she is in sinus mechanism, hemodynamically stable, she continues on dexamethasone 6 mg twice a day, she is on baricitinib 4 mg daily, she is on COVID-19 vitamins, and Eliquis for acute pulmonary embolism related to a viral pneumonia. Oral intake is fair, TPN has been discontinued, today's chest x-ray shows slightly worsened interstitial and airspace opacities right greater than left. But clinically patient is stable, and seems to be slightly improved. Today's labs have been reviewed, white blood cell count is 19.5, hemoglobin is 13.2, sodium is 133, the rest of electrolytes were within normal limits, B1 is 33 creatinine 0.56. Pro-calcitonin level is negative at 0.07 On 02/12/2021 patient seen in follow-up on the surgical floor, she is currently on 15 L per high flow nasal cannula, her pulse ox is 97-99%, she is breathing comfortably, does not appear to be in any acute distress, no use of accessory muscles of breathing, no fever or chills, no compressive chest pain. Last chest x-ray from 02/11/2021 showed bilateral airspace infiltrates, stable in appearance. Today's labs have been reviewed, CBC is within normal limits, electrolytes are within normal limits, BUN was 31 and creatinine 0.7. Her last set of inflammatory markers showed LDH of 346, improving since admission, and CRP of 4.10, increased since admission. Her d-dimer was improving and was down to 6.24. These labs were done on 02/11/2021. Patient continues on Eliquis for oral anticoagulation, she remains on oral Decadron 6 mg daily, she is on multivitamins. She's had no acute events overnight. He is working on incentive spirometer, she is achieving 2 L on the today. Patient has been working with physical therapy, she has ambulated with a walker and minimal assistance supervision about 6 feet. Tolerated activity fairly well. Today her has clinically significantly declined, he is not expected to survive his illness, he is currently also hospitalized with COVID-19 pneumonia and is currently on life-support in the intensive care unit. We updated the patient on her 's condition and arrangements have been made for her to go to the intensive care unit to see her On 02/13/2021 patient is seen in follow-up on medical surgical floor, she is currently down to 12 L of oxygen, off axis 93-94%, afebrile, breathing comfortably, no acute events overnight. Her last chest x-ray was on 02/11/2021 showing bilateral airspace infiltrates, unchanged. Today's labs have been reviewed, CBC results are available so far, and are within normal limits, BMP showed CO2 of 31, BUN of 27, and creatinine 0.56, electrolytes are within normal limits. Follow-up inflammatory markers are pending. Patient continues on oral Decadron 6 mg daily, she is on multivitamins, she is on Eliquis 5 mg twice daily. No acute events overnight. On 02/14/2021 patient seen in follow-up on medical surgical floor. She is improving, she is currently down to 4 L of oxygen her pulse ox is 94%, she is breathing very comfortably, she's had no acute events overnight. No complaints of chest discomfort, no worsening dyspnea, no fever or chills. Patient's inflammatory markers were improving since admission. Patient continues on Decadron 6 mg daily, multivitamins, Eliquis 5 mg twice daily. Today's labs are still pending for today. No new chest x-ray. Clinically patient has been stable, she's been tolerating activity, she's been ambulating in the room. Unfortunately her from COVID-19 pneumonia yesterday, and patient is eager to get home to make arrangements for her . Objective - Vital Signs Vital signs: Vital Signs Temp 97.8 F 02/14/21 08:00 Pulse 62 02/14/21 08:00 Resp 16 02/14/21 08:00 BP 111/71 02/14/21 08:00 Pulse Ox 96 02/14/21 12:46 Intake & Output 02/13/21 02/14/21 02/14/21 18:59 06:59 18:59 Intake Total 708 960 236 Output Total 1400 Balance 708 -440 236 Intake: Oral 708 960 236 Output: Urine 1000 Other 400 Other: Voiding Method External Catheter External Catheter External Catheter # Voids 1 # Bowel Movements 1 - Exam GENERAL EXAM: Alert, pleasant, 65-year-old white female, on 6 L with a pulse ox of 96% HEAD: Normocephalic/atraumatic. EYES: Normal reaction of pupils, equal size. Conjunctiva pink, sclera white. NOSE: Clear with pink turbinates. THROAT: No erythema or exudates. NECK: No masses, no JVD, no thyroid enlargement, no adenopathy. CHEST: No chest wall deformity. Symmetrical expansion. LUNGS: Equal air entry with bibasilar crackles CVS: Regular rate and rhythm, normal S1 and S2, no gallops, no murmurs, no rubs ABDOMEN: Soft, nontender. No hepatosplenomegaly, normal bowel sounds, no guarding or rigidity. EXTREMITIES: No clubbing, no edema, no cyanosis, 2+ pulses and upper and lower extremities. MUSCULOSKELETAL: Muscle strength and tone normal. SPINE: No scoliosis or deformity SKIN: No rashes CENTRAL NERVOUS SYSTEM: Alert and oriented -3. No focal deficits, tone is normal in all 4 extremities. PSYCHIATRIC: Alert and oriented -3. Appropriate affect. Intact judgment and insight. - Labs CBC & Chem 7: 02/13/21 07:47 02/13/21 07:41 Labs: Abnormal Lab Results - Last 24 Hours (Table) 02/13/21 02/13/21 02/14/21 Range/Units 16:53 19:48 06:46 POC Glucose (mg/dL) 202 H 136 H 102 H (75-99) mg/dL 02/14/21 Range/Units 11:34 POC Glucose (mg/dL) 186 H (75-99) mg/dL Assessment and Plan Plan: Assessment: #1. Acute hypoxic respiratory failure related to acute COVID-19 pneumonia, and her symptoms started on January 16. Patient is not vaccinated for COVID-19. Patient declined Remdesivir treatment although she is outside the window for Remdesivir anyway. Patient had progressive hypoxic respiratory failure and she was transferred to the intensive care unit on 01/27/2021 and placed on BiPAP support. Currently on Decadron 6 mg twice daily, and baricitinib. Patient has been switched to irritable yesterday on 01/31/2021, which she remains at 60 L and FiO2 of 92% with a pulse ox of 89-90%. Her hypoxemia has improved, she is currently down to 4 L on high flow nasal cannula on 02/14/2021 #2. Acute right lower lobe pulmonary embolism, patient is currently on Eliquis. #3. Elevated d-dimer, and patient was initially refusing her Lovenox injections, she is now on Eliquis for acute pulmonary embolism. #4. History of hypothyroidism #5. Morbid obesity with BMI 40.7 kg/m #6. Chronic back pain #7. Previous history of hysterectomy #8. Never smoker Plan: Patient continues to improve, FiO2 is currently down to 4 L She is maintaining O2 saturations above 92% Clinically patient has remained stable, no worsening dyspnea, breathing comfortably on the signs have been stable From pulmonary perspective she is stable for discharge home today on home oxygen at 3-4 L/m She will go home on Eliquis, and a short Decadron taper We will see the patient in follow-up in pulmonary clinic in 2 weeks, with Dr. Wellington I performed a history & physical examination of the patient and discussed their management with my nurse practitioner, Susie Joaquin. I reviewed the nurse practitioner's note and agree with the documented findings and plan of care. Lung sounds are positive for diminished breath sounds throughout the lung driscoll. The findings and the impression was discussed with the patient. I attest to the documentation by the nurse practitioner. Time with Patient: Less than 30
--- NOTE | 2021-02-14 14:05 | P.DS ---
Providers Date of admission: 01/24/21 12:50 Expected date of discharge: 02/14/21 Attending physician: Major Rodriguez Consults: 01/24/21 13:00 Consult Physician Routine Consulting Provider: Yared Newberry Consult Reason/Comments: COVID Do you want consulting provider notified?: Yes 02/04/21 13:14 Consult Physician Routine Consulting Provider: Hugo Higuera Consult Reason/Comments: dr holliday deleted from list Do you want consulting provider notified?: Already Contacted Primary care physician: Yaya [facility] Course: Patient is a 65-year-old female with a PMH of hypothyroidism, chronic back pain, and obesity who was admitted for COVID-19 pneumonia. The patient was started on high flow nasal cannula oxygen from which she was gradually titrated down. The patient was also diagnosed with an acute right lower lobe pulmonary embolism for which she was started on Eliquis. She was seen at the bedside on the day at discharge and reported feeling better and was eager to be discharged. She denied experiencing chest discomfort, fever, chills, cough. She will be discharged home on 4 L nasal cannula oxygen for which the arrangements were made by the case sealer. Physical Examination General: Non-toxic, in no acute distress, appears stated age, normal weight HEENT: NC/AT, anicteric sclerae, moist conjunctiva, no lid-lag, PERRLA Cardiovascular: S1/S2 wnl, no murmurs, rubs, or gallops Lungs: Some scattered bilateral rhonchi and rales, no accessory muscle use Abdominal: Soft, non-tender, non-distended, no guarding, rebound, or rigidity Skin: Warm, dry Extremities: No edema or contractures Psychiatric: Alert and oriented to person, place and time, appropriate affect Neuro: CN II-XII grossly intact, Strength 5/5 in all 4 extremities, Speech intact, Sensation to light touch grossly intact throughout Discharge diagnosis: Acute hypoxic respiratory failure secondary to COVID-19 pneumonia, acute right lower lobe pulmonary embolus, hypothyroidism A total of 35 minutes of time were spent preparing this complex discharge summary. Patient Condition at Discharge: Stable Plan - Discharge Summary Discharge Rx Participant: Yes New Discharge Prescriptions: New dexAMETHasone ORAL [Hexadrol] 6 mg PO DAILY #5 tab Albuterol Inhaler [Ventolin Hfa Inhaler] 2 puff INHALATION RT-Q4H PRN #1 gm PRN Reason: Shortness Of Breath Or Wheezing Apixaban [Eliquis] 5 mg PO BID 30 Days #60 tab hydrALAZINE HCL [Apresoline] 25 mg PO TID #30 tab Continue Levothyroxine Sodium [Synthroid] 75 mcg PO DAILY Liothyronine Sodium [Cytomel] 5 mcg PO DAILY Discharge Medication List Levothyroxine Sodium [Synthroid] 75 mcg PO DAILY 01/24/21 [History] Liothyronine Sodium [Cytomel] 5 mcg PO DAILY 01/24/21 [History] Albuterol Inhaler [Ventolin Hfa Inhaler] 2 puff INHALATION RT-Q4H PRN #1 gm 02/14/21 [Rx] Apixaban [Eliquis] 5 mg PO BID 30 Days #60 tab 02/14/21 [Rx] dexAMETHasone ORAL [Hexadrol] 6 mg PO DAILY #5 tab 02/14/21 [Rx] hydrALAZINE HCL [Apresoline] 25 mg PO TID #30 tab 02/14/21 [Rx] Follow up Appointment(s)/Referral(s): Yaya Gonzalez MD [Primary Care Provider] - 1-2 days Adwoa Wellington MD [STAFF PHYSICIAN] - 2 Weeks Activity/Diet/Wound Care/Special Instructions: [facility]: #[phone] Discharge Disposition: HOME SELF-CARE
[2021-02-14 14:32] VITALS: BP 112/68; PULSE 79; TEMP 97.9
== END 2021-02-14 16:37 | disposition home health service (06) | DRG 177 ==
LOC: EC 10:44 → 4SSUR 12:50 → 2SICU 01-27 18:05 → 4SSUR 02-08 15:23
PROVIDERS: ADMIT Internal Medicine; ATTEND Internal Medicine
PROC: XW0DXM6 Introduction of Baricitinib into Mouth and Pharynx, External Approach, New Technology Group 6 (ICD-10-PCS; principal; 2021-01-27)
PROC: 5A09457 Assistance with Respiratory Ventilation, 24-96 Consecutive Hours, Continuous Positive Airway Pressure (ICD-10-PCS; 2021-01-27)
PROC: 5A0935A Assistance with Respiratory Ventilation, Less than 24 Consecutive Hours, High Flow/Velocity Cannula (ICD-10-PCS; 2021-01-27)
PROC: 3E0436Z Introduction of Nutritional Substance into Central Vein, Percutaneous Approach (ICD-10-PCS; 2021-01-29)
PROC: 02HV33Z Insertion of Infusion Device into Superior Vena Cava, Percutaneous Approach (ICD-10-PCS; 2021-01-29 10:15)
DX: U07.1 COVID-19 (principal); J12.82 Pneumonia due to coronavirus disease 2019; J80 Acute respiratory distress syndrome; I26.99 Other pulmonary embolism without acute cor pulmonale; E44.1 Mild protein-calorie malnutrition; R04.2 Hemoptysis; E87.1 Hypo-osmolality and hyponatremia; Z68.41 Body mass index [BMI] 40.0-44.9, adult; E66.01 Morbid (severe) obesity due to excess calories; F41.0 Panic disorder [episodic paroxysmal anxiety]; E03.9 Hypothyroidism, unspecified; G89.29 Other chronic pain; M54.9 Dorsalgia, unspecified; K59.00 Constipation, unspecified; R74.01 Elevation of levels of liver transaminase levels; Z79.890 Hormone replacement therapy; Z79.899 Other long term (current) drug therapy; Z90.710 Acquired absence of both cervix and uterus; Z87.42 Personal history of other diseases of the female genital tract; Z87.39 Personal history of other diseases of the musculoskeletal system and connective tissue; Z98.890 Other specified postprocedural states; Z71.3 Dietary counseling and surveillance; Z88.5 Allergy status to narcotic agent; Z88.0 Allergy status to penicillin; Z91.040 Latex allergy status; Z83.3 Family history of diabetes mellitus
CPT/HCPCS: 36415; 36573; 71045; 71046; 71275; 76937; 80048; 80053; 80076; 81003; 82330; 82553; 82728; 83036; 83615; 83735; 84100; 84145; 84478; 84484; 85025; 85027; 85379; 85384; 85610; 85730; 86140; 87635; 93005; 94640; 94660; 94760; 96374; 99285

== ENCOUNTER → 2022-04-15 | Outpatient (CLI) | payer MEDICARE ==
--- NOTE | 2022-04-16 10:06 | MR ---
EXAMINATION TYPE: MR lumbar spine wo/w con DATE OF EXAM: 04/15/2022 7:17 PM COMPARISON: MRI lumbar spine 11/27/2020. CLINICAL INDICATION:Female, 66 years old with history of M51.36 INTERVERTEBRAL DISC DEGENERATION, LUM BAR R TECHNIQUE: Multi planar, multi sequence imaging was performed utilizing: T1-weighted, T2-weighted, a nd turbo inversion recovery imaging of the lumbar spine. IV Contrast: 10 cc Gadavist. None. FINDINGS: Alignment: The lumbar vertebral bodies have preserved heights and alignment. Cord: The conus medullaris and the distal spinal cord appear unremarkable with regards to their signa l intensity and morphology. Bones/Discs: Scattered osseous lesions: * Heterogenous expansile high T1/high T2 signal lesion within the sacrum S2 and S3 measuring 4.1 x 2 .7 cm. * New S1 vertebral body lesion which is low T1/intermediate T2 signal on the right measuring 4.3 x 2 .7 cm. * L4 measuring 11 mm, stable. * New L3 vertebral body measuring 18 mm with suspected underlying pathologic fracture with bone dagoberto ow edema within the 3 dominant superior aspect. No evidence of retropulsion. * T12 measuring 17 x 25 mm, previously 15 x 13 mm. * L4 lamina and spinous process expansile lesion which is new measuring 19 x 11.9 mm. * New L2 pedicle 9 mm lesion * New right iliac bone and intermediate T2/low T1 signal measuring 15 mm. * Multilevel degenerative disc disease is noted and most pronounced at the L2-L5. The signal is oscar sly maintained. L1-L2: No evidence of significant spinal canal stenosis or neural foraminal stenosis. L2-L3: No evidence of significant spinal canal stenosis or neural foraminal stenosis. Compression fra cture of the superior L3 endplate without significant spinal canal or neural foraminal stenosis. L3-L4: No evidence of significant spinal canal stenosis or neural foraminal stenosis. Compression fra cture of the superior L3 endplate without significant spinal canal or neural foraminal stenosis. L4-L5: No evidence of significant spinal canal stenosis or neural foraminal stenosis. L5-S1: No evidence of significant spinal canal stenosis or neural foraminal stenosis. S1-S2: Left neural foramen severe stenosis from expansile mass seen within the sacrum and displaces t he exiting left nerve root. Other findings: Bilateral renal cysts are present. IMPRESSION: 1. Scattered osseous lesions most consistent with metastatic disease with associated L3 pathologic f racture. Further workup recommended if not already performed at an outside institution. 2. Left S1-S2 osseous mass which displaces the nerve root. 3. No definitive evidence of disc herniation or significant spinal canal stenosis.
== END | disposition home or self-care (01) ==
LOC: RADMRIMAIN 17:59
PROVIDERS: ATTEND Family Medicine
DX: M84.48XA Pathological fracture, other site, initial encounter for fracture (principal); M89.9 Disorder of bone, unspecified; M51.36 Other intervertebral disc degeneration, lumbar region
CPT/HCPCS: 72158; A9585

== ENCOUNTER 2024-03-25 09:56 | Emergency (ER) | payer MEDICARE ==
[2024-03-25 10:00] VITALS: RESP 16
--- NOTE | 2024-03-25 10:36 | ED ---
General Adult HPI - General Chief complaint: Skin/Abscess/Foreign Body Stated complaint: hematoma Time Seen by Provider: 03/25/24 10:03 Source: patient, RN notes reviewed Mode of arrival: ambulatory Limitations: no limitations - History of Present Illness Initial comments: 68-year-old female presents to the emergency department for evaluation of right breast wound. Patient has stage 4 breast cancer currently being treated with ibrance. She follows with Dr. Stein at [facility] in [place]. She reports yesterday she noticed a wound on her right breast. She states that it started bleeding and she has been unable to stop the bleeding since. She denies any recent fever, chills. - Related Data Home Medications Medication Instructions Recorded Confirmed Levothyroxine Sodium [Synthroid] 75 mcg PO DAILY 01/24/21 01/24/21 Liothyronine Sodium [Cytomel] 5 mcg PO DAILY 01/24/21 01/24/21 Previous Rx's Medication Instructions Recorded Albuterol Inhaler [Ventolin Hfa 2 puff INHALATION RT-Q4H PRN #1 gm 02/14/21 Inhaler] Apixaban [Eliquis] 5 mg PO BID 30 Days #60 tab 02/14/21 dexAMETHasone ORAL [Hexadrol] 6 mg PO DAILY #5 tab 02/14/21 hydrALAZINE HCL [Apresoline] 25 mg PO TID #30 tab 02/14/21 Sulfamethox-Tmp 800-160Mg [Bactrim 1 each PO Q12HR #20 tab 03/25/24 Ds] Allergies Allergy/AdvReac Type Severity Reaction Status Date / Time codeine Allergy Hallucinati Verified 03/25/24 10:00 ons latex Allergy Unknown Verified 03/25/24 10:00 Penicillins Allergy Unknown Verified 03/25/24 10:00 bisacodyl AdvReac Abdominal Verified 03/25/24 10:00 Pain shellfish derived [Shellfish] AdvReac Anaphylaxis Verified 03/25/24 10:00 Review of Systems ROS Statement: Those systems with pertinent positive or pertinent negative responses have been documented in the HPI. ROS Other: All systems not noted in ROS Statement are negative. Past Medical History Past Medical History: Thyroid Disorder Additional Past Medical History / Comment(s): back pain, hormone replacement therapy History of Any Multi-Drug Resistant Organisms: None Reported Past Surgical History: Hysterectomy, Orthopedic Surgery Additional Past Surgical History / Comment(s): carpal tunnel Past Psychological History: No Psychological Hx Reported Smoking Status: Never smoker Past Alcohol Use History: None Reported Past Drug Use History: None Reported - Past Family History Father Family Medical History: Diabetes Mellitus General Exam Limitations: no limitations General appearance: alert, in no apparent distress Head exam: Present: atraumatic, normocephalic, normal inspection Eye exam: Present: normal appearance, PERRL, EOMI. Absent: scleral icterus, conjunctival injection, periorbital swelling ENT exam: Present: normal exam, mucous membranes moist Respiratory exam: Present: normal lung sounds bilaterally. Absent: respiratory distress, wheezes, rales, rhonchi, stridor Cardiovascular Exam: Present: regular rate, normal rhythm, normal heart sounds. Absent: systolic murmur, diastolic murmur, rubs, gallop, clicks Neurological exam: Present: alert, oriented X3 Psychiatric exam: Present: normal affect, normal mood Skin exam: Present: warm, dry, other (Palpable masses of the right breast, 1 cm wound at the 9 o'clock position with slow bleeding). Absent: intact Course Vital Signs 03/25/24 09:58 Temperature 98.2 F Pulse Rate 81 Respiratory 16 Rate Blood Pressure 146/74 O2 Sat by Pulse 96 Oximetry Medical Decision Making - Medical Decision Making Was pt. sent in by a medical professional or institution ([facility] [place], TRAINING PERSONNEL SUPERVISOR, urgent care, hospital, or detention...) When possible be specific @ -No Did you speak to anyone other than the patient for history (EMS, parent, family, police, friend...)? What history was obtained from this source @ -No Did you review nursing and triage notes (agree or disagree)? Why? @ -I reviewed and agree with nursing and triage notes Were old charts reviewed (outside hosp., previous admission, EMS record, old EKG, old radiological studies, urgent care reports/EKG's, detention records)? Report findings @ -No old charts were reviewed Differential Diagnosis (chest pain, altered mental status, abdominal pain women, abdominal pain men, vaginal bleeding, weakness, fever, dyspnea, syncope, headache, dizziness, GI bleed, back pain, seizure, CVA, palpatations, mental health, musculoskeletal)? @ -Mastitis, breast cancer, abscess, hematoma, this this is not all inclusive EKG interpreted by me (3pts min.). @ -None X-rays interpreted by me (1pt min.). @ -None done CT interpreted by me (1pt min.). @ -None done U/S interpreted by me (1pt. min.). @ -Breast ultrasound shows Multiple discrete masses of the right breast abnormal fluid collection just deep to the skin surface irregular and thickened tissue surrounding with vascular flow What testing was considered but not performed or refused? (CT, X-rays, U/S, labs)? Why? @ -None What meds were considered but not given or refused? Why? @ -None Did you discuss the management of the patient with other professionals (professionals i.e. , PA, TRAINING PERSONNEL SUPERVISOR, lab, RT, psych nurse, social worker psychiatric, forensic pathologist, teacher, commanding officer garage, outsole caser)? Give summary @ -No Was smoking cessation discussed for >3mins.? @ -No Was critical care preformed (if so, how long)? @ -No Were there social determinants of health that impacted care today? How? (Homelessness, low income, unemployed, alcoholism, drug addiction, transportation, low edu. Level, literacy, decrease access to med. care, [place] [facility], rehab)? @ -No Was there de-escalation of care discussed even if they declined (Discuss DNR or withdrawal of care, Hospice)? DNR status @ -No What co-morbidities impacted this encounter? (DM, HTN, Smoking, COPD, CAD, Cancer, CVA, ARF, Chemo, Hep., AIDS, mental health diagnosis, sleep apnea, morbid obesity)? @ -None Was patient admitted / discharged? Hospital course, mention meds given and route, prescriptions, significant lab abnormalities, going to OR and other pertinent info. @ -Discharged. Patient presented to the emergency department for evaluation of wound on her right breast. Patient underwent laboratory studies showing no significant leukocytosis, hemoglobin stable at 12.1. Ultrasound obtained showing an abnormal fluid collection just deep to the skin surface with irregular and thickened tissue surrounding this with vascular flow, likely an intralesional bleed with hematoma formation. Let was applied to the wound along with TXA which significantly slowed the bleeding. Compression was applied to the area. I advised her to call her breast surgeon today. She will be started on antibiotic coverage. She is understanding and agreeable with this. Patient is stable at time of discharge. Case discussed with Dr. Rosas. Undiagnosed new problem with uncertain prognosis? @ -No Drug Therapy requiring intensive monitoring for toxicity (Heparin, Nitro, Insulin, Cardizem)? @ -No Were any procedures done? @ -No Diagnosis/symptom? @ -Hematoma, breast cancer Acute, or Chronic, or Acute on Chronic? @ -Acute, chronic Uncomplicated (without systemic symptoms) or Complicated (systemic symptoms)? @ -Uncomplicated Side effects of treatment? @ -No Exacerbation, Progression, or Severe Exacerbation? @ -No Poses a threat to life or bodily function? How? (Chest pain, [place], [place], pneumonia, PE, COPD, DKA, ARF, appy, cholecystitis, CVA, Diverticulitis, Homicidal, Suicidal, threat to staff... and all critical care pts) @ -No - Lab Data Result diagrams: 03/25/24 10:47 03/25/24 10:47 Lab Results 03/25/24 03/25/24 03/25/24 Range/Units 10:47 10:47 10:47 WBC 4.2 (3.8-10.6) k/uL RBC 3.93 (3.80-5.40) m/uL Hgb 12.1 (11.4-16.0) gm/dL Hct 37.5 (34.0-46.0) % MCV 95.4 (80.0-100.0) fL MCH 30.7 (25.0-35.0) pg MCHC 32.2 (31.0-37.0) g/dL RDW 13.2 (11.5-15.5) % Plt Count 247 (150-450) k/uL MPV 7.2 Neutrophils % 72 % Lymphocytes % 18 % Monocytes % 7 % Eosinophils % 2 % Basophils % 0 % Neutrophils # 3.1 (1.3-7.7) k/uL Lymphocytes # 0.8 L (1.0-4.8) k/uL Monocytes # 0.3 (0-1.0) k/uL Eosinophils # 0.1 (0-0.7) k/uL Basophils # 0.0 (0-0.2) k/uL Sodium 136 L (137-145) mmol/L Potassium 4.1 (3.5-5.1) mmol/L Chloride 109 H (98-107) mmol/L Carbon Dioxide 25 (22-30) mmol/L Anion Gap 2 mmol/L BUN 17 (7-17) mg/dL Creatinine 0.68 (0.52-1.04) mg/dL Est GFR (CKD-EPI)AfAm >90 (>60 ml/min/1.73 sqM) Est GFR (CKD-EPI)NonAf >90 (>60 ml/min/1.73 sqM) Glucose 96 (74-99) mg/dL Plasma Lactic Acid Bishop 0.8 (0.7-2.0) mmol/L Calcium 8.7 (8.4-10.2) mg/dL Total Bilirubin 0.4 (0.2-1.3) mg/dL AST 42 H (14-36) U/L ALT 47 H (4-34) U/L Alkaline Phosphatase 132 H (38-126) U/L Total Protein 6.2 L (6.3-8.2) g/dL Albumin 3.7 (3.5-5.0) g/dL Disposition Clinical Impression: History of breast cancer, Bleeding from wound Disposition: HOME SELF-CARE Condition: Stable Instructions (If sedation given, give patient instructions): Hematoma (ED) Additional Instructions: Please follow-up with your breast surgeon/oncologist today. Return to the emergency department for new or worsening symptoms. Prescriptions: Sulfamethox-Tmp 800-160Mg [Bactrim Ds] 1 each PO Q12HR #20 tab Is patient prescribed a controlled substance at d/c from ED?: No Referrals: Yaya Gonzalez MD [Primary Care Provider] - 1-2 days
[2024-03-25 10:50] LABS: Basophils % (A) 0 %; Eosinophils # (A) 0.1 k/uL (0-0.7); Eosinophils % (A) 2 %; HCT 37.5 % (34.0-46.0); HGB 12.1 gm/dL (11.4-16.0); Lymphocytes # (A) 0.8 k/uL (1.0-4.8); Lymphocytes % (A) 18 %; MCH 30.7 pg (25.0-35.0); MCHC 32.2 g/dL (31.0-37.0); MCV 95.4 fL (80.0-100.0); Mean Platelet Volume 7.2; Monocytes # (A) 0.3 k/uL (0-1.0); Monocytes % (A) 7 %; Neutrophils # (A) 3.1 k/uL (1.3-7.7); Neutrophils % (A) 72 %; Platelet Count 247 k/uL (150-450); RBC 3.93 m/uL (3.80-5.40); RDW 13.2 % (11.5-15.5); WBC 4.2 k/uL (3.8-10.6)
[2024-03-25 11:01] LABS: ALT 47 U/L (4-34); AST 42 U/L (14-36); African American GFR (CKD) >90 (>60 ml/min/1.73 sqM); Albumin 3.7 g/dL (3.5-5.0); Alkaline Phosphatase 132 U/L (38-126); Anion Gap 2 mmol/L; Blood Urea Nitrogen 17 mg/dL (7-17); Calcium 8.7 mg/dL (8.4-10.2); Carbon Dioxide 25 mmol/L (22-30); Chloride 109 mmol/L (98-107); Glucose 96 mg/dL (74-99); Non-African American GFR(CKD) >90 (>60 ml/min/1.73 sqM); Potassium 4.1 mmol/L (3.5-5.1); Sodium 136 mmol/L (137-145); Total Bilirubin 0.4 mg/dL (0.2-1.3); Total Protein 6.2 g/dL (6.3-8.2)
[2024-03-25] MEDS: LIDOCAINE/EPINEPHR/TETRACAINE 5 ML BOTTLE TOPICAL ONE (11:25)
[2024-03-25] MEDS: TRANEXAMIC ACID 1,000 MG/10 ML VIAL MISCELLANE ONE (11:42)
--- NOTE | 2024-03-25 11:44 | USB ---
Reason for Exam: Clinical finding. Risk Values: Kerry 5 year model risk: 1.1%. NCI Lifetime model risk: 3.7%. Technique: Method: Whole Breast Handheld. Findings: The whole breast of the right breast, the axilla of the right breast and the retroareolar of the right breast were scanned. A complete US of all four quadrants of the breast, axilla, and retro-areolar region were reviewed. The breast appears to be filled with multiple masses. Largest in the 12:00 area spanning up to 6.1 cm. There may be a biopsy clip within this mass. Another discrete mass measuring up to 4.4 cm at the 4:00 position. There is an abnormal fluid collection just deep to the skin surface at 9:00, 5 cm from the nipple. This area measures approximately 4.9 x 3.8 x 1.3 cm. The surrounding tissue appears hypoechoic, irregular, thickened with associated vascularity. There may be contiguous abnormal soft tissue measuring 2.6 cm here at the 9:00 position. Also deeper within the breast, at the 9:00 position, possible additional abnormal mass measuring 2.5 cm. Abnormal axillary adenopathy is present. Multiple lymph nodes are noted. Largest measuring 2.3 cm with abnormal rounded hypoechoic appearance. Overall Assessment: Known biopsy proven malignancy, BI-RAD 6 Management: Surgical Consultation of the right breast. The right breast appears to be filled with tumor. Multiple discrete masses are identified, largest measuring 6 cm. At the 9:00 position site of bleeding, there is an abnormal 4.9 x 2.8 x 1.3 cm fluid collection just deep to the skin surface. As the surrounding tissue is irregular and thickened with vascular flow, this may represent tumor with intralesional bleeding. There may be contiguous masses at the 9:00 position measuring 2.6 cm and 2.5 cm. Metastatic axillary adenopathy. We note that the left breast has not been evaluated. Appropriate diagnostic workup and surgical/oncologic management is advised. Results were given to the patient verbally at the time of exam. [facility], , 03/25/2024 11:41 AM. Electronically signed and approved by: Jonathan Cameron M.D. Radiologist
[2024-03-25 12:50] VITALS: BP 145/88; PULSE 73; TEMP 98
== END 2024-03-25 12:50 | disposition home or self-care (01) ==
LOC: EC 09:56
DX: S20.01XA Contusion of right breast, initial encounter (principal); C50.911 Malignant neoplasm of unspecified site of right female breast; Z88.0 Allergy status to penicillin; Z91.040 Latex allergy status; Z91.013 Allergy to seafood; Z88.8 Allergy status to other drugs, medicaments and biological substances
CPT/HCPCS: 36415; 80053; 83605; 85025; 99283

== ENCOUNTER → 2024-11-19 | Outpatient (CLI) | payer MEDICARE ==
[2024-11-19 14:05] VITALS: BP 138/75; RESP 17; TEMP 98.7
--- NOTE | 2024-11-19 14:40 | P.GSCN ---
History of Present Illness Consult date: 11/19/24 Reason for Consult: nonhealing wound right breast Requesting physician: Yaya Gonzalez History of present illness: Carmen is a 69 year old female seen in consultation for Dr. Gonzalez regarding diagnosis of a right breast cancer on 05-16-2022. This was noted to be 6.7 cm in size. It was a grade 2/3 with focal necrosis. Additionally biopsy of the right lymph node was performed which showed metastatic carcinoma. It was metastatic at that time. Since that time she had radiation therapy and chemotherapy. She is presently taking capecitabine 1500 mg twice daily for 7 days on then hold for 7 days. She has been on this since July 2024. She is followed by Dr. Nick at [facility]. She has had a bone scan performed on 10 08 24 which revealed multifocal radiotracer uptake throughout the axial and appendicular skeleton consistent with osseous metastatic disease. Additionally she had a CT scan of the chest/abdomen performed on 10 08 24 which revealed increased moderate bilateral pleural effusions and minimal worsened pleural nodularity. Additionally increased nodularity gastrohepatic ligament and retroperitoneal lymph nodes are increased. She had a breast biopsy in 2022 and now states she had a hematoma which "exploded" and was seen in the ER in March 2024, and it is back and getting bigger. She had this drained with a needle and it bleed again. She was seen at the wound clinic and they debrided the inside and and took out blood clots. packed with silver rope and it burned and not healing done yesterday. genetic testing not done Caffeine: Occasional Nicotine: Negative Chocolate: Twice a week Hormones: none, was on DIM to decrease the estrogen levels Family History: sister: kidney cancer sister: 2 had lumpectomy mother: skin cancer maternal grandmother: of breast cancer 1955 maternal grandfather: brain cancer Hormonal History: menarche: 15 M1, breast fed: yes, age at first : 19 menopause: surgical onset about 45 Surgical History: hysterectomy took ovaries, no cancer Medical History: metastatic breast cancer arthritis Social History: nicotine: none alcohol: occasional drugs: none Review of Systems - Constitutional Reports sweats, Denies fever - EENT Eyes: denies blurred vision Ears: bilateral: decreased hearing, tinnitus Ears, nose, mouth and throat: Denies dysphagia - Breasts bilateral: as per HPI - Cardiovascular Cardiovascular Comment(s): asthma Denies chest pain, Denies shortness of breath - Respiratory Reports as per HPI, Denies cough - Gastrointestinal Reports as per HPI - Genitourinary Genitourinary: Denies dysuria, Denies hematuria Menstruation: Reports post hysterectomy - Musculoskeletal Musculoskeleta Comment(s): mets to bones Reports as per HPI - Integumentary Reports as per HPI, Denies rash, Denies unusual bruising - Neurological Denies headaches, Denies syncope - Psychiatric Reports as per HPI - Endocrine Reports as per HPI, Reports fatigue - Hematologic/Lymphatic Reports as per HPI - Allergic/Immunologic Reports seasonal allergies Past Medical History Past Medical History: Thyroid Disorder Additional Past Medical History / Comment(s): back pain, hormone replacement therapy History of Any Multi-Drug Resistant Organisms: None Reported Past Surgical History: Hysterectomy, Orthopedic Surgery Additional Past Surgical History / Comment(s): carpal tunnel Past Psychological History: No Psychological Hx Reported Smoking Status: Never smoker Past Alcohol Use History: None Reported Past Drug Use History: None Reported - Past Family History Father Family Medical History: Diabetes Mellitus Medications and Allergies Home Medications Medication Instructions Recorded Confirmed Type Levothyroxine Sodium [Synthroid] 75 mcg PO DAILY 01/24/21 11/19/24 History Liothyronine Sodium [Cytomel] 5 mcg PO DAILY 01/24/21 11/19/24 History Albuterol Inhaler [Ventolin Hfa 2 puff INHALATION RT-Q4H PRN #1 gm 02/14/21 11/19/24 Rx Inhaler] Apixaban [Eliquis] 5 mg PO BID 30 Days #60 tab 02/14/21 11/19/24 Rx dexAMETHasone ORAL [Hexadrol] 6 mg PO DAILY #5 tab 02/14/21 11/19/24 Rx hydrALAZINE HCL [Apresoline] 25 mg PO TID #30 tab 02/14/21 11/19/24 Rx Sulfamethox-Tmp 800-160Mg [Bactrim 1 each PO Q12HR #20 tab 03/25/24 11/19/24 Rx Ds] Allergies Allergy/AdvReac Type Severity Reaction Status Date / Time codeine Allergy Hallucinati Verified 11/19/24 14:01 ons latex Allergy Unknown Verified 11/19/24 14:01 Penicillins Allergy Unknown Verified 11/19/24 14:01 bisacodyl AdvReac Abdominal Verified 11/19/24 14:01 Pain shellfish derived [Shellfish] AdvReac Anaphylaxis Verified 11/19/24 14:01 Surgical - Exam Vital Signs Temp Resp BP Pulse Ox 98.7 F 17 138/75 96 11/19/24 14:02 11/19/24 14:02 11/19/24 14:02 11/19/24 14:02 - General moderate distress - Eyes normal ocular movement - Neck trachea midline - Respiratory normal respiratory effort - Cardiovascular Rhythm: regular Heart Sounds: normal: S1, S2 - Abdomen Abdomen: soft, non tender, no guarding, no rigid, no rebound - Integumentary normal turgor - Neurologic no disoriented, no combative - Musculoskeletal normal gait - Psychiatric oriented to time, oriented to person, oriented to place, speech is normal, memory intact Breast Exam: BRA: large inspection: Dressing with evidence of bleeding over the right breast, we do not have the same dressing to change this and so the dressing is not being removed here today Palpation: Right breast mass approximately 8 x 4 cm freely mobile with a dressing over the top of this Right axilla: Adenopathy Left breast no dominant masses or nodules of concern Left axilla: Positive adenopathy Positive left cervical adenopathy Results CT scan chest abdomen and bone scan reviewed Assessment and Plan Assessment: Impression: Metastatic invasive ductal carcinoma Nonhealing wound right breast related to invasive ductal carcinoma freely mobile Plan: Present case at tumor board Consider mastectomy Clearance Dr. Gonzalez CC Dr. Gonzalez
--- NOTE | 2024-11-19 17:02 | CT ---
EXAMINATION TYPE: CT cervical spine wo con DATE OF EXAM: 11/19/2024 4:26 PM COMPARISON: None. CLINICAL INDICATION: Female, 69 years old with history of C50.919 MALIGNANT NEOPLASM OF UNSP SITE OF UNSPECI; PRE-SURGICAL, MALIGNANT NEOPLASM cancer with metastatic disease to the spine. TECHNIQUE: Axial CT images from the skull base to the inferior aspect of T2 we obtained without intra venous contrast. Coronal and sagittal reformatted images were also reviewed. Contrast used: mL of , (if blank None) Oral contrast used: (if blank None) CT DLP: 560 mGycm, Automated exposure control for dose reduction was used. FINDINGS: Fracture: None. Osseous structures: Multilevel degenerative disc disease changes with endplate spurring and disc oste ophyte complex's. Scattered suspicious lesions throughout the osseous structures including C2 vertebr al body diffusely T1 vertebral body in the right measuring up to 16 mm T3 vertebral body measuring up to 12 mm. Right medial rib 5, left scapula. Vertebral alignment: Alignment within normal limits. Spinal canal/Neural Foramina: No evidence of significant spinal canal narrowing. No evidence for sign ificant neural foraminal stenosis. Neck soft tissues: Extensive lymphadenopathy throughout the left neck and into ther level of the hyoi d bone. Measuring up to 14 mm in short axis series 4 image 70. Additional right neck lymph node measu ring up to 12 mm in short axis series 4 image 73. Lymphadenopathy extends into the bilateral clavicul ar region on the right measuring up to 17 mm on the left measuring up to 11 mm. Large conglomerate ly mphadenopathy seen in the anterior mediastinum. Prevascular space lymph node measuring up to 42 x 41 mm on the right and up to 5.6 x 3.1 cm on the left. Other: The airway is patent. Bilateral pleural effusions right greater than left. IMPRESSION: 1. No evidence of cervical spine fracture. 2. Diffuse metastatic disease throughout the bilateral neck and extending into the mediastinum with c onglomerate lymph nodes. Additionally there is a. Evidence of osseous metastatic disease. 3. Moderate right and [id number] left pleural effusion. [facility], , 11/19/2024 5:00 PM
[2024-11-20 01:24] LABS: HCT 36.2 % (37.2-46.3); HGB 11.4 g/dL (12.0-15.0); MCH 33.7 pg (27.0-32.0); MCHC 31.5 g/dL (32.0-37.0); MCV 107.1 FL (80.0-97.0); NRBC Per 100 WBC 0.02 X 10*3/uL (0.00-0.01); Platelet Count 376 X 10*3/uL (140-440); RBC 3.38 X 10*6/uL (4.10-5.20); RDW 18.1 % (11.5-14.5); WBC 4.99 X 10*3/uL (4.50-10.00)
[2024-11-20 01:55] LABS: Basophils # (A) 0.02 X 10*3/uL (0.00-0.10); Basophils % (A) 0.4 %; Eosinophils # (A) 0.05 X 10*3/uL (0.04-0.35); Eosinophils % (A) 1.0 %; Immature Grans, Automated 1.60 %; Lymphocytes # (A) 1.03 X 10*3/uL (0.90-5.00); Lymphocytes % (A) 20.6 %; Macrocytosis (M) 2+ (None Seen); Monocytes # (A) 0.52 X 10*3/uL (0.20-1.00); Monocytes % (A) 10.4 %; Neutrophils # (A) 3.29 X 10*3/uL (1.80-7.70); Neutrophils % (A) 66.0 %
== END ==
LOC: WWCWWP 13:38
PROVIDERS: ATTEND Surgery
DX: C50.911 Malignant neoplasm of unspecified site of right female breast (principal); Z88.5 Allergy status to narcotic agent; Z91.040 Latex allergy status; Z88.0 Allergy status to penicillin; Z91.013 Allergy to seafood; Z88.8 Allergy status to other drugs, medicaments and biological substances
CPT/HCPCS: 72125; 85025